=== PATIENT | female | born 1935 | race Caucasian/White ===

== ENCOUNTER 2018-05-10 09:46 | Outpatient (RCR) | payer MEDICARE | END 2018-05-13 | disposition home or self-care (01) | LOC: ONC 09:46 | PROVIDERS: ATTEND Radiology Radiation Oncology | DX: Z51.0 Encounter for antineoplastic radiation therapy (principal); C79.2 Secondary malignant neoplasm of skin; Z85.3 Personal history of malignant neoplasm of breast | CPT/HCPCS: 77290; 77334; 77470; 99204 ==

== ENCOUNTER → 2018-12-25 | Outpatient (CLI) | payer MEDICARE ==
[~2018-12-25] MED LIST: GADOBUTROL 7.5 MMOL/7.5 ML (GADAVIST) VIAL IV ONE; HOLD METFORMIN - RECEIVED CONTRAST 20 ML VIAL IV SCH; IOHEXOL 350 MG/ML 100 ML (OMNIPAQUE 350) VIAL IV ONE
--- NOTE | 2018-12-25 13:37 | Diagnostic Imaging Report ---
PROCEDURE: CT chest and abdomen with contrast. TECHNIQUE: Multiple contiguous axial images were obtained through the chest and abdomen after the administration of intravenous contrast. Auto Exposure Controls were utilized during the CT exam to meet ALARA standards for radiation dose reduction. INDICATION: Breast cancer with left mastectomy. COMPARISON: No prior studies are available for comparison. FINDINGS: CT chest: A right chest wall port is noted. No axillary lymphadenopathy is seen. There appear to be surgical clips in the left axilla. No definite hilar or mediastinal lymphadenopathy is identified. No pericardial or pleural fluid is identified. There appear be some fibrotic changes in the left upper lobe. No parenchymal mass or nodule is seen. No definite osteolytic or osteoblastic lesions are detected. IMPRESSION: Fibrotic changes in the left upper lobe. No thoracic lymphadenopathy or evidence of pulmonary metastatic disease is identified. CT abdomen: No discrete liver mass is identified. There appears to be a small stone in the gallbladder. No biliary ductal dilatation is seen. Pancreas and spleen are unremarkable. No adrenal mass is detected. Kidneys are unremarkable. Aorta is calcified but nonaneurysmal. No central retroperitoneal or mesenteric lymphadenopathy is seen. Bowel loops are nondilated. There is no ascites. No acute bony abnormality is seen. No osteolytic or blastic lesion is seen. IMPRESSION: 1. Unremarkable CT of the abdomen. There are no findings to suggest adenopathy or metastatic disease. 2. Cholelithiasis. Dictated by: Dictated on workstation # [id number]
--- NOTE | 2018-12-25 13:45 | Diagnostic Imaging Report ---
CLINICAL INDICATION: Patient with breast cancer with back and right leg pain. EXAM: MRI of the brain performed without and with 6 cc of Gadavist IV contrast. Sequences include axial DWI, ADC map, coronal gradient echo, axial T2, axial FLAIR, axial T1, axial T1 post IV contrast, coronal T1 fat-sat post IV contrast, and sagittal T1 post IV contrast. COMPARISON: None. FINDINGS: There is no evidence of acute cerebral infarct, intracranial hemorrhage, or gross mass effect. There is no abnormal IV contrast enhancement. There is diffuse brain parenchymal volume loss. There are multiple focal, patchy and confluent areas of high T2 signal white matter changes seen throughout both cerebral hemispheres, periventricular regions, and rashaun, likely related to chronic small vessel ischemic disease and leukoaraiosis. There is normal gomez-white matter distinction. There is no significant midline shift or herniation. The [place] vascular structures show no gross abnormality as visualized. The pituitary gland, sella, and suprasellar regions are unremarkable as visualized. There is no evidence of hydrocephalus. The basal cisterns are unremarkable. The skull, extracranial soft tissue, and orbits are unremarkable. There is mild mucosal thickening involving the ethmoid sinus. There is small amount of fluid in the left mastoid air cells and minimal amount on the right side. IMPRESSION: 1: There is no evidence of acute intracranial process. There is no evidence of metastatic disease or abnormal IV contrast enhancement. 2: Chronic small vessel ischemic disease and leukoaraiosis. 3: There is mild ethmoid sinus mucosal thickening. There is a small amount of fluid in both mastoid air cells. Dictated by: Dictated on workstation # [id number]
== END ==
LOC: RAD 11:35
PROVIDERS: ATTEND Internal Medicine Hematology & Oncology
DX: C50.312 Malignant neoplasm of lower-inner quadrant of left female breast (principal); I67.82 Cerebral ischemia; I67.81 Acute cerebrovascular insufficiency; J34.89 Other specified disorders of nose and nasal sinuses; J84.10 Pulmonary fibrosis, unspecified; K80.20 Calculus of gallbladder without cholecystitis without obstruction; Z90.12 Acquired absence of left breast and nipple; Z95.828 Presence of other vascular implants and grafts
CPT/HCPCS: 70553; 71260; 74160

== ENCOUNTER → 2019-01-04 | Outpatient (CLI) | payer MEDICARE ==
[~2019-01-04] MED LIST changes: -HOLD METFORMIN - RECEIVED CONTRAST 20 ML VIAL IV SCH; -IOHEXOL 350 MG/ML 100 ML (OMNIPAQUE 350) VIAL IV ONE
--- NOTE | 2019-01-04 13:38 | Diagnostic Imaging Report ---
PROCEDURE: MRI lumbar spine with and without contrast. TECHNIQUE: Multiplanar, multisequence MRI of the lumbar spine was performed with and without contrast. INDICATION: Back pain. Patient has history of breast cancer. COMPARISON: No prior studies are available for comparison. FINDINGS: There is right convexity lumbar scoliotic curvature. There is normal lordotic curvature. Minimal retrolisthesis of L1 on L2 and L2 on L3 is noted. The vertebral body heights are maintained. No acute compression fracture or geographic marrow lesion is seen. There is significant multilevel degenerative disc disease with variable disc space narrowing and desiccation as well as marginal osteophyte formation. This is most marked at T12-L1, L1-2 and L2-3 levels. Conus is unremarkable at the L2-3 level. T12-L1: Central canal is patent. There appears to be some mild left neural foraminal narrowing. Right neural foramen is patent. L1-2: Central canal is patent. There is moderate left neural foraminal narrowing. Right neural foramen is patent. L2-3: There is some ligamentous thickening and broad-based disc/osteophyte complex. Central canal remains patent. There is mild to moderate neural foraminal narrowing bilaterally. L3-4: There is ligamentous thickening and broad-based disc/osteophyte complex. This does result in mild to moderate central canal narrowing. There is also bilateral lateral recess narrowing. Moderate bilateral neural foraminal stenosis is seen, greater on the right. L4-5: Broad-based disc/osteophyte complex and ligamentous thickening results in severe trefoil stenosis to the central canal. There is also significant bilateral lateral recess stenosis. Significant bilateral neural foraminal stenosis is noted. L5-S1: Bulky hypertrophic facet changes with ligamentous thickening and broad-based disc/osteophyte complex resulting in severe trefoil central canal stenosis. There is also severe bilateral lateral recess stenosis and moderate bilateral neural foraminal stenosis. Postcontrast imaging is without abnormal enhancement. IMPRESSION: Severe multilevel lumbar spondylosis with multilevel central canal, lateral recess and neural foraminal stenosis described level by level above. No acute compression fracture or evidence of metastatic disease is detected. Dictated by: Dictated on workstation # [id number]
== END ==
LOC: RAD 11:50
PROVIDERS: ATTEND Internal Medicine Hematology & Oncology
DX: M47.817 Spondylosis without myelopathy or radiculopathy, lumbosacral region (principal); M48.07 Spinal stenosis, lumbosacral region; M41.86 Other forms of scoliosis, lumbar region; M51.36 Other intervertebral disc degeneration, lumbar region; M25.78 Osteophyte, vertebrae; C50.312 Malignant neoplasm of lower-inner quadrant of left female breast
CPT/HCPCS: 72158

== ENCOUNTER 2019-01-10 13:56 | Outpatient (RCR) | payer MEDICARE ==
[2018-12-04 15:24] LABS: BASOPHILS % (AUTO) 1 % (0-10); EOSINOPHILS # (AUTO) 0.3 10^3/uL (0.0-0.3); EOSINOPHILS % (AUTO) 6 % (0-10); HEMATOCRIT 38 % (35-52); HEMOGLOBIN 12.7 G/DL (11.5-16.0); LYMPHOCYTES # (AUTO) 0.9 X 10^3 (1.0-4.0); LYMPHOCYTES % (AUTO) 20 % (12-44); MEAN CORPUSCULAR HEMOGLOBIN 32 PG (25-34); MEAN CORPUSCULAR HGB CONC 33 G/DL (32-36); MEAN CORPUSCULAR VOLUME 97 FL (80-99); MEAN PLATELET VOLUME 9.9 FL (7.4-10.4); MONOCYTES # (AUTO) 0.5 X 10^3 (0.0-1.0); MONOCYTES % (AUTO) 11 % (0-12); NEUTROPHILS # (AUTO) 2.9 X 10^3 (1.8-7.8); NEUTROPHILS % (AUTO) 62 % (42-75); PLATELET COUNT 178 10^3/uL (130-400); RED CELL DISTRIBUTION WIDTH 12.3 % (10.0-14.5); WHITE BLOOD COUNT 4.7 10^3/uL (4.3-11.0)
[2018-12-04 15:44] LABS: BILIRUBIN,TOTAL 0.3 MG/DL (0.1-1.0); CALCIUM 10.1 MG/DL (8.5-10.1); CREATININE SERUM 0.89 MG/DL (0.60-1.30); POTASSIUM 4.4 MMOL/L (3.6-5.0)
== END 2019-03-04 | disposition home or self-care (01) ==
LOC: ONC 13:56
PROVIDERS: ATTEND Internal Medicine Hematology & Oncology
DX: C50.312 Malignant neoplasm of lower-inner quadrant of left female breast (principal); C77.3 Secondary and unspecified malignant neoplasm of axilla and upper limb lymph nodes; C79.89 Secondary malignant neoplasm of other specified sites; Z17.1 Estrogen receptor negative status [ER-]; I25.10 Atherosclerotic heart disease of native coronary artery without angina pectoris; I10 Essential (primary) hypertension; E03.9 Hypothyroidism, unspecified; K21.9 Gastro-esophageal reflux disease without esophagitis; F32.9 Major depressive disorder, single episode, unspecified; M54.31 Sciatica, right side; Z90.11 Acquired absence of right breast and nipple; Z92.21 Personal history of antineoplastic chemotherapy; Z92.3 Personal history of irradiation
CPT/HCPCS: 36591; 80053; 84443; 85025; 86300; 99213

== ENCOUNTER → 2019-02-12 | Outpatient (CLI) | payer MEDICARE ==
[~2019-02-12] VITALS: Ht 162.6 cm; Wt 63.0 kg
[~2019-02-12] MED LIST changes: -GADOBUTROL 7.5 MMOL/7.5 ML (GADAVIST) VIAL IV ONE; +REGADENOSON 0.4 MG/5 ML SYR (LEXISCAN) IV ONE
[2019-02-12] MEDS: CATHETER FLUSH 10 ML SYR IV PRN ×2 (11:58→12:48)
[2019-02-12 12:46] VITALS: BP 134/91
--- NOTE | 2019-02-12 23:50 | STRESS TEST ---
DATE OF SERVICE: 02/12/2019 RESTING AND POST REGADENOSON TECHNETIUM-99M TETROFOSMIN SPECT CT IMAGING ORDERING PHYSICIAN: Dr. Polo. CLINICAL DIAGNOSES: Coronary artery disease, abnormal electrocardiogram, hypertension. Baseline images were carried out after injection of 10.13 mCi of technetium-99m Tetrofosmin. This was followed by 0.4 mg regadenoson and 30.2 mCi of technetium-99m Tetrofosmin. The electrocardiogram showed sinus rhythm at baseline. There is evidence of left ventricular hypertrophy with repolarization abnormality. Isolated premature ventricular contractions seen. The electrocardiogram did not change significantly with the regadenoson infusion. Review of images at rest and following stress does not indicate evidence of significant myocardial ischemia or infarction. Gated images show mild global hypokinesis. The left ventricular ejection fraction is 43%. Left ventricular end diastolic volume 119 mL. TID is absent (1.04). CONCLUSIONS: 1. Mild cardiomegaly with mild global hypokinesis and left ventricular ejection fraction of 43%. 2. No evidence of significant myocardial ischemia or infarction on this study. Job ID: [id number] DocumentID: [id number] Dictated Date: 02/12/2019 19:49:59 Heel Sander Date: 02/12/2019 23:49:59 Dictated By: KELLY POLO MD, MA, FACP, FACC, MTDD
== END ==
LOC: CARD 11:43
PROVIDERS: ATTEND Internal Medicine Cardiovascular Disease
DX: I25.10 Atherosclerotic heart disease of native coronary artery without angina pectoris (principal); I10 Essential (primary) hypertension; R94.31 Abnormal electrocardiogram [ECG] [EKG]
CPT/HCPCS: 78452; 93017

== ENCOUNTER 2019-03-27 16:16 | Emergency (ER) | payer MEDICARE ==
[~2019-03-27] VITALS: Ht 162.6 cm; Wt 64.4 kg
--- NOTE | 2019-03-27 16:21 | ED General ---
General Stated Complaint: LIGHT-HEADED History of Present Illness Date Seen by Provider: Mar 27, 2019 Time Seen by Provider: 16:20 Initial Comments Patient presenting to the emergency department for evaluation of a room spinning sensation that has been affecting her for the past 4 days. She says that she likes to be very active going out and doing yard work and doing work around the house and whenever she bends over to do something she feels an intense spinning sensation and has fallen once but she denies any injuries. She says that she does not have a lightheaded sensation chest pain shortness of breath diaphoresis vomiting diarrhea. She says that spinning sensation can make her nauseated and she may not be taking in enough fluids. She says for an extended period of time she has felt a pressure sensation in her bilateral ears and feels as if she is under water whenever she talks. She is unsure how long this is exactly been going on but she says for at least several weeks. She denies vision changes difficulty speaking unilateral weakness numbness or tingling. She is in no obvious distress with normal vital signs Allergies and Home Medications Allergies Coded Allergies: No Known Drug Allergies (Unverified , 03/27/19) Home Medications Alprazolam 0.5 Mg Tablet, 0.5 MG PO QID PRN for ANXIETY, (Reported) Aspirin 81 Mg Tablet.dr, 81 MG PO DAILY, (Reported) Cholecalciferol (Vitamin D3) 1,000 Unit Tablet, 1,000 UNIT PO DAILY, (Reported) Gabapentin 400 Mg Capsule, 400 MG PO TID, (Reported) Hydrocodone/Acetaminophen 1 Each Tablet, 1 TAB PO TID PRN for PAIN-MILD TO MODERATE, (Reported) Levothyroxine Sodium 150 Mcg Tablet, 150 MCG PO DAILY, (Reported) Lisinopril 2.5 Mg Tablet, 2.5 MG PO DAILY, (Reported) Metoprolol Succinate 25 Mg Tab.er.24h, 25 MG PO DAILY, (Reported) Montelukast Sodium 10 Mg Tablet, 10 MG PO DAILY, (Reported) Omeprazole 20 Mg Capsule.dr, 20 MG PO BID, (Reported) Paroxetine HCl 20 Mg Tablet, 20 MG PO DAILY, (Reported) Ropinirole HCl 2 Mg Tablet, 2 MG PO BID, (Reported) Sucralfate 1 Gm Tablet, 1 GM PO QIDACHS, (Reported) Patient Home Medication List Home Medication List Reviewed: Yes Review of Systems Review of Systems Constitutional: no symptoms reported EENTM: hearing loss Respiratory: no symptoms reported Cardiovascular: no symptoms reported Gastrointestinal: nausea Genitourinary: no symptoms reported Musculoskeletal: no symptoms reported Skin: no symptoms reported Psychiatric/Neurological: Other (vertigo) All Other Systems Reviewed Negative Unless Noted: Yes Physical Exam Vital Signs Vital Signs - First Documented 03/27/19 16:30 Temp 97.5 Pulse 60 Resp 20 B/P (MAP) 139/90 (106) Pulse Ox 97 O2 Delivery Room Air Capillary Refill : Height, Weight, BMI Height: 5'4.00" Weight: 139lbs. 0.0oz. 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 Norm as Tested, Other (normal finger to nose and heel to martinez) Skin: Normal Color, Warm/Dry Progress/Results/Core Measures Suspected Sepsis SIRS Temperature: Pulse: Respiratory Rate: Laboratory Tests 03/27/19 16:45: White Blood Count 6.5 Blood Pressure / Mean: Laboratory Tests 03/27/19 16:45: Creatinine 1.00, Platelet Count 201, Total Bilirubin 0.3 Results/Orders Lab Results Laboratory Tests Test 03/27/19 16:45 03/27/19 16:55 Range/Units White Blood Count 6.5 4.3-11.0 10^3/uL Red Blood Count 4.13 L 4.35-5.85 10^6/uL Hemoglobin 13.6 11.5-16.0 G/DL Hematocrit 41 35-52 % Mean Corpuscular Volume 99 80-99 FL Mean Corpuscular Hemoglobin 33 25-34 PG Mean Corpuscular Hemoglobin Concent 33 32-36 G/DL Red Cell Distribution Width 13.6 10.0-14.5 % Platelet Count 201 130-400 10^3/uL Mean Platelet Volume 9.8 7.4-10.4 FL Neutrophils (%) (Auto) 64 42-75 % Lymphocytes (%) (Auto) 15 12-44 % Monocytes (%) (Auto) 9 0-12 % Eosinophils (%) (Auto) 12 H 0-10 % Basophils (%) (Auto) 1 0-10 % Neutrophils # (Auto) 4.1 1.8-7.8 X 10^3 Lymphocytes # (Auto) 1.0 1.0-4.0 X 10^3 Monocytes # (Auto) 0.6 0.0-1.0 X 10^3 Eosinophils # (Auto) 0.8 H 0.0-0.3 10^3/uL Basophils # (Auto) 0.1 0.0-0.1 10^3/uL Neutrophils % (Manual) 64 % Lymphocytes % (Manual) 21 % Monocytes % (Manual) 4 % Eosinophils % (Manual) 9 % Basophils % (Manual) 2 % Band Neutrophils 0 % Sodium Level 136 135-145 MMOL/L Potassium Level 4.5 3.6-5.0 MMOL/L Chloride Level 100 98-107 MMOL/L Carbon Dioxide Level 21 21-32 MMOL/L Anion Gap 15 H 5-14 MMOL/L Blood Urea Nitrogen 30 H 7-18 MG/DL Creatinine 1.00 0.60-1.30 MG/DL Estimat Glomerular Filtration Rate 53 BUN/Creatinine Ratio 30 Glucose Level 104 70-105 MG/DL Calcium Level 9.7 8.5-10.1 MG/DL Corrected Calcium 9.6 8.5-10.1 MG/DL Magnesium Level 1.9 1.6-2.4 MG/DL Total Bilirubin 0.3 0.1-1.0 MG/DL Aspartate Amino Transf (AST/SGOT) 20 5-34 U/L Alanine Aminotransferase (ALT/SGPT) 17 0-55 U/L Alkaline Phosphatase 129 40-136 U/L Troponin I < 0.30 <0.30 NG/ML Pro-B-Type Natriuretic Peptide 751.1 H <75.0 PG/ML Total Protein 7.0 6.4-8.2 GM/DL Albumin 4.1 3.2-4.5 GM/DL Urine Color YELLOW Urine Clarity CLEAR Urine pH 5.5 5-9 Urine Specific Reese <=1.005 1.016-1.022 Urine Protein NEGATIVE NEGATIVE Urine Glucose (UA) NEGATIVE NEGATIVE Urine Ketones NEGATIVE NEGATIVE Urine Nitrite NEGATIVE NEGATIVE Urine Bilirubin NEGATIVE NEGATIVE Urine Urobilinogen 0.2 NORMAL MG/DL Urine Leukocyte Esterase NEGATIVE NEGATIVE Urine RBC (Auto) NEGATIVE NEGATIVE Urine RBC NONE /HPF Urine WBC NONE /HPF Urine Squamous Epithelial Cells 0-2 /HPF Urine Crystals NONE /LPF Urine Bacteria NEGATIVE /HPF Urine Casts NONE /LPF Urine Mucus NONE /LPF Urine Culture Indicated NO My Orders Orders - LAWRENCE ISAACS DO Meclizine Tablet (Antivert Tablet) (03/27/19 16:45) Diazepam Tablet (Valium Tablet) (03/27/19 16:45) Ct Head Wo (03/27/19 16:42) Cbc With Automated Diff (03/27/19 16:42) Comprehensive Metabolic Panel (03/27/19 16:42) Magnesium (03/27/19 16:42) Probnp Fs (03/27/19 16:42) Ua Culture If Indicated (03/27/19 16:42) Troponin I (03/27/19 16:42) Ekg Tracing (03/27/19 16:42) Manual Differential (03/27/19 16:45) Ns Iv 1000 Ml (Sodium Chloride 0.9%) (03/27/19 17:00) Dexamethasone Injection (Decadron Inject (03/27/19 17:45) Medications Given in ED Current Medications Medications Dose Ordered Sig/Umm Route Start Time Stop Time Status Last Admin Dose Admin Diazepam 2.5 mg ONCE ONCE PO 03/27/19 16:45 03/27/19 16:46 DC 03/27/19 16:57 2.5 MG Meclizine HCl 25 mg ONCE ONCE PO 03/27/19 16:45 03/27/19 16:46 DC 03/27/19 16:57 25 MG Vital Signs/I&O 03/27/19 16:30 Temp 97.5 Pulse 60 Resp 20 B/P (MAP) 139/90 (106) Pulse Ox 97 O2 Delivery Room Air Capillary Refill : Progress Note : Progress Note Symptoms are most consistent with peripheral vertigo in my opinion. Will check basic labs and head CT and treat symptoms and reassess. Patient given low-dose Valium and meclizine as well as IV fluids and she says she feels much better with no room spinning sensation. Her labs show that she is mildly dehydrated but no other acute pathology. She does have a normal head CT with no obvious signs of stroke or mass. Patient was given a small dose of D ecadron to treat possible vestibular neuronitis given she has a pressure sensation although her ear exam is rather unremarkable. Patient was told to follow-up in ENT and she reports never seen one before in the past. I will discharge her in stable condition told her to follow with PCP and ENT and come back to the ED with any worsening pain neurologic changes other general concern s. Patient aware and agreeable with plan for discharge and verbalized understanding of the above instructions. She was able to ambulate with a steady gait. Departure Impression Primary Impression: Vertigo Additional Impression: Dehydration Disposition: 01 HOME, SELF-CARE Condition: Stable Departure-Patient Inst. Referrals: SELF,FELICITAS RAIN (PCP/Family) Primary Care Physician Patient Instructions: Vertigo (a Type of Dizziness) (DC) Add. Discharge Instructions: Use otc nasonex to help with the ear pressure. Drink plenty of fluids. Follow with ENT. Come back with any concerns. Thank you! LAWRENCE ISAACS DO Mar 27, 2019 16:21
[2019-03-27] MEDS ORDERED: MECLIZINE 25 MG (ANTIVERT) TAB PO ONE (16:45)
[2019-03-27] MEDS ORDERED: DIAZEPAM 5 MG (VALIUM) TABLET PO ONE (16:45)
[2019-03-27 16:56] LABS: BASOPHILS % (AUTO) 1 % (0-10); EOSINOPHILS % (AUTO) 12 % (0-10); HEMATOCRIT 41 % (35-52); HEMOGLOBIN 13.6 G/DL (11.5-16.0); LYMPHOCYTES % (AUTO) 15 % (12-44); MEAN CORPUSCULAR HEMOGLOBIN 33 PG (25-34); MEAN CORPUSCULAR HGB CONC 33 G/DL (32-36); MEAN CORPUSCULAR VOLUME 99 FL (80-99); MEAN PLATELET VOLUME 9.8 FL (7.4-10.4); MONOCYTES % (AUTO) 9 % (0-12); NEUTROPHILS % (AUTO) 64 % (42-75); PLATELET COUNT 201 10^3/uL (130-400); RED CELL DISTRIBUTION WIDTH 13.6 % (10.0-14.5); WHITE BLOOD COUNT 6.5 10^3/uL (4.3-11.0)
[2019-03-27 16:57] LABS: BASOPHILS # (AUTO) 0.1 10^3/uL (0.0-0.1); EOSINOPHILS # (AUTO) 0.8 10^3/uL (0.0-0.3); MONOCYTES # (AUTO) 0.6 X 10^3 (0.0-1.0); NEUTROPHILS # (AUTO) 4.1 X 10^3 (1.8-7.8)
[2019-03-27] MEDS ORDERED: NS IV 1000 ML 1,000 ML IV SCH (17:00)
[2019-03-27] MEDS ORDERED: PARO20TA5 PO (17:10)
[2019-03-27] MEDS ORDERED: LISI2.5T PO (17:10)
[2019-03-27] MEDS ORDERED: LEVO150T6 PO (17:10)
[2019-03-27] MEDS ORDERED: SUCR1TAB PO (17:10)
[2019-03-27] MEDS ORDERED: ROPI2TAB4 PO (17:10)
[2019-03-27] MEDS ORDERED: MONT10TA24 PO (17:10)
[2019-03-27] MEDS ORDERED: CHOL10003 PO (17:10)
[2019-03-27] MEDS ORDERED: ASPI-983 PO (17:10)
[2019-03-27] MEDS ORDERED: METO-387 PO (17:10)
[2019-03-27] MEDS ORDERED: GABA-490 PO (17:10)
[2019-03-27] MEDS ORDERED: HYDR-3812 PO (17:10)
[2019-03-27] MEDS ORDERED: ALPR0.5T7 PO (17:10)
[2019-03-27] MEDS ORDERED: OMEP20CA13 PO (17:10)
[2019-03-27 17:11] LABS: CLARITY,URINE CLEAR; COLOR,URINE YELLOW; PH,URINE 5.5 (5-9)
[2019-03-27 17:12] LABS: BACTERIA,URINE NEGATIVE /HPF; BILIRUBIN,URINE NEGATIVE (NEGATIVE); GLUCOSE, URINE (UA) NEGATIVE (NEGATIVE); KETONES,URINE NEGATIVE (NEGATIVE); LEUKOCYTE ESTERASE ,URINE NEGATIVE (NEGATIVE); NITRITE,URINE NEGATIVE (NEGATIVE); PROTEIN,URINE NEGATIVE (NEGATIVE); SQUAMOUS EPITHELIAL CELL,UR 0-2 /HPF; UROBILINOGEN,URINE 0.2 MG/DL (NORMAL)
[2019-03-27 17:19] LABS: BAND NEUTROPHILS 0 %; BASOPHILS % (MANUAL) 2 %; EOSINOPHILS % (MANUAL) 9 %; LYMPHOCYTES % (MANUAL) 21 %; MONOCYTES % (MANUAL) 4 %; NEUTROPHILS % (MANUAL) 64 %
--- NOTE | 2019-03-27 17:21 | Diagnostic Imaging Report ---
INDICATION: Dizziness. TECHNIQUE: Routine non contrast-enhanced axial images were obtained from the skull base to the vertex. Auto Exposure Controls were utilized during the CT exam to meet ALARA standards for radiation dose reduction COMPARISON: MR brain dated 12/25/2018. FINDINGS: The ventricles and cortical sulci are diffusely prominent, compatible with age-related volume loss. There are confluent areas of abnormal, low attenuation in the periventricular white matter. This is consistent with chronic small vessel ischemic changes. There is no midline shift or mass-effect. No acute intra-axial hemorrhage is seen. There are no abnormal areas of increased or decreased density to suggest acute hemorrhage or edema. No extra-axial masses or collections are present. The bony calvarium is intact. The visualized paranasal sinuses are unremarkable. The mastoid air cells are clear. IMPRESSION: 1. No acute intracranial abnormality. No CT evidence of mass, acute infarct or intracranial hemorrhage. 2. Chronic small vessel ischemic changes within the deep white matter. Dictated by: Dictated on workstation # [id number]
[2019-03-27 17:27] LABS: BUN/CREATININE RATIO 30; CARBON DIOXIDE 21 MMOL/L (21-32); CHLORIDE 100 MMOL/L (98-107); GFR ESTIMATED 53; POTASSIUM 4.5 MMOL/L (3.6-5.0); SODIUM 136 MMOL/L (135-145)
[2019-03-27 17:28] LABS: ALBUMIN 4.1 GM/DL (3.2-4.5); BILIRUBIN,TOTAL 0.3 MG/DL (0.1-1.0); CALCIUM 9.7 MG/DL (8.5-10.1); GLUCOSE 104 MG/DL (70-105); MAGNESIUM 1.9 MG/DL (1.6-2.4)
[2019-03-27 17:29] LABS: ALANINE AMINOTRANSFERASE 17 U/L (0-55); ALKALINE PHOSPHATASE 129 U/L (40-136)
[2019-03-27] MEDS ORDERED: DEXAMETHASONE 4 MG/ML SDV (DECADRON) PO ONE (17:45)
[2019-03-27] MEDS ORDERED: MECL-106 PO (17:52)
[2019-03-27 18:20] VITALS: BP 124/53
== END 2019-03-27 18:20 | disposition home or self-care (01) ==
LOC: EDUNIT# 16:16 → ER FS 16:17
DX: R42 Dizziness and giddiness (principal); E86.0 Dehydration; Z79.82 Long term (current) use of aspirin
CPT/HCPCS: 36415; 70450; 80053; 81000; 83735; 83880; 84484; 85007; 85027; 93005

== ENCOUNTER → 2019-04-04 | Outpatient (CLI) | payer MEDICARE ==
[~2019-04-04] MED LIST changes: +ALPR0.5T7 PO; +ASPI-983 PO; +CHOL10003 PO; +GABA-490 PO; +HYDR-3812 PO; +LEVO150T6 PO; +LISI2.5T PO; +MECL-106 PO; +METO-387 PO; +MONT10TA24 PO; +OMEP20CA13 PO; +PARO20TA5 PO; -REGADENOSON 0.4 MG/5 ML SYR (LEXISCAN) IV ONE; +ROPI2TAB4 PO; +SUCR1TAB PO
[2019-04-04 13:31] LABS: BASOPHILS % (AUTO) 1 % (0-10); EOSINOPHILS % (AUTO) 16 % (0-10); HEMATOCRIT 41 % (35-52); HEMOGLOBIN 13.6 G/DL (11.5-16.0); LYMPHOCYTES # (AUTO) 1.1 X 10^3 (1.0-4.0); LYMPHOCYTES % (AUTO) 17 % (12-44); MEAN CORPUSCULAR HEMOGLOBIN 33 PG (25-34); MEAN CORPUSCULAR HGB CONC 33 G/DL (32-36); MEAN CORPUSCULAR VOLUME 100 FL (80-99); MONOCYTES # (AUTO) 0.6 X 10^3 (0.0-1.0); MONOCYTES % (AUTO) 10 % (0-12); NEUTROPHILS # (AUTO) 3.6 X 10^3 (1.8-7.8); NEUTROPHILS % (AUTO) 57 % (42-75); PLATELET COUNT 165 10^3/uL (130-400); RED CELL DISTRIBUTION WIDTH 13.5 % (10.0-14.5); WHITE BLOOD COUNT 6.3 10^3/uL (4.3-11.0)
[2019-04-04 13:49] LABS: ALBUMIN 4.1 GM/DL (3.2-4.5); BILIRUBIN,TOTAL 0.5 MG/DL (0.1-1.0); CALCIUM 9.8 MG/DL (8.5-10.1); CREATININE SERUM 1.14 MG/DL (0.60-1.30); POTASSIUM 4.6 MMOL/L (3.6-5.0); TOTAL PROTEIN 7.1 GM/DL (6.4-8.2)
== END ==
LOC: EDSTATUS 03-05 15:09 → ONC 13:21
PROVIDERS: ATTEND Internal Medicine Hematology & Oncology
DX: C79.2 Secondary malignant neoplasm of skin (principal); Z85.3 Personal history of malignant neoplasm of breast
CPT/HCPCS: 36415; 80053; 85025; 99213

== ENCOUNTER → 2019-09-12 | Outpatient (CLI) | payer MEDICARE ==
[~2019-09-12] MED LIST changes: -METO-387 PO; +MTP25TSR PO; +OMEP-280 PO; -OMEP20CA13 PO
[2019-09-12 10:51] LABS: BASOPHILS % (AUTO) 0 % (0-10); EOSINOPHILS # (AUTO) 0.7 10^3/uL (0.0-0.3); EOSINOPHILS % (AUTO) 13 % (0-10); HEMATOCRIT 41 % (35-52); HEMOGLOBIN 13.4 G/DL (11.5-16.0); LYMPHOCYTES # (AUTO) 1.2 X 10^3 (1.0-4.0); LYMPHOCYTES % (AUTO) 21 % (12-44); MEAN CORPUSCULAR HEMOGLOBIN 32 PG (25-34); MEAN CORPUSCULAR HGB CONC 33 G/DL (32-36); MEAN CORPUSCULAR VOLUME 98 FL (80-99); MEAN PLATELET VOLUME 9.9 FL (7.4-10.4); MONOCYTES # (AUTO) 0.7 X 10^3 (0.0-1.0); MONOCYTES % (AUTO) 12 % (0-12); NEUTROPHILS # (AUTO) 2.9 X 10^3 (1.8-7.8); NEUTROPHILS % (AUTO) 53 % (42-75); PLATELET COUNT 182 10^3/uL (130-400); RED CELL DISTRIBUTION WIDTH 12.8 % (10.0-14.5); WHITE BLOOD COUNT 5.5 10^3/uL (4.3-11.0)
[2019-09-12 11:06] LABS: ALBUMIN 3.9 GM/DL (3.2-4.5); BILIRUBIN,TOTAL 0.2 MG/DL (0.1-1.0); CALCIUM 9.8 MG/DL (8.5-10.1); CREATININE SERUM 1.04 MG/DL (0.60-1.30); POTASSIUM 4.8 MMOL/L (3.6-5.0)
== END ==
LOC: ONC 10:36
PROVIDERS: ATTEND Internal Medicine Hematology & Oncology
DX: C79.2 Secondary malignant neoplasm of skin (principal); Z85.3 Personal history of malignant neoplasm of breast
CPT/HCPCS: 80053; 85025; 86300

== ENCOUNTER 2020-07-11 19:37 | Emergency (ER) | payer MEDICARE ==
[~2020-07-11] VITALS: Ht 167.7 cm; Wt 86.0 kg
[~2020-07-11 19:37] MED LIST changes: +ACHD5005 PO; +ASPI-1238 PO; -ASPI-983 PO; -HYDR-3812 PO; -MECL-106 PO; +MECL-149 PO; -MONT10TA24 PO; +MONT10TA26 PO; -OMEP-280 PO; +OMEP20CA18 PO; -ROPI2TAB4 PO; +ROPI2TAB6 PO
--- NOTE | 2020-07-11 19:56 | ED Cough/URI ---
General Chief Complaint: Head/Cervical Problems Stated Complaint: FLU SYMPTOMS Source: patient History of Present Illness Date Seen by Provider: Jul 11, 2020 Time Seen by Provider: 19:45 Initial Comments 84-year-old female presents via EMS with complaint of feeling poorly and having a right frontal headache with sinus drainage and a cough. Complains of sh ortness of air only when she wears a mask. Otherwise denies fever or chills, chest pain or wheezing. Think she has a sinus infection because of sinus pressure and drainage that she's had for a few days. History of similar symptoms in the past Allergies and Home Medications Allergies Coded Allergies: Sulfa (Sulfonamide Antibiotics) (Unverified Adverse Reaction, Mild, hives, 03/27/19) adhesive tape (Unverified Adverse Reaction, Mild, skin reaction, 03/27/19) latex (Unverified Adverse Reaction, Mild, rash, 03/27/19) sulfamethoxazole (Unverified Adverse Reaction, Mild, rash, 03/27/19) Septra IV allergy from [employer] tramadol (Unverified Adverse Reaction, Mild, Nausea/vomiting, 03/27/19) trimethoprim (Unverified Adverse Reaction, Mild, rash, 03/27/19) Septra IV allergy from [employer] Home Medications Alprazolam 0.5 Mg Tablet, 0.5 MG PO QID PRN for ANXIETY, (Reported) Aspirin 81 Mg Tablet.dr, 81 MG PO DAILY, (Reported) Azithromycin 250 Mg Tablet, 250 MG PO DAILY Prescribed by: LUCY OSBORN on 07/11/202029 Cholecalciferol (Vitamin D3) 1,000 Unit Tablet, 1,000 UNIT PO DAILY, (Reported) Dexamethasone 4 Mg Tablet, 4 MG PO DAILY Prescribed by: LUCY OSBORN on 07/11/202029 Gabapentin 400 Mg Capsule, 400 MG PO TID, (Reported) Hydrocodone Bit/Acetaminophen 1 Each Tablet, 1 TAB PO TID PRN for PAIN-MILD TO MODERATE, (Reported) Levothyroxine Sodium 150 Mcg Tablet, 150 MCG PO DAILY, (Reported) Lisinopril 2.5 Mg Tablet, 2.5 MG PO DAILY, (Reported) Meclizine HCl 25 Mg Tablet, 25 MG PO TID PRN for vertigo Prescribed by: LAWRENCE ISAACS on 8/14/19 1752 Metoprolol Succinate 25 Mg Tab.er.24h, 25 MG PO DAILY, (Reported) Montelukast Sodium 10 Mg Tablet, 10 MG PO DAILY, (Reported) Omeprazole 20 Mg Capsule.dr, 20 MG PO BID, (Reported) Paroxetine HCl 20 Mg Tablet, 20 MG PO DAILY, (Reported) Ropinirole HCl 2 Mg Tablet, 2 MG PO BID, (Reported) Sucralfate 1 Gm Tablet, 1 GM PO QIDACHS, (Reported) Patient Home Medication List Home Medication List Reviewed: Yes Review of Systems Review of Systems Constitutional: No dizziness, No fever; malaise; No weakness EENTM: see HPI, nose congestion, other (post nasal drainage and sinus pressure ); No ear discharge, No hearing loss, No ear pain, No blurred vision, No eye pain, No dental problems, No hoarseness, No mouth swelling, No throat pain Respiratory: cough; No short of breath, No stridor, No wheezing Cardiovascular: No chest pain, No edema, No syncope Gastrointestinal: No abdominal pain, No loss of appetite, No nausea, No vomiting Musculoskeletal: No back pain, No joint pain Skin: No change in color, No rash Past Xzbswkr-Dcesoo-Emqyhv Hx Past Med/Social Hx: Reviewed Nursing Past Med/Soc Hx Patient Social History 2nd Hand Smoke Exposure: No Recent Foreign Travel: No Contact w/Someone Who Travel: No Recent Hopitalizations: No Immunizations Up To Date Tetanus Booster (TDap): Less than 5yrs Date of Pneumonia Vaccine: Apr 18, 2018 Seasonal Allergies Seasonal Allergies: Yes Past Medical History Surgeries: Yes (L Mastectomy w/nodes; double bypass, tunneled groshong port) Breast, CABG Respiratory: No Cardiac: Yes (Heart failure; left systolic, 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 dz) Neuropathy, Vertigo Genitourinary: No Gastrointestinal: Yes (Gastritis, Duodenitis,) Gastroesophageal Reflux, Esophagitis, Gall Bladder Disease Musculoskeletal: Yes (Frequent sciatica issues, has RLS, complete rupture rotator cuff, ) Arthritis Endocrine: Yes Hypothyroidsim HEENT: No Cancer: Yes (Myelodysplastic Syndrome, Inflammatory CA L breast) Breast Did You Recieve Any Treatments: Yes What Type of Treatment Did You: Surgical Intervention Psychosocial: Yes Anxiety Integumentary: No Blood Disorders: No Physical Exam Vital Signs - First Documented 07/11/20 19:40 Temp 35.8 Pulse 52 Resp 18 B/P (MAP) 120/90 (100) Pulse Ox 96 O2 Delivery Room Air Capillary Refill : Height: 5'4.00" Weight: 142lbs. 0.0oz. 64.619798hc; 23.9 BMI Method:Stated General Appearance: WD/WN, no apparent distress HEENT: PERRL/EOMI, normal ENT inspection, other (tenderness R frontal sinus) Neck: non-tender, supple Respiratory: chest non-tender, no respiratory distress, no accessory muscle use, rhonchi; No wheezing Cardiovascular: regular rate, rhythm, no edema, no gallop, no JVD Gastrointestinal: non tender, soft; No distended, No guarding, No rebound, No tenderness Neurologic/Psychiatric: no motor/sensory deficits, alert, normal mood/affect Skin: normal color, warm/dry Progress/Results/Core Measures Suspected Sepsis SIRS Temperature: Pulse: Respiratory Rate: Laboratory Tests 07/11/20 19:50: White Blood Count 5.3 Blood Pressure / Mean: Laboratory Tests 07/11/20 19:50: Creatinine 1.03, Platelet Count 163 Results/Orders Lab Results Laboratory Tests Test 07/11/20 19:50 07/11/20 20:35 Range/Units White Blood Count 5.3 4.3-11.0 10^3/uL Red Blood Count 4.09 L 4.35-5.85 10^6/uL Hemoglobin 13.6 11.5-16.0 G/DL Hematocrit 41 35-52 % Mean Corpuscular Volume 101 H 80-99 FL Mean Corpuscular Hemoglobin 33 25-34 PG Mean Corpuscular Hemoglobin Concent 33 32-36 G/DL Red Cell Distribution Width 12.3 10.0-14.5 % Platelet Count 163 130-400 10^3/uL Mean Platelet Volume 9.9 7.4-10.4 FL Immature Granulocyte % (Auto) 0 % Neutrophils (%) (Auto) 74 42-75 % Lymphocytes (%) (Auto) 14 12-44 % Monocytes (%) (Auto) 7 0-12 % Eosinophils (%) (Auto) 4 0-10 % Basophils (%) (Auto) 0 0-10 % Neutrophils # (Auto) 3.9 1.8-7.8 X 10^3 Lymphocytes # (Auto) 0.8 L 1.0-4.0 X 10^3 Monocytes # (Auto) 0.4 0.0-1.0 X 10^3 Eosinophils # (Auto) 0.2 0.0-0.3 10^3/uL Basophils # (Auto) 0.0 0.0-0.1 10^3/uL Immature Granulocyte # (Auto) 0.0 0.0-0.1 10^3/uL Sodium Level 138 135-145 MMOL/L Potassium Level 4.4 3.6-5.0 MMOL/L Chloride Level 105 98-107 MMOL/L Carbon Dioxide Level 22 21-32 MMOL/L Anion Gap 11 5-14 MMOL/L Blood Urea Nitrogen 20 H 7-18 MG/DL Creatinine 1.03 0.60-1.30 MG/DL Estimat Glomerular Filtration Rate 51 BUN/Creatinine Ratio 19 Glucose Level 121 H 70-105 MG/DL Calcium Level 9.6 8.5-10.1 MG/DL My Orders Orders - LUCY OSBORN DO Cbc With Automated Diff (07/11/20 19:50) Basic Metabolic Panel (07/11/20 19:50) Chest 1 View Ap/Pa Only (07/11/20 19:50) Coronavirus Sars-Cov-2 So 2018 (07/11/20 20:24) Dexamethasone Injection (Decadron Injec (07/11/20 20:30) Azithromycin Injection (Zithromax Inject (07/11/20 20:30) Medications Given in ED Current Medications Medications Dose Ordered Sig/Umm Route Start Time Stop Time Status Last Admin Dose Admin Azithromycin 500 mg/Sodium Chloride 250 ml @ 250 mls/hr ONCE ONCE IV 07/11/20 20:30 07/11/20 21:29 DC 07/11/20 20:57 250 MLS/HR Dexamethasone Sodium Phosphate 4 mg ONCE ONCE IV 07/11/20 20:30 07/11/20 20:31 DC 07/11/20 20:57 4 MG Vital Signs/I&O 07/11/20 19:40 Temp 35.8 Pulse 52 Resp 18 B/P (MAP) 120/90 (100) Pulse Ox 96 O2 Delivery Room Air Capillary Refill : Diagnostic Imaging Diagonstic Imaging: Xray Comments EXAMINATION: Chest, 1 view. HISTORY: Cough, SOA. COMPARISON: CT chest 12/25/2018. FINDINGS: Heart size is mildly enlarged with surgical changes from CABG. Pulmonary vasculature is normal. Mild interstitial opacities throughout both lungs. No pleural effusion or pneumothorax. There is a linear opacity overlying the right chest which may represent an underlying catheter from the previously seen port on prior CT. The osseous structures are intact. IMPRESSION: Cardiomegaly with mild bilateral interstitial opacities which could be secondary to pulmonary edema or atypical infection. Dictated by: Dictated on workstation # [id number] Dict: 07/11/202001 Trans: 07/11/202008 [facility] [id number] Interpreted by: ROB BENNETT DO Electronically signed by: ROB BENNETT DO 07/11/202008 Departure Impression Primary Impression: Atypical pneumonia Disposition: 01 HOME, SELF-CARE Condition: Stable Departure-Patient Inst. Decision time for Depature: 20:27 Referrals: SELFFELICITAS MD (PCP/Family) Primary Care Physician Patient Instructions: Atypical Pneumonia (Mycoplasma and Viral) (DC) Add. Discharge Instructions: Follow up to the nearest ER if you are having progressive difficulty breathing you have been tested for Covid-19. You should self quarantine until you hear from the [facility] regarding your test results. All discharge instructions reviewed with patient and/or family. Voiced understanding. Scripts Azithromycin (Azithromycin) 250 Mg Tablet 250 MG PO DAILY, #5 TAB Prov: LUCY OSBORN DO 07/11/20 Dexamethasone (Dexamethasone) 4 Mg Tablet 4 MG PO DAILY, #5 TAB Prov: LUCY OSBORN DO 07/11/20 LUCY OSBORN DO Jul 11, 2020 19:56
[2020-07-11 19:58] LABS: HEMOGLOBIN 13.6 G/DL (11.5-16.0); MEAN CORPUSCULAR HEMOGLOBIN 33 PG (25-34); WHITE BLOOD COUNT 5.3 10^3/uL (4.3-11.0)
[2020-07-11 19:59] LABS: BASOPHILS % (AUTO) 0 % (0-10); EOSINOPHILS # (AUTO) 0.2 10^3/uL (0.0-0.3); EOSINOPHILS % (AUTO) 4 % (0-10); HEMATOCRIT 41 % (35-52); LYMPHOCYTES # (AUTO) 0.8 X 10^3 (1.0-4.0); LYMPHOCYTES % (AUTO) 14 % (12-44); MEAN CORPUSCULAR HGB CONC 33 G/DL (32-36); MEAN CORPUSCULAR VOLUME 101 FL (80-99); MEAN PLATELET VOLUME 9.9 FL (7.4-10.4); MONOCYTES # (AUTO) 0.4 X 10^3 (0.0-1.0); MONOCYTES % (AUTO) 7 % (0-12); NEUTROPHILS # (AUTO) 3.9 X 10^3 (1.8-7.8); NEUTROPHILS % (AUTO) 74 % (42-75); PLATELET COUNT 163 10^3/uL (130-400)
--- NOTE | 2020-07-11 20:06 | Diagnostic Imaging Report ---
EXAMINATION: Chest, 1 view. HISTORY: Cough, SOA. COMPARISON: CT chest 12/25/2018. FINDINGS: Heart size is mildly enlarged with surgical changes from CABG. Pulmonary vasculature is normal. Mild interstitial opacities throughout both lungs. No pleural effusion or pneumothorax. There is a linear opacity overlying the right chest which may represent an underlying catheter from the previously seen port on prior CT. The osseous structures are intact. IMPRESSION: Cardiomegaly with mild bilateral interstitial opacities which could be secondary to pulmonary edema or atypical infection. Dictated by: Dictated on workstation # [id number]
[2020-07-11 20:18] LABS: CALCIUM 9.6 MG/DL (8.5-10.1); CREATININE SERUM 1.03 MG/DL (0.60-1.30); POTASSIUM 4.4 MMOL/L (3.6-5.0)
[2020-07-11] MEDS ORDERED: AZITHROMYCIN INJECTION 500 MG in NS (IVPB) 250 ML IV ONE (20:30)
[2020-07-11] MEDS ORDERED: AZIT250T12 PO (20:30)
[2020-07-11] MEDS ORDERED: DEXA4TAB PO (20:30)
--- NOTE | 2020-07-11 22:16 | NUR ---
Called and spoke with Jamar the patients neighbor to come get her in the ER. [phone].
[2020-07-11 22:55] VITALS: BP 130/68
== END 2020-07-11 22:59 | disposition home or self-care (01) ==
LOC: EDUNIT# 19:37 → ER FS 19:39
DX: J18.8 Other pneumonia, unspecified organism (principal); I10 Essential (primary) hypertension; K21.9 Gastro-esophageal reflux disease without esophagitis; I25.2 Old myocardial infarction; F41.9 Anxiety disorder, unspecified; E03.9 Hypothyroidism, unspecified; Z20.828 Contact with and (suspected) exposure to other viral communicable diseases; Z85.3 Personal history of malignant neoplasm of breast; Z95.1 Presence of aortocoronary bypass graft; Z91.040 Latex allergy status; Z88.2 Allergy status to sulfonamides; Z88.1 Allergy status to other antibiotic agents; Z88.5 Allergy status to narcotic agent; Z79.890 Hormone replacement therapy; Z79.82 Long term (current) use of aspirin
CPT/HCPCS: 36415; 71045; 80048; 85025; 99284; U0002; 87635

== ENCOUNTER → 2020-09-10 | Outpatient (CLI) | payer MEDICARE ==
[~2020-09-10] MED LIST changes: +AZIT250T12 PO; +DEXA4TAB PO; +LEVO500T80 PO; -MONT10TA26 PO; +MONT10TA32 PO
[2020-09-10 11:08] LABS: BASOPHILS % (AUTO) 1 % (0-10); EOSINOPHILS # (AUTO) 0.6 10^3/uL (0.0-0.3); EOSINOPHILS % (AUTO) 11 % (0-10); HEMATOCRIT 41 % (35-52); HEMOGLOBIN 13.4 g/dL (11.5-16.0); LYMPHOCYTES # (AUTO) 1.4 10^3/uL (1.0-4.0); LYMPHOCYTES % (AUTO) 25 % (12-44); MEAN CORPUSCULAR HEMOGLOBIN 34 pg (25-34); MEAN CORPUSCULAR HGB CONC 33 g/dL (32-36); MEAN CORPUSCULAR VOLUME 104 fL (80-99); MEAN PLATELET VOLUME 9.7 fL (9.0-12.2); MONOCYTES # (AUTO) 0.7 10^3/uL (0.0-1.0); MONOCYTES % (AUTO) 13 % (0-12); NEUTROPHILS # (AUTO) 2.8 10^3/uL (1.8-7.8); NEUTROPHILS % (AUTO) 51 % (42-75); PLATELET COUNT 175 10^3/uL (130-400); WHITE BLOOD COUNT 5.4 10^3/uL (4.3-11.0)
[2020-09-10 11:29] LABS: ALBUMIN 3.8 GM/DL (3.2-4.5); BILIRUBIN,TOTAL 0.3 MG/DL (0.1-1.0); CALCIUM 9.3 MG/DL (8.5-10.1); CREATININE SERUM 1.22 MG/DL (0.60-1.30); POTASSIUM 4.2 MMOL/L (3.6-5.0); TOTAL PROTEIN 6.8 GM/DL (6.4-8.2)
== END ==
LOC: ONC 11:01
PROVIDERS: ATTEND Internal Medicine Hematology & Oncology
DX: C50.912 Malignant neoplasm of unspecified site of left female breast (principal); K21.9 Gastro-esophageal reflux disease without esophagitis; I10 Essential (primary) hypertension; I25.10 Atherosclerotic heart disease of native coronary artery without angina pectoris; F32.9 Major depressive disorder, single episode, unspecified; E03.9 Hypothyroidism, unspecified; M47.816 Spondylosis without myelopathy or radiculopathy, lumbar region; Z92.3 Personal history of irradiation; Z90.12 Acquired absence of left breast and nipple; Z98.890 Other specified postprocedural states
CPT/HCPCS: 80053; 85025; G0463; 99213

== ENCOUNTER 2020-09-13 11:25 | Emergency (ER) | payer MEDICARE ==
[~2020-09-13] VITALS: Ht 170.1 cm; Wt 72.7 kg
[~2020-09-13 11:25] MED LIST changes: -LEVO500T80 PO; -MONT10TA32 PO; +MONT10TA97 PO
[2020-09-13] MEDS ORDERED: diphenhydrAMINE 50 MG/ML INJ (BENADRYL) IVP ONE (11:45)
[2020-09-13] MEDS ORDERED: KETOROLAC 30 MG/ML VIAL IVP ONE (11:45)
[2020-09-13] MEDS ORDERED: NS IV 1000 ML 1,000 ML IV SCH (11:45)
--- NOTE | 2020-09-13 11:47 | ED General ---
General Stated Complaint: GENERAL MALAISE Source of Information: Patient, EMS History of Present Illness Date Seen by Provider: Sep 13, 2020 Time Seen by Provider: 11:25 Initial Comments 85-year-old female presenting with complaints of right-sided headache for the last 2 to 3 days. She also has just in general not felt well for the last few days. She was concerned that she might be dehydrated. She denies any nausea, vomiting, diarrhea. She has no burning with urination. She does have frequency of urination. She denies any chest pain or shortness of breath. She also denies any fever or chills. She states that she just feels weak and puny. Allergies and Home Medications Allergies Coded Allergies: Sulfa (Sulfonamide Antibiotics) (Unverified Adverse Reaction, Mild, hives, 03/27/19) adhesive tape (Unverified Adverse Reaction, Mild, skin reaction, 03/27/19) latex (Unverified Adverse Reaction, Mild, rash, 03/27/19) sulfamethoxazole (Unverified Adverse Reaction, Mild, rash, 03/27/19) Septra IV allergy from [facility] tramadol (Unverified Adverse Reaction, Mild, Nausea/vomiting, 03/27/19) trimethoprim (Unverified Adverse Reaction, Mild, rash, 03/27/19) Septra IV allergy from [facility] Home Medications Alprazolam 0.5 Mg Tablet, 0.5 MG PO QID PRN for ANXIETY, (Reported) Aspirin 81 Mg Tablet.dr, 81 MG PO DAILY, (Reported) Azithromycin 250 Mg Tablet, 250 MG PO DAILY Prescribed by: LUCY OSBORN on 07/11/202029 Cholecalciferol (Vitamin D3) 1,000 Unit Tablet, 1,000 UNIT PO DAILY, (Reported) Dexamethasone 4 Mg Tablet, 4 MG PO DAILY Prescribed by: LUCY OSBORN on 07/11/202029 Gabapentin 400 Mg Capsule, 400 MG PO TID, (Reported) Hydrocodone Bit/Acetaminophen 1 Each Tablet, 1 TAB PO TID PRN for PAIN-MILD TO MODERATE, (Reported) Levofloxacin 500 Mg Tablet, 500 MG PO DAILY Prescribed by: АННА ZAVALA on 09/13/20 1350 Levothyroxine Sodium 150 Mcg Tablet, 150 MCG PO DAILY, (Reported) Lisinopril 2.5 Mg Tablet, 2.5 MG PO DAILY, (Reported) Meclizine HCl 25 Mg Tablet, 25 MG PO TID PRN for vertigo Prescribed by: LAWRENCE ISAACS on 03/27/191751 Metoprolol Succinate 25 Mg Tab.er.24h, 25 MG PO DAILY, (Reported) Montelukast Sodium 10 Mg Tablet, 10 MG PO DAILY, (Reported) Omeprazole 20 Mg Capsule.dr, 20 MG PO BID, (Reported) Paroxetine HCl 20 Mg Tablet, 20 MG PO DAILY, (Reported) Ropinirole HCl 2 Mg Tablet, 2 MG PO BID, (Reported) Sucralfate 1 Gm Tablet, 1 GM PO QIDACHS, (Reported) Patient Home Medication List Home Medication List Reviewed: Yes Review of Systems Review of Systems Constitutional: No chills, No diaphoresis, No fever; malaise, weakness (general) EENTM: nose congestion (sinus pressure and constant drainage as a chronic issue); No ear pain, No blurred vision Respiratory: No cough Cardiovascular: No chest pain Gastrointestinal: No abdominal pain, No diarrhea, No nausea, No vomiting Genitourinary: No dysuria; frequency; No pain Musculoskeletal: no symptoms reported Skin: No rash Psychiatric/Neurological: Headache (right frontal headache); Denies Numbness, Denies Paresthesia Past Drxvzni-Vxqgac-Vkditt Hx Past Med/Social Hx: Reviewed Nursing Past Med/Soc Hx Patient Social History 2nd Hand Smoke Exposure: No Recent Hopitalizations: No Immunizations Up To Date Tetanus Booster (TDap): Less than 5yrs Date of Pneumonia Vaccine: Apr 18, 2018 Seasonal Allergies Seasonal Allergies: Yes Past Medical History Surgeries: Yes (L Mastectomy w/nodes; double bypass, tunneled groshong port) Breast, CABG Respiratory: No Cardiac: Yes (Heart failure; left systolic, 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 dz) Neuropathy, Vertigo Genitourinary: No Gastrointestinal: Yes (Gastritis, Duodenitis,) Gastroesophageal Reflux, Esophagitis, Gall Bladder Disease Musculoskeletal: Yes (Frequent sciatica issues, has RLS, complete rupture rotator cuff, ) Arthritis Endocrine: Yes Hypothyroidsim HEENT: No Cancer: Yes (Myelodysplastic Syndrome, Inflammatory CA L breast) Breast Did You Recieve Any Treatments: Yes What Type of Treatment Did You: Surgical Intervention Psychosocial: Yes Anxiety Integumentary: No Blood Disorders: No Physical Exam Vital Signs Vital Signs - First Documented 09/13/20 11:26 Temp 36.3 Pulse 60 Resp 19 B/P (MAP) 163/77 (105) Pulse Ox 96 O2 Delivery Room Air Capillary Refill : Height, Weight, BMI Height: 5'4.00" Weight: 142lbs. 0.0oz. [id number]; 30.00 BMI Method:Stated General Appearance: No Apparent Distress, WD/WN HEENT: PERRL/EOMI, TMs Normal (mild clear effusion bilateral. No erythema to TMs) Neck: Full Range of Motion, Normal Inspection, Non Tender, Supple Respiratory: Chest Non Tender, Lungs Clear, Normal Breath Sounds, No Accessory Muscle Use, No Respiratory Distress Cardiovascular: Regular Rate, Rhythm, Normal Peripheral Pulses Gastrointestinal: Normal Bowel Sounds, No Pulsatile Mass, Non Tender, Soft Extremity: Normal Capillary Refill, No Pedal Edema Neurologic/Psychiatric: Alert, Oriented x3, No Motor/Sensory Deficits, Normal Mood/Affect, content specialist II-XII Norm as Tested Skin: Normal Color, Warm/Dry Progress/Results/Core Measures Suspected Sepsis SIRS Temperature: Pulse: Respiratory Rate: Laboratory Tests 09/13/20 11:37: White Blood Count 4.8 Blood Pressure / Mean: Laboratory Tests 09/13/20 11:37: Creatinine 0.98, Platelet Count 187, Total Bilirubin 0.4 Results/Orders Lab Results Laboratory Tests Test 09/13/20 11:37 Range/Units White Blood Count 4.8 4.3-11.0 10^3/uL Red Blood Count 4.13 L 4.35-5.85 10^6/uL Hemoglobin 13.5 11.5-16.0 G/DL Hematocrit 41 35-52 % Mean Corpuscular Volume 99 80-99 FL Mean Corpuscular Hemoglobin 33 25-34 PG Mean Corpuscular Hemoglobin Concent 33 32-36 G/DL Red Cell Distribution Width 12.0 10.0-14.5 % Platelet Count 187 130-400 10^3/uL Mean Platelet Volume 9.8 7.4-10.4 FL Immature Granulocyte % (Auto) 1 % Neutrophils (%) (Auto) 68 42-75 % Lymphocytes (%) (Auto) 19 12-44 % Monocytes (%) (Auto) 7 0-12 % Eosinophils (%) (Auto) 4 0-10 % Basophils (%) (Auto) 1 0-10 % Neutrophils # (Auto) 3.3 1.8-7.8 X 10^3 Lymphocytes # (Auto) 0.9 L 1.0-4.0 X 10^3 Monocytes # (Auto) 0.3 0.0-1.0 X 10^3 Eosinophils # (Auto) 0.2 0.0-0.3 10^3/uL Basophils # (Auto) 0.0 0.0-0.1 10^3/uL Immature Granulocyte # (Auto) 0.0 0.0-0.1 10^3/uL Urine Color YELLOW Urine Clarity CLEAR Urine pH 7.0 5-9 Urine Specific [place] 1.015 L 1.016-1.022 Urine Protein NEGATIVE NEGATIVE Urine Glucose (UA) NEGATIVE NEGATIVE Urine Ketones NEGATIVE NEGATIVE Urine Nitrite NEGATIVE NEGATIVE Urine Bilirubin NEGATIVE NEGATIVE Urine Urobilinogen 0.2 < = 1.0 MG/DL Urine Leukocyte Esterase TRACE H NEGATIVE Urine RBC (Auto) NEGATIVE NEGATIVE Urine RBC RARE /HPF Urine WBC 5-10 H /HPF Urine Squamous Epithelial Cells 2-5 /HPF Urine Crystals NONE /LPF Urine Bacteria TRACE /HPF Urine Casts NONE /LPF Urine Mucus NEGATIVE /LPF Urine Culture Indicated YES Sodium Level 141 135-145 MMOL/L Potassium Level 4.5 3.6-5.0 MMOL/L Chloride Level 105 98-107 MMOL/L Carbon Dioxide Level 24 21-32 MMOL/L Anion Gap 12 5-14 MMOL/L Blood Urea Nitrogen 24 H 7-18 MG/DL Creatinine 0.98 0.60-1.30 MG/DL Estimat Glomerular Filtration Rate 54 BUN/Creatinine Ratio 24 Glucose Level 127 H 70-105 MG/DL Calcium Level 9.9 8.5-10.1 MG/DL Corrected Calcium 10.0 8.5-10.1 MG/DL Magnesium Level 1.8 1.6-2.4 MG/DL Total Bilirubin 0.4 0.1-1.0 MG/DL Aspartate Amino Transf (AST/SGOT) 18 5-34 U/L Alanine Aminotransferase (ALT/SGPT) 9 0-55 U/L Alkaline Phosphatase 100 40-136 U/L Troponin I < 0.30 <0.30 NG/ML Total Protein 6.8 6.4-8.2 GM/DL Albumin 3.9 3.2-4.5 GM/DL Lipase 29 8-78 U/L My Orders Orders - АННА ZAVALA MD Comprehensive Metabolic Panel (09/13/20 11:38) Lipase (09/13/20 11:38) Ua Culture If Indicated (09/13/20 11:38) Ed Iv/Invasive Line Start (09/13/20 11:38) Cbc With Automated Diff (09/13/20 11:38) Ns Iv 1000 Ml (Sodium Chloride 0.9%) (09/13/20 11:45) Ketorolac Injection (Toradol Injection) (09/13/20 11:45) Diphenhydramine Injection (Benadryl Inje (09/13/20 11:45) Magnesium (09/13/20 11:38) Troponin I Fs (09/13/20 11:38) Ekg Tracing (09/13/20 11:38) Monitor-Rhythm Ecg Trace Only (09/13/20 11:38) Ct Head/Sinuses Wo (09/13/20 11:38) Urine Culture (09/13/20 11:37) Levofloxacin Tablet (Levaquin Tablet) (09/13/20 13:45) Fentanyl Injection (Sublimaze Injection (09/13/20 13:45) Ondansetron Injection (Zofran Injectio (09/13/20 13:45) Methylprednisolone Acetate Inj (Depo-Med (09/13/20 13:45) Dexamethasone Injection (Decadron Inje (09/13/20 13:45) Hydrocodone/Apap 5/325 Tablet (Lortab 5 (09/13/20 13:45) Medications Given in ED Current Medications Medications Dose Ordered Sig/Umm Route Start Time Stop Time Status Last Admin Dose Admin Acetaminophen/ Hydrocodone Bitart 1 tab ONCE ONCE PO 09/13/20 13:45 09/13/20 13:46 DC 09/13/20 13:59 1 TAB Dexamethasone Sodium Phosphate 10 mg ONCE ONCE IV 09/13/20 13:45 09/13/20 13:46 DC 09/13/20 13:58 10 MG Diphenhydramine HCl 25 mg ONCE ONCE IVP 09/13/20 11:45 09/13/20 11:46 DC 09/13/20 11:46 25 MG Fentanyl Citrate 50 mcg ONCE ONCE IVP 09/13/20 13:45 09/13/20 13:46 DC 09/13/20 13:58 50 MCG Ketorolac Tromethamine 30 mg ONCE ONCE IVP 09/13/20 11:45 09/13/20 11:46 DC 09/13/20 11:46 30 MG Levofloxacin 500 mg ONCE ONCE PO 09/13/20 13:45 09/13/20 13:46 DC 09/13/20 13:58 500 MG Methylprednisolone Acetate 80 mg ONCE ONCE IM 09/13/20 13:45 09/13/20 13:46 DC 09/13/20 13:58 80 MG Ondansetron HCl 4 mg ONCE ONCE IVP 09/13/20 13:45 09/13/20 13:46 DC 09/13/20 13:58 4 MG Vital Signs/I&O 09/13/20 09/13/20 09/13/20 11:26 13:58 13:59 Temp 36.3 36.3 36.3 Pulse 60 Resp 19 B/P (MAP) 163/77 (105) Pulse Ox 96 O2 Delivery Room Air Capillary Refill : Progress Note #1: Progress Note Check basic labs to evaluate for electrolyte imbalance, UTI, Anemia, Signs of infection, renal failure, dehydration. CT head and sinuses to evaluate for mass, bleeding, stroke, sinusitis. Try IVF with Toradol and Benadryl for Migraine cocktail approach to trying to treat headache. Progress Note #2: Time: 12:19 Progress Note CBC stable without acute significant abnormality. No acute changes on ECG compared to 2019. Awaiting urine specimen for UA, Chemistry results and radiology reading on CT head and sinuses. Progress Note #3: Time: 13:12 Progress Note Chemistry appears stable from 10 September when she last had labs done. Troponin is also negative. She has mild BUN elevation to 24 but it is improved from the level of 28 when she had labs done September 10. Her urinalysis does show trace leukocyte esterase with white blood cells and bacteria for UTI. A culture will be performed. The CT scan of the head and sinuses does not show any acute sinusitis or signs of stroke, mass, bleeding, or tumor. Will check with the patient about her symptoms after treatment here in the ED. Certainly treating the urine infection may help with her symptoms. Encouraging fluids and hydration. Progress Note #4: Time: 13:46 Progress Note Pt reports headache slightly improved with treatment. She was still concerned about sinus pressure and hydration. Will treat urine with levaquin so it also covers lung and upper respiratory infection, but reassured pt her CBC was not showing elevated WBC count for infection and CT scan negative for sinusitis. Try steroid to help with headache and congestion as well as a dose of fentanyl with zofran. She is due for hydrocodone so will order a dose of that as well. Depo- medrol for long acting steroid effect. ECG Initial ECG Impression Date: Sep 13, 2020 Initial ECG Impression Time: 11:50 Initial ECG Rate: 56 Initial ECG Rhythm: Normal Sinus Initial ECG Comparisson: Unchanged Comment Normal sinus rhythm with a heart rate of 56 bpm. OK interval 201 ms. There is an LVH with intraventricular conduction delay and secondary repolarization changes. QT interval 414 ms QTc interval [address] elevation. This appears similar to prior tracings in the system from 2019. Diagnostic Imaging Diagonstic Imaging: CT Plain Films/CT/US/NM/MRI: head (and sinuses) Comments [facility] [place] [place] NAME: [facility] REC#: [id number] PT STATUS: REG ER : 1935 PHYSICIAN: АННА ZAVALA MD ADMIT DATE: 09/13/20/ER FS Draft Date of Exam:09/13/20 CT HEAD/SINUSES WO PROCEDURE: CT head without contrast and CT sinuses with contrast. TECHNIQUE: Routine noncontrast CT images were obtained through the head and sinuses. Coronal reformats of the sinuses were also performed and reviewed. Auto Exposure Controls were utilized during the CT exam to meet ALARA standards for radiation dose reduction. INDICATION: Headache and sinus pressure. There is generalized cerebral atrophy. Ex vacuo dilation of the ventricles. No mass effect or midline shift. The orbits are normal. No intracranial hemorrhage is seen. Posterior fossa is normal. No suspicious osseus lesions or fractures are seen. Mastoid air cells are normal. Frontal sinus is normal. Ethmoid air cells are normal. Maxillary sinuses are normal. Sphenoid sinus is normal. No fracture is seen. No soft tissue abnormality is seen. IMPRESSION: 1. No acute intracranial abnormality. 2. Normal sinuses. Dictated on workstation # [id number] Dict: 09/13/20 1220 Trans: 09/13/20 1238 [facility] [id number] Interpreted by: KRISTEN CALVO MD Electronically signed by: Departure Impression Primary Impression: Frontal headache Additional Impression: Cystitis without hematuria Disposition: HOME, SELF-CARE Condition: Improved Departure-Patient Inst. Decision time for Depature: 13:50 Referrals: SELFFELICITAS MD (PCP/Family) Primary Care Physician Patient Instructions: Urinary Tract Infection, Adult ED, Home Headache Remedies, Headache, Adult (DC) Add. Discharge Instructions: Stay well-hydrated and get plenty of rest. Take the full course of antibiotics for the urine infection. Check back with primary care for continued concerns. Scripts Levofloxacin (Levofloxacin) 500 Mg Tablet 500 MG PO DAILY for UTI for 7 Days, #7 TAB 0 Refills Prov: АННА ZAVALA MD 09/13/20 Images Head/Face 1 - Moderate (complains of moderate pain to right frontal head but not tender to palpation) АННА ZAVALA MD Sep 13, 2020 11:47
[2020-09-13 12:03] LABS: EOSINOPHILS % (AUTO) 4 % (0-10); HEMATOCRIT 41 % (35-52); HEMOGLOBIN 13.5 G/DL (11.5-16.0); LYMPHOCYTES % (AUTO) 19 % (12-44); MEAN CORPUSCULAR HEMOGLOBIN 33 PG (25-34); MEAN CORPUSCULAR HGB CONC 33 G/DL (32-36); MEAN CORPUSCULAR VOLUME 99 FL (80-99); MEAN PLATELET VOLUME 9.8 FL (7.4-10.4); MONOCYTES % (AUTO) 7 % (0-12); NEUTROPHILS % (AUTO) 68 % (42-75); PLATELET COUNT 187 10^3/uL (130-400); WHITE BLOOD COUNT 4.8 10^3/uL (4.3-11.0)
[2020-09-13 12:04] LABS: BASOPHILS % (AUTO) 1 % (0-10); EOSINOPHILS # (AUTO) 0.2 10^3/uL (0.0-0.3); LYMPHOCYTES # (AUTO) 0.9 X 10^3 (1.0-4.0); MONOCYTES # (AUTO) 0.3 X 10^3 (0.0-1.0); NEUTROPHILS # (AUTO) 3.3 X 10^3 (1.8-7.8)
--- NOTE | 2020-09-13 12:12 | NUR ---
Spoke with Tg niño in [place]. She has spoke with mother every day since and states mother has been cognitive appropriate and maintaining her usual activities until yesterday she mentioned going to lay down r/t slight headache. 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 She reports a neighbor "Jamar Rod" would be a next choice for transportation. Will update sal[place] after all results back, currently pending that she is not attmepting to urinate but placed on acommode with sound of running water to facilitate.
[2020-09-13 12:20] LABS: ALBUMIN 3.9 GM/DL (3.2-4.5); BILIRUBIN,TOTAL 0.4 MG/DL (0.1-1.0); CALCIUM 9.9 MG/DL (8.5-10.1); CREATININE SERUM 0.98 MG/DL (0.60-1.30); MAGNESIUM 1.8 MG/DL (1.6-2.4); POTASSIUM 4.5 MMOL/L (3.6-5.0); TOTAL PROTEIN 6.8 GM/DL (6.4-8.2)
--- NOTE | 2020-09-13 12:39 | Diagnostic Imaging Report ---
PROCEDURE: CT head without contrast and CT sinuses with contrast. TECHNIQUE: Routine noncontrast CT images were obtained through the head and sinuses. Coronal reformats of the sinuses were also performed and reviewed. Auto Exposure Controls were utilized during the CT exam to meet ALARA standards for radiation dose reduction. INDICATION: Headache and sinus pressure. There is generalized cerebral atrophy. Ex vacuo dilation of the ventricles. No mass effect or midline shift. The orbits are normal. No intracranial hemorrhage is seen. Posterior fossa is normal. No suspicious osseus lesions or fractures are seen. Mastoid air cells are normal. Frontal sinus is normal. Ethmoid air cells are normal. Maxillary sinuses are normal. Sphenoid sinus is normal. No fracture is seen. No soft tissue abnormality is seen. IMPRESSION: 1. No acute intracranial abnormality. 2. Normal sinuses. Dictated by: Dictated on workstation # [id number]
[2020-09-13 13:01] LABS: BACTERIA,URINE TRACE /HPF; BILIRUBIN,URINE NEGATIVE (NEGATIVE); CLARITY,URINE CLEAR; COLOR,URINE YELLOW; GLUCOSE, URINE (UA) NEGATIVE (NEGATIVE); KETONES,URINE NEGATIVE (NEGATIVE); LEUKOCYTE ESTERASE ,URINE TRACE (NEGATIVE); NITRITE,URINE NEGATIVE (NEGATIVE); PROTEIN,URINE NEGATIVE (NEGATIVE); RBC,URINE RARE /HPF
[2020-09-13] MEDS ORDERED: fentaNYL INJECTION 100 MCG/2 ML AMP IVP ONE (13:45)
[2020-09-13] MEDS ORDERED: HYDROcodone/APAP 5 MG/325 MG (LORTAB) TAB PO ONE (13:45)
[2020-09-13] MEDS ORDERED: LEVOFLOXACIN 500 MG TAB (LEVAQUIN) PO ONE (13:45)
[2020-09-13] MEDS ORDERED: ONDANSETRON 4 MG/2 ML (SDV) Z0FRAN IVP ONE (13:45)
[2020-09-13] MEDS ORDERED: methylPREDNISolone 80 MG/ML (DEPO MEDROL) VIAL IM ONE (13:45)
[2020-09-13] MEDS ORDERED: LEVO500T80 PO (13:50)
[2020-09-13 14:14] VITALS: BP 105/84
--- NOTE | 2020-09-13 14:15 | NUR ---
Call to Jamar Rod, patient's neighbor, to request transportation for pt and she graciously accepted and will be here shortly.
--- NOTE | 2020-09-13 14:20 | NUR ---
Call to patient's dgt, Tg, and given full update. Dgt is appreciate. The neighbor will soon be here for picking pt up.
== END 2020-09-13 14:14 | disposition home or self-care (01) ==
LOC: EDUNIT# 11:25 → ER FS 11:26
DX: R51.9 Headache, unspecified (principal); N30.90 Cystitis, unspecified without hematuria; I10 Essential (primary) hypertension; I25.2 Old myocardial infarction; F41.9 Anxiety disorder, unspecified; K21.9 Gastro-esophageal reflux disease without esophagitis; E03.9 Hypothyroidism, unspecified; Z85.3 Personal history of malignant neoplasm of breast; Z95.1 Presence of aortocoronary bypass graft; Z88.2 Allergy status to sulfonamides; Z91.040 Latex allergy status; Z88.5 Allergy status to narcotic agent; Z88.1 Allergy status to other antibiotic agents; Z79.890 Hormone replacement therapy; Z79.82 Long term (current) use of aspirin
CPT/HCPCS: 36415; 70450; 70486; 80053; 81000; 83690; 83735; 84484; 85025; 87088; 93041

== ENCOUNTER → 2021-02-19 | Outpatient (CLI) | payer MEDICARE ==
[~2021-02-19] MED LIST changes: +LEVO500T80 PO; +MONT10TA32 PO; -MONT10TA97 PO
--- NOTE | 2021-02-22 12:35 | Diagnostic Imaging Report ---
PROCEDURE: CT orbit without contrast. TECHNIQUE: Multiple contiguous axial images were obtained through the facial bones without the use of intravenous contrast. Auto Exposure Controls were utilized during the CT exam to meet ALARA standards for radiation dose reduction. INDICATION: Right eye swelling. COMPARISON: CT head of 09/13/2020 and MRI brain of 12/25/2018 FINDINGS: The right superior orbital vein is dilated and tortuous compared to the contralateral left superior orbital vein. The extraocular muscles are symmetric on both sides. The optic nerve sheath complexes are symmetric as well. No inflammatory changes within the intraconal or extraconal orbital fat. Lobes are symmetric. Bilateral lens surgery has been performed. There appears to be some slight exophthalmos on the right. No destructive lesion at the cavernous sinus on either side. A carotid-cavernous fistula cannot be assessed for without contrast. Global atrophy is noted within the visualized aspects of the brain. No hydrocephalus or space-occupying mass. IMPRESSION: 1. 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 Possible etiologies would include carotid-cavernous fistula, ophthalmic vein varix or superior ophthalmic vein thrombosis. Recommend MRI brain and MRI orbits with and without contrast for further assessment. Dictated by: Dictated on workstation # [id number]
== END ==
LOC: RAD FS 10:18
PROVIDERS: ATTEND Family Medicine
DX: H57.89 Other specified disorders of eye and adnexa (principal); I12.9 Hypertensive chronic kidney disease with stage 1 through stage 4 chronic kidney disease, or unspecified chronic kidney disease; N18.32 Chronic kidney disease, stage 3b; E03.9 Hypothyroidism, unspecified
CPT/HCPCS: 70480

== ENCOUNTER → 2021-03-22 | Outpatient (CLI) | payer MEDICARE ==
[2021-03-22 13:41] LABS: BASOPHILS % (AUTO) 1 % (0-10); EOSINOPHILS # (AUTO) 0.5 10^3/uL (0.0-0.3); EOSINOPHILS % (AUTO) 8 % (0-10); HEMATOCRIT 42 % (35-52); HEMOGLOBIN 13.4 g/dL (11.5-16.0); LYMPHOCYTES # (AUTO) 1.6 10^3/uL (1.0-4.0); LYMPHOCYTES % (AUTO) 29 % (12-44); MEAN CORPUSCULAR HEMOGLOBIN 32 pg (25-34); MEAN CORPUSCULAR HGB CONC 32 g/dL (32-36); MEAN CORPUSCULAR VOLUME 100 fL (80-99); MEAN PLATELET VOLUME 10.1 fL (9.0-12.2); MONOCYTES # (AUTO) 0.5 10^3/uL (0.0-1.0); MONOCYTES % (AUTO) 9 % (0-12); NEUTROPHILS % (AUTO) 53 % (42-75); PLATELET COUNT 182 10^3/uL (130-400); WHITE BLOOD COUNT 5.6 10^3/uL (4.3-11.0)
[2021-03-22 13:58] LABS: ALBUMIN 3.8 GM/DL (3.2-4.5); BILIRUBIN,TOTAL 0.4 MG/DL (0.1-1.0); CALCIUM 9.9 MG/DL (8.5-10.1); CREATININE SERUM 1.11 MG/DL (0.60-1.30); POTASSIUM 3.9 MMOL/L (3.6-5.0)
== END ==
LOC: ONC 13:25
PROVIDERS: ATTEND Internal Medicine Hematology & Oncology
DX: C50.919 Malignant neoplasm of unspecified site of unspecified female breast (principal); I67.82 Cerebral ischemia; K80.20 Calculus of gallbladder without cholecystitis without obstruction; I10 Essential (primary) hypertension
CPT/HCPCS: 80053; 85025; G0463; 99213

== ENCOUNTER → 2021-03-29 | Outpatient (CLI) | payer MEDICARE ==
--- NOTE | 2021-03-30 13:18 | Diagnostic Imaging Report ---
INDICATION: Routine screening. Correlation is made with prior mammogram 12/28/2016. 2-D and 3-D unilateral right screening mammography was performed with CAD. Scattered fibroglandular densities in the right breast are noted. The parenchymal pattern is stable. No dominant mass or malignant-appearing microcalcifications are seen. There are benign parenchymal and vascular calcifications noted. [id number] hub is located in the right axilla. IMPRESSION: BI-RADS Category 2 No mammographic features suspicious for malignancy are identified. ACR BI-RADS Category 2: Benign findings. Result letter will be mailed to the patient. Note: At least 10% of breast cancer is not imaged by mammography. Dictated by: Dictated on workstation # [id number]
== END ==
LOC: RAD 14:45
PROVIDERS: ATTEND Internal Medicine Hematology & Oncology
DX: Z12.31 Encounter for screening mammogram for malignant neoplasm of breast (principal); Z85.3 Personal history of malignant neoplasm of breast
CPT/HCPCS: 77063

== ENCOUNTER 2021-07-10 13:51 | Emergency (ER) | payer MEDICARE ==
[~2021-07-10] VITALS: Ht 170.1 cm; Wt 70.5 kg
[~2021-07-10 13:51] MED LIST changes: -LEVO500T80 PO; +LEVO500T81 PO; -LISI2.5T PO; +LISI2.5T13 PO; +MONT-40 PO; -MONT10TA32 PO
[2021-07-10 13:59] VITALS: BP 152/66
--- NOTE | 2021-07-10 14:01 | ED Fall/Injury ---
General Chief Complaint: Laceration Stated Complaint: FALL; FACIAL LAC/EYE INJ History of Present Illness Date Seen by Provider: Jul 10, 2021 Time Seen by Provider: 14:01 Initial Comments 85-year-old female presents following a fall. Patient reports that she fell out of bed. She has a laceration to the right side of her cheek with some tenderness to her cheek, neck. She also has what appears to be a corneal laceration. Patient reports that she has a known mass behind her right eye. Her neighbor brought her in as stated there was quite a bit of blood from the right eye. Patient laceration on her right cheek is approximately 3 cm. She did not lose consciousness. Allergies and Home Medications Allergies Coded Allergies: Sulfa (Sulfonamide Antibiotics) (Unverified Adverse Reaction, Mild, hives, 03/27/19) adhesive tape (Unverified Adverse Reaction, Mild, skin reaction, 03/27/19) latex (Unverified Adverse Reaction, Mild, rash, 03/27/19) sulfamethoxazole (Unverified Adverse Reaction, Mild, rash, 03/27/19) Septra IV allergy from [facility] tramadol (Unverified Adverse Reaction, Mild, Nausea/vomiting, 03/27/19) trimethoprim (Unverified Adverse Reaction, Mild, rash, 03/27/19) Septra IV allergy from [facility] Patient Home Medication List Home Medication List Reviewed: Yes Alprazolam (Alprazolam) 0.5 Mg Tablet, 0.5 MG PO QID PRN for ANXIETY, (Reported) Entered as Reported by: MALIA DUBON on 03/27/191709 Aspirin (Aspirin EC) 81 Mg Tablet.dr, 81 MG PO DAILY, (Reported) Entered as Reported by: MALIA DUBON on 03/27/191709 Azithromycin (Azithromycin) 250 Mg Tablet, 250 MG PO DAILY Prescribed by: LUCY OSBORN on 07/11/202029 Cholecalciferol (Vitamin D3) (Vitamin D3) 1,000 Unit Tablet, 1,000 UNIT PO DAILY, (Reported) Entered as Reported by: MALIA DUBON on 03/27/191709 Dexamethasone (Dexamethasone) 4 Mg Tablet, 4 MG PO DAILY Prescribed by: LUCY OSBORN on 07/11/202029 Gabapentin (Gabapentin) 400 Mg Capsule, 400 MG PO TID, (Reported) Entered as Reported by: MALIA DUBON on 03/27/191709 Hydrocodone Bit/Acetaminophen (Lortab 5 Mg Tablet) 1 Each Tablet, 1 TAB PO TID PRN for PAIN-MILD TO MODERATE, (Reported) Entered as Reported by: MALIA DUBON on 03/27/191709 Levofloxacin (Levofloxacin) 500 Mg Tablet, 500 MG PO DAILY Prescribed by: АННА ZAVALA on 09/13/20 1350 Levothyroxine Sodium (Levothyroxine Sodium) 150 Mcg Tablet, 150 MCG PO DAILY, (Reported) Entered as Reported by: MALIA DUBON on 03/27/191709 Lisinopril (Lisinopril) 2.5 Mg Tablet, 2.5 MG PO DAILY, (Reported) Entered as Reported by: MALIA DUBON on 03/27/191709 Meclizine HCl (Meclizine HCl) 25 Mg Tablet, 25 MG PO TID PRN for vertigo Prescribed by: LAWRENCE ISAACS on 03/27/191751 Metoprolol Succinate (Metoprolol Succinate) 25 Mg Tab.er.24h, 25 MG PO DAILY, (Reported) Entered as Reported by: MALIA DUBON on 03/27/191709 Montelukast Sodium (Montelukast Sodium) 10 Mg Tablet, 10 MG PO DAILY, (Reported) Entered as Reported by: MALIA DUBON on 03/27/191709 Omeprazole (Omeprazole) 20 Mg Capsule.dr, 20 MG PO BID, (Reported) Entered as Reported by: MALIA DUBON on 03/27/191709 Paroxetine HCl (Paroxetine HCl) 20 Mg Tablet, 20 MG PO DAILY, (Reported) Entered as Reported by: MALIA DUBON on 03/27/191709 Ropinirole HCl (Ropinirole HCl) 2 Mg Tablet, 2 MG PO BID, (Reported) Entered as Reported by: MALIA DUBON on 03/27/191709 Sucralfate (Sucralfate) 1 Gm Tablet, 1 GM PO QIDACHS, (Reported) Entered as Reported by: MALIA DUBON on 03/27/191709 Review of Systems Review of Systems Constitutional: No chills, No fever Eyes: See HPI Ears, Nose, Mouth, Throat: no symptoms reported Respiratory: no symptoms reported Cardiovascular: no symptoms reported Gastrointestinal: no symptoms reported Genitourinary: no symptoms reported Musculoskeletal: no symptoms reported Skin: see HPI Psychiatric/Neurological: No Symptoms Reported Past Gzsnvac-Wdhqox-Rodbpx Hx Immunizations Up To Date Tetanus Booster (TDap): Less than 5yrs Seasonal Allergies Seasonal Allergies: Yes Past Medical History Surgeries: Yes (L Mastectomy w/nodes; double bypass, tunneled groshong port) Breast, CABG Respiratory: No Cardiac: Yes (Heart failure; left systolic, 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 dz) Neuropathy, Vertigo Genitourinary: No Gastrointestinal: Yes (Gastritis, Duodenitis,) Gastroesophageal Reflux, Esophagitis, Gall Bladder Disease Musculoskeletal: Yes (Frequent sciatica issues, has RLS, complete rupture rotator cuff, ) Arthritis Endocrine: Yes Hypothyroidsim HEENT: No Cancer: Yes (Myelodysplastic Syndrome, Inflammatory CA L breast) Breast Did You Recieve Any Treatments: Yes What Type of Treatment Did You: Surgical Intervention Psychosocial: Yes Anxiety Integumentary: No Blood Disorders: No Physical Exam Vital Signs Vital Signs - First Documented 07/10/21 13:59 Temp 36.6 Pulse 67 Resp 16 B/P (MAP) 152/66 (94) Pulse Ox 94 O2 Delivery Room Air Capillary Refill : Height, Weight, BMI Height: 5'4.00" Weight: 142lbs. 0.0oz. 64.753854my; 25.00 BMI Method:Stated General Appearance: no apparent distress HEENT: other (What appears to be a corneal abrasion/laceration on the lower right lateral aspect of the right eye) Neck: full range of motion, tender lateral, tender midline Cardiovascular: regular rate, rhythm, no edema Respiratory: lungs clear, normal breath sounds Gastrointestinal: non tender, soft Extremities: normal range of motion, non-tender Neurologic/Psychiatric: alert, normal mood/affect, oriented x 3 Skin: other (3 cm irregular laceration on the right cheek) Natoma Coma Score Best Eye Response: (4) Open Spontaneously Best Verbal Response: (5) Oriented Best Motor Response: (6) Obeys Commands Procedures/Interventions Wound Location: Face Wound Length (cm): 3 Wound's Depth, Shape: superficial Wound Explored: clean Betadine Prep?: Yes Anesthesia: 1% Lidocaine Volume Anesthetic (ccs): 3 Suture: Prolene Suture Size: 5-0 Number of Sutures: 4 Progress Patient tolerated well with good approximation and no immediate complications Progress/Results/Core Measures Results/Orders My Orders Orders - MADONNA GOODSON DO Ct Head/Face/Cervical Wo (07/10/21 14:01) Lidocaine 1% Inj 20 Ml (Xylocaine 1% Inj (07/10/21 14:30) Lidocaine 1% Inj 20 Ml (Xylocaine 1% Inj (07/10/21 14:28) Medications Given in ED Current Medications Medications Dose Ordered Sig/Umm Route Start Time Stop Time Status Last Admin Dose Admin Lidocaine HCl 20 ml ONCE ONCE INJ 07/10/21 14:30 07/10/21 14:31 DC 07/10/21 14:32 20 ML Vital Signs/I&O 07/10/21 13:59 Temp 36.6 Pulse 67 Resp 16 B/P (MAP) 152/66 (94) Pulse Ox 94 O2 Delivery Room Air Progress Progress Note : Progress Note Patient with maxillary/orbital fractures on CT. Discussed findings with roman tomlin. At this time based on her age she would prefer just to follow-up with her primary care provider to see if she wants to arrange any further treatment or evaluation. I did call and discuss with on-call ophthalmology at the eye center regarding a corneal abrasion versus full-thickness laceration.. The will have me start her on Maxitrol for an abrasion versus corneal laceration and will see her on Monday morning. We will provide her the phone number for the on-call learning support services director that she should call if the pain worsens and she needs be seen sooner. Patient is otherwise stable and would like to be discharged home Diagnostic Imaging Diagonstic Imaging: CT Comments CT HEAD/FACE/CERVICAL WO PROCEDURE: CT head, face, and cervical spine without contrast. TECHNIQUE: Multiple contiguous axial images were obtained through the head, neck, and facial bones without the use of intravenous contrast. Sagittal and coronal reformations through the cervical spine and facial bones were also performed. Auto Exposure Controls were utilized during the CT exam to meet ALARA standards for radiation dose reduction. INDICATION: Trauma with bruising throughout the right facial region cheekbone. EXAMINATION: CT brain, CT maxillofacial and CT cervical spine 07/10/2021 Comparison made to prior CT brain from 09/13/2020 FINDINGS: Brain: There is no acute hemorrhage or infarct. There is no mass, mass effect or midline shift. There is no hydrocephalus. The calvarium appears intact. Sinuses will be described in the CT maxillofacial portion of the examination. There is partial opacification of the left mastoid air cells age indeterminate. Remaining mastoid air cells clear. IMPRESSION: 1. No acute intracranial process 2. Incomplete opacification of the left mastoid air cells age indeterminate. CT cervical spine: There is normal height and alignment of the vertebral bodies with no fractures identified. Multilevel diffuse bilateral facet hypertrophy is noted. The prevertebral soft tissues appear unremarkable. There is nonspecific airspace opacity in the anterior border of the visualized left upper lung. This could represent a focal infiltrate or atelectasis with lung contusion not excluded. If there is chest pain dedicated imaging of the chest recommended. Remaining visualized lung apices unremarkable. IMPRESSION: 1. No acute process in the cervical spine with multilevel degenerative disease as noted. 2. Nonspecific airspace opacity in the visualized left anterior upper lung. See above discussion and recommendations. CT maxillofacial: There is a comminuted fracture of the anterior wall of the right maxillary sinus with depression noted. A slightly depressed fracture along the inferior wall of the right orbit is present. No definite CT evidence for entrapment however clinical correlation with symptoms recommended. There is a fracture involving the medial wall of the right maxillary sinus and the lateral wall of the maxillary sinus. There is a vague vertical lucency extending into the anterior right paracentral aspect of the maxilla which could represent a prominent nutrient foramen with a non-displaced fracture not excluded. There is a nondisplaced fracture of the right lateral wall of the lateral wall of the right orbit. There is an air-fluid level within the right maxillary sinus which contains hyperdensity consistent with hemorrhage. There is partial opacification of the nasal passages right greater than left. Remaining sinuses clear. Both globes intact. Post septal spaces unremarkable. There is soft tissue swelling surrounding the anterior aspect of the right globe. Rounded density surrounding the right globe anteriorly likely hematomas. Soft tissue prominence and fat stranding extends along the anterior aspect of the right facial region and overlies the right zygomatic arch. Punctate foci of air perhaps due to air emanating from the adjacent sinus. An open wound not excluded. IMPRESSION: 1. Fractures involving the lateral medial and anterior sesay of the right maxillary sinus with secondary hemorrhage into the maxillary sinus as above. 2. Slightly displaced fracture involving the inferior wall of the right orbit with a fracture of the right lateral orbital wall also noted. 3. Diffuse soft tissue swelling about the right facial region and right orbit. 4. Other findings as above. Reviewed: Reviewed/Discussed Departure Impression Primary Impression: Orbital fracture Qualified Codes: S02.85XA - Fracture of orbit, unspecified, initial encounter for closed fracture Additional Impressions: Corneal abrasion, right Qualified Codes: S05.01XA - Injury of conjunctiva and corneal abrasion without foreign body, right eye, initial encounter Laceration of skin of face Qualified Codes: S01.81XA - Laceration without foreign body of other part of head, initial encounter Fall from bed, initial encounter Maxillary sinus fracture Qualified Codes: S02.401A - Maxillary fracture, unspecified side, initial encounter for closed fracture Disposition: HOME, SELF-CARE Condition: Stable Departure-Patient Inst. Referrals: FELICITAS VICTORIA MD (PCP/Family) Primary Care Physician Patient Instructions: Corneal Abrasion, Facial Fracture (DC), Laceration Repair With Stitches ED Add. Discharge Instructions: Please call the eye doctor on Monday morning at 7:30 AM to arrange an appointment time on Monday if your pain in your right eye worsens please call [phone] for the on-call eye doctor to arrange an appointment to be seen sooner Ice to the right side of her face as needed for pain Return in 7 to 10 days for suture removal or follow-up with your primary care provider for suture removal Please follow-up with Dr. Victoria in 2 to 3 days for recheck of your symptoms and further management as needed All discharge instructions reviewed with patient and/or family. Voiced understanding. Scripts Paolo/Polymyx B Sulf/Dexameth (Maxitrol Eye Drops) 5 Ml Drops.susp 5 ML OP Q6H, #1 EA 2 drops every 6 hours in right eye Prov: MADONNA GOODSON DO 07/10/21 MADONNA GOODSON DO Jul 10, 2021 14:01
[2021-07-10] MEDS ORDERED: LIDOCAINE 1% INJ 20 ML 20 ML VIAL ONE (14:28)
[2021-07-10] MEDS ORDERED: LIDOCAINE 1% INJ 20 ML 20 ML VIAL INJ ONE (14:30)
--- NOTE | 2021-07-10 14:46 | Diagnostic Imaging Report ---
PROCEDURE: CT head, face, and cervical spine without contrast. TECHNIQUE: Multiple contiguous axial images were obtained through the head, neck, and facial bones without the use of intravenous contrast. Sagittal and coronal reformations through the cervical spine and facial bones were also performed. Auto Exposure Controls were utilized during the CT exam to meet ALARA standards for radiation dose reduction. INDICATION: Trauma with bruising throughout the right facial region cheekbone. EXAMINATION: CT brain, CT maxillofacial and CT cervical spine 07/10/2021 Comparison made to prior CT brain from 09/13/2020 FINDINGS: Brain: There is no acute hemorrhage or infarct. There is no mass, mass effect or midline shift. There is no hydrocephalus. The calvarium appears intact. Sinuses will be described in the CT maxillofacial portion of the examination. There is partial opacification of the left mastoid air cells age indeterminate. Remaining mastoid air cells clear. IMPRESSION: 1. No acute intracranial process 2. Incomplete opacification of the left mastoid air cells age indeterminate. CT cervical spine: There is normal height and alignment of the vertebral bodies with no fractures identified. Multilevel diffuse bilateral facet hypertrophy is noted. The prevertebral soft tissues appear unremarkable. There is nonspecific airspace opacity in the anterior border of the visualized left upper lung. This could represent a focal infiltrate or atelectasis with lung contusion not excluded. If there is chest pain dedicated imaging of the chest recommended. Remaining visualized lung apices unremarkable. IMPRESSION: 1. No acute process in the cervical spine with multilevel degenerative disease as noted. 2. Nonspecific airspace opacity in the visualized left anterior upper lung. See above discussion and recommendations. CT maxillofacial: There is a comminuted fracture of the anterior wall of the right maxillary sinus with depression noted. A slightly depressed fracture along the inferior wall of the right orbit is present. No definite CT evidence for entrapment however clinical correlation with symptoms recommended. There is a fracture involving the medial wall of the right maxillary sinus and the lateral wall of the maxillary sinus. There is a vague vertical lucency extending into the anterior right paracentral aspect of the maxilla which could represent a prominent nutrient foramen with a non-displaced fracture not excluded. There is a nondisplaced fracture of the right lateral wall of the lateral wall of the right orbit. There is an air-fluid level within the right maxillary sinus which contains hyperdensity consistent with hemorrhage. There is partial opacification of the nasal passages right greater than left. Remaining sinuses clear. Both globes intact. Post septal spaces unremarkable. There is soft tissue swelling surrounding the anterior aspect of the right globe. Rounded density surrounding the right globe anteriorly likely hematomas. Soft tissue prominence and fat stranding extends along the anterior aspect of the right facial region and overlies the right zygomatic arch. Punctate foci of air perhaps due to air emanating from the adjacent sinus. An open wound not excluded. IMPRESSION: 1. Fractures involving the lateral medial and anterior sesay of the right maxillary sinus with secondary hemorrhage into the maxillary sinus as above. 2. Slightly displaced fracture involving the inferior wall of the right orbit with a fracture of the right lateral orbital wall also noted. 3. Diffuse soft tissue swelling about the right facial region and right orbit. 4. Other findings as above. Dictated by: Dictated on workstation # [id number]
[2021-07-10] MEDS ORDERED: NEO/5DRO3 OP (15:09)
== END 2021-07-10 15:42 | disposition home or self-care (01) ==
LOC: EDUNIT# 13:51 → ER FS 13:53
DX: S02.31XA Fracture of orbital floor, right side, initial encounter for closed fracture (principal); S02.40CA Maxillary fracture, right side, initial encounter for closed fracture; S01.81XA Laceration without foreign body of other part of head, initial encounter; S05.01XA Injury of conjunctiva and corneal abrasion without foreign body, right eye, initial encounter; I25.2 Old myocardial infarction; I10 Essential (primary) hypertension; E03.9 Hypothyroidism, unspecified; K21.9 Gastro-esophageal reflux disease without esophagitis; F41.9 Anxiety disorder, unspecified; Z79.890 Hormone replacement therapy; Z79.82 Long term (current) use of aspirin; Z79.899 Other long term (current) drug therapy; W06.XXXA Fall from bed, initial encounter
CPT/HCPCS: 70450; 70486; 72125

== ENCOUNTER → 2021-07-20 | Outpatient (CLI) | payer MEDICARE ==
[~2021-07-20] MED LIST changes: +NEO/5DRO3 OP
--- NOTE | 2021-07-20 13:11 | Diagnostic Imaging Report ---
Indication: Left breast carcinoma, restaging. Patient also has a known brain mass. Serum blood glucose level at the time of injection is 108 mg/dL. Patient was administered 11.5 mCi F-18 FDG intravenously in right antecubital location and pet imaging was performed from the top of skull to mid thighs. Noncontrast CT was also performed for attenuation correction and anatomic correlation. No prior PET/CT studies available for comparison. There appears to be fairly symmetric activity throughout the brain. No suspicious hypermetabolism in the soft tissues of the neck are identified. There is abnormal hyper metabolism in the region of the right hilum and adjacent to the right hilum in the right upper lobe. The right upper lobe focus just lateral to the right hilum demonstrates an SUV max of 10.6. Right hilum demonstrates an SUV max of 8.0. Left hilum is unremarkable. No mediastinal hypermetabolism is seen. No other pulmonary parenchymal areas of hypermetabolism are identified. Abdomen and pelvis demonstrate physiologic activity. No suspicious regions of hypermetabolism are seen. IMPRESSION: There are hypermetabolic foci in the right hilum and adjacent to the right hilum and right upper lobe suspicious for neoplasm. Conventional CT images demonstrate some infiltrate or scarring in the left upper lobe. No other significant abnormalities seen. Dictated by: Dictated on workstation # [id number]
== END ==
LOC: RAD 10:30
PROVIDERS: ATTEND Internal Medicine Hematology & Oncology
DX: C50.912 Malignant neoplasm of unspecified site of left female breast (principal); C90.00 Multiple myeloma not having achieved remission
CPT/HCPCS: 78815; A9552

== ENCOUNTER 2021-07-26 11:06 | Outpatient (RCR) | payer MEDICARE ==
[2021-07-26] MEDS ORDERED: ALTEPLASE 2 MG (CATHFLO) CANCER CENTER IV ONE (13:00)
== END 2021-08-13 | disposition home or self-care (01) ==
LOC: ONC 11:06
PROVIDERS: ATTEND Internal Medicine Hematology & Oncology
DX: C50.912 Malignant neoplasm of unspecified site of left female breast (principal); C34.11 Malignant neoplasm of upper lobe, right bronchus or lung; I25.10 Atherosclerotic heart disease of native coronary artery without angina pectoris; Z92.21 Personal history of antineoplastic chemotherapy; Z90.12 Acquired absence of left breast and nipple; Z98.890 Other specified postprocedural states; Z92.3 Personal history of irradiation; Z72.0 Tobacco use
CPT/HCPCS: 36593; 99213

== ENCOUNTER 2021-09-12 18:49 | Emergency (ER) | payer MEDICARE ==
[~2021-09-12] VITALS: Ht 170.1 cm; Wt 71.0 kg
[2021-09-12] MEDS ORDERED: diphenhydrAMINE 50 MG/ML INJ (BENADRYL) IV STA (19:00)
[2021-09-12] MEDS ORDERED: LACTATED RINGERS 1,000 ML IV STA (19:00)
[2021-09-12] MEDS ORDERED: ONDANSETRON 4 MG/2 ML (SDV) Z0FRAN IVP ONE (19:00)
--- NOTE | 2021-09-12 19:00 | ED General ---
General Chief Complaint: General Problems/Pain Stated Complaint: DEHYDRATION History of Present Illness Date Seen by Provider: Sep 12, 2021 Time Seen by Provider: 19:00 Initial Comments 86-year-old female presents with just some generalized malaise and not feeling well. Patient thinks that she is probably dehydrated because she hasn't been eating real well. Patient has a history of cancer that was found 5 years ago and reports that every since then being treated she just felt crappy. Patient reports that she has had some difficulty sleeping over the last couple days and is had some nausea/upset stomach but no real abdominal pain, vomiting, diarrhea. Allergies and Home Medications Allergies Coded Allergies: Sulfa (Sulfonamide Antibiotics) (Unverified Adverse Reaction, Mild, hives, 03/27/19) adhesive tape (Unverified Adverse Reaction, Mild, skin reaction, 03/27/19) latex (Unverified Adverse Reaction, Mild, rash, 03/27/19) sulfamethoxazole (Unverified Adverse Reaction, Mild, rash, 03/27/19) Septra IV allergy from [facility] tramadol (Unverified Adverse Reaction, Mild, Nausea/vomiting, 03/27/19) trimethoprim (Unverified Adverse Reaction, Mild, rash, 03/27/19) Septra IV allergy from [facility] Patient Home Medication List Home Medication List Reviewed: Yes Alprazolam (Alprazolam) 0.5 Mg Tablet, 0.5 MG PO QID PRN for ANXIETY, (Reported) Entered as Reported by: MALIA DUBON on 03/27/191709 Aspirin (Aspirin EC) 81 Mg Tablet.dr, 81 MG PO DAILY, (Reported) Entered as Reported by: MALIA DUBON on 03/27/191709 Azithromycin (Azithromycin) 250 Mg Tablet, 250 MG PO DAILY Prescribed by: LUCY OSBORN on 07/11/202029 Cholecalciferol (Vitamin D3) (Vitamin D3) 1,000 Unit Tablet, 1,000 UNIT PO DAILY, (Reported) Entered as Reported by: MALIA DUBON on 03/27/191709 Dexamethasone (Dexamethasone) 4 Mg Tablet, 4 MG PO DAILY Prescribed by: LUCY OSBORN on 07/11/202029 Gabapentin (Gabapentin) 400 Mg Capsule, 400 MG PO TID, (Reported) Entered as Reported by: MALIA DUBON on 03/27/191709 Hydrocodone Bit/Acetaminophen (Lortab 5 Mg Tablet) 1 Each Tablet, 1 TAB PO TID PRN for PAIN-MILD TO MODERATE, (Reported) Entered as Reported by: MALIA DUBON on 03/27/191709 Levofloxacin (Levofloxacin) 500 Mg Tablet, 500 MG PO DAILY Prescribed by: АННА ZAVALA on 09/13/20 1350 Levothyroxine Sodium (Levothyroxine Sodium) 150 Mcg Tablet, 150 MCG PO DAILY, (Reported) Entered as Reported by: MALIA DUBON on 03/27/191709 Lisinopril (Lisinopril) 2.5 Mg Tablet, 2.5 MG PO DAILY, (Reported) Entered as Reported by: MALIA DUBON on 03/27/191709 Meclizine HCl (Meclizine HCl) 25 Mg Tablet, 25 MG PO TID PRN for vertigo Prescribed by: LAWRENCE ISAACS on 03/27/191751 Metoprolol Succinate (Metoprolol Succinate) 25 Mg Tab.er.24h, 25 MG PO DAILY, (Reported) Entered as Reported by: MALIA DUBON on 03/27/191709 Montelukast Sodium (Montelukast Sodium) 10 Mg Tablet, 10 MG PO DAILY, (Reported) Entered as Reported by: MALIA DUBON on 03/27/191709 Paolo/Polymyx B Sulf/Dexameth (Maxitrol Eye Drops) 5 Ml Drops.susp, 5 ML OP Q6H Prescribed by: MADONNA GOODSON on 07/10/21 1509 Omeprazole (Omeprazole) 20 Mg Capsule.dr, 20 MG PO BID, (Reported) Entered as Reported by: MALIA DUBON on 03/27/191709 Paroxetine HCl (Paroxetine HCl) 20 Mg Tablet, 20 MG PO DAILY, (Reported) Entered as Reported by: MALIA DUBON on 03/27/191709 Ropinirole HCl (Ropinirole HCl) 2 Mg Tablet, 2 MG PO BID, (Reported) Entered as Reported by: MALIA DUBON on 03/27/191709 Sucralfate (Sucralfate) 1 Gm Tablet, 1 GM PO QIDACHS, (Reported) Entered as Reported by: MALIA DUBON on 03/27/19 1710 Review of Systems Review of Systems Constitutional: No chills, No fever; malaise EENTM: see HPI Respiratory: no symptoms reported Cardiovascular: no symptoms reported Gastrointestinal: No abdominal pain, No constipation, No diarrhea; nausea; No vomiting Genitourinary: no symptoms reported Musculoskeletal: no symptoms reported Skin: no symptoms reported Psychiatric/Neurological: No Symptoms Reported Hematologic/Lymphatic: No Symptoms Reported Past Jyiosid-Spiidi-[place] Hx Patient Social History Tobacco Use?: No Substance use?: No Alcohol Use?: No Pt feels they are or have been: No Immunizations Up To Date Tetanus Booster (TDap): Less than 5yrs First/Initial COVID19 Vaccinat: November 2020 COVID19 Vaccine [employer] Guide: [facility] Seasonal Allergies Seasonal Allergies: Yes Past Medical History Surgery/Hospitalization HX: Mass behind eye; hypothyroidism; HTN; GERD; Restless leg syndrome Surgeries: Yes (L Mastectomy w/nodes; double bypass, tunneled [place] port) Breast, CABG Respiratory: No Cardiac: Yes (Heart failure; left systolic, 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 dz) Neuropathy, Vertigo Genitourinary: No Gastrointestinal: Yes (Gastritis, Duodenitis,) Gastroesophageal Reflux, Esophagitis, Gall Bladder Disease Musculoskeletal: Yes (Frequent sciatica issues, has RLS, complete rupture rotator cuff, ) Arthritis Endocrine: Yes Hypothyroidsim HEENT: No Cancer: Yes (Myelodysplastic Syndrome, Inflammatory CA L breast) Breast Did You Recieve Any Treatments: Yes What Type of Treatment Did You: Surgical Intervention Psychosocial: Yes Anxiety Integumentary: No Blood Disorders: No Physical Exam Vital Signs Vital Signs - First Documented 09/12/21 18:49 Temp 36.1 Pulse 64 Resp 18 B/P (MAP) 145/91 (109) Pulse Ox 95 O2 Delivery Room Air Capillary Refill : Height, Weight, BMI Height: 5'4.00" Weight: 142lbs. 0.0oz. 64.300857tk; 24.00 BMI Method:Stated General Appearance: No Apparent Distress, Chronically ill HEENT: Other (Lips, mucous membranes are little bit dry) Respiratory: Lungs Clear, Normal Breath Sounds Cardiovascular: Regular Rate, Rhythm, No Edema Gastrointestinal: Non Tender, Soft Extremity: Normal Capillary Refill, Normal Inspection Neurologic/Psychiatric: Alert, Oriented x3, No Motor/Sensory Deficits, Normal Mood/Affect Skin: Normal Color, Warm/Dry, Other (Okay skin turgor) Procedures/Interventions Suture Size: 5-0 Progress/Results/Core Measures Suspected Sepsis SIRS Temperature: Pulse: Respiratory Rate: Laboratory Tests 09/12/21 18:55: White Blood Count 4.4 Blood Pressure / Mean: Laboratory Tests 09/12/21 18:55: Creatinine 1.04, Platelet Count 205, Total Bilirubin 0.4 Results/Orders Lab Results Laboratory Tests Test 09/12/21 18:55 09/12/21 19:59 Range/Units White Blood Count 4.4 4.3-11.0 10^3/uL Red Blood Count 4.06 3.80-5.11 10^6/uL Hemoglobin 12.7 11.5-16.0 g/dL Hematocrit 39 35-52 % Mean Corpuscular Volume 96 80-99 fL Mean Corpuscular Hemoglobin 31 25-34 pg Mean Corpuscular Hemoglobin Concent 33 32-36 g/dL Red Cell Distribution Width 12.9 10.0-14.5 % Platelet Count 205 130-400 10^3/uL Mean Platelet Volume 9.6 9.0-12.2 fL Immature Granulocyte % (Auto) 0 % Neutrophils (%) (Auto) 60 42-75 % Lymphocytes (%) (Auto) 23 12-44 % Monocytes (%) (Auto) 10 0-12 % Eosinophils (%) (Auto) 7 0-10 % Basophils (%) (Auto) 0 0-10 % Neutrophils # (Auto) 2.7 1.8-7.8 X 10^3 Lymphocytes # (Auto) 1.0 1.0-4.0 X 10^3 Monocytes # (Auto) 0.5 0.0-1.0 X 10^3 Eosinophils # (Auto) 0.3 0.0-0.3 10^3/uL Basophils # (Auto) 0.0 0.0-0.1 10^3/uL Immature Granulocyte # (Auto) 0.0 0.0-0.1 10^3/uL Sodium Level 139 135-145 MMOL/L Potassium Level 4.0 3.6-5.0 MMOL/L Chloride Level 105 98-107 MMOL/L Carbon Dioxide Level 22 21-32 MMOL/L Anion Gap 12 5-14 MMOL/L Blood Urea Nitrogen 23 H 7-18 MG/DL Creatinine 1.04 0.60-1.30 MG/DL Estimat Glomerular Filtration Rate 52 BUN/Creatinine Ratio 22 Glucose Level 113 H 70-105 MG/DL Calcium Level 9.9 8.5-10.1 MG/DL Corrected Calcium 10.0 8.5-10.1 MG/DL Total Bilirubin 0.4 0.1-1.0 MG/DL Aspartate Amino Transf (AST/SGOT) 20 5-34 U/L Alanine Aminotransferase (ALT/SGPT) 8 0-55 U/L Alkaline Phosphatase 130 40-136 U/L Total Protein 6.9 6.4-8.2 GM/DL Albumin 3.9 3.2-4.5 GM/DL Lipase 28 8-78 U/L Urine Color YELLOW Urine Clarity SLIGHTLY CLOUDY Urine pH 6.0 5-9 Urine Specific [place] 1.015 L 1.016-1.022 Urine Protein NEGATIVE NEGATIVE Urine Glucose (UA) NEGATIVE NEGATIVE Urine Ketones NEGATIVE NEGATIVE Urine Nitrite NEGATIVE NEGATIVE Urine Bilirubin NEGATIVE NEGATIVE Urine Urobilinogen 0.2 < = 1.0 MG/DL Urine Leukocyte Esterase NEGATIVE NEGATIVE Urine RBC (Auto) NEGATIVE NEGATIVE Urine RBC RARE /HPF Urine WBC 0-2 /HPF Urine Squamous Epithelial Cells NONE /HPF Urine Crystals NONE /LPF Urine Bacteria TRACE /HPF Urine Casts PRESENT /LPF Urine Hyaline Casts 0-2 H /LPF Urine Mucus MODERATE H /LPF Urine Culture Indicated NO My Orders Orders - GOODSON,MADONNA L DO Cbc With Automated Diff (09/12/21 19:00) Comprehensive Metabolic Panel (09/12/21 19:00) Lipase (09/12/21 19:00) Ua Culture If Indicated (09/12/21 19:00) Ondansetron Injection (Zofran Injectio (09/12/21 19:00) Lactated Ringers (Lr 1000 Ml Iv Solution (09/12/21 19:00) Diphenhydramine Injection (Benadryl Inje (09/12/21 19:00) Ed Iv/Invasive Line Start (09/12/21 19:03) Ed Iv/Invasive Line Start (09/12/21 19:03) Medications Given in ED Current Medications Medications Dose Ordered Sig/Umm Route Start Time Stop Time Status Last Admin Dose Admin Ondansetron HCl 4 mg ONCE ONCE IVP 09/12/21 19:00 09/12/21 19:02 DC 09/12/21 19:08 4 MG Vital Signs/I&O 09/12/21 18:49 Temp 36.1 Pulse 64 Resp 18 B/P (MAP) 145/91 (109) Pulse Ox 95 O2 Delivery Room Air Capillary Refill : Progress Note : Progress Note Patient with no acute findings on her labs. She does report she is feeling a little bit better following some IV fluids. I would encourage her to consider being tested for Covid. Patient stable and discharged Departure Impression Primary Impression: Malaise and fatigue Additional Impression: Mild dehydration Disposition: HOME, SELF-CARE Condition: Stable Departure-Patient Inst. Referrals: SELF,FELICITAS RAIN (PCP/Family) Primary Care Physician Patient Instructions: Fatigue (DC), Dehydration, Adult ED Add. Discharge Instructions: Follow-up with your primary care provider if your symptoms or not improving in the next couple days I would encourage you to consider getting a Covid test to the prevalence in the community and symptoms began generalized malaise and mild nausea in many individuals All discharge instructions reviewed with patient and/or family. Voiced under standing. MADONNA GOODSON DO Sep 12, 2021 19:00
[2021-09-12 19:04] LABS: BASOPHILS % (AUTO) 0 % (0-10); EOSINOPHILS # (AUTO) 0.3 10^3/uL (0.0-0.3); EOSINOPHILS % (AUTO) 7 % (0-10); HEMATOCRIT 39 % (35-52); HEMOGLOBIN 12.7 g/dL (11.5-16.0); LYMPHOCYTES % (AUTO) 23 % (12-44); MEAN CORPUSCULAR HEMOGLOBIN 31 pg (25-34); MEAN CORPUSCULAR HGB CONC 33 g/dL (32-36); MEAN CORPUSCULAR VOLUME 96 fL (80-99); MEAN PLATELET VOLUME 9.6 fL (9.0-12.2); MONOCYTES # (AUTO) 0.5 X 10^3 (0.0-1.0); MONOCYTES % (AUTO) 10 % (0-12); NEUTROPHILS # (AUTO) 2.7 X 10^3 (1.8-7.8); NEUTROPHILS % (AUTO) 60 % (42-75); PLATELET COUNT 205 10^3/uL (130-400); WHITE BLOOD COUNT 4.4 10^3/uL (4.3-11.0)
[2021-09-12 19:19] LABS: BILIRUBIN,TOTAL 0.4 MG/DL (0.1-1.0); CALCIUM 9.9 MG/DL (8.5-10.1); CREATININE SERUM 1.04 MG/DL (0.60-1.30); TOTAL PROTEIN 6.9 GM/DL (6.4-8.2)
[2021-09-12 19:20] LABS: ALBUMIN 3.9 GM/DL (3.2-4.5)
[2021-09-12 20:05] LABS: CLARITY,URINE SLIGHTLY CLOUDY; COLOR,URINE YELLOW; GLUCOSE, URINE (UA) NEGATIVE (NEGATIVE); KETONES,URINE NEGATIVE (NEGATIVE); PROTEIN,URINE NEGATIVE (NEGATIVE)
[2021-09-12 20:06] LABS: BACTERIA,URINE TRACE /HPF; BILIRUBIN,URINE NEGATIVE (NEGATIVE); HYALINE CASTS, URINE 0-2 /LPF; LEUKOCYTE ESTERASE ,URINE NEGATIVE (NEGATIVE); NITRITE,URINE NEGATIVE (NEGATIVE); RBC,URINE RARE /HPF; WBC,URINE 0-2 /HPF
[2021-09-12 20:36] VITALS: BP 132/86
== END 2021-09-12 20:36 | disposition home or self-care (01) ==
LOC: EDUNIT# 18:49 → ER FS 18:50
DX: E86.0 Dehydration (principal); R53.81 Other malaise; R53.83 Other fatigue; I11.0 Hypertensive heart disease with heart failure; I50.22 Chronic systolic (congestive) heart failure; Z95.1 Presence of aortocoronary bypass graft; I25.10 Atherosclerotic heart disease of native coronary artery without angina pectoris; I25.2 Old myocardial infarction; E78.00 Pure hypercholesterolemia, unspecified; F41.9 Anxiety disorder, unspecified; K21.00 Gastro-esophageal reflux disease with esophagitis, without bleeding; Z85.3 Personal history of malignant neoplasm of breast; Z91.048 Other nonmedicinal substance allergy status; Z91.040 Latex allergy status; Z79.899 Other long term (current) drug therapy
CPT/HCPCS: 36415; 80053; 81000; 83690; 85025

== ENCOUNTER 2021-09-22 12:07 | Emergency (ER) | payer MEDICARE ==
[~2021-09-22] VITALS: Ht 167 cm; Wt 77.0 kg
[2021-09-22] MEDS ORDERED: NS IV 1000 ML 1,000 ML IV STA (13:14)
--- NOTE | 2021-09-22 13:35 | ED General ---
General Chief Complaint: Eye Problems Stated Complaint: RT EYE RED/SWOLLEN Nursing Triage Note: PT REPORTS SHE HAS HAD EYE SWELLING FOR 6 MONTHS BUT IT IS WORSENING AND UNCOMFORTABLE. PT RIGHT EYE HAS PERIORBITAL SWELLING WITH THE EYE BULGING. Source of Information: Patient, EMS, Old Records History of Present Illness Date Seen by Provider: Sep 22, 2021 Time Seen by Provider: 12:12 Initial Comments 86 yo female presenting by EMS with complaints of worsening right eye pain and swelling since last week when she was seen. She also has been having muscle cramps and epigastric pain with nausea at times. She thinks she has gallbladder issues and reflux. She has seen multiple providers from various areas in the clinic and seeing eye doctors. She is unsure of who she has seen and when and feels like she has been having issues with the right eye for over 6 months. She states the doctors were looking at the eye and checking things because of a mass causing her eye to be pushed out. However, when they were checking about the swelling for her ongoing they did a PET scan and found a spot in her chest. They started working out the area in her chest and she states that the completely ignored her eye at that point. She reports that Dr. Victoria told her her eye was not closing completely and that was causing her to dry out and give her pain. She has not seen an eye doctor in the last few weeks about her symptoms. She denies any fever, chills, headache, cough, chest pain. She st ates that she has had some nausea and epigastric pain at times but has never actually vomited. She takes hydrocodone on a chronic basis and that tends to help her eye as well. Timing/Duration: Other (3-6 months) Severity: Severe Associated Systoms: No Chest Pain, No Cough, No Diaphoresis, No Fever/Chills, No Headaches, No Loss of Appetite, No Malaise; Nausea/Vomiting (intermittent nausea but no vomiting); No Seizure, No Shortness of Air, No Syncope, No Weakness Allergies and Home Medications Allergies Coded Allergies: Sulfa (Sulfonamide Antibiotics) (Unverified Adverse Reaction, Mild, hives, 03/27/19) adhesive tape (Unverified Adverse Reaction, Mild, skin reaction, 03/27/19) latex (Unverified Adverse Reaction, Mild, rash, 03/27/19) sulfamethoxazole (Unverified Adverse Reaction, Mild, rash, 03/27/19) Septra IV allergy from [facility] tramadol (Unverified Adverse Reaction, Mild, Nausea/vomiting, 03/27/19) trimethoprim (Unverified Adverse Reaction, Mild, rash, 03/27/19) Septra IV allergy from [facility] Patient Home Medication List Home Medication List Reviewed: Yes Alprazolam (Alprazolam) 0.5 Mg Tablet, 0.5 MG PO QID PRN for ANXIETY, (Reported) Entered as Reported by: MALIA DUBON on 03/27/191709 Aspirin (Aspirin EC) 81 Mg Tablet.dr, 81 MG PO DAILY, (Reported) Entered as Reported by: MALIA DUBON on 03/27/191709 Azithromycin (Azithromycin) 250 Mg Tablet, 250 MG PO DAILY Prescribed by: LUCY OSBORN on 07/11/202029 Cholecalciferol (Vitamin D3) (Vitamin D3) 1,000 Unit Tablet, 1,000 UNIT PO DAILY, (Reported) Entered as Reported by: MALIA DUBON on 03/27/191709 Dexamethasone (Dexamethasone) 4 Mg Tablet, 4 MG PO DAILY Prescribed by: LUCY OSBORN on 07/11/202029 Gabapentin (Gabapentin) 400 Mg Capsule, 400 MG PO TID, (Reported) Entered as Reported by: MALIA DUBON on 03/27/191709 Hydrocodone Bit/Acetaminophen (Lortab 5 Mg Tablet) 1 Each Tablet, 1 TAB PO TID PRN for PAIN-MILD TO MODERATE, (Reported) Entered as Reported by: MALIA DUBON on 03/27/191709 Levofloxacin (Levofloxacin) 500 Mg Tablet, 500 MG PO DAILY Prescribed by: АННА ZAVALA on 09/13/20 1350 Levothyroxine Sodium (Levothyroxine Sodium) 150 Mcg Tablet, 150 MCG PO DAILY, (Reported) Entered as Reported by: MALIA DUBON on 03/27/191709 Lisinopril (Lisinopril) 2.5 Mg Tablet, 2.5 MG PO DAILY, (Reported) Entered as Reported by: MALIA DUBON on 03/27/191709 Meclizine HCl (Meclizine HCl) 25 Mg Tablet, 25 MG PO TID PRN for vertigo Prescribed by: LAWRENCE ISAACS on 03/27/19 175 Metoprolol Succinate (Metoprolol Succinate) 25 Mg Tab.er.24h, 25 MG PO DAILY, (Reported) Entered as Reported by: MALIA DUBON on 03/27/191709 Montelukast Sodium (Montelukast Sodium) 10 Mg Tablet, 10 MG PO DAILY, (Reported) Entered as Reported by: MALIA DUBON on 03/27/191709 Paolo/Polymyx B Sulf/Dexameth (Maxitrol Eye Drops) 5 Ml Drops.susp, 5 ML OP Q6H Prescribed by: MADONNA GOODSON on 07/10/21 1509 Omeprazole (Omeprazole) 20 Mg Capsule.dr, 20 MG PO BID, (Reported) Entered as Reported by: MALIA DUBON on 03/27/191709 Paroxetine HCl (Paroxetine HCl) 20 Mg Tablet, 20 MG PO DAILY, (Reported) Entered as Reported by: MALIA DUBON on 03/27/191709 Ropinirole HCl (Ropinirole HCl) 2 Mg Tablet, 2 MG PO BID, (Reported) Entered as Reported by: MALIA DUBON on 03/27/191709 Sucralfate (Sucralfate) 1 Gm Tablet, 1 GM PO QIDACHS, (Reported) Entered as Reported by: AMLIA DUBON on 03/27/191709 Review of Systems Review of Systems Constitutional: No chills, No dizziness, No fever EENTM: eye pain (right eye irritated, red and painful that she reports has been going on chronically for 6 months); No ear discharge, No hearing loss, No ear pain, No epistaxis, No nose congestion Respiratory: No cough Cardiovascular: No chest pain Gastrointestinal: nausea; No vomiting Genitourinary: No dysuria Musculoskeletal: muscle cramps (intermittent) Skin: No rash Psychiatric/Neurological: Denies Headache Past Zdavtid-Bczzox-Ruhivt Hx Patient Social History Tobacco Use?: Yes Tobacco type used: Cigarettes Smoking Status: Former Smoker Use of E-Cig and/or Vaping dev: No Substance use?: No Alcohol Use?: No Pt feels they are or have been: No Immunizations Up To Date Tetanus Booster (TDap): Less than 5yrs First/Initial COVID19 Vaccinat: 2020 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 dz) Neuropathy, Vertigo Genitourinary: No Gastrointestinal: Yes (Gastritis, Duodenitis,) Gastroesophageal Reflux, Esophagitis, Gall Bladder Disease Musculoskeletal: Yes (Frequent sciatica issues, has RLS, complete rupture rotator cuff, ) Arthritis Endocrine: Yes Hypothyroidsim HEENT: No Cancer: Yes (Myelodysplastic Syndrome, Inflammatory CA L breast) Breast Did You Recieve Any Treatments: Yes What Type of Treatment Did You: Surgical Intervention Psychosocial: Yes Anxiety Integumentary: No Blood Disorders: No Physical Exam Vital Signs Vital Signs - First Documented 09/22/21 12:07 Temp 36.2 Pulse 68 Resp 18 B/P (MAP) 137/73 (94) Pulse Ox 94 O2 Delivery Room Air Capillary Refill : Less Than 3 Seconds Height, Weight, BMI Height: 5'4.00" Weight: 142lbs. 0.0oz. 64.294286rn; 27.00 BMI Method:Stated General Appearance: Anxious, Mild Distress HEENT: PERRL/EOMI; No Photophobia; Other (right eye red conjunctiva and irritation) Neck: Full Range of Motion, Normal Inspection, Non Tender, Supple Respiratory: Chest Non Tender, Lungs Clear, Normal Breath Sounds, No Accessory Muscle Use, No Respiratory Distress Cardiovascular: Regular Rate, Rhythm, Normal Peripheral Pulses Gastrointestinal: Normal Bowel Sounds, No Pulsatile Mass, Non Tender, Soft Rectal: Deferred Extremity: Normal Capillary Refill, Normal Inspection, No Pedal Edema Neurologic/Psychiatric: Alert, Oriented x3, aesthetician II-XII Norm as Tested Skin: Warm/Dry, Erythema (mild to right eyelids) Procedures/Interventions Suture Size: 5-0 Progress/Results/Core Measures Suspected Sepsis SIRS Temperature: Pulse: 68 Respiratory Rate: 18 Laboratory Tests 09/22/21 14:00: White Blood Count 6.3 Blood Pressure 137 /73 Mean: 94 Laboratory Tests 09/22/21 14:00: Creatinine 1.12, Platelet Count 207, Total Bilirubin 0.3 Results/Orders Lab Results Laboratory Tests Test 09/22/21 14:00 Range/Units White Blood Count 6.3 4.3-11.0 10^3/uL Red Blood Count 4.21 3.80-5.11 10^6/uL Hemoglobin 13.1 11.5-16.0 g/dL Hematocrit 41 35-52 % Mean Corpuscular Volume 97 80-99 fL Mean Corpuscular Hemoglobin 31 25-34 pg Mean Corpuscular Hemoglobin Concent 32 32-36 g/dL Red Cell Distribution Width 13.2 10.0-14.5 % Platelet Count 207 130-400 10^3/uL Mean Platelet Volume 10.0 9.0-12.2 fL Immature Granulocyte % (Auto) 0 % Neutrophils (%) (Auto) 67 42-75 % Lymphocytes (%) (Auto) 18 12-44 % Monocytes (%) (Auto) 9 0-12 % Eosinophils (%) (Auto) 4 0-10 % Basophils (%) (Auto) 1 0-10 % Neutrophils # (Auto) 4.2 1.8-7.8 10^3/uL Lymphocytes # (Auto) 1.1 1.0-4.0 10^3/uL Monocytes # (Auto) 0.6 0.0-1.0 10^3/uL Eosinophils # (Auto) 0.3 0.0-0.3 10^3/uL Basophils # (Auto) 0.0 0.0-0.1 10^3/uL Immature Granulocyte # (Auto) 0.0 0.0-0.1 10^3/uL Sodium Level 140 135-145 MMOL/L Potassium Level 4.7 3.6-5.0 MMOL/L Chloride Level 103 98-107 MMOL/L Carbon Dioxide Level 26 21-32 MMOL/L Anion Gap 11 5-14 MMOL/L Blood Urea Nitrogen 21 H 7-18 MG/DL Creatinine 1.12 0.60-1.30 MG/DL Estimat Glomerular Filtration Rate 48 BUN/Creatinine Ratio 19 Glucose Level 91 70-105 MG/DL Calcium Level 10.4 H 8.5-10.1 MG/DL Corrected Calcium 10.2 H 8.5-10.1 MG/DL Total Bilirubin 0.3 0.1-1.0 MG/DL Aspartate Amino Transf (AST/SGOT) 22 5-34 U/L Alanine Aminotransferase (ALT/SGPT) 12 0-55 U/L Alkaline Phosphatase 127 40-136 U/L Total Protein 7.8 6.4-8.2 GM/DL Albumin 4.3 3.2-4.5 GM/DL Lipase 184 H 8-78 U/L My Orders Orders - АННА ZAVALA MD Comprehensive Metabolic Panel (09/22/21 13:14) Lipase (09/22/21 13:14) Ed Iv/Invasive Line Start (09/22/21 13:14) Cbc With Automated Diff (09/22/21 13:14) Ct Head/Maxillofacial Wo (09/22/21 13:14) Ns Iv 1000 Ml (Sodium Chloride 0.9%) (09/22/21 13:14) Vital Signs/I&O 09/22/21 09/22/21 12:07 15:53 Temp 36.2 36.2 Pulse 68 68 Resp 18 18 B/P (MAP) 137/73 (94) 124/68 Pulse Ox 94 86 O2 Delivery Room Air Room Air Capillary Refill : Less Than 3 Seconds Blood Pressure Mean: 94 Progress Note #1: Progress Note Advised patient that I did not have a way to check her pressure in her anxiety or do more formal eye exam here in the department and she would need to see an eye doctor. I could repeat the CT scan to see if there have been any change in terms of what her eye looks like and around the orbit. Also could check basic labs since she reported having some nausea and muscle cramps at times. Progress Note #2: Progress Note Labs all appear stable without acute significant normality. Her CT scan shows healed orbital fractures on the right compared to prior CT. Otherwise she has continued findings of proptosis and possible clot or problem with blood flow with right eye, but appears similar to previous scan from 2020. The nurse was able to reach staff at Dr. Long's office and she had not been seen by him since Jun 2021 when she had fall with orbital fractures. Will see pt at 945 am tomorrow for exam to see what might be going on and could be done to try and help her for continued eye irritation. Diagnostic Imaging Diagonstic Imaging: CT Plain Films/CT/US/NM/MRI: facial bones, head Comments NAME: TIMI BRE[facility]ER [facility] REC#: [id number] PT STATUS: REG ER : 1935 PHYSICIAN: АННА ZAVALA MD ADMIT DATE: 09/22/21/ER FS Draft Date of Exam:09/22/21 CT HEAD/MAXILLOFACIAL WO PROCEDURE: CT head and maxillofacial without contrast. TECHNIQUE: Multiple contiguous axial images were obtained through the head and facial bones without the use of intravenous contrast. Auto Exposure Controls were utilized during the CT exam to meet ALARA standards for radiation dose reduction. INDICATION: Periorbital swelling, right eye. COMPARISON: Correlation is made with prior CT from 07/10/2021. CT HEAD: The ventricles and sulci are consistent with the patient's age. There is periventricular hypodensity noted consistent with senescent change. No sulcal effacement or midline shift is identified. No acute intra-axial or extra-axial hemorrhage is detected. Cisterns are patent. Visualized paranasal sinuses are clear. IMPRESSION: Senescent changes. No acute intracranial process is detected. CT FACE: The mandible is intact. Zygomatic arches are intact. Chronic depression deformity of the anterior wall of the right maxillary sinus is noted from a prior fracture. No acute fracture lines are identified on today's study within the right maxillary sinus. Nasal bones appear to be intact. The orbital sesay are intact. There is proptosis on the right side, but no retro-orbital mass or fluid collection is seen. The superior ophthalmic vein on the right does appear to be enlarged. Superior ophthalmic vein on the left appears to be small and normal sized. IMPRESSION: 1. Healed right-sided facial fractures when compared with prior study from 07/10/2021. 2. Right-sided proptosis, similar to prior study. 3. Enlargement to the right superior ophthalmic vein which also shows some hyperdensity. This was present on prior exam. Possibility of superior ophthalmic vein thrombosis cannot be entirely excluded. Other etiologies such as cavernous carotid fistula or dural cavernous fistula cannot be entirely excluded. Dictated on workstation # [id number] Dict: 09/22/21 1347 Trans: 09/22/21 1410 [id number] Interpreted by: RAMILA ELLIS MD Electronically signed by: Departure Impression Primary Impression: Chronic dryness of right eye Additional Impressions: Pain of right eye Proptosis Disposition: HOME, SELF-CARE Condition: Stable Departure-Patient Inst. Decision time for Depature: 15:20 Referrals: SELF,FELICITAS RAIN (PCP/Family) Primary Care Physician Ophthalmmologist Patient Instructions: Dry Eye Add. Discharge Instructions: Follow up with eye doctor for definitive care and treatment of your eye. The CT scan today does not show any new changes from June 2021 when you had a scan of the head and orbits. You could check back with Dr. Long again at 945 am tomorrow morning Try using artificial tears to see if that helps with the redness and irritation to the eye. There could be some concern with the blood flow to the eye and the eye doctor may want some more specialized testing to look at that. It has been the same since June 2021. All discharge instructions reviewed with patient and/or family. Voiced understanding. АННА ZAVALA MD Sep 22, 2021 13:35
--- NOTE | 2021-09-22 14:10 | Diagnostic Imaging Report ---
PROCEDURE: CT head and maxillofacial without contrast. TECHNIQUE: Multiple contiguous axial images were obtained through the head and facial bones without the use of intravenous contrast. Auto Exposure Controls were utilized during the CT exam to meet ALARA standards for radiation dose reduction. INDICATION: Periorbital swelling, right eye. COMPARISON: Correlation is made with prior CT from 07/10/2021. CT HEAD: The ventricles and sulci are consistent with the patient's age. There is periventricular hypodensity noted consistent with senescent change. No sulcal effacement or midline shift is identified. No acute intra-axial or extra-axial hemorrhage is detected. Cisterns are patent. Visualized paranasal sinuses are clear. IMPRESSION: Senescent changes. No acute intracranial process is detected. CT FACE: The mandible is intact. Zygomatic arches are intact. Chronic depression deformity of the anterior wall of the right maxillary sinus is noted from a prior fracture. No acute fracture lines are identified on today's study within the right maxillary sinus. Nasal bones appear to be intact. The orbital sesay are intact. There is proptosis on the right side, but no retro-orbital mass or fluid collection is seen. The superior ophthalmic vein on the right does appear to be enlarged. Superior ophthalmic vein on the left appears to be small and normal sized. IMPRESSION: 1. Healed right-sided facial fractures when compared with prior study from 07/10/2021. 2. Right-sided proptosis, similar to prior study. 3. Enlargement to the right superior ophthalmic vein which also shows some hyperdensity. This was present on prior exam. Possibility of superior ophthalmic vein thrombosis cannot be entirely excluded. Other etiologies such as cavernous carotid fistula or dural cavernous fistula cannot be entirely excluded. Dictated by: Dictated on workstation # [id number]
[2021-09-22 14:12] LABS: BASOPHILS % (AUTO) 1 % (0-10); EOSINOPHILS # (AUTO) 0.3 10^3/uL (0.0-0.3); EOSINOPHILS % (AUTO) 4 % (0-10); HEMATOCRIT 41 % (35-52); HEMOGLOBIN 13.1 g/dL (11.5-16.0); LYMPHOCYTES # (AUTO) 1.1 10^3/uL (1.0-4.0); LYMPHOCYTES % (AUTO) 18 % (12-44); MEAN CORPUSCULAR HEMOGLOBIN 31 pg (25-34); MEAN CORPUSCULAR HGB CONC 32 g/dL (32-36); MEAN CORPUSCULAR VOLUME 97 fL (80-99); MONOCYTES # (AUTO) 0.6 10^3/uL (0.0-1.0); MONOCYTES % (AUTO) 9 % (0-12); NEUTROPHILS # (AUTO) 4.2 10^3/uL (1.8-7.8); NEUTROPHILS % (AUTO) 67 % (42-75); PLATELET COUNT 207 10^3/uL (130-400); WHITE BLOOD COUNT 6.3 10^3/uL (4.3-11.0)
[2021-09-22 14:39] LABS: BILIRUBIN,TOTAL 0.3 MG/DL (0.1-1.0); CALCIUM 10.4 MG/DL (8.5-10.1); CREATININE SERUM 1.12 MG/DL (0.60-1.30); POTASSIUM 4.7 MMOL/L (3.6-5.0)
[2021-09-22 14:40] LABS: ALBUMIN 4.3 GM/DL (3.2-4.5); TOTAL PROTEIN 7.8 GM/DL (6.4-8.2)
[2021-09-22 15:53] VITALS: BP 124/68
== END 2021-09-22 15:53 | disposition home or self-care (01) ==
LOC: EDUNIT# 12:07 → ER FS 12:08
DX: H04.121 Dry eye syndrome of right lacrimal gland (principal); H57.11 Ocular pain, right eye; H05.20 Unspecified exophthalmos; I25.2 Old myocardial infarction; I10 Essential (primary) hypertension; K21.9 Gastro-esophageal reflux disease without esophagitis; E03.9 Hypothyroidism, unspecified; F41.9 Anxiety disorder, unspecified; Z91.040 Latex allergy status; Z87.891 Personal history of nicotine dependence; Z79.890 Hormone replacement therapy; Z79.82 Long term (current) use of aspirin; Z79.899 Other long term (current) drug therapy
CPT/HCPCS: 36415; 70450; 70486; 80053; 83690; 85025

== ENCOUNTER 2021-12-03 20:11 | Emergency (ER) | payer MEDICARE ==
--- NOTE | 2021-12-03 20:17 | ED GI ---
General Stated Complaint: N/D,ABD PAIN History of Present Illness Date Seen by Provider: Dec 03, 2021 Time Seen by Provider: 20:16 Initial Comments 86-year-old female presents with generalized malaise and not feeling well. Patient reports that she not been feeling well for about 4 days. She is got diarrhea. She is got lack of appetite, nausea. No abdominal pain. No reports of fever or chills. Patient has chronic cough is not worse. No urinary symptoms. Patient reports she tried some Pepto-Bismol with no relief. Allergies and Home Medications Allergies Coded Allergies: Sulfa (Sulfonamide Antibiotics) (Unverified Adverse Reaction, Mild, hives, 03/27/19) adhesive tape (Unverified Adverse Reaction, Mild, skin reaction, 03/27/19) latex (Unverified Adverse Reaction, Mild, rash, 03/27/19) sulfamethoxazole (Unverified Adverse Reaction, Mild, rash, 03/27/19) Septra IV allergy from [employer] tramadol (Unverified Adverse Reaction, Mild, Nausea/vomiting, 03/27/19) trimethoprim (Unverified Adverse Reaction, Mild, rash, 03/27/19) Septra IV allergy from [employer] Patient Home Medication List Home Medication List Reviewed: Yes Alprazolam (Alprazolam) 0.5 Mg Tablet, 0.5 MG PO QID PRN for ANXIETY, (Reported) Entered as Reported by: MALIA DUBON on 03/27/191709 Aspirin (Aspirin EC) 81 Mg Tablet.dr, 81 MG PO DAILY, (Reported) Entered as Reported by: MALIA DUBON on 03/27/191709 Azithromycin (Azithromycin) 250 Mg Tablet, 250 MG PO DAILY Prescribed by: LUCY OSBORN on 07/11/202029 Cholecalciferol (Vitamin D3) (Vitamin D3) 1,000 Unit Tablet, 1,000 UNIT PO DAILY, (Reported) Entered as Reported by: MALIA DUBON on 03/27/191709 Dexamethasone (Dexamethasone) 4 Mg Tablet, 4 MG PO DAILY Prescribed by: LUCY OSBORN on 07/11/202029 Gabapentin (Gabapentin) 400 Mg Capsule, 400 MG PO TID, (Reported) Entered as Reported by: MALIA DUBON on 03/27/191709 Hydrocodone Bit/Acetaminophen (Lortab 5 Mg Tablet) 1 Each Tablet, 1 TAB PO TID PRN for PAIN-MILD TO MODERATE, (Reported) Entered as Reported by: MALIA DUBON on 03/27/191709 Levofloxacin (Levofloxacin) 500 Mg Tablet, 500 MG PO DAILY Prescribed by: АННА ZAVALA on 09/13/20 1350 Levothyroxine Sodium (Levothyroxine Sodium) 150 Mcg Tablet, 150 MCG PO DAILY, (Reported) Entered as Reported by: MALIA DUBON on 03/27/191709 Lisinopril (Lisinopril) 2.5 Mg Tablet, 2.5 MG PO DAILY, (Reported) Entered as Reported by: MALIA DUBON on 03/27/191709 Meclizine HCl (Meclizine HCl) 25 Mg Tablet, 25 MG PO TID PRN for vertigo Prescribed by: LAWRENCE ISAACS on 03/27/19 175 Metoprolol Succinate (Metoprolol Succinate) 25 Mg Tab.er.24h, 25 MG PO DAILY, (Reported) Entered as Reported by: MALIA DUBON on 03/27/191709 Montelukast Sodium (Montelukast Sodium) 10 Mg Tablet, 10 MG PO DAILY, (Reported) Entered as Reported by: MALIA DUBON on 03/27/191709 Paolo/Polymyx B Sulf/Dexameth (Maxitrol Eye Drops) 5 Ml Drops.susp, 5 ML OP Q6H Prescribed by: MADONNA GOODSON on 07/10/21 1509 Omeprazole (Omeprazole) 20 Mg Capsule.dr, 20 MG PO BID, (Reported) Entered as Reported by: MALIA DUBON on 03/27/191709 Ondansetron (Ondansetron Odt) 4 Mg Tab.rapdis, 4 MG PO Q6H PRN for NAUSEA/VOMITING Prescribed by: MADONNA GOODSON on 12/03/212105 Oseltamivir Phosphate (Tamiflu) 75 Mg Cap, 75 MG PO BID Prescribed by: MADONNA GOODSON on 12/03/212105 Paroxetine HCl (Paroxetine HCl) 20 Mg Tablet, 20 MG PO DAILY, (Reported) Entered as Reported by: MALIA DUBON on 03/27/191709 Ropinirole HCl (Ropinirole HCl) 2 Mg Tablet, 2 MG PO BID, (Reported) Entered as Reported by: MALIA DUBON on 03/27/191709 Sucralfate (Sucralfate) 1 Gm Tablet, 1 GM PO QIDACHS, (Reported) Entered as Reported by: MALIA DUBON on 03/27/191709 Review of Systems Review of Systems Constitutional: No chills, No dizziness; malaise Cardiovascular: Denies Chest Pain, Denies Lightheadedness, Denies Palpitations Gastrointestinal: See HPI; Denies Abdominal Pain; Diarrhea, Nausea; Denies Vomiting Genitourinary: No Symptoms Reported Musculoskeletal: no symptoms reported Skin: no symptoms reported Psychiatric/Neurological: No Symptoms Reported Endocrine: No Symptoms Reported Past Ginyoiy-Yxnjrx-Bvahkz Hx Immunizations Up To Date Tetanus Booster (TDap): Less than 5yrs First/Initial COVID19 Vaccinat: 2020 Seasonal Allergies Seasonal Allergies: Yes Past Medical History Surgery/Hospitalization HX: Mass behind eye; hypothyroidism; HTN; GERD; Restless leg syndrome Surgeries: Yes (L Mastectomy w/nodes; double bypass, tunneled groshong port) Breast, CABG Respiratory: No Cardiac: Yes (Heart failure; left systolic, 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 dz) Neuropathy, Vertigo Genitourinary: No Gastrointestinal: Yes (Gastritis, Duodenitis,) Gastroesophageal Reflux, Esophagitis, Gall Bladder Disease Musculoskeletal: Yes (Frequent sciatica issues, has RLS, complete rupture rotator cuff, ) Arthritis Endocrine: Yes Hypothyroidsim HEENT: No Cancer: Yes (Myelodysplastic Syndrome, Inflammatory CA L breast) Breast Did You Recieve Any Treatments: Yes What Type of Treatment Did You: Surgical Intervention Psychosocial: Yes Anxiety Integumentary: No Blood Disorders: No Physical Exam Vital Signs Vital Signs - First Documented 12/03/21 20:15 Temp 36.5 Pulse 78 Resp 18 B/P (MAP) 141/69 (93) Pulse Ox 93 O2 Delivery Room Air Capillary Refill : Height/Weight/BMI Height: 5'4.00" Weight: 142lbs. 0.0oz. 64.092748hi; 27.00 BMI Method:Stated General Appearance: WD/WN, no apparent distress Neck: non-tender, full range of motion Respiratory: chest non-tender, lungs clear Cardiovascular: normal peripheral pulses, regular rate, rhythm Gastrointestinal: non tender, soft Neurologic/Psychiatric: alert, normal mood/affect, oriented x 3 Skin: normal color, warm/dry Procedures/Interventions Suture Size: 5-0 Progress/Results/Core Measures Results/Orders Lab Results Laboratory Tests Test 12/03/21 20:17 12/03/21 20:21 12/03/21 20:34 Range/Units Urine Color YELLOW Urine Clarity CLEAR Urine pH 6.0 5-9 Urine Specific [place] 1.015 L 1.016-1.022 Urine Protein NEGATIVE NEGATIVE Urine Glucose (UA) NEGATIVE NEGATIVE Urine Ketones NEGATIVE NEGATIVE Urine Nitrite NEGATIVE NEGATIVE Urine Bilirubin NEGATIVE NEGATIVE Urine Urobilinogen 0.2 < = 1.0 MG/DL Urine Leukocyte Esterase 2+ H NEGATIVE Urine RBC (Auto) NEGATIVE NEGATIVE Urine RBC NONE /HPF Urine WBC 10-25 H /HPF Urine Squamous Epithelial Cells 5-10 /HPF Urine Crystals NONE /LPF Urine Bacteria MODERATE H /HPF Urine Casts PRESENT /LPF Urine Hyaline Casts 10-25 H /LPF Urine Mucus NEGATIVE /LPF Urine Culture Indicated YES White Blood Count 7.3 4.3-11.0 10^3/uL Red Blood Count 4.27 3.80-5.11 10^6/uL Hemoglobin 13.0 11.5-16.0 g/dL Hematocrit 40 35-52 % Mean Corpuscular Volume 94 80-99 fL Mean Corpuscular Hemoglobin 30 25-34 pg Mean Corpuscular Hemoglobin Concent 32 32-36 g/dL Red Cell Distribution Width 12.9 10.0-14.5 % Platelet Count 227 130-400 10^3/uL Mean Platelet Volume 9.5 9.0-12.2 fL Immature Granulocyte % (Auto) 0 % Neutrophils (%) (Auto) 69 42-75 % Lymphocytes (%) (Auto) 15 12-44 % Monocytes (%) (Auto) 11 0-12 % Eosinophils (%) (Auto) 5 0-10 % Basophils (%) (Auto) 0 0-10 % Neutrophils # (Auto) 5.0 1.8-7.8 10^3/uL Lymphocytes # (Auto) 1.1 1.0-4.0 10^3/uL Monocytes # (Auto) 0.8 0.0-1.0 10^3/uL Eosinophils # (Auto) 0.3 0.0-0.3 10^3/uL Basophils # (Auto) 0.0 0.0-0.1 10^3/uL Immature Granulocyte # (Auto) 0.0 0.0-0.1 10^3/uL Sodium Level 140 135-145 MMOL/L Potassium Level 4.4 3.6-5.0 MMOL/L Chloride Level 110 H 98-107 MMOL/L Carbon Dioxide Level 20 L 21-32 MMOL/L Anion Gap 10 5-14 MMOL/L Blood Urea Nitrogen 24 H 7-18 MG/DL Creatinine 1.16 0.60-1.30 MG/DL Estimat Glomerular Filtration Rate 46 BUN/Creatinine Ratio 21 Glucose Level 154 H 70-105 MG/DL Calcium Level 9.7 8.5-10.1 MG/DL Corrected Calcium 9.7 8.5-10.1 MG/DL Total Bilirubin 0.2 0.1-1.0 MG/DL Aspartate Amino Transf (AST/SGOT) 29 5-34 U/L Alanine Aminotransferase (ALT/SGPT) 15 0-55 U/L Alkaline Phosphatase 149 H 40-136 U/L Total Protein 7.1 6.4-8.2 GM/DL Albumin 4.0 3.2-4.5 GM/DL Lipase 41 8-78 U/L Influenza Type A Antigen NEGATIVE NEGATIVE Influenza Type B Antigen POSITIVE H NEGATIVE My Orders Orders - GOODSON,MADONNA L DO Ondansetron Injection (Zofran Injectio (12/03/21 20:30) Lactated Ringers (Lr 1000 Ml Iv Solution (12/03/21 20:23) Famotidine Injection (Pepcid Injection) (12/03/21 20:23) Cbc With Automated Diff (12/03/21 20:23) Comprehensive Metabolic Panel (12/03/21 20:23) Lipase (12/03/21 20:23) Ua Culture If Indicated (12/03/21 20:23) Ct Abdomen/Pelvis Wo (12/03/21 20:23) Influenza A & B Antigens (12/03/21 20:23) Urine Culture (12/03/21 20:17) Ed Iv/Invasive Line Start (12/03/21 20:41) Oseltamivir 75 Mg Capsule (Tamiflu 75 (12/03/21 21:15) Medications Given in ED Current Medications Medications Dose Ordered Sig/Umm Route Start Time Stop Time Status Last Admin Dose Admin Ondansetron HCl 4 mg ONCE ONCE IVP 12/03/21 20:30 12/03/21 20:31 DC 12/03/21 20:29 4 MG Oseltamivir Phosphate 75 mg ONCE ONCE PO 12/03/21 21:15 12/03/21 21:16 12/03/21 21:13 75 MG Vital Signs/I&O 12/03/21 20:15 Temp 36.5 Pulse 78 Resp 18 B/P (MAP) 141/69 (93) Pulse Ox 93 O2 Delivery Room Air Progress Progress Note : Progress Note Patient with no acute intra-abdominal pathology on CT. Patient is positive for influenza B which is likely reason for her symptoms. Due to her age I will go ahead and treat her with Tamiflu and prescribe her Zofran. Patient is asymptomatic for any urinary tract symptoms, will await cultures prior to treating potential urinary tract infection. patient stable and discharged Diagnostic Imaging Diagonstic Imaging: CT Plain Films/CT/US/NM/MRI: abdomen, pelvis Comments DATE: December 03, 2021. COMPARISON: CT chest and abdomen December 25, 2018. INDICATION: 86-year-old female, nausea and diarrhea. Symptoms for 3 days. FINDINGS: There are limitations for evaluation of the abdominal organs, neoplastic processes, abscess, and limited evaluation of the vasculature relating to the lack of intravenous contrast. There is respiratory motion artifact. There are areas of linear opacification in the imaged lung bases most likely reflecting mild atelectasis or scarring. The heart is not enlarged. There is no pericardial effusion. The liver is unremarkable in size and contour. The gallbladder is unremarkable. There is no identified biliary ductal dilation. The main pancreatic duct is not grossly dilated. Limited noncontrast assessment of the pancreatic parenchyma is unremarkable. The spleen is not enlarged. The adrenal glands are unremarkable. There is a calcification adjacent to the right kidney which is likely vascularly related. Limited noncontrast evaluation of the renal parenchyma is unremarkable. The urinary collecting systems are not distended. There is no identified renal or ureteral stone. There is diffuse urinary bladder wall thickening which may reflect underdistention, cystitis, and/or chronic outlet obstruction. The intestinal tract is not distended. There is no evidence to suggest acute appendicitis. There is no free intraperitoneal air. There is no drainable fluid collection. There is no free fluid in the abdomen or pelvis. There are atherosclerotic calcifications. There is mild ectasia of the infrarenal abdominal aorta. There is no identified abnormally enlarged lymph node in the abdomen or pelvis which meets CT size criteria for adenopathy. There are multilevel degenerative changes of the spine. There are median sternotomy wires. There is sclerosis in the inferior aspect of the right scapula which is incompletely imaged on axial image 1. This is new since December 25, 2018. This is also new since PET/CT on July 20, 2021. There is a small sclerotic lesion in the L2 vertebral body which is also new. This is also concerning for bone metastasis. IMPRESSION: CT abdomen and pelvis: 1. Significant motion limitations of the exam. 2. New incompletely imaged sclerotic lesion in the inferior aspect of the right scapula concerning for a bone metastasis. There is also a small sclerotic lesion in the L2 vertebral body also concerning for bone metastasis. 3. No identified acute abnormality in the abdomen or pelvis. Reviewed: Reviewed/Discussed Departure Impression Primary Impression: Influenza B Disposition: 01 HOME, SELF-CARE Condition: Stable Departure-Patient Inst. Referrals: SELF,FELICITAS RAIN (PCP/Family) Primary Care Physician Patient Instructions: Flu, Adult ED Add. Discharge Instructions: Drink plenty of fluids Tylenol ibuprofen as needed for generalized malaise fever and body ache Scripts Ondansetron (Ondansetron Odt) 4 Mg Tab.rapdis 4 MG PO Q6H PRN for NAUSEA/VOMITING, #20 TAB 0 Refills Prov: MADONNA GOODSON DO 12/03/21 Oseltamivir Phosphate (Tamiflu) 75 Mg Cap 75 MG PO BID, #10 CAP Prov: MADONNA GOODSON DO 12/03/21 MADONNA GOODSON DO Dec 03, 2021 20:17
[2021-12-03] MEDS ORDERED: LACTATED RINGERS 1,000 ML IV STA (20:23)
[2021-12-03] MEDS ORDERED: FAMOTIDINE 20MG/2ML IV (PEPCID) IV STA (20:23)
[2021-12-03 20:27] LABS: BASOPHILS % (AUTO) 0 % (0-10); EOSINOPHILS # (AUTO) 0.3 10^3/uL (0.0-0.3); EOSINOPHILS % (AUTO) 5 % (0-10); HEMATOCRIT 40 % (35-52); LYMPHOCYTES # (AUTO) 1.1 10^3/uL (1.0-4.0); LYMPHOCYTES % (AUTO) 15 % (12-44); MEAN CORPUSCULAR HEMOGLOBIN 30 pg (25-34); MEAN CORPUSCULAR HGB CONC 32 g/dL (32-36); MEAN CORPUSCULAR VOLUME 94 fL (80-99); MEAN PLATELET VOLUME 9.5 fL (9.0-12.2); MONOCYTES # (AUTO) 0.8 10^3/uL (0.0-1.0); MONOCYTES % (AUTO) 11 % (0-12); NEUTROPHILS % (AUTO) 69 % (42-75); PLATELET COUNT 227 10^3/uL (130-400); WHITE BLOOD COUNT 7.3 10^3/uL (4.3-11.0)
[2021-12-03 20:28] LABS: BILIRUBIN,URINE NEGATIVE (NEGATIVE); CLARITY,URINE CLEAR; COLOR,URINE YELLOW; GLUCOSE, URINE (UA) NEGATIVE (NEGATIVE); KETONES,URINE NEGATIVE (NEGATIVE); LEUKOCYTE ESTERASE ,URINE 2+ (NEGATIVE); NITRITE,URINE NEGATIVE (NEGATIVE); PROTEIN,URINE NEGATIVE (NEGATIVE)
[2021-12-03] MEDS ORDERED: ONDANSETRON 4 MG/2 ML (SDV) Z0FRAN IVP ONE (20:30)
[2021-12-03 20:33] LABS: BACTERIA,URINE MODERATE /HPF
[2021-12-03 20:48] LABS: POTASSIUM 4.4 MMOL/L (3.6-5.0)
[2021-12-03 20:49] LABS: BILIRUBIN,TOTAL 0.2 MG/DL (0.1-1.0); CALCIUM 9.7 MG/DL (8.5-10.1); CREATININE SERUM 1.16 MG/DL (0.60-1.30); TOTAL PROTEIN 7.1 GM/DL (6.4-8.2)
--- NOTE | 2021-12-03 20:58 | Diagnostic Imaging Report ---
PROCEDURE: CT abdomen and pelvis without contrast. TECHNIQUE: Multiple contiguous axial images were obtained through the abdomen and pelvis without the use of intravenous contrast. Auto Exposure Controls were utilized during the CT exam to meet ALARA standards for radiation dose reduction. DATE: December 03, 2021. COMPARISON: CT chest and abdomen December 25, 2018. INDICATION: 86-year-old female, nausea and diarrhea. Symptoms for 3 days. FINDINGS: There are limitations for evaluation of the abdominal organs, neoplastic processes, abscess, and limited evaluation of the vasculature relating to the lack of intravenous contrast. There is respiratory motion artifact. There are areas of linear opacification in the imaged lung bases most likely reflecting mild atelectasis or scarring. The heart is not enlarged. There is no pericardial effusion. The liver is unremarkable in size and contour. The gallbladder is unremarkable. There is no identified biliary ductal dilation. The main pancreatic duct is not grossly dilated. Limited noncontrast assessment of the pancreatic parenchyma is unremarkable. The spleen is not enlarged. The adrenal glands are unremarkable. There is a calcification adjacent to the right kidney which is likely vascularly related. Limited noncontrast evaluation of the renal parenchyma is unremarkable. The urinary collecting systems are not distended. There is no identified renal or ureteral stone. There is diffuse urinary bladder wall thickening which may reflect underdistention, cystitis, and/or chronic outlet obstruction. The intestinal tract is not distended. There is no evidence to suggest acute appendicitis. There is no free intraperitoneal air. There is no drainable fluid collection. There is no free fluid in the abdomen or pelvis. There are atherosclerotic calcifications. There is mild ectasia of the infrarenal abdominal aorta. There is no identified abnormally enlarged lymph node in the abdomen or pelvis which meets CT size criteria for adenopathy. There are multilevel degenerative changes of the spine. There are median sternotomy wires. There is sclerosis in the inferior aspect of the right scapula which is incompletely imaged on axial image 1. This is new since December 25, 2018. This is also new since PET/CT on July 20, 2021. There is a small sclerotic lesion in the L2 vertebral body which is also new. This is also concerning for bone metastasis. IMPRESSION: CT abdomen and pelvis: 1. Significant motion limitations of the exam. 2. New incompletely imaged sclerotic lesion in the inferior aspect of the right scapula concerning for a bone metastasis. There is also a small sclerotic lesion in the L2 vertebral body also concerning for bone metastasis. 3. No identified acute abnormality in the abdomen or pelvis. Dictated by: Dictated on workstation # [id number]
[2021-12-03] MEDS ORDERED: ONDA4TAB11 PO (21:06)
[2021-12-03] MEDS ORDERED: OSLT75C PO (21:06)
[2021-12-03] MEDS ORDERED: OSELTAMIVIR 75 MG (TAMIFLU) CAPSULE PO ONE (21:15)
[2021-12-03 21:45] VITALS: BP 135/60
== END 2021-12-03 21:48 | disposition home or self-care (01) ==
LOC: EDUNIT# 20:11 → ER FS 20:12
DX: J10.1 Influenza due to other identified influenza virus with other respiratory manifestations (principal); Z91.040 Latex allergy status; Z28.311 Partially vaccinated for COVID-19
CPT/HCPCS: 36415; 74176; 80053; 81000; 83690; 85025; 87088; 87804

== ENCOUNTER 2022-01-21 16:37 | Emergency (ER) | payer MEDICARE ==
[~2022-01-21] VITALS: Ht 165.1 cm; Wt 65.0 kg
[~2022-01-21 16:37] MED LIST changes: +ONDA4TAB11 PO; +OSLT75C PO
--- NOTE | 2022-01-21 16:43 | ED GI ---
General Chief Complaint: Abdominal/GI Problems Stated Complaint: EPIGASTRIC PAIN History of Present Illness Date Seen by Provider: Jan 21, 2022 Time Seen by Provider: 16:42 Initial Comments 86-year-old female presents with some discomfort in her epigastric region. She reports is not really pain but cannot really describe it. She reports some associated decreased appetite has been going on for couple weeks with 15 pound weight loss. She states that she just does not feel like eating. She does have a history of reflux and was 5 years ago was on medication for post radiation. She reports her symptoms started around 530 this morning. Patient denies any vomiting, diarrhea, fever, chills or any other systemic complaints.. Allergies and Home Medications Allergies Coded Allergies: Sulfa (Sulfonamide Antibiotics) (Unverified Adverse Reaction, Mild, hives, 03/27/19) adhesive tape (Unverified Adverse Reaction, Mild, skin reaction, 03/27/19) latex (Unverified Adverse Reaction, Mild, rash, 03/27/19) sulfamethoxazole (Unverified Adverse Reaction, Mild, rash, 03/27/19) Septra IV allergy from [facility] tramadol (Unverified Adverse Reaction, Mild, Nausea/vomiting, 03/27/19) trimethoprim (Unverified Adverse Reaction, Mild, rash, 03/27/19) Septra IV allergy from [facility] Patient Home Medication List Home Medication List Reviewed: Yes Alprazolam (Alprazolam) 0.5 Mg Tablet, 0.5 MG PO QID PRN for ANXIETY, (Reported) Entered as Reported by: MALIA DUBON on 03/27/191709 Aspirin (Aspirin EC) 81 Mg Tablet.dr, 81 MG PO DAILY, (Reported) Entered as Reported by: MALIA DUBON on 03/27/191709 Azithromycin (Azithromycin) 250 Mg Tablet, 250 MG PO DAILY Prescribed by: LUCY OSBORN on 07/11/202029 Cholecalciferol (Vitamin D3) (Vitamin D3) 1,000 Unit Tablet, 1,000 UNIT PO DAILY, (Reported) Entered as Reported by: MALIA DUBON on 03/27/191709 Dexamethasone (Dexamethasone) 4 Mg Tablet, 4 MG PO DAILY Prescribed by: LUCY OSBORN on 07/11/202029 Gabapentin (Gabapentin) 400 Mg Capsule, 400 MG PO TID, (Reported) Entered as Reported by: MALIA DUBON on 03/27/19 171 Hydrocodone Bit/Acetaminophen (Lortab 5 Mg Tablet) 1 Each Tablet, 1 TAB PO TID PRN for PAIN-MILD TO MODERATE, (Reported) Entered as Reported by: MALIA DUBON on 03/27/19 171 Levofloxacin (Levofloxacin) 500 Mg Tablet, 500 MG PO DAILY Prescribed by: АННА ZAVALA on 09/13/20 1350 Levothyroxine Sodium (Levothyroxine Sodium) 150 Mcg Tablet, 150 MCG PO DAILY, (Reported) Entered as Reported by: MALIA DUBON on 03/27/191709 Lisinopril (Lisinopril) 2.5 Mg Tablet, 2.5 MG PO DAILY, (Reported) Entered as Reported by: MALIA DUBON on 03/27/191709 Meclizine HCl (Meclizine HCl) 25 Mg Tablet, 25 MG PO TID PRN for vertigo Prescribed by: LAWRENCE ISAACS on 03/27/19 175 Metoprolol Succinate (Metoprolol Succinate) 25 Mg Tab.er.24h, 25 MG PO DAILY, (Reported) Entered as Reported by: MALIA DUBON on 03/27/191709 Montelukast Sodium (Montelukast Sodium) 10 Mg Tablet, 10 MG PO DAILY, (Reported) Entered as Reported by: MALIA DUBON on 03/27/191709 Paolo/Polymyx B Sulf/Dexameth (Maxitrol Eye Drops) 5 Ml Drops.susp, 5 ML OP Q6H Prescribed by: MADONNA GOODSON on 07/10/21 1509 Omeprazole (Omeprazole) 20 Mg Capsule.dr, 20 MG PO BID, (Reported) Entered as Reported by: MALIA DUBON on 03/27/19 171 Ondansetron (Ondansetron Odt) 4 Mg Tab.rapdis, 4 MG PO Q6H PRN for NAUSEA/VOMITING Prescribed by: MADONNA GOODSON on 12/03/21 2106 Ondansetron (Ondansetron Odt) 4 Mg Tab.rapdis, 4 MG PO Q8H PRN for NAUSEA/VOMITING Prescribed by: MADONNA GOODSON on 01/21/22 1742 Oseltamivir Phosphate (Tamiflu) 75 Mg Cap, 75 MG PO BID Prescribed by: MADONNA GOODSON on 12/03/212105 Paroxetine HCl (Paroxetine HCl) 20 Mg Tablet, 20 MG PO DAILY, (Reported) Entered as Reported by: MALIA DUBON on 03/27/191709 Ropinirole HCl (Ropinirole HCl) 2 Mg Tablet, 2 MG PO BID, (Reported) Entered as Reported by: MALIA DUBON on 03/27/191709 Sucralfate (Sucralfate) 1 Gm Tablet, 1 GM PO QIDACHS, (Reported) Entered as Reported by: MALIA DUBON on 03/27/191709 Review of Systems Review of Systems Constitutional: No chills, No fever EENTM: No Symptoms Reported Respiratory: No Symptoms Reported Cardiovascular: No Symptoms Reported Gastrointestinal: See HPI Genitourinary: No Symptoms Reported Musculoskeletal: no symptoms reported Skin: no symptoms reported Psychiatric/Neurological: No Symptoms Reported Endocrine: Unexplaned Weight Loss Past [id number] Hx Immunizations Up To Date Tetanus Booster (TDap): Less than 5yrs First/Initial COVID19 Vaccinat: 2020 Seasonal Allergies Seasonal Allergies: Yes Past Medical History Surgery/Hospitalization HX: Mass behind eye; hypothyroidism; HTN; GERD; Restless leg syndrome Surgeries: Yes (L Mastectomy w/nodes; double bypass, tunneled [place]shong port) Breast, CABG Respiratory: No Cardiac: Yes (Heart failure; left systolic, 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 dz) Neuropathy, Vertigo Genitourinary: No Gastrointestinal: Yes (Gastritis, Duodenitis,) Gastroesophageal Reflux, Esophagitis, Gall Bladder Disease Musculoskeletal: Yes (Frequent sciatica issues, has RLS, complete rupture rotator cuff, ) Arthritis Endocrine: Yes Hypothyroidsim HEENT: No Cancer: Yes (Myelodysplastic Syndrome, Inflammatory CA L breast) Breast Did You Recieve Any Treatments: Yes What Type of Treatment Did You: Surgical Intervention Psychosocial: Yes Anxiety Integumentary: No Blood Disorders: No Physical Exam Vital Signs Vital Signs - First Documented 01/21/22 16:41 Temp 36.2 Pulse 64 Resp 16 B/P (MAP) 127/87 (100) Pulse Ox 96 O2 Delivery Room Air Capillary Refill : Height/Weight/BMI Height: 5'4.00" Weight: 142lbs. 0.0oz. 64.020455is; 27.00 BMI Method:Stated General Appearance: WD/WN, no apparent distress Neck: non-tender, full range of motion Respiratory: lungs clear, normal breath sounds, no respiratory distress Cardiovascular: normal peripheral pulses, regular rate, rhythm, no edema Gastrointestinal: non tender, soft Extremities: normal range of motion, non-tender Neurologic/Psychiatric: alert, normal mood/affect, oriented x 3 Skin: normal color, warm/dry Procedures/Interventions Suture Size: 5-0 Progress/Results/Core Measures Results/Orders Lab Results Laboratory Tests Test 01/21/22 16:58 Range/Units White Blood Count 7.0 4.3-11.0 10^3/uL Red Blood Count 3.99 3.80-5.11 10^6/uL Hemoglobin 12.2 11.5-16.0 g/dL Hematocrit 37 35-52 % Mean Corpuscular Volume 93 80-99 fL Mean Corpuscular Hemoglobin 31 25-34 pg Mean Corpuscular Hemoglobin Concent 33 32-36 g/dL Red Cell Distribution Width 13.2 10.0-14.5 % Platelet Count 247 130-400 10^3/uL Mean Platelet Volume 9.4 9.0-12.2 fL Immature Granulocyte % (Auto) 0 % Neutrophils (%) (Auto) 70 42-75 % Lymphocytes (%) (Auto) 16 12-44 % Monocytes (%) (Auto) 10 0-12 % Eosinophils (%) (Auto) 4 0-10 % Basophils (%) (Auto) 0 0-10 % Neutrophils # (Auto) 4.8 1.8-7.8 10^3/uL Lymphocytes # (Auto) 1.1 1.0-4.0 10^3/uL Monocytes # (Auto) 0.7 0.0-1.0 10^3/uL Eosinophils # (Auto) 0.3 0.0-0.3 10^3/uL Basophils # (Auto) 0.0 0.0-0.1 10^3/uL Immature Granulocyte # (Auto) 0.0 0.0-0.1 10^3/uL Sodium Level 138 135-145 MMOL/L Potassium Level 4.4 3.6-5.0 MMOL/L Chloride Level 104 98-107 MMOL/L Carbon Dioxide Level 22 21-32 MMOL/L Anion Gap 12 5-14 MMOL/L Blood Urea Nitrogen 33 H 7-18 MG/DL Creatinine 1.15 0.60-1.30 MG/DL Estimat Glomerular Filtration Rate 46 BUN/Creatinine Ratio 29 Glucose Level 106 H 70-105 MG/DL Calcium Level 10.0 8.5-10.1 MG/DL Corrected Calcium 10.0 8.5-10.1 MG/DL Total Bilirubin 0.2 0.1-1.0 MG/DL Aspartate Amino Transf (AST/SGOT) 26 5-34 U/L Alanine Aminotransferase (ALT/SGPT) 9 0-55 U/L Alkaline Phosphatase 151 H 40-136 U/L Troponin I < 0.30 <0.30 NG/ML Total Protein 7.6 6.4-8.2 GM/DL Albumin 4.0 3.2-4.5 GM/DL Lipase 38 8-78 U/L My Orders Orders - GOODSON,MADONNA L DO Cbc With Automated Diff (01/21/22 16:54) Comprehensive Metabolic Panel (01/21/22 16:54) Lipase (01/21/22 16:54) Ondansetron Injection (Zofran Injectio (01/21/22 17:00) Famotidine Tablet (Pepcid Tablet) (01/21/22 16:54) Ed Iv/Invasive Line Start (01/21/22 16:54) Troponin I Fs (01/21/22 16:54) Ekg Tracing (01/21/22 16:54) Monitor-Rhythm Ecg Trace Only (01/21/22 16:54) Medications Given in ED Current Medications Medications Dose Ordered Sig/Umm Route Start Time Stop Time Status Last Admin Dose Admin Ondansetron HCl 4 mg ONCE ONCE IVP 01/21/22 17:00 01/21/22 17:01 DC 01/21/22 17:13 4 MG Vital Signs/I&O 01/21/22 01/21/22 16:41 17:43 Temp 36.2 36.2 Pulse 64 65 Resp 16 16 B/P (MAP) 127/87 (100) 115/82 Pulse Ox 96 98 O2 Delivery Room Air Room Air Progress Progress Note : Progress Note Patient reports her symptoms are completely resolved following treatment with Pepcid and Zofran. Recommended she uses Pepcid twice daily and I will give her a prescription for Zofran. She should follow-up with her primary care provider if her appetite does not return. She is stable and discharged home Initial ECG Impression Date: Jan 21, 2022 Initial ECG Impression Time: 17:06 Initial ECG Rate: 60 Initial ECG Rhythm: Normal Sinus Initial ECG Impression: Nonspecific Changes Comment no acute changes, Departure Impression Primary Impression: Acid reflux Qualified Codes: K21.9 - Gastro-esophageal reflux disease without esophagitis Disposition: HOME, SELF-CARE Condition: Stable Departure-Patient Inst. Referrals: SELFFELICITAS MD (PCP) Primary Care Physician Patient Instructions: Acid Reflux, Adult and Adolescent ED, Acid Reflux and GERD in Adults (DC) Add. Discharge Instructions: Pepcid 20 mg twice daily. This is available [id number] Follow-up with your primary care provider if your appetite does not return after treatment for approximately 1 week All discharge instructions reviewed with patient and/or family. Voiced understanding. Scripts Ondansetron (Ondansetron Odt) 4 Mg Tab.rapdis 4 MG PO Q8H PRN for NAUSEA/VOMITING, #20 TAB 0 Refills Prov: MADONNA GOODSON DO 01/21/22 MADONNA GOODSON DO Jan 21, 2022 16:43
[2022-01-21] MEDS ORDERED: FAMOTIDINE 20 MG (PEPCID) TABLET PO STA (16:54)
[2022-01-21 17:00] LABS: BASOPHILS % (AUTO) 0 % (0-10); EOSINOPHILS # (AUTO) 0.3 10^3/uL (0.0-0.3); EOSINOPHILS % (AUTO) 4 % (0-10); HEMATOCRIT 37 % (35-52); HEMOGLOBIN 12.2 g/dL (11.5-16.0); LYMPHOCYTES # (AUTO) 1.1 10^3/uL (1.0-4.0); LYMPHOCYTES % (AUTO) 16 % (12-44); MEAN CORPUSCULAR HEMOGLOBIN 31 pg (25-34); MEAN CORPUSCULAR HGB CONC 33 g/dL (32-36); MEAN CORPUSCULAR VOLUME 93 fL (80-99); MEAN PLATELET VOLUME 9.4 fL (9.0-12.2); MONOCYTES # (AUTO) 0.7 10^3/uL (0.0-1.0); MONOCYTES % (AUTO) 10 % (0-12); NEUTROPHILS # (AUTO) 4.8 10^3/uL (1.8-7.8); NEUTROPHILS % (AUTO) 70 % (42-75); PLATELET COUNT 247 10^3/uL (130-400)
[2022-01-21] MEDS ORDERED: ONDANSETRON 4 MG/2 ML (SDV) Z0FRAN IVP ONE (17:00)
[2022-01-21 17:21] LABS: ALANINE AMINOTRANSFERASE 9 U/L (0-55); ALKALINE PHOSPHATASE 151 U/L (40-136); BILIRUBIN,TOTAL 0.2 MG/DL (0.1-1.0); BUN/CREATININE RATIO 29; CARBON DIOXIDE 22 MMOL/L (21-32); CHLORIDE 104 MMOL/L (98-107); CREATININE SERUM 1.15 MG/DL (0.60-1.30); GFR ESTIMATED 46; GLUCOSE 106 MG/DL (70-105); LIPASE 38 U/L (8-78); POTASSIUM 4.4 MMOL/L (3.6-5.0); SODIUM 138 MMOL/L (135-145); TOTAL PROTEIN 7.6 GM/DL (6.4-8.2)
[2022-01-21] MEDS ORDERED: ONDA4TAB11 PO (17:42)
[2022-01-21 17:43] VITALS: BP 115/82
== END 2022-01-21 17:43 | disposition home or self-care (01) ==
LOC: EDUNIT# 16:37 → ER FS 16:39
DX: K21.9 Gastro-esophageal reflux disease without esophagitis (principal); Z28.311 Partially vaccinated for COVID-19
CPT/HCPCS: 36415; 80053; 83690; 84484; 85025; 93005; 93041; 96374

== ENCOUNTER 2022-02-04 19:45 | Emergency (ER) | payer MEDICARE ==
[~2022-02-04] VITALS: Ht 172 cm; Wt 63.0 kg
[2022-02-04 19:50] VITALS: BP 121/88
[2022-02-04] MEDS ORDERED: DOXYCYCLINE 100 MG (VIBRAMYCIN) TABLET PO STA (19:58)
[2022-02-04] MEDS ORDERED: HYDROcodone/APAP 5 MG/325 MG (LORTAB) TAB PO ONE (20:00)
[2022-02-04] MEDS ORDERED: RT-ALBUTEROL/IPRATROPIUM 3 ML (DUONEB) VIAL INH ONE (20:00)
--- NOTE | 2022-02-04 20:06 | ED Fall/Injury ---
General Stated Complaint: FALL, R ARM,BACK,TAILBONE PAIN Source: patient Exam Limitations: no limitations History of Present Illness Date Seen by Provider: Feb 04, 2022 Time Seen by Provider: 19:47 Initial Comments 86-year-old female with past medical history of probable COPD, hypothyroidism, hypertension, hyperlipidemia coming in after she was standing, knees give out, fell to her right side. Unsure if she hit her head. She says she might of passed out for a second. She was able to get up and has been able to walk. Having severe pain in her right shoulder that is sharp, worse with movement, better with rest. Also having pain in her mid back, lower tailbone, and right elbow. She says she has an abrasion to her right elbow. Last tetanus shot she believes was more than 10 years ago. She is otherwise denying any chest pain, shortness of breath that is new, abdominal pain, nausea, vomiting, diarrhea, fever, chills, weakness, numbness, vision changes, headache, or any other concer ns. She does not take any blood thinners Allergies and Home Medications Allergies Coded Allergies: Sulfa (Sulfonamide Antibiotics) (Unverified Adverse Reaction, Mild, hives, 03/27/19) adhesive tape (Unverified Adverse Reaction, Mild, skin reaction, 03/27/19) latex (Unverified Adverse Reaction, Mild, rash, 03/27/19) sulfamethoxazole (Unverified Adverse Reaction, Mild, rash, 03/27/19) Septra IV allergy from [employer] [facility] tramadol (Unverified Adverse Reaction, Mild, Nausea/vomiting, 03/27/19) trimethoprim (Unverified Adverse Reaction, Mild, rash, 03/27/19) Septra IV allergy from [employer] Patient Home Medication List Home Medication List Reviewed: Yes Albuterol Sulfate (Proair Hfa) 1 Puff Puff, 2 PUFF IH Q4H PRN for WHEEZING Prescribed by: NILDA KING on 02/04/22 2218 Alprazolam (Alprazolam) 0.5 Mg Tablet, 0.5 MG PO QID PRN for ANXIETY, (Reported) Entered as Reported by: MALIA DUBON on 03/27/19 1710 Aspirin (Aspirin EC) 81 Mg Tablet.dr, 81 MG PO DAILY, (Reported) Entered as Reported by: MALIA DUBON on 03/27/191709 Azithromycin (Azithromycin) 250 Mg Tablet, 250 MG PO DAILY Prescribed by: LUCY OSBORN on 07/11/202029 Cholecalciferol (Vitamin D3) (Vitamin D3) 1,000 Unit Tablet, 1,000 UNIT PO DAILY, (Reported) Entered as Reported by: MALIA DUBON on 03/27/191709 Dexamethasone (Dexamethasone) 4 Mg Tablet, 4 MG PO DAILY Prescribed by: LUCY OSBORN on 07/11/202029 Doxycycline Hyclate (Doxycycline Hyclate) 100 Mg Tablet, 100 MG PO BID Prescribed by: NILDA KING on 02/04/222217 Gabapentin (Gabapentin) 400 Mg Capsule, 400 MG PO TID, (Reported) Entered as Reported by: MALIA DUBON on 03/27/191709 Hydrocodone Bit/Acetaminophen (Lortab 5 Mg Tablet) 1 Each Tablet, 1 TAB PO TID PRN for PAIN-MILD TO MODERATE, (Reported) Entered as Reported by: MALIA DUBON on 03/27/191709 Levofloxacin (Levofloxacin) 500 Mg Tablet, 500 MG PO DAILY Prescribed by: АННА ZAVALA on 09/13/20 1350 Levothyroxine Sodium (Levothyroxine Sodium) 150 Mcg Tablet, 150 MCG PO DAILY, (Reported) Entered as Reported by: MALIA DUBON on 03/27/191709 Lisinopril (Lisinopril) 2.5 Mg Tablet, 2.5 MG PO DAILY, (Reported) Entered as Reported by: MALIA DUBON on 03/27/191709 Meclizine HCl (Meclizine HCl) 25 Mg Tablet, 25 MG PO TID PRN for vertigo Prescribed by: LAWRENCE ISAACS on 03/27/191751 Methylprednisolone (Methylprednisolone Dose Pack) 4 Mg Tab.ds.pk, 4 MG PO UD Prescribed by: NILDA KING on 02/04/222217 Metoprolol Succinate (Metoprolol Succinate) 25 Mg Tab.er.24h, 25 MG PO DAILY, (Reported) Entered as Reported by: MALIA DUBON on 03/27/191709 Montelukast Sodium (Montelukast Sodium) 10 Mg Tablet, 10 MG PO DAILY, (Reported) Entered as Reported by: MALIA DUBON on 03/27/191709 Paolo/Polymyx B Sulf/Dexameth (Maxitrol Eye Drops) 5 Ml Drops.susp, 5 ML OP Q6H Prescribed by: MADONNA GOODSON on 07/10/21 1509 Omeprazole (Omeprazole) 20 Mg Capsule.dr, 20 MG PO BID, (Reported) Entered as Reported by: MAILA DUBON on 03/27/191709 Ondansetron (Ondansetron Odt) 4 Mg Tab.rapdis, 4 MG PO Q6H PRN for NAUSEA/VOMITING Prescribed by: MADONNA GOODSON on 12/03/212105 Ondansetron (Ondansetron Odt) 4 Mg Tab.rapdis, 4 MG PO Q8H PRN for NAUSEA/VO MITING Prescribed by: MADONNA GOODSON on 01/21/22 174 Oseltamivir Phosphate (Tamiflu) 75 Mg Cap, 75 MG PO BID Prescribed by: MADONNA GOODSON on 12/03/212105 Paroxetine HCl (Paroxetine HCl) 20 Mg Tablet, 20 MG PO DAILY, (Reported) Entered as Reported by: MALIA DUBON on 03/27/191709 Ropinirole HCl (Ropinirole HCl) 2 Mg Tablet, 2 MG PO BID, (Reported) Entered as Reported by: MALIA DUBON on 03/27/191709 Sucralfate (Sucralfate) 1 Gm Tablet, 1 GM PO QIDACHS, (Reported) Entered as Reported by: MALIA DUBON on 03/27/191709 Review of Systems Review of Systems Constitutional: No fever Eyes: Denies Blurred Vision Ears, Nose, Mouth, Throat: no symptoms reported Respiratory: cough (chronic for years) Cardiovascular: No chest pain Gastrointestinal: No abdominal pain Genitourinary: no symptoms reported Musculoskeletal: back pain, joint pain Skin: no symptoms reported Psychiatric/Neurological: No Symptoms Reported All Other Systems Reviewed Negative Unless Noted: Yes Past Cnvllrf-Unmche-Gmhjnl Hx Patient Social History Tobacco Use?: No Smoking Status: Former Smoker Substance use?: No Immunizations Up To Date Tetanus Booster (TDap): Less than 5yrs First/Initial COVID19 Vaccinat: 2020 Seasonal Allergies Seasonal Allergies: Yes Past Medical History Surgery/Hospitalization HX: Mass behind eye; hypothyroidism; HTN; GERD; Restless leg syndrome; left mastectomy; breast cancer; Surgeries: Yes (L Mastectomy w/nodes; double bypass, tunneled [place] port) Breast, CABG Respiratory: No Cardiac: Yes (Heart failure; left systolic, 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 dz) Neuropathy, Vertigo Genitourinary: No Gastrointestinal: Yes (Gastritis, Duodenitis,) Gastroesophageal Reflux, Esophagitis, Gall Bladder Disease Musculoskeletal: Yes (Frequent sciatica issues, has RLS, complete rupture rotator cuff, ) Arthritis Endocrine: Yes Hypothyroidsim HEENT: No Cancer: Yes (Myelodysplastic Syndrome, Inflammatory CA L breast) Breast Did You Recieve Any Treatments: Yes What Type of Treatment Did You: Surgical Intervention Psychosocial: Yes Anxiety Integumentary: No Blood Disorders: No Physical Exam Vital Signs Vital Signs - First Documented 02/04/22 19:50 Temp 36.8 Pulse 78 Resp 24 B/P (MAP) 121/88 (99) Capillary Refill : Height, Weight, BMI Height: 5'4.00" Weight: 142lbs. 0.0oz. 64.655100zw; 23.00 BMI Method:Stated General Appearance: WD/WN, no apparent distress HEENT: PERRL/EOMI, normal ENT inspection, pharynx normal Neck: non-tender, full range of motion, supple, normal inspection Cardiovascular: regular rate, rhythm, no edema, no murmur Respiratory: chest non-tender, no respiratory distress, no accessory muscle use, wheezing Gastrointestinal: normal bowel sounds, non tender, soft; No distended, No guard ing, No rebound Back: normal inspection, no CVA tenderness, no vertebral tenderness (mid thoracic and sacral) Extremities: no pedal edema, no calf tenderness, normal capillary refill, other (pain along right shoulder and right elbow, does have full passive range of motion with pain of shoulder, full AROM of elbows, no hip pain or lower ex tremity pain, abrasion to left elbow) Neurologic/Psychiatric: no motor/sensory deficits, alert, normal mood/affect, other (normal gait) Skin: normal color, warm/dry Lymphatic: no adenopathy Marycarmen Coma Score Best Eye Response: (4) Open Spontaneously Best Verbal Response: (5) Oriented Best Motor Response: (6) Obeys Commands Procedures/Interventions Suture Size: 5-0 Progress/Results/Core Measures Results/Orders Lab Results Laboratory Tests Test 02/04/22 20:05 Range/Units White Blood Count 5.7 4.3-11.0 10^3/uL Red Blood Count 3.97 3.80-5.11 10^6/uL Hemoglobin 12.0 11.5-16.0 g/dL Hematocrit 37 35-52 % Mean Corpuscular Volume 93 80-99 fL Mean Corpuscular Hemoglobin 30 25-34 pg Mean Corpuscular Hemoglobin Concent 32 32-36 g/dL Red Cell Distribution Width 13.1 10.0-14.5 % Platelet Count 202 130-400 10^3/uL Mean Platelet Volume 9.8 9.0-12.2 fL Immature Granulocyte % (Auto) 0 % Neutrophils (%) (Auto) 62 42-75 % Lymphocytes (%) (Auto) 22 12-44 % Monocytes (%) (Auto) 11 0-12 % Eosinophils (%) (Auto) 4 0-10 % Basophils (%) (Auto) 1 0-10 % Neutrophils # (Auto) 3.5 1.8-7.8 10^3/uL Lymphocytes # (Auto) 1.3 1.0-4.0 10^3/uL Monocytes # (Auto) 0.6 0.0-1.0 10^3/uL Eosinophils # (Auto) 0.3 0.0-0.3 10^3/uL Basophils # (Auto) 0.0 0.0-0.1 10^3/uL Immature Granulocyte # (Auto) 0.0 0.0-0.1 10^3/uL Prothrombin Time 14.1 12.2-14.7 SEC INR Comment 1.1 0.8-1.4 Activated Partial Thromboplast Time 28 24-35 SEC Sodium Level 141 135-145 MMOL/L Potassium Level 4.4 3.6-5.0 MMOL/L Chloride Level 106 98-107 MMOL/L Carbon Dioxide Level 24 21-32 MMOL/L Anion Gap 11 5-14 MMOL/L Blood Urea Nitrogen 16 7-18 MG/DL Creatinine 1.07 0.60-1.30 MG/DL Estimat Glomerular Filtration Rate 50 BUN/Creatinine Ratio 15 Glucose Level 108 H 70-105 MG/DL Calcium Level 10.1 8.5-10.1 MG/DL Corrected Calcium 10.4 H 8.5-10.1 MG/DL Total Bilirubin 0.4 0.1-1.0 MG/DL Aspartate Amino Transf (AST/SGOT) 25 5-34 U/L Alanine Aminotransferase (ALT/SGPT) 11 0-55 U/L Alkaline Phosphatase 158 H 40-136 U/L Troponin I < 0.30 <0.30 NG/ML Pro-B-Type Natriuretic Peptide 1901.0 H <75.0 PG/ML Total Protein 7.3 6.4-8.2 GM/DL Albumin 3.6 3.2-4.5 GM/DL My Orders Orders - NILDA KING MD Ct Head/Cerv/Chst/Abd/Pelv Wo (02/04/22 19:58) Cbc With Automated Diff (02/04/22 19:58) Comprehensive Metabolic Panel (02/04/22 19:58) Protime With Inr (02/04/22 19:58) Partial Thromboplastin Time (02/04/22 19:58) Probnp Fs (02/04/22 19:58) Troponin I Fs (02/04/22 19:58) Ekg Tracing (02/04/22 19:58) Elbow 2 View Right (02/04/22 19:58) Shoulder 3 View Right (02/04/22 19:58) Hydrocodone/Apap 5/325 Tablet (Lortab 5 (02/04/22 20:00) Albuterol/Ipra Inhalation Soln (Duoneb I (02/04/22 20:00) Dexamethasone Injection (Decadron Injec (02/04/22 20:00) Doxycycline Hyclate Tablet (Vibramycin T (02/04/22 19:58) Dipht,Pertuss(Acell),Tet Adult (Boostrix (02/04/22 20:15) Medications Given in ED Current Medications Medications Dose Ordered Sig/Umm Route Start Time Stop Time Status Last Admin Dose Admin Acetaminophen/ Hydrocodone Bitart 1 ea ONCE ONCE PO 02/04/22 20:00 02/04/22 20:02 DC 02/04/22 20:11 1 EA Albuterol/ Ipratropium 3 ml ONCE ONCE INH 02/04/22 20:00 02/04/22 20:03 DC 02/04/22 20:11 3 ML Dexamethasone Sodium Phosphate 8 mg ONCE ONCE IV 02/04/22 20:00 02/04/22 20:03 DC 02/04/22 20:10 8 MG Diphtheria/ Tetanus/Acell Pertussis 0.5 ml ONCE ONCE IM 02/04/22 20:15 02/04/22 20:16 DC 02/04/22 20:10 0.5 ML Vital Signs/I&O 02/04/22 19:50 Temp 36.8 Pulse 78 Resp 24 B/P (MAP) 121/88 (99) Progress Progress Note : Progress Note 86-year-old female coming in after her knees buckling and landing on her right side with significant pain. ABCs were intact and vitals were stable on presentation with a GCS of 15. Physical exam with right shoulder tenderness mostly with movement and spinal tenderness in various areas. CT imaging ordered to assess for mostly fracture. The patient did have a productive cough, wheezing, significant smoking history. Likely has undiagnosed COPD. Was also given a DuoNeb, steroids, doxycycline for presumed COPD exacerbation. X-ray of the right shoulder and right elbow ordered and interpreted by me. She does not have any acute fracture or dislocation. She does appear to have an old injury of a previously shoulder on the right. She is not tender over this area so I believe this is chronic. CT imaging with some sclerotic lesions in her spine which could be metastatic, but no other acute abnormalities. I let the patient know this and to have her follow-up with her primary doctor regarding this. She also does have some findings that would be concerning for mild pneumonia. The doxycycline she received earlier should cover for this. Believe she is stable for discharge with outpatient follow-up. She was sent home with strict return precautions. Diagnostic Imaging Diagonstic Imaging: CT (head/ c spine/ chest/ abd/pelv) Comments [facility]. [place], [place] NAME: TIMI BREWER [facility] REC#: [id number] PT STATUS: REG ER : 1935 PHYSICIAN: NILDA KING MD ADMIT DATE: 02/04/22/ER FS Draft Date of Exam:02/04/22 CT HEAD/CERV/CHST/ABD/PELV WO INDICATION: Fall with head, neck, chest and abdominal pain. TECHNIQUE: CT of the head, cervical spine, chest, abdomen and pelvis was obtained without contrast with axial slices and multiplanar reconstructions. Dose reduction protocol was used CTA HEAD FINDINGS: There are diffuse atrophic changes. There is no extra-axial fluid collection. No intracranial hemorrhage. No intracranial mass or mass effect. No midline shift. The ventricles are normal in size and position. There are chronic ischemic changes in the deep white matter. Calvarial windows are normal. CT CERVICAL SPINE FINDINGS: There is no evidence of cervical spine fracture. There is fairly extensive degenerative change throughout the cervical spine with disc space narrowing at multiple levels. There is sclerotic change at C4, metastatic lesion not excluded. Consider MR follow-up as clinically warranted. This finding is new compared with 07/10/2021. CT CHEST FINDINGS: There is cardiomegaly. There are no enlarged mediastinal or hilar nodes. There is no acute traumatic abnormality. There is a trace of left pleural fluid. Lung parenchymal windows are limited by motion artifact but demonstrate patchy areas of airspace disease in both lungs which may represent pneumonia, as well as diffuse peribronchial thickening. There are diffuse degenerative changes in the thoracic spine. CT ABDOMEN/PELVIS FINDINGS: The liver and gallbladder appear unremarkable. The spleen, adrenals and pancreas appear normal. The kidneys, bilaterally, are unremarkable. There is no retroperitoneal mass or adenopathy. There is no ascites or abnormal fluid collection. Visualized bowel loops are unremarkable. There is no pelvic fracture. There are sclerotic bony changes at L2. There are diffuse degenerative changes in the lumbar spine. IMPRESSION: 1. CT head was noted for chronic changes but no acute abnormality. 2. CT cervical spine shows degenerative changes throughout the cervical spine with no acute fracture or subluxation. There is a new sclerotic lesion at C4, which may represent a metastatic lesion. Consider MRI for follow-up, as clinically warranted. This finding was not present on the prior study. 3. CT chest shows cardiomegaly. There is no acute traumatic abnormality in the chest. There are patchy infiltrates scattered throughout both lungs as well as perihilar bronchial thickening. These findings may represent pneumonia. There is a trace of left pleural fluid. 4. CT abdomen and pelvis demonstrate no evidence of solid organ injury or free fluid or acute abnormality. There is a sclerotic bony lesion at L2 which may be metastatic. Dictated on workstation # [id number] Dict: 02/04/222156 Trans: 02/04/222214 [facility] [id number] Interpreted by: SAGAR GELLER MD Electronically signed by: Departure Impression Primary Impression: COPD exacerbation Additional Impressions: Pneumonia Qualified Codes: J18.9 - Pneumonia, unspecified organism Lesion of bone of cervical spine Disposition: HOME, SELF-CARE Condition: Stable Departure-Patient Inst. Decision time for Depature: 22:26 Referrals: FELICITAS SCHAEFER MD (PCP/Family) Primary Care Physician Patient Instructions: COPD Exacerbation, Adult ED Add. Discharge Instructions: I do believe you have an undiagnosed lung disease known as COPD. I sent an antibiotic, steroid, and an inhaler to her pharmacy to see if we can help with your cough. You do have a mild pneumonia on your imaging which the antibiotic will also help with that. You also have what is known as the sclerotic lesions in your spine in 2 different spots. It is possible this could be cancerous so you need to follow-up with your regular doctor regarding this. Scripts Doxycycline Hyclate (Doxycycline Hyclate) 100 Mg Tablet 100 MG PO BID for 7 Days, #14 TAB 0 Refills Prov: NILDA KING MD 02/04/22 Methylprednisolone (Methylprednisolone Dose Pack) 4 Mg Tab.ds.pk 4 MG PO UD for 6 Days, #21 PKG PER DOSE PACK INSTRUCTIONS Prov: NILDA KING MD 02/04/22 Albuterol Sulfate (PROAIR HFA) 1 Puff Puff 2 PUFF IH Q4H PRN for WHEEZING for 30 Days, #1 EA 1 PUFF = 90 MCG Prov: NILDA KING MD 02/04/22 NILDA KING MD Feb 04, 2022 20:06
[2022-02-04 20:11] LABS: BASOPHILS % (AUTO) 1 % (0-10); EOSINOPHILS # (AUTO) 0.3 10^3/uL (0.0-0.3); EOSINOPHILS % (AUTO) 4 % (0-10); HEMATOCRIT 37 % (35-52); LYMPHOCYTES # (AUTO) 1.3 10^3/uL (1.0-4.0); LYMPHOCYTES % (AUTO) 22 % (12-44); MEAN CORPUSCULAR HEMOGLOBIN 30 pg (25-34); MEAN CORPUSCULAR HGB CONC 32 g/dL (32-36); MEAN CORPUSCULAR VOLUME 93 fL (80-99); MEAN PLATELET VOLUME 9.8 fL (9.0-12.2); MONOCYTES # (AUTO) 0.6 10^3/uL (0.0-1.0); MONOCYTES % (AUTO) 11 % (0-12); NEUTROPHILS # (AUTO) 3.5 10^3/uL (1.8-7.8); NEUTROPHILS % (AUTO) 62 % (42-75); PLATELET COUNT 202 10^3/uL (130-400); WHITE BLOOD COUNT 5.7 10^3/uL (4.3-11.0)
[2022-02-04] MEDS ORDERED: TETANUS,DIPTH,PERTUSS P/F (BOOSTRIX) 0.5 ML VIAL IM ONE (20:15)
[2022-02-04 20:23] LABS: INR 1.1 (0.8-1.4); PROTHROMBIN TIME PATIENT 14.1 SEC (12.2-14.7)
[2022-02-04 20:37] LABS: ALANINE AMINOTRANSFERASE 11 U/L (0-55); ALKALINE PHOSPHATASE 158 U/L (40-136); BILIRUBIN,TOTAL 0.4 MG/DL (0.1-1.0); BUN/CREATININE RATIO 15; CALCIUM 10.1 MG/DL (8.5-10.1); CARBON DIOXIDE 24 MMOL/L (21-32); CHLORIDE 106 MMOL/L (98-107); CREATININE SERUM 1.07 MG/DL (0.60-1.30); GFR ESTIMATED 50; GLUCOSE 108 MG/DL (70-105); POTASSIUM 4.4 MMOL/L (3.6-5.0); SODIUM 141 MMOL/L (135-145)
[2022-02-04 20:38] LABS: ALBUMIN 3.6 GM/DL (3.2-4.5); TOTAL PROTEIN 7.3 GM/DL (6.4-8.2)
--- NOTE | 2022-02-04 22:15 | Diagnostic Imaging Report ---
INDICATION: Fall with head, neck, chest and abdominal pain. TECHNIQUE: CT of the head, cervical spine, chest, abdomen and pelvis was obtained without contrast with axial slices and multiplanar reconstructions. Dose reduction protocol was used CTA HEAD FINDINGS: There are diffuse atrophic changes. There is no extra-axial fluid collection. No intracranial hemorrhage. No intracranial mass or mass effect. No midline shift. The ventricles are normal in size and position. There are chronic ischemic changes in the deep white matter. Calvarial windows are normal. CT CERVICAL SPINE FINDINGS: There is no evidence of cervical spine fracture. There is fairly extensive degenerative change throughout the cervical spine with disc space narrowing at multiple levels. There is sclerotic change at C4, metastatic lesion not excluded. Consider MR follow-up as clinically warranted. This finding is new compared with 07/10/2021. CT CHEST FINDINGS: There is cardiomegaly. There are no enlarged mediastinal or hilar nodes. There is no acute traumatic abnormality. There is a trace of left pleural fluid. Lung parenchymal windows are limited by motion artifact but demonstrate patchy areas of airspace disease in both lungs which may represent pneumonia, as well as diffuse peribronchial thickening. There are diffuse degenerative changes in the thoracic spine. CT ABDOMEN/PELVIS FINDINGS: The liver and gallbladder appear unremarkable. The spleen, adrenals and pancreas appear normal. The kidneys, bilaterally, are unremarkable. There is no retroperitoneal mass or adenopathy. There is no ascites or abnormal fluid collection. Visualized bowel loops are unremarkable. There is no pelvic fracture. There are sclerotic bony changes at L2. There are diffuse degenerative changes in the lumbar spine. IMPRESSION: 1. CT head was noted for chronic changes but no acute abnormality. 2. CT cervical spine shows degenerative changes throughout the cervical spine with no acute fracture or subluxation. There is a new sclerotic lesion at C4, which may represent a metastatic lesion. Consider MRI for follow-up, as clinically warranted. This finding was not present on the prior study. 3. CT chest shows cardiomegaly. There is no acute traumatic abnormality in the chest. There are patchy infiltrates scattered throughout both lungs as well as perihilar bronchial thickening. These findings may represent pneumonia. There is a trace of left pleural fluid. 4. CT abdomen and pelvis demonstrate no evidence of solid organ injury or free fluid or acute abnormality. There is a sclerotic bony lesion at L2 which may be metastatic. Dictated by: Dictated on workstation # [id number]
--- NOTE | 2022-02-04 22:16 | Diagnostic Imaging Report ---
INDICATION: Right elbow pain. EXAMINATION: AP and lateral views of the right elbow were obtained. FINDINGS: No fracture or acute bony abnormality is seen. Joint spaces are unremarkable. IMPRESSION: Negative right elbow. Dictated by: Dictated on workstation # [id number]
[2022-02-04] MEDS ORDERED: DOXY100T2 PO (22:18)
[2022-02-04] MEDS ORDERED: METH4TAB10 PO (22:18)
[2022-02-04] MEDS ORDERED: RT-ALBUINH IH (22:18)
--- NOTE | 2022-02-04 22:21 | Diagnostic Imaging Report ---
INDICATION: Right shoulder pain post fall. EXAMINATION: AP and oblique and lateral views of the right shoulder were obtained. FINDINGS: No acute fracture is visualized. There is evidence of grade 3 AC separation which appears chronic with associated calcifications. The glenohumeral joint shows no dislocation. IMPRESSION: Findings compatible with chronic AC separation. No acute abnormality of the right shoulder. Dictated by: Dictated on workstation # [id number]
== END 2022-02-04 22:39 | disposition home or self-care (01) ==
LOC: EDUNIT# 19:45 → ER FS 19:46
DX: S50.312A Abrasion of left elbow, initial encounter; J18.9 Pneumonia, unspecified organism; J44.9 Chronic obstructive pulmonary disease, unspecified; M25.511 Pain in right shoulder; M25.521 Pain in right elbow; Z87.891 Personal history of nicotine dependence; Z23 Encounter for immunization; W19.XXXA Unspecified fall, initial encounter
CPT/HCPCS: 36415; 70450; 71250; 72125; 72192; 73030; 73070; 74150; 80053; 83880; 84484; 85025; 85610; 85730; 90471; 90715; 93005; 96374

== ENCOUNTER 2022-02-26 18:05 | Emergency (ER) | payer MEDICARE ==
[~2022-02-26] VITALS: Ht 167.7 cm; Wt 62.1 kg
[~2022-02-26 18:05] MED LIST changes: +DOXY100T2 PO; +METH4TAB10 PO; +RT-ALBUINH IH
[2022-02-26 18:22] LABS: BASOPHILS % (AUTO) 0 % (0-10); EOSINOPHILS # (AUTO) 0.2 10^3/uL (0.0-0.3); EOSINOPHILS % (AUTO) 4 % (0-10); HEMATOCRIT 39 % (35-52); HEMOGLOBIN 12.4 g/dL (11.5-16.0); LYMPHOCYTES % (AUTO) 17 % (12-44); MEAN CORPUSCULAR HEMOGLOBIN 30 pg (25-34); MEAN CORPUSCULAR HGB CONC 32 g/dL (32-36); MEAN CORPUSCULAR VOLUME 95 fL (80-99); MEAN PLATELET VOLUME 10.9 fL (9.0-12.2); MONOCYTES # (AUTO) 0.6 10^3/uL (0.0-1.0); MONOCYTES % (AUTO) 11 % (0-12); NEUTROPHILS # (AUTO) 3.9 10^3/uL (1.8-7.8); NEUTROPHILS % (AUTO) 68 % (42-75); PLATELET COUNT 228 10^3/uL (130-400); WHITE BLOOD COUNT 5.8 10^3/uL (4.3-11.0)
--- NOTE | 2022-02-26 18:22 | ED Respiratory ---
General Chief Complaint: Respiratory Problems Stated Complaint: SOB Source: patient, EMS Exam Limitations: no limitations History of Present Illness Date Seen by Provider: Feb 26, 2022 Time Seen by Provider: 18:06 Initial Comments 86yoF with PMH of probable COPD, hypothyroidism, hypertension, hyperlipidemia, prior breast cancer coming in via EMS from home due to increasing dyspnea. The patient says she is felt short of breath for the past week, they are worsening, and was worse today. Worse with any type of movement, better with rest. Tried using an inhaler prescribed by her PCP which helped somewhat. EMS reports her oxygen was 94% on room air with some scattered wheezing. They gave a DuoNeb with some improvement to 98%. Patient also states she is lost roughly 14 pounds in the past 2 to 3 months due to lack of appetite. Denies any chest pain, fever, abdominal pain, nausea, vomiting, diarrhea, rash, focal weakness or numbness, headache, vision changes, or any other concerns Allergies and Home Medications Allergies Coded Allergies: Sulfa (Sulfonamide Antibiotics) (Unverified Adverse Reaction, Mild, hives, 03/27/19) adhesive tape (Unverified Adverse Reaction, Mild, skin reaction, 03/27/19) latex (Unverified Adverse Reaction, Mild, rash, 03/27/19) sulfamethoxazole (Unverified Adverse Reaction, Mild, rash, 03/27/19) Septra IV allergy from [facility] tramadol (Unverified Adverse Reaction, Mild, Nausea/vomiting, 03/27/19) trimethoprim (Unverified Adverse Reaction, Mild, rash, 03/27/19) Septra IV allergy from [facility] Patient Home Medication List Home Medication List Reviewed: Yes Albuterol Sulfate (Proair Hfa) 1 Puff Puff, 2 PUFF IH Q4H PRN for WHEEZING Prescribed by: NILDA KING on 02/04/222217 Alprazolam (Alprazolam) 0.5 Mg Tablet, 0.5 MG PO QID PRN for ANXIETY, (Reported) Entered as Reported by: MALIA DUBON on 03/27/191709 Aspirin (Aspirin EC) 81 Mg Tablet.dr, 81 MG PO DAILY, (Reported) Entered as Reported by: MALIA DUBON on 03/27/191709 Azithromycin (Azithromycin) 250 Mg Tablet, 250 MG PO DAILY Prescribed by: LUCY OSBORN on 07/11/202029 Cholecalciferol (Vitamin D3) (Vitamin D3) 1,000 Unit Tablet, 1,000 UNIT PO DAILY, (Reported) Entered as Reported by: MALIA DUBON on 03/27/191709 Dexamethasone (Dexamethasone) 4 Mg Tablet, 4 MG PO DAILY Prescribed by: LUCY OSBORN on 07/11/202029 Doxycycline Hyclate (Doxycycline Hyclate) 100 Mg Tablet, 100 MG PO BID Prescribed by: NILDA KING on 02/04/222217 Doxycycline Hyclate (Doxycycline Hyclate) 100 Mg Tablet, 100 MG PO BID Prescribed by: NILDA KING on 02/26/221917 Furosemide (Lasix) 20 Mg Tablet, 20 MG PO DAILY Prescribed by: NILDA KING on 02/26/221917 Gabapentin (Gabapentin) 400 Mg Capsule, 400 MG PO TID, (Reported) Entered as Reported by: MALIA DUBON on 03/27/191709 Hydrocodone Bit/Acetaminophen (Lortab 5 Mg Tablet) 1 Each Tablet, 1 TAB PO TID PRN for PAIN-MILD TO MODERATE, (Reported) Entered as Reported by: MALIA DUBON on 03/27/191709 Levofloxacin (Levofloxacin) 500 Mg Tablet, 500 MG PO DAILY Prescribed by: АННА ZAVALA on 09/13/20 1350 Levothyroxine Sodium (Levothyroxine Sodium) 150 Mcg Tablet, 150 MCG PO DAILY, (Reported) Entered as Reported by: MALIA DUBON on 03/27/191709 Lisinopril (Lisinopril) 2.5 Mg Tablet, 2.5 MG PO DAILY, (Reported) Entered as Reported by: MALIA DUBON on 03/27/191709 Meclizine HCl (Meclizine HCl) 25 Mg Tablet, 25 MG PO TID PRN for vertigo Prescribed by: LAWRENCE ISAACS on 03/27/191751 Methylprednisolone (Methylprednisolone Dose Pack) 4 Mg Tab.ds.pk, 4 MG PO UD Prescribed by: NILDA KING on 02/04/222217 Metoprolol Succinate (Metoprolol Succinate) 25 Mg Tab.er.24h, 25 MG PO DAILY, (Reported) Entered as Reported by: MALIA DUBON on 03/27/191709 Montelukast Sodium (Montelukast Sodium) 10 Mg Tablet, 10 MG PO DAILY, (Reported) Entered as Reported by: MALIA DUBON on 03/27/191709 Paolo/Polymyx B Sulf/Dexameth (Maxitrol Eye Drops) 5 Ml Drops.susp, 5 ML OP Q6H Prescribed by: MADONNA GOODSON on 07/10/21 1509 Omeprazole (Omeprazole) 20 Mg Capsule.dr, 20 MG PO BID, (Reported) Entered as Reported by: MALIA DUBON on 03/27/191709 Ondansetron (Ondansetron Odt) 4 Mg Tab.rapdis, 4 MG PO Q6H PRN for NAUSEA/VOMITING Prescribed by: MADONNA GOODSON on 12/03/212105 Ondansetron (Ondansetron Odt) 4 Mg Tab.rapdis, 4 MG PO Q8H PRN for NAUSEA/VOMITING Prescribed by: MADONNA GOODSON on 01/21/22 174 Oseltamivir Phosphate (Tamiflu) 75 Mg Cap, 75 MG PO BID Prescribed by: MADONNA GOODSON on 12/03/212105 Paroxetine HCl (Paroxetine HCl) 20 Mg Tablet, 20 MG PO DAILY, (Reported) Entered as Reported by: MALIA DUBON on 03/27/191709 Potassium Chloride (Potassium Chloride) 20 Meq Tablet.er, 20 MEQ PO DAILY Prescribed by: NILDA KING on 02/26/221917 Ropinirole HCl (Ropinirole HCl) 2 Mg Tablet, 2 MG PO BID, (Reported) Entered as Reported by: MALIA DUBON on 03/27/191709 Sucralfate (Sucralfate) 1 Gm Tablet, 1 GM PO QIDACHS, (Reported) Entered as Reported by: MALIA DUBON on 03/27/191709 Review of Systems Review of Systems Constitutional: No fever EENTM: No blurred vision Respiratory: cough, short of breath Cardiovascular: No chest pain Gastrointestinal: No abdominal pain Genitourinary: no symptoms reported Musculoskeletal: no symptoms reported Skin: no symptoms reported Psychiatric/Neurological: No Symptoms Reported Hematologic/Lymphatic: No Symptoms Reported Immunological/Allergic: no symptoms reported All Other Systems Reviewed Negative Unless Noted: Yes Past Mytazxj-Sfblrn-Lpvroo Hx Patient Social History Tobacco Use?: No Smoking Status: Former Smoker Immunizations Up To Date Tetanus Booster (TDap): Less than 5yrs First/Initial COVID19 Vaccinat: 2020 Seasonal Allergies Seasonal Allergies: Yes Past Medical History Surgery/Hospitalization HX: Mass behind eye; hypothyroidism; HTN; GERD; Restless leg syndrome; left mastectomy; breast cancer; Surgeries: Yes (L Mastectomy w/nodes; double bypass, tunneled [place]sh[place] port) Breast, CABG Respiratory: No Cardiac: Yes (Heart failure; left systolic, 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 dz) Neuropathy, Vertigo Genitourinary: No Gastrointestinal: Yes (Gastritis, Duodenitis,) Gastroesophageal Reflux, Esophagitis, Gall Bladder Disease Musculoskeletal: Yes (Frequent sciatica issues, has RLS, complete rupture rotator cuff, ) Arthritis Endocrine: Yes Hypothyroidsim HEENT: No Cancer: Yes (Myelodysplastic Syndrome, Inflammatory CA L breast) Breast Did You Recieve Any Treatments: Yes What Type of Treatment Did You: Surgical Intervention Psychosocial: Yes Anxiety Integumentary: No Blood Disorders: No Physical Exam Vital Signs - First Documented 02/26/22 18:06 Pulse Ox 98 O2 Flow Rate 4.00 Capillary Refill : Height: 5'4.00" Weight: 142lbs. 0.0oz. 64.455833re; 21.00 BMI Method:Stated General Appearance: WD/WN, mild distress Eyes: Bilateral Eye Normal Inspection HEENT: PERRL/EOMI, normal ENT inspection, pharynx normal Neck: non-tender, full range of motion, supple, normal inspection Respiratory: chest non-tender, accessory muscle use, wheezing Cardiovascular: regular rate, rhythm, no edema, no murmur Gastrointestinal: normal bowel sounds, non tender, soft; No distended, No gua rding, No rebound Extremities: normal range of motion, non-tender, normal inspection, no pedal edema, no calf tenderness, normal capillary refill Neurologic/Psychiatric: no motor/sensory deficits, alert, normal mood/affect Skin: normal color, warm/dry Lymphatic: no adenopathy Procedures/Interventions Suture Size: 5-0 Progress/Results/Core Measures Suspected Sepsis SIRS Temperature: Pulse: Respiratory Rate: Laboratory Tests 02/26/22 18:13: White Blood Count 5.8 Blood Pressure / Mean: Laboratory Tests 02/26/22 18:13: Creatinine 1.02, INR Comment 1.1, Platelet Count 228, Total Bilirubin 0.3 Results/Orders Lab Results Laboratory Tests Test 02/26/22 18:13 02/26/22 18:33 Range/Units White Blood Count 5.8 4.3-11.0 10^3/uL Red Blood Count 4.09 3.80-5.11 10^6/uL Hemoglobin 12.4 11.5-16.0 g/dL Hematocrit 39 35-52 % Mean Corpuscular Volume 95 80-99 fL Mean Corpuscular Hemoglobin 30 25-34 pg Mean Corpuscular Hemoglobin Concent 32 32-36 g/dL Red Cell Distribution Width 14.2 10.0-14.5 % Platelet Count 228 130-400 10^3/uL Mean Platelet Volume 10.9 9.0-12.2 fL Immature Granulocyte % (Auto) 0 % Neutrophils (%) (Auto) 68 42-75 % Lymphocytes (%) (Auto) 17 12-44 % Monocytes (%) (Auto) 11 0-12 % Eosinophils (%) (Auto) 4 0-10 % Basophils (%) (Auto) 0 0-10 % Neutrophils # (Auto) 3.9 1.8-7.8 10^3/uL Lymphocytes # (Auto) 1.0 1.0-4.0 10^3/uL Monocytes # (Auto) 0.6 0.0-1.0 10^3/uL Eosinophils # (Auto) 0.2 0.0-0.3 10^3/uL Basophils # (Auto) 0.0 0.0-0.1 10^3/uL Immature Granulocyte # (Auto) 0.0 0.0-0.1 10^3/uL Prothrombin Time 14.1 12.2-14.7 SEC INR Comment 1.1 0.8-1.4 Activated Partial Thromboplast Time 26 24-35 SEC Sodium Level 139 135-145 MMOL/L Potassium Level 4.5 3.6-5.0 MMOL/L Chloride Level 107 98-107 MMOL/L Carbon Dioxide Level 21 21-32 MMOL/L Anion Gap 11 5-14 MMOL/L Blood Urea Nitrogen 18 7-18 MG/DL Creatinine 1.02 0.60-1.30 MG/DL Estimat Glomerular Filtration Rate 53 BUN/Creatinine Ratio 18 Glucose Level 114 H 70-105 MG/DL Calcium Level 9.8 8.5-10.1 MG/DL Corrected Calcium 10.2 H 8.5-10.1 MG/DL Magnesium Level 1.6 1.6-2.4 MG/DL Total Bilirubin 0.3 0.1-1.0 MG/DL Aspartate Amino Transf (AST/SGOT) 29 5-34 U/L Alanine Aminotransferase (ALT/SGPT) 9 0-55 U/L Alkaline Phosphatase 164 H 40-136 U/L Troponin I < 0.30 <0.30 NG/ML Pro-B-Type Natriuretic Peptide 7300.0 H <450.0 PG/ML Total Protein 6.9 6.4-8.2 GM/DL Albumin 3.5 3.2-4.5 GM/DL Influenza Type A (RT-PCR) Not Detected Not Detecte Influenza Type B (RT-PCR) Not Detected Not Detecte SARS-CoV-2 RNA (RT-PCR) Not Detected Not Detecte My Orders Orders - NILDA KING MD Cbc With Automated Diff (02/26/22 18:17) Magnesium (02/26/22 18:17) Chest 1 View Ap/Pa Only (02/26/22 18:17) Ekg Tracing (02/26/22 18:17) Comprehensive Metabolic Panel (02/26/22 18:17) Protime With Inr (02/26/22 18:17) Partial Thromboplastin Time (02/26/22 18:17) O2 (02/26/22 18:17) Monitor-Rhythm Ecg Trace Only (02/26/22 18:17) Ed Iv/Invasive Line Start (02/26/22 18:17) Troponin I Fs (02/26/22 18:17) Probnp Fs (02/26/22 18:17) Pulse Oximetry Order (02/26/22 18:17) Prednisone Tablet (Deltasone Tablet) (02/26/22 18:30) Influenza A And B By Pcr (02/26/22 18:17) Covid 19 Inhouse Test (02/26/22 18:17) Furosemide Injection (Lasix Injection) (02/26/22 19:00) Magnesium 1 Gm/100 Ml Ivpb (Magnesium Martinez (02/26/22 18:57) Doxycycline Hyclate Tablet (Vibramycin T (02/26/22 19:09) Potassium Chloride (Tablet) (K Dur Table (02/26/22 19:15) Medications Given in ED Current Medications Medications Dose Ordered Sig/Umm Route Start Time Stop Time Status Last Admin Dose Admin Furosemide 40 mg ONCE ONCE IVP 02/26/22 19:00 02/26/22 19:01 DC 02/26/22 19:08 40 MG Potassium Chloride 20 meq ONCE ONCE PO 02/26/22 19:15 02/26/22 19:16 DC 02/26/22 19:28 20 MEQ Prednisone 40 mg ONCE ONCE PO 02/26/22 18:30 02/26/22 18:31 DC 02/26/22 18:41 40 MG Vital Signs/I&O 02/26/22 02/26/22 02/26/22 18:06 18:06 18:06 Temp 37.0 Pulse 39 Resp 17 B/P (MAP) 131/52 (78) Pulse Ox 98 O2 Delivery Room Air Room Air Nasal Cannula O2 Flow Rate 4.00 Capillary Refill : Progress Note : Progress Note 86-year-old female coming in feeling short of breath. ABCs were intact and vitals were stable on presentation. Physical exam with clear lung sounds with no lower extremity edema. An IV was placed and basic labs were obtained including cardiac biomarkers. Her BNP was around 7000 with no prior baseline. Cardiomegaly and pulmonary edema on chest x-ray. Given a dose of IV Lasix 40 mg which she is dinesh to. Also given IV magnesium and p.o. potassium to hopefully help with her PVCs. Patient is breathing comfortably, oxygen saturation is 95% on room air, and overall I believe she is stable for discharge with outpatient cardiology follow-up. I will start her on Lasix as an outpatient. She is discussing that she has a productive cough of sputum that is yellow color. Given there could be superimposed pneumonia over the pulmonary edema that is dif ficult to see, we will start her on doxycycline ECG Initial ECG Impression Date: Feb 26, 2022 Initial ECG Impression Time: 18:38 Initial ECG Rate: 69 Initial ECG Rhythm: Normal Sinus Comment Narrow QRS, normal axis, LVH by aVL criteria, no significant ST changes, frequent PVCs Departure Impression Primary Impression: Pulmonary edema Qualified Codes: J81.0 - Acute pulmonary edema Disposition: HOME, SELF-CARE Condition: Stable Departure-Patient Inst. Decision time for Depature: 20:15 Referrals: LAWRENCE ZARAGOZA JR, SELF,FELICITAS RAIN (PCP/Family) Primary Care Physician Patient Instructions: Heart Failure ED Add. Discharge Instructions: I am concerned your heart is not squeezing as well as it should be, and fluid is backing up into your lungs which we see on chest x-ray today. We did not see this on your imaging last month so this is new. This is a reason for shortness of breath and productive cough and most people. We will start you on a medicine called Lasix which she will take with a potassium supplement. I will start you on an antibiotic in case there is pneumonia which sometimes can be hidden on x- ray when there is fluid on the lungs. I want you to follow-up with a filter washer, Dr. Zaragoza. Sometimes he travels through [place]. His number is in this paperwork. Of note, the prescriptions were sent to [facility] in [place] since they are the only pharmacy open tomorrow Scripts Doxycycline Hyclate (Doxycycline Hyclate) 100 Mg Tablet 100 MG PO BID for 7 Days, #14 TAB 0 Refills Prov: NILDA KING MD 02/26/22 Potassium Chloride (Potassium Chloride) 20 Meq Tablet.er 20 MEQ PO DAILY for 30 Days, #30 TAB Prov: NILDA KING MD 02/26/22 Furosemide (Lasix) 20 Mg Tablet 20 MG PO DAILY for 30 Days, #30 TAB Prov: NILDA KING MD 02/26/22 NILDA KING MD Feb 26, 2022 18:22
[2022-02-26] MEDS ORDERED: predniSONE 20 MG TAB PO ONE (18:30)
[2022-02-26 18:31] LABS: INR 1.1 (0.8-1.4); PROTHROMBIN TIME PATIENT 14.1 SEC (12.2-14.7)
[2022-02-26 18:39] LABS: ALBUMIN 3.5 GM/DL (3.2-4.5); BILIRUBIN,TOTAL 0.3 MG/DL (0.1-1.0); CALCIUM 9.8 MG/DL (8.5-10.1); CREATININE SERUM 1.02 MG/DL (0.60-1.30); MAGNESIUM 1.6 MG/DL (1.6-2.4); POTASSIUM 4.5 MMOL/L (3.6-5.0); TOTAL PROTEIN 6.9 GM/DL (6.4-8.2)
--- NOTE | 2022-02-26 18:48 | Diagnostic Imaging Report ---
EXAMINATION: Chest 1 view. HISTORY: Shortness of breath. COMPARISON: 07/11/2020. FINDINGS: There is stable cardiomegaly with post-CABG changes noted. There is central pulmonary vascular congestion with scattered patchy alveolar and interstitial opacities. No large pleural effusion or pneumothorax. IMPRESSION: Cardiomegaly with central pulmonary vascular congestion and pulmonary edema. Dictated by: Dictated on workstation # [id number]
[2022-02-26] MEDS ORDERED: MAGNESIUM 1 GM/100 ML IVPB 100 ML IV STA (18:57)
[2022-02-26] MEDS ORDERED: FUROSEMIDE 40 MG/4 ML INJ (LASIX) IVP ONE (19:00)
[2022-02-26] MEDS ORDERED: DOXYCYCLINE 100 MG (VIBRAMYCIN) TABLET PO STA (19:09)
[2022-02-26] MEDS ORDERED: KCL 20 MEQ TAB (K-DUR) PO ONE (19:15)
[2022-02-26] MEDS ORDERED: FURO-125 PO (19:18)
[2022-02-26] MEDS ORDERED: POTA-51 PO (19:18)
[2022-02-26] MEDS ORDERED: DOXY100T2 PO (19:18)
[2022-02-26 19:58] VITALS: BP 118/63
== END 2022-02-26 20:10 | disposition home or self-care (01) ==
LOC: EDUNIT# 18:05 → ER FS 18:06
DX: J81.1 Chronic pulmonary edema (principal); I51.7 Cardiomegaly; Z91.040 Latex allergy status; Z87.891 Personal history of nicotine dependence; Z20.822 Contact with and (suspected) exposure to COVID-19; Z28.311 Partially vaccinated for COVID-19
CPT/HCPCS: 36415; 71045; 80053; 83735; 83880; 84484; 85025; 85610; 85730; 87636; 93005; 93041

== ENCOUNTER → 2022-03-10 | Outpatient (CLI) | payer MEDICARE ==
[~2022-03-10] MED LIST changes: +ALBU18HF2 INH; +ERGO400C PO; +FURO-125 PO; +FURO20TA4 PO; +GBPN600T PO; +LEVO137T2 PO; +OMEP40CA6 PO; +POTA-179 PO; +POTA-51 PO
== END ==
LOC: EDBD → CARDFS 14:40
PROVIDERS: ATTEND Internal Medicine Cardiovascular Disease
DX: I08.2 Rheumatic disorders of both aortic and tricuspid valves (principal); I42.9 Cardiomyopathy, unspecified
CPT/HCPCS: 93306

== ENCOUNTER 2022-03-13 17:58 | Inpatient (IN) | payer MEDICARE ==
[~2022-03-13] VITALS: Ht 162.6 cm; Wt 64.4 kg
[~2022-03-13 17:58] MED LIST changes: -ALBU18HF2 INH; -ERGO400C PO; -FURO20TA4 PO; -GBPN600T PO; -LEVO137T2 PO; -OMEP40CA6 PO; -POTA-179 PO
[2022-03-13] MEDS ORDERED: DOXYCYCLINE 100 MG (VIBRAMYCIN) TABLET PO STA (18:04)
[2022-03-13 18:11] LABS: BASOPHILS % (AUTO) 0 % (0-10); EOSINOPHILS # (AUTO) 0.2 10^3/uL (0.0-0.3); EOSINOPHILS % (AUTO) 3 % (0-10); HEMATOCRIT 37 % (35-52); HEMOGLOBIN 11.8 g/dL (11.5-16.0); LYMPHOCYTES % (AUTO) 13 % (12-44); MEAN CORPUSCULAR HEMOGLOBIN 30 pg (25-34); MEAN CORPUSCULAR HGB CONC 32 g/dL (32-36); MEAN CORPUSCULAR VOLUME 93 fL (80-99); MEAN PLATELET VOLUME 10.2 fL (9.0-12.2); MONOCYTES # (AUTO) 0.9 10^3/uL (0.0-1.0); MONOCYTES % (AUTO) 12 % (0-12); NEUTROPHILS # (AUTO) 5.4 10^3/uL (1.8-7.8); NEUTROPHILS % (AUTO) 71 % (42-75); PLATELET COUNT 268 10^3/uL (130-400); WHITE BLOOD COUNT 7.6 10^3/uL (4.3-11.0)
[2022-03-13] MEDS ORDERED: ASPIRIN 81 MG CHEW (CHILDREN'S ASA) PO ONE (18:15)
[2022-03-13] MEDS ORDERED: cefTRIAXone 1 GM PRE-MIX 50 ML IV ONE (18:15)
--- NOTE | 2022-03-13 18:15 | ED Respiratory ---
General Chief Complaint: Respiratory Problems Stated Complaint: CHEST DISCOMFORT Source: patient, EMS Exam Limitations: no limitations History of Present Illness Date Seen by Provider: Mar 13, 2022 Time Seen by Provider: 17:55 Initial Comments 86-year-old female with PMH of CHF (recently diagnosed, not on Lasix), HTN, signficant smoking history coming in via EMS from home due to being short of breath. The patient has been in this ER multiple times over the past couple months for similar complaints. She had pulmonary edema possible pneumonia couple weeks ago. She finished her antibiotics and did go on a short course of Lasix pending cardiology follow-up. She had the echo done a couple days ago with reduced ejection fraction mildly around 40% and diastolic dysfunction as well. She has not had cardiology follow-up since then. Started feeling more short of breath over the past couple days, worse with ambulation. Continues to have more of a dry cough. Denies any fever, chest pain, abdominal pain, nausea, vomiting, diarrhea, focal weakness or numbness, headache, or any other concerns. Of note, the patient said she felt better after the antibiotics and short course of Lasix, but she is felt like it was not long enough. Allergies and Home Medications Allergies Coded Allergies: Sulfa (Sulfonamide Antibiotics) (Unverified Adverse Reaction, Mild, hives, 03/27/19) adhesive tape (Unverified Adverse Reaction, Mild, skin reaction, 03/27/19) latex (Unverified Adverse Reaction, Mild, rash, 03/27/19) sulfamethoxazole (Unverified Adverse Reaction, Mild, rash, 03/27/19) Septra IV allergy from [facility] tramadol (Unverified Adverse Reaction, Mild, Nausea/vomiting, 03/27/19) trimethoprim (Unverified Adverse Reaction, Mild, rash, 03/27/19) Septra IV allergy from [facility] Patient Home Medication List Home Medication List Reviewed: Yes Albuterol Sulfate (Proair Hfa) 1 Puff Puff, 2 PUFF IH Q4H PRN for WHEEZING Prescribed by: NILDA KING on 02/04/22 2218 Alprazolam (Alprazolam) 0.5 Mg Tablet, 0.5 MG PO QID PRN for ANXIETY, (Reported) Entered as Reported by: MALIA DUBON on 8/14/19 1710 Aspirin (Aspirin EC) 81 Mg Tablet.dr, 81 MG PO DAILY, (Reported) Entered as Reported by: MALIA DUBON on 03/27/191709 Azithromycin (Azithromycin) 250 Mg Tablet, 250 MG PO DAILY Prescribed by: LUCY OSBORN on 07/11/202029 Cholecalciferol (Vitamin D3) (Vitamin D3) 1,000 Unit Tablet, 1,000 UNIT PO DAILY, (Reported) Entered as Reported by: MALIA DUBON on 03/27/191709 Dexamethasone (Dexamethasone) 4 Mg Tablet, 4 MG PO DAILY Prescribed by: LUCY OSBORN on 07/11/202029 Doxycycline Hyclate (Doxycycline Hyclate) 100 Mg Tablet, 100 MG PO BID Prescribed by: NILDA KING on 02/04/222217 Doxycycline Hyclate (Doxycycline Hyclate) 100 Mg Tablet, 100 MG PO BID Prescribed by: NILDA KING on 02/26/221917 Furosemide (Lasix) 20 Mg Tablet, 20 MG PO DAILY Prescribed by: NILDA KING on 02/26/221917 Gabapentin (Gabapentin) 400 Mg Capsule, 400 MG PO TID, (Reported) Entered as Reported by: MALIA DUBON on 03/27/191709 Hydrocodone Bit/Acetaminophen (Lortab 5 Mg Tablet) 1 Each Tablet, 1 TAB PO TID PRN for PAIN-MILD TO MODERATE, (Reported) Entered as Reported by: MALIA DUBON on 03/27/191709 Levofloxacin (Levofloxacin) 500 Mg Tablet, 500 MG PO DAILY Prescribed by: АННА ZAVALA on 09/13/20 1350 Levothyroxine Sodium (Levothyroxine Sodium) 150 Mcg Tablet, 150 MCG PO DAILY, (Reported) Entered as Reported by: MALIA DUBON on 03/27/191709 Lisinopril (Lisinopril) 2.5 Mg Tablet, 2.5 MG PO DAILY, (Reported) Entered as Reported by: MALIA DUBON on 03/27/191709 Meclizine HCl (Meclizine HCl) 25 Mg Tablet, 25 MG PO TID PRN for vertigo Prescribed by: LAWRENCE ISAACS on 8/14/19 1752 Methylprednisolone (Methylprednisolone Dose Pack) 4 Mg Tab.ds.pk, 4 MG PO UD Prescribed by: NILDA KING on 02/04/222217 Metoprolol Succinate (Metoprolol Succinate) 25 Mg Tab.er.24h, 25 MG PO DAILY, (Reported) Entered as Reported by: MALIA DUBON on 03/27/191709 Montelukast Sodium (Montelukast Sodium) 10 Mg Tablet, 10 MG PO DAILY, (Reported) Entered as Reported by: MALIA DUBON on 03/27/191709 Paolo/Polymyx B Sulf/Dexameth (Maxitrol Eye Drops) 5 Ml Drops.susp, 5 ML OP Q6H Prescribed by: MADONNA GOODSON on 07/10/21 1509 Omeprazole (Omeprazole) 20 Mg Capsule.dr, 20 MG PO BID, (Reported) Entered as Reported by: MALIA DUBON on 03/27/191709 Ondansetron (Ondansetron Odt) 4 Mg Tab.rapdis, 4 MG PO Q6H PRN for NAUSEA/VOMITING Prescribed by: MADONNA GOODSON on 12/03/212105 Ondansetron (Ondansetron Odt) 4 Mg Tab.rapdis, 4 MG PO Q8H PRN for NAUSEA/VO MITING Prescribed by: MADONNA GOODSON on 01/21/22 174 Oseltamivir Phosphate (Tamiflu) 75 Mg Cap, 75 MG PO BID Prescribed by: MADONNA GOODSON on 12/03/212105 Paroxetine HCl (Paroxetine HCl) 20 Mg Tablet, 20 MG PO DAILY, (Reported) Entered as Reported by: MALIA DUBON on 03/27/191709 Potassium Chloride (Potassium Chloride) 20 Meq Tablet.er, 20 MEQ PO DAILY Prescribed by: NILDA KING on 02/26/221917 Ropinirole HCl (Ropinirole HCl) 2 Mg Tablet, 2 MG PO BID, (Reported) Entered as Reported by: MALIA DUBON on 03/27/191709 Sucralfate (Sucralfate) 1 Gm Tablet, 1 GM PO QIDACHS, (Reported) Entered as Reported by: MALIA DUBON on 03/27/191709 Review of Systems Review of Systems Constitutional: No fever EENTM: No blurred vision Respiratory: cough, short of breath Cardiovascular: No chest pain Gastrointestinal: No abdominal pain Genitourinary: no symptoms reported Musculoskeletal: no symptoms reported Skin: no symptoms reported Psychiatric/Neurological: No Symptoms Reported Hematologic/Lymphatic: No Symptoms Reported Immunological/Allergic: no symptoms reported All Other Systems Reviewed Negative Unless Noted: Yes Past Kphblnr-Wtpubb-Yehtsc Hx Patient Social History Tobacco Use?: No Smoking Status: Former Smoker Use of E-Cig and/or Vaping dev: No Substance use?: No Alcohol Use?: No Pt feels they are or have been: No Immunizations Up To Date Tetanus Booster (TDap): Less than 5yrs First/Initial COVID19 Vaccinat: 2020 Second COVID19 Vaccination Meir: 2020 Third COVID19 Vaccination Date: 2020 Seasonal Allergies Seasonal Allergies: Yes Past Medical History Surgery/Hospitalization HX: Mass behind eye; hypothyroidism; HTN; GERD; Restless leg syndrome; left mastectomy; breast cancer; Surgeries: Yes (L Mastectomy w/nodes; double bypass, tunneled groshong port) Breast, CABG Respiratory: No Cardiac: Yes (Heart failure; left systolic, 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 dz) Neuropathy, Vertigo Genitourinary: No Gastrointestinal: Yes (Gastritis, Duodenitis,) Gastroesophageal Reflux, Esophagitis, Gall Bladder Disease Musculoskeletal: Yes (Frequent sciatica issues, has RLS, complete rupture rotator cuff, ) Arthritis Endocrine: Yes Hypothyroidsim HEENT: No Cancer: Yes (Myelodysplastic Syndrome, Inflammatory CA L breast) Breast Did You Recieve Any Treatments: Yes What Type of Treatment Did You: Surgical Intervention Psychosocial: Yes Anxiety Integumentary: No Blood Disorders: No Physical Exam Vital Signs - First Documented 03/13/22 03/13/22 03/13/22 18:00 18:11 18:13 Temp 37.5 Pulse 88 Resp 18 B/P (MAP) 97/57 (70) Pulse Ox 92 O2 Delivery Room Air O2 Flow Rate 1.00 Capillary Refill : Height: 5'4.00" Weight: 142lbs. 0.0oz. [id number]; 22.00 BMI Method:Stated General Appearance: WD/WN, no apparent distress Eyes: Bilateral Eye Normal Inspection HEENT: PERRL/EOMI, normal ENT inspection, pharynx normal Neck: non-tender, full range of motion, supple, normal inspection Respiratory: chest non-tender, no respiratory distress, accessory muscle use (minimal), crackles Cardiovascular: regular rate, rhythm, no edema, no murmur Gastrointestinal: normal bowel sounds, non tender, soft; No distended, No guarding, No rebound Extremities: normal range of motion, non-tender, normal inspection, no pedal edema, no calf tenderness, normal capillary refill Neurologic/Psychiatric: no motor/sensory deficits, alert, normal mood/affect Skin: normal color, warm/dry Lymphatic: no adenopathy Focused Exam Lactate Level 03/13/22 18:05: Lactic Acid Level 2.03*H Lactic Acid Level Laboratory Tests Test 03/13/22 18:05 Lactic Acid Level 2.03 MMOL/L (0.50-2.00) *H Procedures/Interventions Suture Size: 5-0 Progress/Results/Core Measures Suspected Sepsis SIRS Temperature: Pulse: Respiratory Rate: Laboratory Tests 03/13/22 18:05: White Blood Count 7.6 Blood Pressure / Mean: 03/13/22 18:05: Lactic Acid Level 2.03*H Laboratory Tests 03/13/22 18:05: Creatinine 1.76H, INR Comment 1.0, Platelet Count 268, Total Bilirubin 0.3 Results/Orders Lab Results Laboratory Tests Test 03/13/22 18:05 Range/Units White Blood Count 7.6 4.3-11.0 10^3/uL Red Blood Count 3.91 3.80-5.11 10^6/uL Hemoglobin 11.8 11.5-16.0 g/dL Hematocrit 37 35-52 % Mean Corpuscular Volume 93 80-99 fL Mean Corpuscular Hemoglobin 30 25-34 pg Mean Corpuscular Hemoglobin Concent 32 32-36 g/dL Red Cell Distribution Width 14.4 10.0-14.5 % Platelet Count 268 130-400 10^3/uL Mean Platelet Volume 10.2 9.0-12.2 fL Immature Granulocyte % (Auto) 0 % Neutrophils (%) (Auto) 71 42-75 % Lymphocytes (%) (Auto) 13 12-44 % Monocytes (%) (Auto) 12 0-12 % Eosinophils (%) (Auto) 3 0-10 % Basophils (%) (Auto) 0 0-10 % Neutrophils # (Auto) 5.4 1.8-7.8 10^3/uL Lymphocytes # (Auto) 1.0 1.0-4.0 10^3/uL Monocytes # (Auto) 0.9 0.0-1.0 10^3/uL Eosinophils # (Auto) 0.2 0.0-0.3 10^3/uL Basophils # (Auto) 0.0 0.0-0.1 10^3/uL Immature Granulocyte # (Auto) 0.0 0.0-0.1 10^3/uL Prothrombin Time 13.9 12.2-14.7 SEC INR Comment 1.0 0.8-1.4 Activated Partial Thromboplast Time 31 24-35 SEC D-Dimer 2.24 H 0.00-0.49 UG/ML Sodium Level 139 135-145 MMOL/L Potassium Level 4.6 3.6-5.0 MMOL/L Chloride Level 105 98-107 MMOL/L Carbon Dioxide Level 25 21-32 MMOL/L Anion Gap 9 5-14 MMOL/L Blood Urea Nitrogen 41 H 7-18 MG/DL Creatinine 1.76 H 0.60-1.30 MG/DL Estimat Glomerular Filtration Rate 28 BUN/Creatinine Ratio 23 Glucose Level 114 H 70-105 MG/DL Lactic Acid Level 2.03 *H 0.50-2.00 MMOL/L Calcium Level 9.6 8.5-10.1 MG/DL Corrected Calcium 10.2 H 8.5-10.1 MG/DL Magnesium Level 1.4 L 1.6-2.4 MG/DL Total Bilirubin 0.3 0.1-1.0 MG/DL Aspartate Amino Transf (AST/SGOT) 32 5-34 U/L Alanine Aminotransferase (ALT/SGPT) 9 0-55 U/L Alkaline Phosphatase 162 H 40-136 U/L Troponin I < 0.30 <0.30 NG/ML Pro-B-Type Natriuretic Peptide 2243.0 H <450.0 PG/ML Total Protein 6.9 6.4-8.2 GM/DL Albumin 3.3 3.2-4.5 GM/DL Lipase 47 8-78 U/L Influenza Type A (RT-PCR) Not Detected Not Detecte Influenza Type B (RT-PCR) Not Detected Not Detecte SARS-CoV-2 RNA (RT-PCR) Not Detected Not Detecte My Orders Orders - NILDA KING MD Ekg Tracing (03/13/22 18:04) Influenza A And B By Pcr (03/13/22 18:04) Covid 19 Inhouse Test (03/13/22 18:04) Cbc With Automated Diff (03/13/22 18:04) Magnesium (03/13/22 18:04) Chest 1 View Ap/Pa Only (03/13/22 18:04) Ekg Tracing (03/13/22 18:04) Comprehensive Metabolic Panel (03/13/22 18:04) Protime With Inr (03/13/22 18:04) Partial Thromboplastin Time (03/13/22 18:04) O2 (03/13/22 18:04) Monitor-Rhythm Ecg Trace Only (03/13/22 18:04) Aspirin Chewable Tablet (Baby Aspirin Ch (03/13/22 18:15) Ed Iv/Invasive Line Start (03/13/22 18:04) Lipase (03/13/22 18:04) Troponin I Fs (03/13/22 18:04) Probnp Fs (03/13/22 18:04) Lactic Acid Analyzer (03/13/22 18:04) Blood Culture (03/13/22 18:04) Ceftriaxone 1 Gm Pre-Mix (Rocephin 1 Gm (03/13/22 18:15) Doxycycline Hyclate Tablet (Vibramycin T (03/13/22 18:04) Fibrin Degradation Products (03/13/22 18:17) Ns Iv 500 Ml (Sodium Chloride 0.9%) (03/13/22 18:35) Apixaban Tablet (Eliquis Tablet) (03/13/22 18:45) Ed Admission (Communication) (03/13/22 18:54) Medications Given in ED Current Medications Medications Dose Ordered Sig/Umm Route Start Time Stop Time Status Last Admin Dose Admin Aspirin 324 mg ONCE ONCE PO 03/13/22 18:15 03/13/22 18:16 DC 03/13/22 18:19 324 MG Ceftriaxone Sodium/Dextrose 50 ml @ 100 mls/hr ONCE ONCE IV 03/13/22 18:15 03/13/22 18:44 DC 03/13/22 18:18 100 MLS/HR Vital Signs/I&O 03/13/22 03/13/22 03/13/22 18:00 18:11 18:13 Temp 37.5 Pulse 88 Resp 18 B/P (MAP) 97/57 (70) Pulse Ox 92 93 O2 Delivery Room Air Room Air Nasal Cannula O2 Flow Rate 1.00 Capillary Refill : Progress Note : Progress Note 86-year-old female with above history coming in due to to being short of breath. The patient was satting in the 80s on room air and was placed on 4 L with oxygen going up to 94%. EKG with no acute ischemic changes. Chest x-ray with concerns for right lower lobe pneumonia. BNP is down from prior, and she was diuresed recently, but not currently on Lasix. Creatinine is elevated which could be due to the diuresis. We will gently try to hydrate her with 500 cc of IV fluids to see if that helps. She was also given IV ceftriaxone and oral doxycycline. D-dimer is elevated, but kidney function not good enough to get a CTA. We will empirically treat her with Eliquis. I discussed the case with Dr. Sarmiento who admit the patient to the intensive care unit as an inpatient for further evaluation and management ECG Initial ECG Impression Date: Mar 13, 2022 Initial ECG Impression Time: 18:11 Initial ECG Rate: 73 Initial ECG Rhythm: Normal Sinus Comment Narrow QRS, normal axis, LVH by aVL criteria, no significant ST changes or T wave abnormalities Diagnostic Imaging Diagonstic Imaging: Xray Plain Films/CT/US/NM/MRI: chest Comments [facility]. [place], [place] NAME: TIMI BREWER [facility] REC#: [id number] PT STATUS: REG ER : 1935 PHYSICIAN: NILDA KING MD ADMIT DATE: 03/13/22/ER FS Draft Date of Exam:03/13/22 CHEST 1 VIEW AP/PA ONLY INDICATION: Shortness of breath. Chest discomfort. COMPARISON: Prior study from 02/26/2022. FINDINGS: There appears to be a right-sided port. There has been prior sternotomy and bypass grafting. There is enlargement of the cardiac silhouette. There are advanced interstitial changes within the lungs with scattered regions of airspace and interstitial opacity which may reflect pneumonia. This appears progressed at the right base compared to the prior exam. Findings are otherwise not significantly changed. There appears to be increased blunting of the right costophrenic angle suggesting an effusion. There is no pneumothorax. Heart size is stable. IMPRESSION: Cardiomegaly with bypass grafting. Chronic pulmonary interstitial changes are present. Scattered airspace and interstitial opacities are again noted appearing more advanced at the right base compared to the prior examination with increased blunting of the right costophrenic angle. Right base pneumonia and effusion cannot be excluded. Dictated on workstation # [id number] Dict: 03/13/22 1833 Trans: 03/13/22 183 [facility] [id number] Interpreted by: CULLEN MARTINEZ MD Electronically signed by: Departure Impression Primary Impression: Respiratory failure Qualified Codes: J96.01 - Acute respiratory failure with hypoxia Additional Impressions: NENA (acute kidney injury) Pneumonia Qualified Codes: J18.9 - Pneumonia, unspecified organism Disposition: 30 STILL A PATIENT Condition: Stable Admissions Decision to Admit Reason: Admit from ER (General) Decision to Admit/Date: Mar 13, 2022 Time/Decision to Admit Time: 18:40 Transfer Method of Transfer: EMS Departure-Patient Inst. Referrals: FELICITAS SCHAEFER MD (PCP/Family) Primary Care Physician NILDA KING MD Mar 13, 2022 18:15
[2022-03-13 18:19] LABS: PROTHROMBIN TIME PATIENT 13.9 SEC (12.2-14.7)
[2022-03-13 18:26] LABS: ALBUMIN 3.3 GM/DL (3.2-4.5); BILIRUBIN,TOTAL 0.3 MG/DL (0.1-1.0); CALCIUM 9.6 MG/DL (8.5-10.1); CREATININE SERUM 1.76 MG/DL (0.60-1.30); MAGNESIUM 1.4 MG/DL (1.6-2.4); POTASSIUM 4.6 MMOL/L (3.6-5.0); TOTAL PROTEIN 6.9 GM/DL (6.4-8.2)
[2022-03-13] MEDS ORDERED: NS IV 500 ML 500 ML IV STA (18:35)
--- NOTE | 2022-03-13 18:37 | Diagnostic Imaging Report ---
INDICATION: Shortness of breath. Chest discomfort. COMPARISON: Prior study from 02/26/2022. FINDINGS: There appears to be a right-sided port. There has been prior sternotomy and bypass grafting. There is enlargement of the cardiac silhouette. There are advanced interstitial changes within the lungs with scattered regions of airspace and interstitial opacity which may reflect pneumonia. This appears progressed at the right base compared to the prior exam. Findings are otherwise not significantly changed. There appears to be increased blunting of the right costophrenic angle suggesting an effusion. There is no pneumothorax. Heart size is stable. IMPRESSION: Cardiomegaly with bypass grafting. Chronic pulmonary interstitial changes are present. Scattered airspace and interstitial opacities are again noted appearing more advanced at the right base compared to the prior examination with increased blunting of the right costophrenic angle. Right base pneumonia and effusion cannot be excluded. Dictated by: Dictated on workstation # [id number]
[2022-03-13] MEDS ORDERED: APIXABAN 5 MG (ELIQUIS) TABLET PO ONE (18:45)
[2022-03-13] MEDS ORDERED: PRAMIPEXOLE 0.125 MG (MIRAPEX) TABLET PO ONE (20:30)
[2022-03-13] MEDS ORDERED: HYDROcodone/APAP 5 MG/325 MG (LORTAB) TAB PO ONE (20:30)
[2022-03-13] MEDS ORDERED: NS IV 1000 ML 1,000 ML IV SCH (22:15)
[2022-03-13] MEDS ORDERED: ONDANSETRON 4 MG/2 ML (SDV) Z0FRAN IV PRN (22:15)
[2022-03-13] MEDS ORDERED: ANTACID SUSP 30 ML UDC (MYLANTA) PO PRN (22:15)
[2022-03-13] MEDS ORDERED: MELATONIN 3 MG TABLET PO PRN (22:15)
[2022-03-13] MEDS ORDERED: diphenhydrAMINE 25 MG TAB (BENADRYL) PO PRN (22:15)
[2022-03-13] MEDS ORDERED: BISACODYL 10 MG SUPP (DULCOLAX) PR PRN (22:15)
[2022-03-13] MEDS ORDERED: ACETAMINOPHEN 325 MG TABLET PO PRN (22:15)
[2022-03-13] MEDS ORDERED: polyethylene glycoL POWDER 17 GM (MIRALAX) PACK PO PRN (22:15)
[2022-03-13] MEDS ORDERED: diphenhydrAMINE 50 MG/ML INJ (BENADRYL) IVP PRN (22:15)
[2022-03-13] MEDS ORDERED: ONDANSETRON 4 MG (ZOFRAN) ORAL DISSOLVE TAB PO PRN (22:15)
[2022-03-13] MEDS ORDERED: NS IV 500 ML 500 ML IV PRN (22:15)
[2022-03-13] MEDS ORDERED: morphine INJ 4 MG/ML 1 ML (VIAL/SYRINGE) IV PRN (22:15)
--- NOTE | 2022-03-13 22:31 | Tele-ICU Consult ---
Progress Note 86 y/o with newly diagnosed CHF , not on lasix, smoker , c/o SOB gettinf worse. CXR with CHF and Possible RLL PNA . Hx of Breast CA 1. HFrEF 40% and Diaasstolic dysfunction, CHF ac on chronic exacerbation Lasix given in ED 2. Ac hypoxic resp failure 2/2 PNA and CHF on N/C O2 4 L RLL PNA , started on Abx Blood and sputum c/s ordered. 3. Elevated D-dimer elecated Cr, no CTA ordered. started on Eliquis US dopplers LE ORDERED. Pr viewed on camera and appears comfortable w/o resp distress. Interventions Minor-Other: CHF and PNA , elevated D-dimer Electronically Focused Exam Lactate Level 03/13/22 18:05: Lactic Acid Level 2.03*H 03/13/22 22:02: Height, Weight, BMI Height: 5'4.00" Weight: 142lbs. 0.0oz. 64.772482bk; 22.00 BMI Method:Stated Lactic Acid Level Laboratory Tests Test 03/13/22 22:02 JULIOCESAR MATIAS MD Mar 13, 2022 22:31
[2022-03-13 22:57] VITALS: BP 97/57
[2022-03-13] MEDS ORDERED: RT-ALBUTEROL SULF 2.5 MG/3 ML PRE-MIX VIAL INH PRN (23:15)
[2022-03-13] MEDS: AZITHROMYCIN INJECTION 250 MG in NS (IVPB) 250 ML IV SCH (23:26)
[2022-03-14] MEDS: CEFEPIME INJECTION 1,000 MG in NS (IVPB) 50 ML IV SCH ×3 (00:31→23:22)
[2022-03-14 05:17] LABS: BASOPHILS % (AUTO) 0 % (0-10); EOSINOPHILS # (AUTO) 0.3 10^3/uL (0.0-0.3); EOSINOPHILS % (AUTO) 4 % (0-10); HEMATOCRIT 35 % (35-52); LYMPHOCYTES # (AUTO) 0.9 10^3/uL (1.0-4.0); LYMPHOCYTES % (AUTO) 12 % (12-44); MEAN CORPUSCULAR HEMOGLOBIN 30 pg (25-34); MEAN CORPUSCULAR HGB CONC 32 g/dL (32-36); MEAN CORPUSCULAR VOLUME 95 fL (80-99); MEAN PLATELET VOLUME 10.9 fL (9.0-12.2); MONOCYTES # (AUTO) 0.8 10^3/uL (0.0-1.0); MONOCYTES % (AUTO) 10 % (0-12); NEUTROPHILS # (AUTO) 5.7 10^3/uL (1.8-7.8); NEUTROPHILS % (AUTO) 74 % (42-75); PLATELET COUNT 221 10^3/uL (130-400); WHITE BLOOD COUNT 7.7 10^3/uL (4.3-11.0)
[2022-03-14 05:30] LABS: POTASSIUM 4.3 MMOL/L (3.6-5.0)
[2022-03-14 05:32] LABS: CALCIUM 8.9 MG/DL (8.5-10.1)
[2022-03-14 05:33] LABS: TOTAL PROTEIN 5.9 GM/DL (6.4-8.2)
[2022-03-14 05:35] LABS: BILIRUBIN,TOTAL 0.3 MG/DL (0.1-1.0)
[2022-03-14 05:36] LABS: CREATININE SERUM 1.47 MG/DL (0.60-1.30); PHOSPHORUS 2.7 MG/DL (2.3-4.7)
[2022-03-14 05:39] LABS: MAGNESIUM 1.3 MG/DL (1.6-2.4)
[2022-03-14] MEDS: inSUlin ASPART (NovoLOG) 1 UNIT/0.01 ML (CHARGE PER UNIT) SC SCH ×4 (06:00→20:08)
[2022-03-14] MEDS: KCL 20 MEQ TAB (K-DUR) PO SCH (06:00)
[2022-03-14] MEDS: POTASSIUM CL 10MEQ/50ML IVPB 50 ML IV SCH (06:00)
[2022-03-14] MEDS: MAGNESIUM 1 GM/100 ML IVPB 100 ML IV SCH ×3 (06:01→09:02)
--- NOTE | 2022-03-14 08:17 | Consultation-Cardiology ---
HPI-Cardiology Cardiology Consultation: Date of Consultation 03/14/22 Date of Admission 03/13/22 Attending Physician Iron Victoria MD Admitting Physician Admitting Physician: Guera Sarmiento DO Attending Physician: Mariposa Casanova MD Consulting Physician LAWRENCE HU JR, MD HPI: Time Seen by a Provider: 08:15 Chief Complaint: REASON FOR CONSULTATION: Heart failure. I had the pleasure of seeing Krissy in the intensive care unit at [facility] in [place], [place] today. She is known to me from the office. 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 She has been having intermittent shortness of breath for at least the past month. Approximately 2 weeks ago she went to [place] emergency room and was diagnosed with pneumonia and started on antibiotics. She does not think this helped with her breathing. She has also had sinus congestion and a cough productive of yellowish sputum. Yesterday, her shortness of breath got worse and she went to the emergency room for further evaluation. She was felt to be in heart failure and admitted for further treatment. She has been on diuretics at home for at least the past few weeks and she does think this helps somewhat with her breathing but her breathing was not back to her baseline. When she is short of breath her chest will feel tight. She denies any chest pain. She denies paroxysmal nocturnal dyspnea, orthopnea, palpitations, lightheadedness, syncope, or lower extremity edema. She denies any fever or chills. Certain portions of this document may have been dictated utilizing voice recognition technology. Inherent to this technology, typographical and grammatical errors may exist. As much as I am diligent to identify and correct these mistakes, some errors may remain in the document. Review of Systems-Cardiology Review of Systems Other comments Review of 10 organ systems is as per the history of present illness, otherwise negative. All Other Systems Reviewed Negative Unless Noted: Yes VDW-Hokduf-Jfcbdv Hx Patient Social History Smoking Status: Former Smoker 2nd Hand Smoke Exposure: No Have you traveled recently?: No Alcohol Use?: No Pt feels they are or have been: No Immunizations Up To Date Tetanus Booster (TDap): Less than 5yrs Date of Pneumonia Vaccine: Apr 18, 2018 Past Medical History PMH As described under Assessment. Family Medical History Family Medical History: Both of her parents had heart disease. Allergies and Home Medications Allergies Coded Allergies: Sulfa (Sulfonamide Antibiotics) (Unverified Adverse Reaction, Mild, hives, 03/27/19) adhesive tape (Unverified Adverse Reaction, Mild, skin reaction, 03/27/19) latex (Unverified Adverse Reaction, Mild, rash, 03/27/19) sulfamethoxazole (Unverified Adverse Reaction, Mild, rash, 03/27/19) Septra IV allergy from [facility] tramadol (Unverified Adverse Reaction, Mild, Nausea/vomiting, 03/27/19) trimethoprim (Unverified Adverse Reaction, Mild, rash, 03/27/19) Septra IV allergy from [facility] Patient Home Medication List Home Medication List Reviewed: Yes Albuterol Sulfate (Proair Hfa) 1 Puff Puff, 2 PUFF IH Q4H PRN for WHEEZING Prescribed by: NILDA KING on 02/04/222217 Alprazolam (Alprazolam) 0.5 Mg Tablet, 0.5 MG PO QID PRN for ANXIETY, (Reported) Entered as Reported by: MALIA DUBON on 03/27/191709 Aspirin (Aspirin EC) 81 Mg Tablet.dr, 81 MG PO DAILY, (Reported) Entered as Reported by: MALIA DUBON on 03/27/191709 Azithromycin (Azithromycin) 250 Mg Tablet, 250 MG PO DAILY Prescribed by: LUCY OSBORN on 07/11/202029 Cholecalciferol (Vitamin D3) (Vitamin D3) 1,000 Unit Tablet, 1,000 UNIT PO DAILY, (Reported) Entered as Reported by: MALIA DUBON on 03/27/191709 Dexamethasone (Dexamethasone) 4 Mg Tablet, 4 MG PO DAILY Prescribed by: LUCY OSBORN on 07/11/202029 Doxycycline Hyclate (Doxycycline Hyclate) 100 Mg Tablet, 100 MG PO BID Prescribed by: NILDA KING on 02/04/222217 Doxycycline Hyclate (Doxycycline Hyclate) 100 Mg Tablet, 100 MG PO BID Prescribed by: NILDA KING on 02/26/221917 Furosemide (Lasix) 20 Mg Tablet, 20 MG PO DAILY Prescribed by: NILDA KING on 02/26/221917 Gabapentin (Gabapentin) 400 Mg Capsule, 400 MG PO TID, (Reported) Entered as Reported by: MALIA DUBON on 03/27/191709 Hydrocodone Bit/Acetaminophen (Lortab 5 Mg Tablet) 1 Each Tablet, 1 TAB PO TID PRN for PAIN-MILD TO MODERATE, (Reported) Entered as Reported by: MALIA DUBON on 03/27/191709 Levofloxacin (Levofloxacin) 500 Mg Tablet, 500 MG PO DAILY Prescribed by: АННА ZAVALA on 09/13/20 1350 Levothyroxine Sodium (Levothyroxine Sodium) 150 Mcg Tablet, 150 MCG PO DAILY, (Reported) Entered as Reported by: MALIA DUBON on 03/27/191709 Lisinopril (Lisinopril) 2.5 Mg Tablet, 2.5 MG PO DAILY, (Reported) Entered as Reported by: MALIA DUBON on 03/27/191709 Meclizine HCl (Meclizine HCl) 25 Mg Tablet, 25 MG PO TID PRN for vertigo Prescribed by: LAWRENCE ISAACS on 03/27/191751 Methylprednisolone (Methylprednisolone Dose Pack) 4 Mg Tab.ds.pk, 4 MG PO UD Prescribed by: NILDA KING on 02/04/222217 Metoprolol Succinate (Metoprolol Succinate) 25 Mg Tab.er.24h, 25 MG PO DAILY, (Reported) Entered as Reported by: MALIA DUBON on 03/27/191709 Montelukast Sodium (Montelukast Sodium) 10 Mg Tablet, 10 MG PO DAILY, (Reported) Entered as Reported by: MALIA DUBON on 03/27/191709 Paolo/Polymyx B Sulf/Dexameth (Maxitrol Eye Drops) 5 Ml Drops.susp, 5 ML OP Q6H Prescribed by: MADONNA GOODSON on 07/10/21 1509 Omeprazole (Omeprazole) 20 Mg Capsule.dr, 20 MG PO BID, (Reported) Entered as Reported by: MALIA DUBON on 03/27/191709 Ondansetron (Ondansetron Odt) 4 Mg Tab.rapdis, 4 MG PO Q6H PRN for NAUSEA/VOMITING Prescribed by: MADONNA GOODSON on 12/03/212105 Ondansetron (Ondansetron Odt) 4 Mg Tab.rapdis, 4 MG PO Q8H PRN for NAUSEA/VOMITING Prescribed by: MADONNA GOODSON on 01/21/22 174 Oseltamivir Phosphate (Tamiflu) 75 Mg Cap, 75 MG PO BID Prescribed by: MADONNA GOODSON on 12/03/212105 Paroxetine HCl (Paroxetine HCl) 20 Mg Tablet, 20 MG PO DAILY, (Reported) Entered as Reported by: MALIA DUBON on 03/27/191709 Potassium Chloride (Potassium Chloride) 20 Meq Tablet.er, 20 MEQ PO DAILY Prescribed by: NILDA KING on 02/26/221917 Ropinirole HCl (Ropinirole HCl) 2 Mg Tablet, 2 MG PO BID, (Reported) Entered as Reported by: MALIA DUBON on 03/27/191709 Sucralfate (Sucralfate) 1 Gm Tablet, 1 GM PO QIDACHS, (Reported) Entered as Reported by: MALIA DUBON on 03/27/191709 Exam Vital Signs Vital Signs Date Time Temp Pulse Resp B/P (MAP) Pulse Ox O2 Delivery O2 Flow Rate FiO2 03/14/22 11:00 91 10 141/101 98 Nasal Cannula 3.00 03/14/22 07:00 35.9 03/13/22 22:57 21 Physical Exam General: Alert. No acute distress. Well nourished and appears stated age. Eye: Extraocular movements are intact. Conjunctivae are clear. There are no xanthelasma. HENT: Normocephalic. Atraumatic. Carotid pulsations 2/2 without bruits. Neck: Jugular venous pressure does not appear elevated. No thyromegaly appreciated. Respiratory: Lungs have coarse upper airway sounds. Respirations are non- labored. Breath sounds are equal. Symmetrical chest wall expansion. Cardiovascular: Normal rate. Regular rhythm. No murmur. No gallop. Point of maximal impulse is not appear displaced. Good pulses equal in all extremities. No edema. Gastrointestinal: Soft. Normal bowel sounds. Skin: Skin turgor is normal. There is no pallor. Musculoskeletal: No kyphosis or scoliosis appreciated. Neurologic: Alert and oriented to person, place, time. Cranial nerves 3-12 appear grossly intact. The patient has good motor tone strength in the upper and lower extremities bilaterally. Psychiatric: Cooperative. Appropriate mood & affect. Labs Laboratory Tests Test 03/13/22 18:05 03/13/22 22:02 03/14/22 00:01 03/14/22 04:28 Range/Units White Blood Count 7.6 7.7 4.3-11.0 10^3/uL Red Blood Count 3.91 3.67 L 3.80-5.11 10^6/uL Hemoglobin 11.8 11.0 L 11.5-16.0 g/dL Hematocrit 37 35 35-52 % Mean Corpuscular Volume 93 95 80-99 fL Mean Corpuscular Hemoglobin 30 30 25-34 pg Mean Corpuscular Hemoglobin Concent 32 32 32-36 g/dL Red Cell Distribution Width 14.4 14.3 10.0-14.5 % Platelet Count 268 221 130-400 10^3/uL Mean Platelet Volume 10.2 10.9 9.0-12.2 fL Immature Granulocyte % (Auto) 0 0 % Neutrophils (%) (Auto) 71 74 42-75 % Lymphocytes (%) (Auto) 13 12 12-44 % Monocytes (%) (Auto) 12 10 0-12 % Eosinophils (%) (Auto) 3 4 0-10 % Basophils (%) (Auto) 0 0 0-10 % Neutrophils # (Auto) 5.4 5.7 1.8-7.8 10^3/uL Lymphocytes # (Auto) 1.0 0.9 L 1.0-4.0 10^3/uL Monocytes # (Auto) 0.9 0.8 0.0-1.0 10^3/uL Eosinophils # (Auto) 0.2 0.3 0.0-0.3 10^3/uL Basophils # (Auto) 0.0 0.0 0.0-0.1 10^3/uL Immature Granulocyte # (Auto) 0.0 0.0 0.0-0.1 10^3/uL Prothrombin Time 13.9 12.2-14.7 SEC INR Comment 1.0 0.8-1.4 Activated Partial Thromboplast Time 31 24-35 SEC D-Dimer 2.24 H 0.00-0.49 UG/ML Sodium Level 139 142 135-145 MMOL/L Potassium Level 4.6 4.3 3.6-5.0 MMOL/L Chloride Level 105 109 H 98-107 MMOL/L Carbon Dioxide Level 25 22 21-32 MMOL/L Anion Gap 9 11 5-14 MMOL/L Blood Urea Nitrogen 41 H 34 H 7-18 MG/DL Creatinine 1.76 H 1.47 H 0.60-1.30 MG/DL Estimat Glomerular Filtration Rate 28 34 BUN/Creatinine Ratio 23 23 Glucose Level 114 H 88 70-105 MG/DL Lactic Acid Level 2.03 *H 0.69 0.50-2.00 MMOL/L Calcium Level 9.6 8.9 8.5-10.1 MG/DL Corrected Calcium 10.2 H 9.7 8.5-10.1 MG/DL Magnesium Level 1.4 L 1.3 L 1.6-2.4 MG/DL Total Bilirubin 0.3 0.3 0.1-1.0 MG/DL Aspartate Amino Transf (AST/SGOT) 32 27 5-34 U/L Alanine Aminotransferase (ALT/SGPT) 9 9 0-55 U/L Alkaline Phosphatase 162 H 117 40-136 U/L Troponin I < 0.30 <0.30 NG/ML Pro-B-Type Natriuretic Peptide 2243.0 H <450.0 PG/ML Total Protein 6.9 5.9 L 6.4-8.2 GM/DL Albumin 3.3 3.0 L 3.2-4.5 GM/DL Lipase 47 8-78 U/L Influenza Type A (RT-PCR) Not Detected Not Detecte Influenza Type B (RT-PCR) Not Detected Not Detecte SARS-CoV-2 RNA (RT-PCR) Not Detected Not Detecte Bedside Blood Gas pH (LAB) 7.458 H 7.310-7.410 Bedside Blood Gas pCO2 (LAB) 32.3 L 41.0-51.0 mmHg Bedside Blood Gas pO2 (LAB) 130 H 80-105 mmHg Bedside Blood Gas HCO3 (LAB) 22.8 L 23.0-28.0 mmol/L POC Blood Gas Total CO2 Calc 24 24-29 mmol/L Bedside Bl Gas O2 Saturation (Calc) 99 H 95-98 % Bedside Arterial Blood Base Excess -1 -2-3 mmol/L Phosphorus Level 2.7 2.3-4.7 MG/DL Test 03/14/22 10:59 Range/Units Glucometer 126 H 70-110 MG/DL ECG Impression ECG Comment Electrocardiogram from 03/13 shows sinus rhythm with left atrial abnormality and nonspecific anterior T wave changes. Diagnosis/Problems Diagnosis/Problems (1) Acute on chronic combined systolic and diastolic congestive heart failure Assessment & Plan: Her BNP was elevated although this was in the setting of acute kidney injury on chronic kidney disease. Her most recent echocardiogram showed mild left ventricular systolic dysfunction. I will resume her metoprolol succinate. I suggest we hold her lisinopril and furosemide until her renal function stabilizes. (2) Coronary artery disease without angina pectoris Assessment & Plan: She does not seem to be having any overt angina and her troponin level was negative. I recommend she continue aspirin and beta-elzbieta. I will add a lipid panel to her previous blood work. (3) Ischemic cardiomyopathy Assessment & Plan: Her ejection fraction was 40-45% on her most recent echocardiogram. I will resume metoprolol succinate. As above, I will wait for her renal function to stabilize before restarting lisinopril. (4) Acute on chronic respiratory failure with hypoxemia Assessment & Plan: Most likely due to chronic obstructive pulmonary disease with superimposed pneumonia. (5) Mass of right lung Assessment & Plan: She had spoken to someone from by telephone and was told that she might need general anesthesia to undergo a lung biopsy. She never actually did see this physician. I had ordered an outpatient consult with our general surgeons. Since she is here in the hospital, I will see if our general surgeons can comment on whether or not she could undergo a lung biopsy without general anesthesia. (6) Acute kidney injury superimposed on chronic kidney disease Assessment & Plan: As above, I will hold diuretic and MAR inhibitor until renal function improves. LAWRENCE HU JR, MD Mar 14, 2022 08:17
[2022-03-14] MEDS: DOCUSATE SODIUM 100 MG (COLACE) CAP PO SCH ×2 (09:00→20:03)
[2022-03-14] MEDS: APIXABAN 5 MG (ELIQUIS) TABLET PO SCH ×2 (09:08→20:03)
--- NOTE | 2022-03-14 09:36 | Diagnostic Imaging Report ---
PROCEDURE: US Venous Lower Ext Kareem. TECHNIQUE: Multiple real-time grayscale images were obtained over the lower extremities in various projections, bilaterally. Additional duplex Doppler and color Doppler images were also obtained. INDICATION: Elevated D-dimer. Respiratory failure. FINDINGS: Color Doppler imaging shows a normal venous flow in the lower extremities. There is normal compressibility and augmentation of flow. IMPRESSION: No evidence of venous thrombosis within the lower extremities. Dictated by: Dictated on workstation # [id number]
--- NOTE | 2022-03-14 09:38 | Tele-ICU Progress Note ---
Subjective Date Seen by a Provider: Mar 14, 2022 Time Seen by a Provider: 07:25 Subjective/Events-last exam This virtual visit was conducted using real time audio/video. Thank you for asking us to see this patient for respiratory insufficiency due to CHF, RLL pna. Probable undiagnosed COPD. Recent events: PMH: Syst and Diast. dysfunction, htn. SH: smoking history: former FH: Non-contributory ROS:as in HPI. PE: Cachectic, comfortable. VSS. O2 sat 94% on 4 LPM. HEENT: No obvious masses, adenopathy or JVD. Chest: clear to auscultation. CV: RRR S1 S2 No murmur or added sounds. Abd: Non-tender. Bowel sounds Y. : Unremarkable. Rouse N. MEDICAL SERVICES MANAGER/psychiatric: Grossly intact. No obvious focal findings. Extremities: No edema. Capillary refill < 3 seconds. Skin: unremarkable. Results: Elevated BUN 34, Creat 1.47. Decreased Hb 11. B.458/32/130 on 4 LPM . CXR: Hyperinflated, RLL infilt. Available chart/ vitals / labs / images reviewed. Video assessment done using teleICU camera, rest of exam as per RN. A/P: Respiratory insufficiency: Continue present management with O2, albut. Monitor for increasing oxygenation needs and/or need for intubation. Critical Care: critically ill patient. Cont. asbx, eliquis, SSI. Duplex US B LE pending. Discussed with JUAN Spencer. Asked RN to reach out to eICU if any questions or concerns later. Time spent with patient/coordination of care with other health professionals (mins): Sepsis Event Evaluation Height, Weight, BMI Height: 5'4.00" Weight: 142lbs. 0.0oz. [id number]; 21.37 BMI Method:Stated Focused Exam Lactate Level 03/13/22 18:05: Lactic Acid Level 2.03*H 03/13/22 22:02: Lactic Acid Level 0.69 Exam Exam Patient acknowledged, consented, and participated in this virtual visit which was conducted using real time audio/video Vital Signs Date Time Temp Pulse Resp B/P (MAP) Pulse Ox O2 Delivery O2 Flow Rate FiO2 03/14/22 07:35 86 03/14/22 07:00 78 10 139/73 93 Nasal Cannula 4.00 03/14/22 07:00 35.9 03/14/22 06:42 93 Nasal Cannula 4.00 03/14/22 06:00 78 21 113/64 94 Nasal Cannula 3.00 03/14/22 05:00 79 20 115/70 93 Nasal Cannula 3.00 03/14/22 04:00 74 20 99/51 94 Nasal Cannula 3.00 03/14/22 04:00 95 Nasal Cannula 3.00 03/14/22 04:00 36.4 03/14/22 03:00 76 18 99/59 94 Nasal Cannula 3.00 03/14/22 02:00 68 23 125/67 91 Nasal Cannula 3.00 03/14/22 01:00 75 22 102/59 93 Nasal Cannula 3.00 03/14/22 01:00 75 03/14/22 00:33 75 19 91 Nasal Cannula 3.00 03/14/22 00:00 78 22 114/65 91 Nasal Cannula 2.00 03/14/22 00:00 36.6 03/13/22 23:59 94 Nasal Cannula 5.00 03/13/22 23:00 85 24 117/64 Nasal Cannula 2.00 03/13/22 22:57 37.5 88 92 21 03/13/22 22:45 75 18 111/91 Nasal Cannula 2.00 03/13/22 22:30 71 19 106/69 91 Nasal Cannula 2.00 03/13/22 22:15 66 21 110/77 94 Nasal Cannula 2.00 03/13/22 22:00 65 10 94 Nasal Cannula 2.00 03/13/22 21:45 36.6 03/13/22 21:45 67 14 102/63 Nasal Cannula 2.00 03/13/22 21:40 66 03/13/22 21:38 66 105/62 Nasal Cannula 2.00 03/13/22 21:30 93 Nasal Cannula 2.00 03/13/22 20:42 67 15 103/54 98 Nasal Cannula 2.00 03/13/22 18:13 93 Nasal Cannula 1.00 03/13/22 18:11 37.5 88 18 97/57 (70) 92 Room Air 03/13/22 18:00 Room Air I & O 03/14/22 07:00 Intake Total 1052.5 ml Output Total 350 ml Balance 702.5 ml Height & Weight Height: 5'4.00" Weight: 142lbs. 0.0oz. 64.749924eu; 21.37 BMI Method:Stated General Appearance: No Apparent Distress Capillary Refill: Less Than 3 Seconds Peripheral Pulses: 1+ Dorsalis Pedis (R), 1+ Left Dors-Pedis (L) (See free text) Gastrointestinal: normal bowel sounds, non tender, soft; No distended, No guarding, No rebound Results Lab Laboratory Tests 03/13/22 18:05 03/14/22 04:28 Assessment/Plan Assessment/Plan See free text Critical Care: Critically Ill Patient BALTA ORTEZ MD Mar 14, 2022 09:38
[2022-03-14 11:53] LABS: CHOLESTEROL 154 MG/DL (< 200); HDL CHOLESTEROL 47 MG/DL (40-60); TRIGLYCERIDES 73 MG/DL (<150); VLDL CHOLESTEROL 15 MG/DL (5-40)
[2022-03-14] MEDS ORDERED: GBPN600T PO (12:13)
[2022-03-14] MEDS ORDERED: ROPI2TAB6 PO (12:13)
[2022-03-14] MEDS ORDERED: OMEP40CA6 PO (12:13)
[2022-03-14] MEDS ORDERED: POTA-179 PO (12:13)
[2022-03-14] MEDS ORDERED: ACHD5005 PO (12:13)
[2022-03-14] MEDS ORDERED: FURO20TA4 PO (12:13)
[2022-03-14] MEDS ORDERED: ERGO400C PO (12:13)
[2022-03-14] MEDS ORDERED: ALBU18HF2 INH (12:13)
[2022-03-14] MEDS ORDERED: LEVO137T2 PO (12:20)
--- NOTE | 2022-03-14 12:54 | Physical Therapy Evaluation ---
PT Evaluation-General Medical Diagnosis Admission Date Mar 13, 2022 at 21:32 Medical Diagnosis: pneumonia, CHF Onset Date: Mar 13, 2022 Therapy Diagnosis Therapy Diagnosis: impaired mobility Height/Weight Height (Feet): 5 Height (Inches): 4.00 Weight (Pounds): 142 Weight (Ounces): 0.0 Precautions Precautions/Isolations: Fall Prevention, Standard Precautions Referral Physician: Edilberto Reason for Referral: Evaluation/Treatment Medical History Additional Medical History Past Medical History Surgery/Hospitalization HX: Mass behind eye; hypothyroidism; HTN; GERD; Restless leg syndrome; left mastectomy; breast cancer; Surgeries: Yes (L Mastectomy w/nodes; double bypass, tunneled groshong port) Breast, CABG Respiratory: No Cardiac: Yes (Heart failure; left systolic, 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 dz) Neuropathy, Vertigo Genitourinary: No Gastrointestinal: Yes (Gastritis, Duodenitis,) Gastroesophageal Reflux, Esophagitis, Gall Bladder Disease Musculoskeletal: Yes (Frequent sciatica issues, has RLS, complete rupture rotator cuff, ) Arthritis Endocrine: Yes Hypothyroidsim HEENT: No Cancer: Yes (Myelodysplastic Syndrome, Inflammatory CA L breast) Breast Did You Recieve Any Treatments: Yes What Type of Treatment Did You: Surgical Intervention Psychosocial: Yes Anxiety Integumentary: No Blood Disorders: No Reviewed History: Yes Social History Current Living Status: Alone Entry Into Home: Stairs Without Railing PT Steps Into Home: 2 Prior Prior Level of Function SCALE: Activities may be completed with or without assistive devices. 6-Rbncegbwxa-dewrtvq completes the activity by him/herself with no assistance from a helper. 5-Set-up or Clean-up Assistance-helper sets up or cleans up; patient completes activity. L[place]o assists only prior to or following the activity. 4-Supervision or Touching Assistance-helper provides verbal cues and/or touching/steadying and/or contact guard assistance as patient completes activity. Assistance may be provided throughout the activity or intermittently. 3-Partial/Moderate Assistance-helper does LESS THAN HALF the effort. L[place]o lifts, holds or supports trunk or limbs, but provides less than half the effort. 2-Substantial/Maximal Assistance-helper does MORE THAN HALF the effort. L[place]o lifts or holds trunk or limbs and provides more than half the effort. 3-Zcghhhrhx-dqugwj does ALL the effort. Patient does none of the effort to complete the activity. Or, the assistance of 2 or more helpers is required for the patient to complete the activity. If activity was not attempted, code reason: 7-Patient Refused. 9-Not Applicable-not attempted and the patient did not perform the activity before the current illness, exacerbation or injury. 10-Not Attempted due to Environmental Limitations-(lack of equipment, weather restraints, etc.). 88-Not Attempted due to Medical Conditions or Safety Concerns. Bed Mobility: 6 Transfers (B,C,W/C): 6 Gait: 6 Stairs: 6 Indoor Mobility (Ambulation): Independent Stairs: Independent PT Evaluation-Current Subjective Patient in bed pre tx, agrees to PT, has minor pain in chest. Pt/Family Goals to be independent at home Objective Patient Orientation: Person, Place, Situation Attachments: Oxygen ROM/Strength ROM Lower Extremities WNL Strength Lower Extremities grossly 4/5 BLE Sensory Hearing: Impaired Sensation Right Lower Extremit: Intact Sensation Left Lower Extremity: Intact Transfers Roll Left to Right (QC): 6 Lying to Sitting/Side of Bed(Q: 6 Sit to Stand (QC): 4 Chair/Wlk-um-Secav Xfer(QC): 4 Gait Does the Patient Walk?: Yes Mode of Locomotion: Walk Anticipated Mode of Locomotion: Walk Walk 10 feet (QC): 4 Distance: 40' Gait Assistive Device: FWW Comments/Gait Description slow but steady ambulation Balance Sitting Static: Normal Sitting Dynamic: Normal Standing Static: Good Standing Dynamic: Good Treatment BLE seated exercises x20 (AP, LAQ) Assessment/Needs Patient in recliner post tx with nurse call, phone, tray, all needs met. Patient is just CGA for transfers and ambulation. She can be impulsive and not mindful of lines. Rehab Potential: Fair PT Movers Goals Movers Goals PT Movers Goals Time Frame: Mar 21, 2022 Roll Left & Right (QC): 6 Sit to Lying (QC): 6 Lying-Sitting on Side/Bed(QC): 6 Sit to Stand (QC): 6 Chair/Aua-bt-Dfbeb Xfer(QC): 6 Walk 10 feet (QC): 6 Walk 50ft with 2 Turns (QC): 6 Walk 150 ft (QC): 6 PT Plan Problem List Problem List: Activity Tolerance, Functional Strength, Safety, Balance, Gait, Transfer, ROM Treatment/Plan Treatment Plan: Continue Plan of Care Treatment Plan: Education, Functional Activity Rico, Functional Strength, Gait, Safety, Therapeutic Exercise, Transfers Treatment Duration: Mar 21, 2022 Frequency: 6 times per week Estimated Hrs Per Day: .25 hour per day Patient and/or Family Agrees t: Yes Safety Risks/Education Patient Education: Gait Training, Transfer Techniques, Correct Positioning, Safety Issues Teaching Recipient: Patient Teaching Methods: Demonstration, Discussion Response to Teaching: Reinforcement Needed Discharge Recommendations Plan Patient will perform bed mobility and transfer training, balance and endurance training, functional strengthening, stair training, gait training, and education, to improve functional mobility and independence at home. Therapy Discharge Recommendati: Home & Family, Post Acute PT Time/GCodes Time In: 1131 Time Out: 1143 Total Billed Treatment Time: 12 Total Billed Treatment 1 visit ERIKA BALDERAS PT Mar 14, 2022 12:54
--- NOTE | 2022-03-14 13:09 | History & Physical ---
HPI History of Present Illness: 86 yo F that presented to ER with shortness of breath and tightness in her chest. States that she had not been feeling well but that she started have the shortness of breath early yesterday morning. Denies any sick contacts, no fever or chills. She has a h/o CHF. No home oxygen needs previously. States that she needs lung bx because she might have cancer. She has a h/o left breast cancer that was treated with mastectomy. States that she had a CT at [place] that showed concerns for lung cancer vs metastatic cancer. Source: patient Exam Limitations: no limitations Date seen by provider: Mar 14, 2022 Time Seen by Provider: 09:45 Attending Physician Iron Victoria MD PCP Admitting Physician: Guera Sarmiento DO Attending Physician: Solange Casanova MD Consult Date of Admission Mar 13, 2022 at 21:32 Home Medications Home Medications Reviewed patient Home Medication Reconciliation performed by pharmacy medication reconciliations county program technician and/or nursing. Patients Allergies have been reviewed. Allergies Coded Allergies: Sulfa (Sulfonamide Antibiotics) (Unverified Adverse Reaction, Mild, hives, 03/27/19) adhesive tape (Unverified Adverse Reaction, Mild, skin reaction, 03/27/19) latex (Unverified Adverse Reaction, Mild, rash, 03/27/19) sulfamethoxazole (Unverified Adverse Reaction, Mild, rash, 03/27/19) Septra IV allergy from [id number] tramadol (Unverified Adverse Reaction, Mild, Nausea/vomiting, 03/27/19) trimethoprim (Unverified Adverse Reaction, Mild, rash, 03/27/19) Septra IV allergy from [id number] Hx Patient Social History Living Status: lives alone Smoking Status: Former Smoker 2nd Hand Smoke Exposure: No Recent Hopitalizations: No Alcohol Use?: No Have you traveled recently?: No Immunizations Up To Date Tetanus Booster (TDap): Less than 5yrs First/Initial COVID19 Vaccinat: 2020 Second COVID19 Vaccination Meir: 2020 Third COVID19 Vaccination Date: 2020 Past Medical History CAD h/o Breast Ca treated with left mastectomy Lung mass: No workup so far 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 Family Medical History Significant Family History: No Pertinent Family Hx Review of Systems (CHC) Constitutional: No chills, No fever; malaise EENTM: no symptoms reported; No mouth pain, No nose congestion, No nose pain Respiratory: dyspnea on exertion, short of breath Cardiovascular: no symptoms reported; No chest pain, No edema, No palpitations Gastrointestinal: no symptoms reported; No loss of appetite, No nausea, No vomiting Genitourinary: no symptoms reported Musculoskeletal: no symptoms reported; No back pain, No joint pain, No muscle pain Skin: no symptoms reported Psychiatric/Neurological: No Symptoms Reported Reviewed Test Results Reviewed Test Results Lab Laboratory Tests Test 03/13/22 18:05 03/13/22 22:02 03/14/22 00:01 03/14/22 04:28 Range/Units White Blood Count 7.6 7.7 4.3-11.0 10^3/uL Red Blood Count 3.91 3.67 L 3.80-5.11 10^6/uL Hemoglobin 11.8 11.0 L 11.5-16.0 g/dL Hematocrit 37 35 35-52 % Mean Corpuscular Volume 93 95 80-99 fL Mean Corpuscular Hemoglobin 30 30 25-34 pg Mean Corpuscular Hemoglobin Concent 32 32 32-36 g/dL Red Cell Distribution Width 14.4 14.3 10.0-14.5 % Platelet Count 268 221 130-400 10^3/uL Mean Platelet Volume 10.2 10.9 9.0-12.2 fL Immature Granulocyte % (Auto) 0 0 % Neutrophils (%) (Auto) 71 74 42-75 % Lymphocytes (%) (Auto) 13 12 12-44 % Monocytes (%) (Auto) 12 10 0-12 % Eosinophils (%) (Auto) 3 4 0-10 % Basophils (%) (Auto) 0 0 0-10 % Neutrophils # (Auto) 5.4 5.7 1.8-7.8 10^3/uL Lymphocytes # (Auto) 1.0 0.9 L 1.0-4.0 10^3/uL Monocytes # (Auto) 0.9 0.8 0.0-1.0 10^3/uL Eosinophils # (Auto) 0.2 0.3 0.0-0.3 10^3/uL Basophils # (Auto) 0.0 0.0 0.0-0.1 10^3/uL Immature Granulocyte # (Auto) 0.0 0.0 0.0-0.1 10^3/uL Prothrombin Time 13.9 12.2-14.7 SEC INR Comment 1.0 0.8-1.4 Activated Partial Thromboplast Time 31 24-35 SEC D-Dimer 2.24 H 0.00-0.49 UG/ML Sodium Level 139 142 135-145 MMOL/L Potassium Level 4.6 4.3 3.6-5.0 MMOL/L Chloride Level 105 109 H 98-107 MMOL/L Carbon Dioxide Level 25 22 21-32 MMOL/L Anion Gap 9 11 5-14 MMOL/L Blood Urea Nitrogen 41 H 34 H 7-18 MG/DL Creatinine 1.76 H 1.47 H 0.60-1.30 MG/DL Estimat Glomerular Filtration Rate 28 34 BUN/Creatinine Ratio 23 23 Glucose Level 114 H 88 70-105 MG/DL Lactic Acid Level 2.03 *H 0.69 0.50-2.00 MMOL/L Calcium Level 9.6 8.9 8.5-10.1 MG/DL Corrected Calcium 10.2 H 9.7 8.5-10.1 MG/DL Magnesium Level 1.4 L 1.3 L 1.6-2.4 MG/DL Total Bilirubin 0.3 0.3 0.1-1.0 MG/DL Aspartate Amino Transf (AST/SGOT) 32 27 5-34 U/L Alanine Aminotransferase (ALT/SGPT) 9 9 0-55 U/L Alkaline Phosphatase 162 H 117 40-136 U/L Troponin I < 0.30 <0.30 NG/ML Pro-B-Type Natriuretic Peptide 2243.0 H <450.0 PG/ML Total Protein 6.9 5.9 L 6.4-8.2 GM/DL Albumin 3.3 3.0 L 3.2-4.5 GM/DL Lipase 47 8-78 U/L Influenza Type A (RT-PCR) Not Detected Not Detecte Influenza Type B (RT-PCR) Not Detected Not Detecte SARS-CoV-2 RNA (RT-PCR) Not Detected Not Detecte Bedside Blood Gas pH (LAB) 7.458 H 7.310-7.410 Bedside Blood Gas pCO2 (LAB) 32.3 L 41.0-51.0 mmHg Bedside Blood Gas pO2 (LAB) 130 H 80-105 mmHg Bedside Blood Gas HCO3 (LAB) 22.8 L 23.0-28.0 mmol/L POC Blood Gas Total CO2 Calc 24 24-29 mmol/L Bedside Bl Gas O2 Saturation (Calc) 99 H 95-98 % Bedside Arterial Blood Base Excess -1 -2-3 mmol/L Phosphorus Level 2.7 2.3-4.7 MG/DL Triglycerides Level 73 <150 MG/DL Cholesterol Level 154 < 200 MG/DL LDL Cholesterol Direct 95 1-129 MG/DL VLDL Cholesterol 15 5-40 MG/DL HDL Cholesterol 47 40-60 MG/DL Test 03/14/22 10:59 Range/Units Glucometer 126 H 70-110 MG/DL Physical Exam-(CHC) Physical Exam Vital Signs VS - Last 72 Hours, by Label 03/13/22 03/13/22 03/13/22 03/13/22 18:00 18:11 18:13 20:42 Temp 37.5 Pulse 88 67 Resp 18 15 B/P (MAP) 97/57 (70) 103/54 Pulse Ox 92 93 98 O2 Delivery Room Air Room Air Nasal Cannula Nasal Cannula O2 Flow Rate 1.00 2.00 03/13/22 03/13/22 03/13/22 03/13/22 21:30 21:38 21:40 21:45 Pulse 66 66 67 Resp 14 B/P (MAP) 105/62 102/63 Pulse Ox 93 O2 Delivery Nasal Cannula Nasal Cannula Nasal Cannula O2 Flow Rate 2.00 2.00 2.00 03/13/22 03/13/22 03/13/22 03/13/22 21:45 22:00 22:15 22:30 Temp 36.6 Pulse 65 66 71 Resp 10 21 19 B/P (MAP) 110/77 106/69 Pulse Ox 94 94 91 O2 Delivery Nasal Cannula Nasal Cannula Nasal Cannula O2 Flow Rate 2.00 2.00 2.00 03/13/22 03/13/22 03/13/22 03/13/22 22:45 22:57 23:00 23:59 Temp 37.5 Pulse 75 88 85 Resp 18 24 B/P (MAP) 111/91 117/64 Pulse Ox 92 94 O2 Delivery Nasal Cannula Nasal Cannula Nasal Cannula O2 Flow Rate 2.00 2.00 5.00 FiO2 21 03/14/22 03/14/22 03/14/22 03/14/22 00:00 00:00 00:33 01:00 Temp 36.6 Pulse 78 75 75 Resp 22 19 B/P (MAP) 114/65 Pulse Ox 91 91 O2 Delivery Nasal Cannula Nasal Cannula O2 Flow Rate 2.00 3.00 03/14/22 03/14/22 03/14/22 03/14/22 01:00 02:00 03:00 04:00 Temp 36.4 Pulse 75 68 76 Resp 22 23 18 B/P (MAP) 102/59 125/67 99/59 Pulse Ox 93 91 94 O2 Delivery Nasal Cannula Nasal Cannula Nasal Cannula O2 Flow Rate 3.00 3.00 3.00 03/14/22 03/14/22 03/14/22 03/14/22 04:00 04:00 05:00 06:00 Pulse 74 79 78 Resp 21 B/P (MAP) 99/51 115/70 113/64 Pulse Ox 95 94 93 94 O2 Delivery Nasal Cannula Nasal Cannula Nasal Cannula Nasal Cannula O2 Flow Rate 3.00 3.00 3.00 3.00 03/14/22 03/14/22 03/14/22 03/14/22 06:42 07:00 07:00 07:35 Temp 35.9 Pulse 78 86 Resp 10 B/P (MAP) 139/73 Pulse Ox 93 93 O2 Delivery Nasal Cannula Nasal Cannula O2 Flow Rate 4.00 4.00 03/14/22 03/14/22 03/14/22 03/14/22 08:00 08:00 09:00 10:00 Pulse 91 90 97 Resp 19 B/P (MAP) 142/77 146/98 108/76 Pulse Ox 95 99 99 99 O2 Delivery Nasal Cannula Nasal Cannula Nasal Cannula Nasal Cannula O2 Flow Rate 4.00 4.00 4.00 4.00 03/14/22 03/14/22 03/14/22 03/14/22 10:36 11:00 12:00 12:00 Temp 36.6 Pulse 91 Resp 10 B/P (MAP) 141/101 Pulse Ox 98 98 O2 Delivery Nasal Cannula Nasal Cannula Nasal Cannula O2 Flow Rate 3.00 3.00 3.00 03/14/22 03/14/22 03/14/22 03/14/22 12:00 12:39 13:00 14:00 Pulse 89 81 85 81 Resp 21 B/P (MAP) 94/59 93/63 102/61 Pulse Ox 91 92 92 O2 Delivery Nasal Cannula Nasal Cannula Nasal Cannula O2 Flow Rate 3.00 3.00 3.00 03/14/22 03/14/22 03/14/22 03/14/22 15:00 16:00 16:00 16:00 Temp 36.1 Pulse 80 78 Resp 9 20 B/P (MAP) 110/68 122/72 Pulse Ox 97 92 97 O2 Delivery Nasal Cannula Nasal Cannula Nasal Cannula O2 Flow Rate 3.00 3.00 3.00 03/14/22 03/14/22 03/14/22 03/14/22 17:00 18:00 19:00 19:00 Temp 36.6 Pulse 81 85 74 73 Resp 20 19 16 B/P (MAP) 104/57 131/70 119/76 Pulse Ox 95 99 94 O2 Delivery Nasal Cannula Nasal Cannula Nasal Cannula O2 Flow Rate 3.00 3.00 3.00 03/14/22 03/14/22 03/14/22 03/14/22 19:15 20:00 20:00 21:00 Temp 36.0 Pulse 87 83 Resp 27 18 B/P (MAP) 139/47 116/69 Pulse Ox 94 96 99 O2 Delivery Nasal Cannula Nasal Cannula Nasal Cannula O2 Flow Rate 3.00 3.00 3.00 03/14/22 03/14/22 03/14/22 03/14/22 22:00 23:00 23:20 23:40 Temp 36.9 Pulse 80 75 Resp 12 B/P (MAP) 117/65 116/56 Pulse Ox 99 96 96 O2 Delivery Nasal Cannula Nasal Cannula Nasal Cannula Nasal Cannula O2 Flow Rate 3.00 3.00 3.00 3.00 03/15/22 03/15/22 03/15/22 03/15/22 00:00 01:00 01:12 02:00 Pulse 80 68 68 69 Resp 19 17 B/P (MAP) 100/61 108/54 103/54 Pulse Ox 93 92 94 O2 Delivery Nasal Cannula Nasal Cannula Nasal Cannula O2 Flow Rate 3.00 3.00 3.00 03/15/22 03/15/22 03/15/22 03/15/22 03:00 03:25 03:40 04:00 Temp 36.4 Pulse 71 68 Resp 17 16 B/P (MAP) 128/51 107/44 Pulse Ox 99 95 98 O2 Delivery Nasal Cannula Nasal Cannula Nasal Cannula Nasal Cannula O2 Flow Rate 3.00 3.00 3.00 3.00 03/15/22 03/15/22 03/15/22 03/15/22 05:00 06:00 07:00 07:35 Pulse 73 68 76 72 Resp 18 20 13 B/P (MAP) 119/66 130/74 134/70 Pulse Ox 99 100 97 O2 Delivery Nasal Cannula Nasal Cannula Nasal Cannula O2 Flow Rate 3.00 3.00 3.00 03/15/22 03/15/22 03/15/22 03/15/22 08:00 08:00 08:23 09:00 Temp 36.2 Pulse 76 83 Resp 19 22 B/P (MAP) 129/57 137/88 Pulse Ox 100 96 100 O2 Delivery Nasal Cannula Nasal Cannula Nasal Cannula O2 Flow Rate 3.00 3.00 3.00 03/15/22 03/15/22 03/15/22 03/15/22 10:00 11:00 12:00 12:36 Pulse 81 86 93 78 Resp 13 17 26 B/P (MAP) 116/75 117/55 138/77 Pulse Ox 100 92 97 O2 Delivery Nasal Cannula Nasal Cannula Nasal Cannula O2 Flow Rate 3.00 3.00 3.00 03/15/22 03/15/22 03/15/22 03/15/22 12:54 13:00 14:19 16:29 Temp 37.4 36.5 Pulse 77 80 78 Resp 11 17 20 B/P (MAP) 120/66 138/68 106/66 (79) Pulse Ox 96 100 94 92 O2 Delivery Nasal Cannula Nasal Cannula Nasal Cannula Nasal Cannula O2 Flow Rate 3.00 3.00 3.00 3.00 03/15/22 03/15/22 03/15/22 03/15/22 19:00 19:07 19:20 19:38 Temp 36.4 Pulse 78 75 Resp 20 B/P (MAP) 96/60 (72) Pulse Ox 92 91 O2 Delivery Nasal Cannula Nasal Cannula Nasal Cannula O2 Flow Rate 3.00 2.00 3.00 Capillary Refill : Less Than 3 Seconds General Appearance: mild distress, thin HEENT: PERRL/EOMI Neck: non-tender, full range of motion Respiratory: no accessory muscle use, crackles, wheezing Cardiovascular: normal peripheral pulses, regular rate, rhythm, no edema, no murmur Gastrointestinal: normal bowel sounds, non tender, soft Back: no CVA tenderness, no vertebral tenderness Extremities: normal range of motion, non-tender, normal inspection, no pedal edema, no calf tenderness, normal capillary refill Assessment/Plan Assessment/Plan Admission Status: Inpatient Order (span 2 midnights) Reason for Inpatient Admission: Patient high risk of decompensation (1) Acute on chronic combined systolic and diastolic congestive heart failure Status: Acute Assessment & Plan: - Cardiology consulted, appreciate recommendations, new dx (2) Acute on chronic respiratory failure with hypoxemia Status: Acute Assessment & Plan: - Mat protocol, will titrate as tolerated, continue antibiotics to cover for PNA (3) Acute kidney failure Status: Acute Assessment & Plan: - Likely prerenal, gentle hydration, continue to monitor Qualifiers: Qualified Codes: N17.9 - Acute kidney failure, unspecified (4) Mass of right lung Status: Acute (5) Bony sclerosis (6) Coronary artery disease without angina pectoris Status: Chronic Qualifiers: Qualified Codes: I25.10 - Atherosclerotic heart disease of [place] coronary artery without angina pectoris (7) Ischemic cardiomyopathy Status: Chronic (8) History of breast cancer Status: Chronic SOLANGE CASANOVA MD Mar 14, 2022 13:09
--- NOTE | 2022-03-14 19:25 | Consultation - Surgery ---
PORFIRIOCRISSY 03/14/224: History of Present Illness History of Present Illness Patient Consulted On(des/time) 03/14/22 19:19 Date Seen by Provider: Mar 14, 2022 Time Seen by Provider: 19:20 History of Present Illness Consult from Dr. Zaragoza for possible right lung bx. Pt with hx of CAD and left heart failure presented to ED on 03/13 with c/o SOB and stated she may need a lung bx due to possible cancer. Pt had a PET scan in January 2021, that is suspicious for Right hilar and upper lobe cancer. She was admitted to the ICU last night due to respiratory insufficiency secondary to CHF and RLL PNA. Pt states today her only complaint is losing her voice and mild productive cough. She denies N/V, fever, chills, and sweats. Allergies and Home Medications Allergies Coded Allergies: Sulfa (Sulfonamide Antibiotics) (Unverified Adverse Reaction, Mild, hives, 03/27/19) adhesive tape (Unverified Adverse Reaction, Mild, skin reaction, 03/27/19) latex (Unverified Adverse Reaction, Mild, rash, 03/27/19) sulfamethoxazole (Unverified Adverse Reaction, Mild, rash, 03/27/19) Septra IV allergy from [email or web address] tramadol (Unverified Adverse Reaction, Mild, Nausea/vomiting, 03/27/19) trimethoprim (Unverified Adverse Reaction, Mild, rash, 03/27/19) Septra IV allergy from [email or web address] Patient Home Medication List Home Medication List Reviewed: Yes Albuterol Sulfate (Ventolin Hfa) 90 Mcg Hfa.aer.ad, 2 PUFF INH Q6H PRN for SHORTNESS OF BREATH, (Reported) Entered as Reported by: SAYRA CRUZ on 03/14/22 1213 Last Action: Reviewed Alprazolam (Alprazolam) 0.5 Mg Tablet, 0.5 MG PO QID PRN for ANXIETY, (Reported) Entered as Reported by: MALIA DUBON on 03/27/191709 Last Action: Reviewed Aspirin (Aspirin EC) 81 Mg Tablet.dr, 81 MG PO DAILY, (Reported) Entered as Reported by: MALIA DUBON on 03/27/191709 Last Action: Reviewed Cholecalciferol (Vitamin D3) (Vitamin D3) 10 Mcg (400 Unit) Capsule, 10 MCG PO DAILY, (Reported) Entered as Reported by: SAYRA CRUZ on 03/14/221212 Last Action: Reviewed Furosemide (Furosemide) 20 Mg Tablet, 20 MG PO DAILY, (Reported) Entered as Reported by: SAYRA CRUZ on 03/14/221212 Last Action: Reviewed Gabapentin (Gabapentin) 600 Mg Tablet, 600 MG PO TID, (Reported) Entered as Reported by: SAYRA CRUZ on 03/14/221212 Last Action: Reviewed Hydrocodone/Acetaminophen (Hydrocodone-Acetamin 5-325 mg) 5 Mg-325 Mg Tablet, 0.5-1 EA PO Q8H PRN for PAIN-MODERATE (5-7), (Reported) Entered as Reported by: SAYRA CRUZ on 03/14/221212 Last Action: Reviewed Levothyroxine Sodium (Levothyroxine Sodium) 137 Mcg Tablet, 137 MCG PO DAILY, (Reported) Entered as Reported by: SAYRA CRUZ on 03/14/221219 Last Action: Converted Lisinopril (Lisinopril) 2.5 Mg Tablet, 2.5 MG PO DAILY, (Reported) Entered as Reported by: MALIA DUBON on 03/27/191709 Last Action: Reviewed Metoprolol Succinate (Metoprolol Succinate) 25 Mg Tab.er.24h, 25 MG PO DAILY, (Reported) Entered as Reported by: MALIA DUBON on 03/27/191709 Last Action: Reviewed Omeprazole (Omeprazole) 40 Mg Capsule.dr, 40 MG PO BID, (Reported) Entered as Reported by: SAYRA CRUZ on 03/14/221212 Last Action: Reviewed Paroxetine HCl (Paroxetine HCl) 20 Mg Tablet, 20 MG PO DAILY, (Reported) Entered as Reported by: MALIA DBUON on 03/27/191709 Last Action: Continued Potassium Chloride (Potassium Chloride) 20 Meq Tab.er.prt, 20 MEQ PO DAILY, (Reported) Entered as Reported by: SAYRA CRUZ on 03/14/221212 Last Action: Reviewed Ropinirole HCl (Ropinirole HCl) 2 Mg Tablet, 2 MG PO HS, (Reported) Entered as Reported by: MALIA DUBON on 03/27/191709 Last Action: Reviewed Ropinirole HCl (Ropinirole HCl) 2 Mg Tablet, 2 MG PO DAILY PRN for RESTLESSNESS, (Reported) Entered as Reported by: SAYRA CRUZ on 03/14/22 121 Last Action: Reviewed Discontinued Medications Albuterol Sulfate (Proair Hfa) 1 Puff Puff, 2 PUFF IH Q4H PRN for WHEEZING Discontinued Reason: Duplicate Order Prescribed by: NILDA KING on 02/04/222217 Last Action: Discontinued Azithromycin (Azithromycin) 250 Mg Tablet, 250 MG PO DAILY Discontinued Reason: No Longer Taking Prescribed by: LUCY OSBORN on 07/11/202029 Last Action: Discontinued Cholecalciferol (Vitamin D3) (Vitamin D3) 1,000 Unit Tablet, 1,000 UNIT PO DAILY, (Reported) Discontinued Reason: Prescription changed Entered as Reported by: MALIA DUBON on 03/27/191709 Dexamethasone (Dexamethasone) 4 Mg Tablet, 4 MG PO DAILY Discontinued Reason: No Longer Taking Prescribed by: LUCY OSBORN on 07/11/202029 Last Action: Discontinued Doxycycline Hyclate (Doxycycline Hyclate) 100 Mg Tablet, 100 MG PO BID Discontinued Reason: No Longer Taking Prescribed by: NILDA KING on 02/04/222217 Last Action: Discontinued Doxycycline Hyclate (Doxycycline Hyclate) 100 Mg Tablet, 100 MG PO BID Discontinued Reason: No Longer Taking Prescribed by: NILDA KING on 02/26/221917 Last Action: Discontinued Furosemide (Lasix) 20 Mg Tablet, 20 MG PO DAILY Discontinued Reason: Duplicate Order Prescribed by: NILDA KING on 02/26/221917 Last Action: Discontinued Gabapentin (Gabapentin) 400 Mg Capsule, 400 MG PO TID, (Reported) Discontinued Reason: Duplicate Order Entered as Reported by: MALIA DUBON on 03/27/191709 Last Action: Discontinued Hydrocodone Bit/Acetaminophen (Lortab 5 Mg Tablet) 1 Each Tablet, 1 TAB PO TID PRN for PAIN-MILD TO MODERATE, (Reported) Discontinued Reason: Duplicate Order Entered as Reported by: MALIA DUBON on 03/27/191709 Last Action: Discontinued Levofloxacin (Levofloxacin) 500 Mg Tablet, 500 MG PO DAILY Discontinued Reason: No Longer Taking Prescribed by: АННА ZAVALA on 09/13/20 1350 Last Action: Discontinued Levothyroxine Sodium (Levothyroxine Sodium) 150 Mcg Tablet, 150 MCG PO DAILY, (Reported) Discontinued Reason: Duplicate Order Entered as Reported by: MALIA DUBON on 03/27/191709 Last Action: Discontinued Meclizine HCl (Meclizine HCl) 25 Mg Tablet, 25 MG PO TID PRN for vertigo Discontinued Reason: No Longer Taking Prescribed by: LAWRENCE ISAACS on 03/27/19 175 Last Action: Discontinued Methylprednisolone (Methylprednisolone Dose Pack) 4 Mg Tab.ds.pk, 4 MG PO UD Discontinued Reason: No Longer Taking Prescribed by: NILDA KING on 02/04/22 2218 Last Action: Discontinued Montelukast Sodium (Montelukast Sodium) 10 Mg Tablet, 10 MG PO DAILY, (Reported) Discontinued Reason: No Longer Taking Entered as Reported by: MALIA DUBON on 03/27/191709 Last Action: Discontinued Paolo/Polymyx B Sulf/Dexameth (Maxitrol Eye Drops) 5 Ml Drops.susp, 5 ML OP Q6H Discontinued Reason: No Longer Taking Prescribed by: MADONNA GOODSON on 07/10/21 1509 Last Action: Discontinued Omeprazole (Omeprazole) 20 Mg Capsule.dr, 20 MG PO BID, (Reported) Discontinued Reason: Duplicate Order Entered as Reported by: MALIA DUBON on 03/27/191709 Last Action: Discontinued Ondansetron (Ondansetron Odt) 4 Mg Tab.rapdis, 4 MG PO Q6H PRN for NAUSEA/VOMITING Discontinued Reason: No Longer Taking Prescribed by: MADONNA GOODSON on 12/03/212105 Last Action: Discontinued Ondansetron (Ondansetron Odt) 4 Mg Tab.rapdis, 4 MG PO Q8H PRN for NAUSEA/VOMITING Discontinued Reason: No Longer Taking Prescribed by: MADONNA GOODSON on 01/21/22 1742 Last Action: Discontinued Oseltamivir Phosphate (Tamiflu) 75 Mg Cap, 75 MG PO BID Discontinued Reason: No Longer Taking Prescribed by: MADONNA GOODSON on 12/03/212105 Last Action: Discontinued Potassium Chloride (Potassium Chloride) 20 Meq Tablet.er, 20 MEQ PO DAILY Discontinued Reason: No Longer Taking Prescribed by: NILDA KING on 02/26/221917 Last Action: Discontinued Past Zgnwlxk-Lsrsuf-Amgpnw Hx Patient Social History Smoking Status: Former Smoker (States she quit smoking over 25 years ago. ) 2nd Hand Smoke Exposure: No Recent Hopitalizations: No Alcohol Use?: No Have you traveled recently?: No Immunizations Up To Date Tetanus Booster (TDap): Less than 5yrs Date of Pneumonia Vaccine: Apr 18, 2018 Seasonal Allergies Seasonal Allergies: Yes Surgeries History of Surgeries: Yes (L Mastectomy w/nodes; double bypass, tunneled groshong port) Surgeries: Breast (left mastectomy), CABG Respiratory History of Respiratory Disorde: No Cardiovascular History of Cardiac Disorders: Yes (Heart failure; left systolic, chronic (EF 30%), L ventricular aneurysm) Cardiac Disorders: Coronary Artery Disease, Heart Attack, High Cholesterol, Hypertension Neurological History of Neurological Disord: Yes (Restless Leg Syndrome, Raynauds, Subcortical microvascular ischemic occ. dz) Neurological Disorders: Neuropathy, Vertigo Reproductive System : No Genitourinary History of Genitourinary Disor: No Gastrointestinal History of Gastrointestinal Di: Yes (Gastritis, Duodenitis,) Gastrointestinal Disorders: Gastroesophageal Reflux, Esophagitis, Gall Bladder Disease Musculoskeletal History of Musculoskeletal Dis: Yes (Frequent sciatica issues, has RLS, complete rupture rotator cuff, ) Musculoskeletal Disorders: Arthritis Endocrine History of Endocrine Disorders: Yes Endocrine Disorders: Hypothyroidsim HEENT History of HEENT Disorders: No Cancer History of Cancer: Yes (Myelodysplastic Syndrome, Inflammatory CA L breast) Cancer: Breast (Hx of L mastectomy ) Psychosocial History of Psychiatric Problem: Yes Behavioral Health Disorders: Anxiety Integumentary History of Skin or Integumenta: No Blood Transfusions History of Blood Disorders: No Review of Systems-General Constitutional: No chills, No fever EENTM: hoarseness (mild hoarse voice ) Respiratory: cough (productive ); No hemoptysis; short of breath; No wheezing Cardiovascular: No chest pain, No palpitations Gastrointestinal: No abdominal pain; diarrhea; No nausea, No vomiting Genitourinary: No dysuria, No frequency : No Musculoskeletal: No joint swelling, No muscle pain Skin: No pruritus, No rash Psychiatric/Neurological: Denies Headache, Denies Numbness All Other Systems Reviewed Negative Unless Noted: Yes Physical Exam-General Problems Physical Exam Vital Signs Vital Signs - First Documented 03/13/22 03/13/22 03/13/22 03/13/22 18:00 18:11 18:13 22:57 Temp 37.5 Pulse 88 Resp 18 B/P (MAP) 97/57 (70) Pulse Ox 92 O2 Delivery Room Air O2 Flow Rate 1.00 FiO2 21 Capillary Refill : Less Than 3 Seconds General Appearance: thin Eyes: Bilateral Eye PERRL, Bilateral Eye EOMI Respiratory: No respiratory distress, No wheezing Cardiovascular: normal peripheral pulses Peripheral Pulses: 3+ Radial Pulses (R), 3+ Radial Pulses (L) Gastrointestinal: normal bowel sounds Rectal: deferred Data Review Labs Laboratory Tests 03/13/22 22:02: Lactic Acid Level 0.69 03/14/22 00:01: Bedside Blood Gas pH (LAB) 7.458H, Bedside Blood Gas pCO2 (LAB) 32.3L, Bedside Blood Gas pO2 (LAB) 130H, Bedside Blood Gas HCO3 (LAB) 22.8L, POC Blood Gas Total CO2 Calc 24, Bedside Bl Gas O2 Saturation (Calc) 99H, Bedside Arterial Blood Base Excess -1 03/14/22 04:28: White Blood Count 7.7, Red Blood Count 3.67L, Hemoglobin 11.0L, Hematocrit 35, Mean Corpuscular Volume 95, Mean Corpuscular Hemoglobin 30, Mean Corpuscular Hemoglobin Concent 32, Red Cell Distribution Width 14.3, Platelet Count 221, Mean Platelet Volume 10.9, Immature Granulocyte % (Auto) 0, Neutrophils (%) (Auto) 74, Lymphocytes (%) (Auto) 12, Monocytes (%) (Auto) 10, Eosinophils (%) (Auto) 4, Basophils (%) (Auto) 0, Neutrophils # (Auto) 5.7, Lymphocytes # (Auto) 0.9L, Monocytes # (Auto) 0.8, Eosinophils # (Auto) 0.3, Basophils # (Auto) 0.0, Immature Granulocyte # (Auto) 0.0, Sodium Level 142, Potassium Level 4.3, Chloride Level 109H, Carbon Dioxide Level 22, Anion Gap 11, Blood Urea Nitrogen 34H, Creatinine 1.47H, Estimat Glomerular Filtration Rate 34, BUN/Creatinine Ratio 23, Glucose Level 88, Calcium Level 8.9, Corrected Calcium 9.7, Phosphorus Level 2.7, Magnesium Level 1.3L, Total Bilirubin 0.3, Aspartate Amino Transf (AST/SGOT) 27, Alanine Aminotransferase (ALT/SGPT) 9, Alkaline Phosphatase 117, Total Protein 5.9L, Albumin 3.0L, Triglycerides Level 73, Cholesterol Level 154, LDL Cholesterol Direct 95, VLDL Cholesterol 15, HDL Cholesterol 47 03/14/22 10:59: Glucometer 126H 03/14/22 16:39: Glucometer 91 Microbiology 03/13/22 MRSA Screen - Final, Complete MRSA not isolated 03/13/22 Blood Culture - Preliminary, Resulted No growth Assessment/Plan Assessment/Plan Assessment/Plan Review scans with radiology to see if right lung bx is needed, if not recommend to pulmonology for possible bronchoscopy. Continue monitoring pt overnight. LUCIA FOX DO 03/14/221956: History of Present Illness History of Present Illness History of Present Illness Consult requested by Dr. Zaragoza possible right lung biopsy. Patient presented to ED with shortness of breath. She was admitted to ICU with respiratory insu fficiency. She states she is losing her voice, but able to be heard and give information. Patient breathing slighlty better today. She had pet scan showing possible right upper lobe mass. Ct scan showing some scarring it appears. She has had productive cough. No other complaints at this time. Allergies and Home Medications Allergies Coded Allergies: Sulfa (Sulfonamide Antibiotics) (Unverified Adverse Reaction, Mild, hives, 03/27/19) adhesive tape (Unverified Adverse Reaction, Mild, skin reaction, 03/27/19) latex (Unverified Adverse Reaction, Mild, rash, 03/27/19) sulfamethoxazole (Unverified Adverse Reaction, Mild, rash, 03/27/19) Septra IV allergy from [email or web address] tramadol (Unverified Adverse Reaction, Mild, Nausea/vomiting, 03/27/19) trimethoprim (Unverified Adverse Reaction, Mild, rash, 03/27/19) Septra IV allergy from [email or web address] Patient Home Medication List Home Medication List Reviewed: Yes Albuterol Sulfate (Ventolin Hfa) 90 Mcg Hfa.aer.ad, 2 PUFF INH Q6H PRN for SHORTNESS OF BREATH, (Reported) Entered as Reported by: SAYRA CRUZ on 03/14/22 1213 Last Action: Reviewed Alprazolam (Alprazolam) 0.5 Mg Tablet, 0.5 MG PO QID PRN for ANXIETY, (Reported) Entered as Reported by: MALIA DUBON on 03/27/191709 Last Action: Reviewed Aspirin (Aspirin EC) 81 Mg Tablet.dr, 81 MG PO DAILY, (Reported) Entered as Reported by: MALIA DUBON on 03/27/191709 Last Action: Reviewed Cholecalciferol (Vitamin D3) (Vitamin D3) 10 Mcg (400 Unit) Capsule, 10 MCG PO DAILY, (Reported) Entered as Reported by: SAYRA CRUZ on 03/14/221212 Last Action: Reviewed Furosemide (Furosemide) 20 Mg Tablet, 20 MG PO DAILY, (Reported) Entered as Reported by: SAYRA CRUZ on 03/14/221212 Last Action: Reviewed Gabapentin (Gabapentin) 600 Mg Tablet, 600 MG PO TID, (Reported) Entered as Reported by: SAYRA CRUZ on 03/14/221212 Last Action: Reviewed Hydrocodone/Acetaminophen (Hydrocodone-Acetamin 5-325 mg) 5 Mg-325 Mg Tablet, 0.5-1 EA PO Q8H PRN for PAIN-MODERATE (5-7), (Reported) Entered as Reported by: SAYRA CRUZ on 03/14/221212 Last Action: Reviewed Levothyroxine Sodium (Levothyroxine Sodium) 137 Mcg Tablet, 137 MCG PO DAILY, (Reported) Entered as Reported by: SAYRA CRUZ on 03/14/221219 Last Action: Converted Lisinopril (Lisinopril) 2.5 Mg Tablet, 2.5 MG PO DAILY, (Reported) Entered as Reported by: MALIA DUBON on 03/27/191709 Last Action: Reviewed Metoprolol Succinate (Metoprolol Succinate) 25 Mg Tab.er.24h, 25 MG PO DAILY, (Reported) Entered as Reported by: MALIA DUBON on 03/27/191709 Last Action: Reviewed Omeprazole (Omeprazole) 40 Mg Capsule.dr, 40 MG PO BID, (Reported) Entered as Reported by: SAYRA CRUZ on 03/14/221212 Last Action: Reviewed Paroxetine HCl (Paroxetine HCl) 20 Mg Tablet, 20 MG PO DAILY, (Reported) Entered as Reported by: MALIA DUBON on 03/27/191709 Last Action: Continued Potassium Chloride (Potassium Chloride) 20 Meq Tab.er.prt, 20 MEQ PO DAILY, (Reported) Entered as Reported by: SAYRA CRUZ on 03/14/221212 Last Action: Reviewed Ropinirole HCl (Ropinirole HCl) 2 Mg Tablet, 2 MG PO HS, (Reported) Entered as Reported by: MALIA DUBON on 03/27/191709 Last Action: Reviewed Ropinirole HCl (Ropinirole HCl) 2 Mg Tablet, 2 MG PO DAILY PRN for RESTLESSNESS, (Reported) Entered as Reported by: SAYRA CRUZ on 03/14/221212 Last Action: Reviewed Discontinued Medications Albuterol Sulfate (Proair Hfa) 1 Puff Puff, 2 PUFF IH Q4H PRN for WHEEZING Discontinued Reason: Duplicate Order Prescribed by: NILDA KING on 02/04/222217 Last Action: Discontinued Azithromycin (Azithromycin) 250 Mg Tablet, 250 MG PO DAILY Discontinued Reason: No Longer Taking Prescribed by: LUCY OSBORN on 07/11/202029 Last Action: Discontinued Cholecalciferol (Vitamin D3) (Vitamin D3) 1,000 Unit Tablet, 1,000 UNIT PO DAILY, (Reported) Discontinued Reason: Prescription changed Entered as Reported by: MALIA DUBON on 03/27/191709 Dexamethasone (Dexamethasone) 4 Mg Tablet, 4 MG PO DAILY Discontinued Reason: No Longer Taking Prescribed by: LUCY OSBORN on 07/11/202029 Last Action: Discontinued Doxycycline Hyclate (Doxycycline Hyclate) 100 Mg Tablet, 100 MG PO BID Discontinued Reason: No Longer Taking Prescribed by: NILDA KING on 02/04/222217 Last Action: Discontinued Doxycycline Hyclate (Doxycycline Hyclate) 100 Mg Tablet, 100 MG PO BID Discontinued Reason: No Longer Taking Prescribed by: NILDA KING on 02/26/221917 Last Action: Discontinued Furosemide (Lasix) 20 Mg Tablet, 20 MG PO DAILY Discontinued Reason: Duplicate Order Prescribed by: NILDA KING on 02/26/221917 Last Action: Discontinued Gabapentin (Gabapentin) 400 Mg Capsule, 400 MG PO TID, (Reported) Discontinued Reason: Duplicate Order Entered as Reported by: MALIA DUBON on 03/27/191709 Last Action: Discontinued Hydrocodone Bit/Acetaminophen (Lortab 5 Mg Tablet) 1 Each Tablet, 1 TAB PO TID PRN for PAIN-MILD TO MODERATE, (Reported) Discontinued Reason: Duplicate Order Entered as Reported by: MALIA DUBON on 03/27/191709 Last Action: Discontinued Levofloxacin (Levofloxacin) 500 Mg Tablet, 500 MG PO DAILY Discontinued Reason: No Longer Taking Prescribed by: АННА ZAVALA on 09/13/20 1350 Last Action: Discontinued Levothyroxine Sodium (Levothyroxine Sodium) 150 Mcg Tablet, 150 MCG PO DAILY, (Reported) Discontinued Reason: Duplicate Order Entered as Reported by: MALIA DUBON on 03/27/191709 Last Action: Discontinued Meclizine HCl (Meclizine HCl) 25 Mg Tablet, 25 MG PO TID PRN for vertigo Discontinued Reason: No Longer Taking Prescribed by: LAWRENCE ISAACS on 03/27/19 175 Last Action: Discontinued Methylprednisolone (Methylprednisolone Dose Pack) 4 Mg Tab.ds.pk, 4 MG PO UD Discontinued Reason: No Longer Taking Prescribed by: NILDA KING on 02/04/22 2218 Last Action: Discontinued Montelukast Sodium (Montelukast Sodium) 10 Mg Tablet, 10 MG PO DAILY, (Reported) Discontinued Reason: No Longer Taking Entered as Reported by: MALIA DUBON on 03/27/191709 Last Action: Discontinued Paolo/Polymyx B Sulf/Dexameth (Maxitrol Eye Drops) 5 Ml Drops.susp, 5 ML OP Q6H Discontinued Reason: No Longer Taking Prescribed by: MADONNA GOODSON on 07/10/21 1509 Last Action: Discontinued Omeprazole (Omeprazole) 20 Mg Capsule.dr, 20 MG PO BID, (Reported) Discontinued Reason: Duplicate Order Entered as Reported by: MALIA DUBON on 03/27/191709 Last Action: Discontinued Ondansetron (Ondansetron Odt) 4 Mg Tab.rapdis, 4 MG PO Q6H PRN for NAUSEA/VOMITING Discontinued Reason: No Longer Taking Prescribed by: MADONNA GOODSON on 12/03/21 2106 Last Action: Discontinued Ondansetron (Ondansetron Odt) 4 Mg Tab.rapdis, 4 MG PO Q8H PRN for NAUSEA/VOMITING Discontinued Reason: No Longer Taking Prescribed by: MADONNA GOODSON on 01/21/22 1742 Last Action: Discontinued Oseltamivir Phosphate (Tamiflu) 75 Mg Cap, 75 MG PO BID Discontinued Reason: No Longer Taking Prescribed by: MADONNA GOODSON on 12/03/21 210 Last Action: Discontinued Potassium Chloride (Potassium Chloride) 20 Meq Tablet.er, 20 MEQ PO DAILY Discontinued Reason: No Longer Taking Prescribed by: NILDA KING on 02/26/22 191 Last Action: Discontinued Past Matmtns-Vcgkbk-Zjwtym Hx Reviewed Nursing Assessment Reviewed/Agree w Nursing PMH: Yes Family Medical History Significant Family History: No Pertinent Family Hx Review of Systems-General Constitutional: No chills, No fever EENTM: hoarseness (mild hoarse voice ) Respiratory: cough (productive ); No hemoptysis; short of breath; No wheezing Cardiovascular: No chest pain, No palpitations Gastrointestinal: No abdominal pain; diarrhea; No nausea, No vomiting Genitourinary: No dysuria, No frequency Musculoskeletal: No joint swelling, No muscle pain Skin: No change in color, No change in hair/nails, No pruritus, No rash Psychiatric/Neurological: Denies Headache, Denies Numbness All Other Systems Reviewed Negative Unless Noted: Yes (Negative excepted noted.) Physical Exam-General Problems Physical Exam General Appearance: no apparent distress, thin HEENT: PERRL/EOMI, normal ENT inspection Neck: non-tender, supple Respiratory: chest non-tender, no respiratory distress, no accessory muscle use; No respiratory distress Cardiovascular: regular rate, rhythm, no JVD Gastrointestinal: non tender, soft Rectal: deferred Back: no CVA tenderness, no vertebral tenderness Extremities: non-tender, normal inspection Neurologic/Psychiatric: alert, normal mood/affect, oriented x 3 Skin: normal color, warm/dry Lymphatic: no adenopathy Assessment/Plan Assessment/Plan Assessment/Plan respiratory failure cough right upper lobe lung mass by pet scan will discuss with radiology if able to due ct guided biopsy if not would recommend pulmonary consult for possible EBUS Continue medical management Supervisory-Addendum Brief Verification & Attestation Participated in pt care: history, MDM, physical Personally performed: exam, history, MDM, supervision of care Care discussed with: Medical Student Procedures: n/a Results interpretation: Verified all documentation Verification and Attestation of Medical Student E/M Service A medical student performed and documented this service in my presence. I reviewed and verified all information documented by the medical student and made modifications to such information, when appropriate. I personally performed the physical exam and medical decision making. Lucia Fox, Mar 14, 2022,19:57 CRISSY MONROY Mar 14, 2022 19:24 LUCIA FOX DO Mar 14, 2022 19:57
[2022-03-14] MEDS ORDERED: HYDROcodone/APAP 5 MG/325 MG (LORTAB) TAB PO PRN (20:00)
[2022-03-14] MEDS ORDERED: HYDROcodone/APAP 5 MG/325 MG (LORTAB) TAB ONE (20:01)
--- NOTE | 2022-03-14 22:21 | Progress Note ---
Standard Progress Note Progress Notes/Assess & Plan Date Seen by a Provider: Mar 14, 2022 Time Seen by a Provider: 22:16 Progress/Assessment & Plan Pt has RLS, not responding to [place], Not on usual meds for RLS, will give IVP morphine 2 mg MD WILLIAM Jaffe JOSEPH K MD Mar 14, 2022 22:21
[2022-03-14] MEDS ORDERED: morphine INJ 4 MG/ML 1 ML (VIAL/SYRINGE) IVP PRN ×2 (22:30→23:00)
[2022-03-14] MEDS: AZITHROMYCIN INJECTION 250 MG in NS (IVPB) 250 ML IV SCH (22:48)
[2022-03-14] MEDS ORDERED: rOPINIRole 1 MG (REQUIP) TABLET PO ONE (23:30)
[2022-03-14] MEDS ORDERED: rOPINIRole 1 MG (REQUIP) TABLET ONE (23:33)
[2022-03-14] MEDS ORDERED: GABAPENTIN 600 MG (NEURONTIN) TAB ONE (23:34)
[2022-03-14] MEDS: GABAPENTIN 600 MG (NEURONTIN) TAB PO SCH (23:36)
[2022-03-15 04:49] LABS: BASOPHILS % (AUTO) 0 % (0-10); EOSINOPHILS # (AUTO) 0.4 10^3/uL (0.0-0.3); EOSINOPHILS % (AUTO) 5 % (0-10); HEMATOCRIT 34 % (35-52); HEMOGLOBIN 10.9 g/dL (11.5-16.0); LYMPHOCYTES # (AUTO) 0.9 10^3/uL (1.0-4.0); LYMPHOCYTES % (AUTO) 14 % (12-44); MEAN CORPUSCULAR HEMOGLOBIN 31 pg (25-34); MEAN CORPUSCULAR HGB CONC 32 g/dL (32-36); MEAN CORPUSCULAR VOLUME 96 fL (80-99); MEAN PLATELET VOLUME 10.5 fL (9.0-12.2); MONOCYTES # (AUTO) 0.7 10^3/uL (0.0-1.0); MONOCYTES % (AUTO) 11 % (0-12); NEUTROPHILS # (AUTO) 4.8 10^3/uL (1.8-7.8); NEUTROPHILS % (AUTO) 70 % (42-75); PLATELET COUNT 215 10^3/uL (130-400); WHITE BLOOD COUNT 6.8 10^3/uL (4.3-11.0)
[2022-03-15 04:59] LABS: ALBUMIN 2.9 GM/DL (3.2-4.5); POTASSIUM 4.4 MMOL/L (3.6-5.0)
[2022-03-15 05:01] LABS: CALCIUM 9.2 MG/DL (8.5-10.1)
[2022-03-15 05:02] LABS: TOTAL PROTEIN 5.8 GM/DL (6.4-8.2)
[2022-03-15 05:04] LABS: BILIRUBIN,TOTAL 0.4 MG/DL (0.1-1.0)
[2022-03-15 05:06] LABS: CREATININE SERUM 1.02 MG/DL (0.60-1.30)
[2022-03-15 05:09] LABS: MAGNESIUM 1.9 MG/DL (1.6-2.4)
[2022-03-15] MEDS: MAGNESIUM 1 GM/100 ML IVPB 100 ML IV SCH (05:31)
[2022-03-15] MEDS: POTASSIUM CL 10MEQ/50ML IVPB 50 ML IV SCH (05:31)
[2022-03-15] MEDS: KCL 20 MEQ TAB (K-DUR) PO SCH (05:32)
[2022-03-15] MEDS: inSUlin ASPART (NovoLOG) 1 UNIT/0.01 ML (CHARGE PER UNIT) SC SCH ×4 (05:32→20:28)
[2022-03-15] MEDS ORDERED: LEVOTHYROXINE 25 MCG (LEVOTHROID) TAB ONE (05:52)
[2022-03-15] MEDS: LEVOTHYROXINE 112 MCG (LEVOTHROID) TAB PO SCH (06:05)
--- NOTE | 2022-03-15 08:15 | Progress Note - Surgery ---
CRISSY MONROY 03/15/22 0815: Subjective Date Seen by a Provider: Mar 15, 2022 Time Seen by a Provider: 08:11 Subjective/Events-last exam Pt resting comfortably in bed. States she had some pain last night secondary to RLS, however once pain was controlled with gabapentin she was able to sleep remainder of night. She is currently complaint free. States her hoarseness and cough have improved since yesterday. She denies difficulty breathing, n/v, fever, chills, sweats. Focused Exam Lactate Level 03/13/22 18:05: Lactic Acid Level 2.03*H 03/13/22 22:02: Lactic Acid Level 0.69 Objective Exam Vital Signs Date Time Temp Pulse Resp B/P (MAP) Pulse Ox O2 Delivery O2 Flow Rate FiO2 03/15/22 07:35 72 03/15/22 07:00 76 13 134/70 97 Nasal Cannula 3.00 03/15/22 06:00 68 20 130/74 100 Nasal Cannula 3.00 03/15/22 05:00 73 18 119/66 99 Nasal Cannula 3.00 03/15/22 04:00 68 16 107/44 98 Nasal Cannula 3.00 03/15/22 03:40 36.4 Nasal Cannula 3.00 03/15/22 03:25 95 Nasal Cannula 3.00 03/15/22 03:00 71 17 128/51 99 Nasal Cannula 3.00 03/15/22 02:00 69 17 103/54 94 Nasal Cannula 3.00 03/15/22 01:12 68 19 108/54 92 Nasal Cannula 3.00 03/15/22 01:00 68 03/15/22 00:00 80 100/61 93 Nasal Cannula 3.00 03/14/22 23:40 96 Nasal Cannula 3.00 03/14/22 23:20 36.9 Nasal Cannula 3.00 03/14/22 23:00 75 12 116/56 96 Nasal Cannula 3.00 03/14/22 22:00 80 21 117/65 99 Nasal Cannula 3.00 03/14/22 21:00 83 18 116/69 99 Nasal Cannula 3.00 03/14/22 20:00 36.0 03/14/22 20:00 87 27 139/47 96 Nasal Cannula 3.00 03/14/22 19:15 94 Nasal Cannula 3.00 03/14/22 19:00 73 03/14/22 19:00 36.6 74 16 119/76 94 Nasal Cannula 3.00 03/14/22 18:00 85 19 131/70 99 Nasal Cannula 3.00 03/14/22 17:00 81 20 104/57 95 Nasal Cannula 3.00 03/14/22 16:00 97 Nasal Cannula 3.00 03/14/22 16:00 78 20 122/72 92 Nasal Cannula 3.00 03/14/22 16:00 36.1 03/14/22 15:00 80 9 110/68 97 Nasal Cannula 3.00 03/14/22 14:00 81 21 102/61 92 Nasal Cannula 3.00 03/14/22 13:00 85 26 93/63 92 Nasal Cannula 3.00 03/14/22 12:39 81 03/14/22 12:00 89 17 94/59 91 Nasal Cannula 3.00 03/14/22 12:00 98 Nasal Cannula 3.00 03/14/22 12:00 36.6 03/14/22 11:00 91 10 141/101 98 Nasal Cannula 3.00 03/14/22 10:36 Nasal Cannula 3.00 03/14/22 10:00 97 19 108/76 99 Nasal Cannula 4.00 03/14/22 09:00 90 13 146/98 99 Nasal Cannula 4.00 I & O 03/15/22 07:00 Intake Total 1795 ml Output Total 1225 ml Balance 570 ml Capillary Refill : Less Than 3 Seconds General Appearance: No Apparent Distress, WD/WN, Thin HEENT: PERRL/EOMI, Moist Mucous Membranes Neck: Normal Inspection, Non Tender Respiratory: Chest Non Tender, Lungs Clear, Normal Breath Sounds, No Accessory Muscle Use, No Respiratory Distress Cardiovascular: Regular Rate, Rhythm, No Gallop, No JVD, No Murmur Peripheral Pulses: 1+ Dorsalis Pedis (R), 1+ Left Dors-Pedis (L) (See free text); 3+ Radial Pulses (R), 3+ Radial Pulses (L) Gastrointestinal: normal bowel sounds, non tender, soft Extremity: Normal Capillary Refill, Normal Inspection, Normal Range of Motion, Non Tender, No Pedal Edema Neurologic/Psychiatric: Alert, Oriented x3 Skin: Normal Color, Warm/Dry Results Lab Laboratory Tests 03/14/22 10:59: Glucometer 126H 03/14/22 16:39: Glucometer 91 03/14/22 20:08: Glucometer 63L 03/14/22 20:48: Glucometer 105 03/15/22 04:13: White Blood Count 6.8, Red Blood Count 3.56L, Hemoglobin 10.9L, Hematocrit 34L, Mean Corpuscular Volume 96, Mean Corpuscular Hemoglobin 31, Mean Corpuscular Hemoglobin Concent 32, Red Cell Distribution Width 14.2, Platelet Count 215, Mean Platelet Volume 10.5, Immature Granulocyte % (Auto) 0, Neutrophils (%) (Auto) 70, Lymphocytes (%) (Auto) 14, Monocytes (%) (Auto) 11, Eosinophils (%) (Auto) 5, Basophils (%) (Auto) 0, Neutrophils # (Auto) 4.8, Lymphocytes # (Auto) 0.9L, Monocytes # (Auto) 0.7, Eosinophils # (Auto) 0.4H, Basophils # (Auto) 0.0, Immature Granulocyte # (Auto) 0.0, Sodium Level 137, Potassium Level 4.4, Chloride Level 107, Carbon Dioxide Level 20L, Anion Gap 10, Blood Urea Nitrogen 19H, Creatinine 1.02, Estimat Glomerular Filtration Rate 53, BUN/Creatinine Ratio 19, Glucose Level 96, Calcium Level 9.2, Corrected Calcium 10.1, Phosphorus Level 3.0, Magnesium Level 1.9, Total Bilirubin 0.4, Aspartate Amino Transf (AST/SGOT) 24, Alanine Aminotransferase (ALT/SGPT) 11, Alkaline Phosphatase 107, Total Protein 5.8L, Albumin 2.9L Microbiology 03/13/22 MRSA Screen - Final, Complete MRSA not isolated 03/13/22 Blood Culture - Preliminary, Resulted No growth Assessment/Plan Assessment/Plan Assessment/Plan respiratory failure cough right upper lobe lung mass by pet scan Discussed with radiology who recommended CT chest with contrast. If CT chest shows no indication for bx willl recommend pulmonary consult for possible EBUS or bronchoscopy. Continue medical management LUCIA BLANCHARD DO 03/15/222039: Subjective Subjective/Events-last exam Patient states she is breathing easier today. She got her voice back. Patient feeling better today. She was transferred to the floor. Patient with no other complaints at this time. She denies any nausea vomiting fever sweats chills shortness of breath or chest pain. Objective Exam General Appearance: No Apparent Distress, Chronically ill, Thin HEENT: PERRL/EOMI, Normal ENT Inspection Neck: Normal Inspection, Non Tender Respiratory: Chest Non Tender, No Accessory Muscle Use, No Respiratory Distress Cardiovascular: Regular Rate, Rhythm, No JVD Gastrointestinal: non tender, soft Extremity: Normal Inspection, Non Tender Neurologic/Psychiatric: Alert, Oriented x3 Skin: Normal Color, Warm/Dry Lymphatic: No Adenopathy Assessment/Plan Assessment/Plan Assessment/Plan Respiratory failure Cough Right upper lobe lung mass by PET scan Discussed with Dr. Aj and would like to get repeat CT of the chest at this time to further evaluate. If CT chest is not amenable to CT-guided biopsy would recommend patient have follow-up with pulmonary for possible EBUS/bronchoscopy Await CT scan results. Supervisory-Addendum Brief Verification & Attestation Participated in pt care: history, MDM, physical Personally performed: exam, history, MDM, supervision of care Care discussed with: Medical Student Procedures: n/a Results interpretation: Verified all documentation Verification and Attestation of Medical Student E/M Service A medical student performed and documented this service in my presence. I reviewed and verified all information documented by the medical student and made modifications to such information, when appropriate. I personally performed the physical exam and medical decision making. Lucia Blanchard, Mar 15, 2022,20:39 CRISSY MONROY Mar 15, 2022 08:15 LUCIA BLANCHARD DO Mar 15, 2022 20:40
[2022-03-15] MEDS: APIXABAN 5 MG (ELIQUIS) TABLET PO SCH ×2 (08:27→19:20)
[2022-03-15] MEDS: PARoxetine 20 MG (PAXIL) TAB PO SCH (08:28)
[2022-03-15] MEDS: DOCUSATE SODIUM 100 MG (COLACE) CAP PO SCH ×3 (09:00→19:20)
[2022-03-15] MEDS: GABAPENTIN 600 MG (NEURONTIN) TAB PO SCH ×3 (09:50→19:20)
[2022-03-15] MEDS: CEFEPIME INJECTION 1,000 MG in NS (IVPB) 50 ML IV SCH ×2 (12:09→19:20)
--- NOTE | 2022-03-15 12:11 | Cardiology Progress Note ---
Progress Note-Cardiology Events since last exam Date Seen by Provider: Mar 15, 2022 Time Seen by Provider: 12:10 Events since last exam I am following her due to heart failure in the setting of probable pneumonia. She is still having a difficult time breathing. Her cough is loosening up. She denies chest pain, palpitations, syncope, or ankle edema. She had trouble sleeping last night due to her restless leg syndrome. Certain portions of this document may have been dictated utilizing voice recognition technology. Inherent to this technology, typographical and grammatical errors may exist. As much as I am diligent to identify and correct these mistakes, some errors may remain in the document. Vitals Last set of Vitals Signs Vital Signs 03/13/22 03/15/22 22:57 14:19 Temp 37.4 Pulse 80 Resp 17 B/P (MAP) 138/68 Pulse Ox 94 O2 Delivery Nasal Cannula O2 Flow Rate 3.00 FiO2 21 Labs Labs Laboratory Tests 03/15/22 04:13 Exam Vital Signs Vital Signs Date Time Temp Pulse Resp B/P (MAP) Pulse Ox O2 Delivery O2 Flow Rate FiO2 03/15/22 14:19 37.4 80 17 138/68 94 Nasal Cannula 3.00 03/13/22 22:57 21 Physical Exam General: Alert. No acute distress. Eye: No xanthelasma. HENT: Normocephalic. Neck: Jugular venous pressure does not appear elevated. Respiratory: Lungs have diffusely decreased breath sounds but clear. Respirations are non-labored. Breath sounds are equal. Symmetrical chest wall expansion. Cardiovascular: Normal rate. Regular rhythm. 2/6 systolic ejection murmur. No gallop. No edema. Gastrointestinal: Soft. Normal bowel sounds. Skin: Warm. Dry. Neurologic: Alert and oriented to person, place, time. Cranial nerves 3-11 grossly intact. Psychiatric: Cooperative. Appropriate mood & affect. Labs Laboratory Tests Test 03/14/22 16:39 03/14/22 20:08 03/14/22 20:48 03/15/22 04:13 Range/Units Glucometer 91 63 L 105 70-110 MG/DL White Blood Count 6.8 4.3-11.0 10^3/uL Red Blood Count 3.56 L 3.80-5.11 10^6/uL Hemoglobin 10.9 L 11.5-16.0 g/dL Hematocrit 34 L 35-52 % Mean Corpuscular Volume 96 80-99 fL Mean Corpuscular Hemoglobin 31 25-34 pg Mean Corpuscular Hemoglobin Concent 32 32-36 g/dL Red Cell Distribution Width 14.2 10.0-14.5 % Platelet Count 215 130-400 10^3/uL Mean Platelet Volume 10.5 9.0-12.2 fL Immature Granulocyte % (Auto) 0 % Neutrophils (%) (Auto) 70 42-75 % Lymphocytes (%) (Auto) 14 12-44 % Monocytes (%) (Auto) 11 0-12 % Eosinophils (%) (Auto) 5 0-10 % Basophils (%) (Auto) 0 0-10 % Neutrophils # (Auto) 4.8 1.8-7.8 10^3/uL Lymphocytes # (Auto) 0.9 L 1.0-4.0 10^3/uL Monocytes # (Auto) 0.7 0.0-1.0 10^3/uL Eosinophils # (Auto) 0.4 H 0.0-0.3 10^3/uL Basophils # (Auto) 0.0 0.0-0.1 10^3/uL Immature Granulocyte # (Auto) 0.0 0.0-0.1 10^3/uL Sodium Level 137 135-145 MMOL/L Potassium Level 4.4 3.6-5.0 MMOL/L Chloride Level 107 98-107 MMOL/L Carbon Dioxide Level 20 L 21-32 MMOL/L Anion Gap 10 5-14 MMOL/L Blood Urea Nitrogen 19 H 7-18 MG/DL Creatinine 1.02 0.60-1.30 MG/DL Estimat Glomerular Filtration Rate 53 BUN/Creatinine Ratio 19 Glucose Level 96 70-105 MG/DL Calcium Level 9.2 8.5-10.1 MG/DL Corrected Calcium 10.1 8.5-10.1 MG/DL Phosphorus Level 3.0 2.3-4.7 MG/DL Magnesium Level 1.9 1.6-2.4 MG/DL Total Bilirubin 0.4 0.1-1.0 MG/DL Aspartate Amino Transf (AST/SGOT) 24 5-34 U/L Alanine Aminotransferase (ALT/SGPT) 11 0-55 U/L Alkaline Phosphatase 107 40-136 U/L Total Protein 5.8 L 6.4-8.2 GM/DL Albumin 2.9 L 3.2-4.5 GM/DL Test 03/15/22 12:31 Range/Units Glucometer 90 70-110 MG/DL Diagnosis/Problems Diagnosis/Problems (1) Acute on chronic combined systolic and diastolic congestive heart failure Assessment & Plan: Her BNP was elevated although this was in the setting of acute kidney injury on chronic kidney disease. Her most recent echocardiogram showed mild left ventricular systolic dysfunction. She is on her home dose of metoprolol succinate. Since her renal function has improved, I will restart lisinopril and furosemide. Renal function will need to be watched closely following discharge. (2) Coronary artery disease without angina pectoris Assessment & Plan: She does not seem to be having any overt angina and her troponin level was negative. I recommend she continue aspirin and beta-elzbieta. Her LDL level is less than 100. (3) Ischemic cardiomyopathy Assessment & Plan: Her ejection fraction was 40-45% on her most recent echocardiogram. Continue metoprolol succinate and lisinopril as above. (4) Acute on chronic respiratory failure with hypoxemia Assessment & Plan: Most likely due to chronic obstructive pulmonary disease with superimposed pneumonia. (5) Mass of right lung Assessment & Plan: She has been seen by general surgery who will see about coordinating a CT-guided biopsy. (6) Acute kidney injury superimposed on chronic kidney disease Assessment & Plan: Her renal function has now improved. This will need to be watched closely following discharge when we resume the MAR inhibitor and diuretic. LAWRENCE HU JR, MD Mar 15, 2022 12:11
[2022-03-15] MEDS ORDERED: lisINopril 5 MG (PRINIVIL) TABLET PO ONE (12:15)
[2022-03-15] MEDS ORDERED: FUROSEMIDE 40 MG (LASIX) TAB PO ONE (12:15)
--- NOTE | 2022-03-15 15:08 | Physical Therapy Daily Note ---
PT Daily Note-Current Subjective Patient in bed pre tx, agrees to PT, has no complaints of pain. Appearance Patient in bed post tx with nurse call, phone, tray, all needs met. Mental Status Patient Orientation: Person, Place, Situation Attachments: Oxygen Transfers SCALE: Activities may be completed with or without assistive devices. 0-Ioszbtbbbw-qrxiaph completes the activity by him/herself with no assistance from a helper. 5-Set-up or Clean-up Assistance-helper sets up or cleans up; patient completes activity. [place] assists only prior to or following the activity. 4-Supervision or Touching Assistance-helper provides verbal cues and/or touching/steadying and/or contact guard assistance as patient completes activity. Assistance may be provided throughout the activity or intermittently. 3-Partial/Moderate Assistance-helper does LESS THAN HALF the effort. [place] lifts, holds or supports trunk or limbs, but provides less than half the effort. 2-Substantial/Maximal Assistance-helper does MORE THAN HALF the effort. [place] lifts or holds trunk or limbs and provides more than half the effort. 7-Vnkngdhxk-xnmqol does ALL the effort. Patient does none of the effort to complete the activity. Or, the assistance of 2 or more helpers is required for the patient to complete the activity. If activity was not attempted, code reason: 7-Patient Refused. 9-Not Applicable-not attempted and the patient did not perform the activity before the current illness, exacerbation or injury. 10-Not Attempted due to Environmental Limitations-(lack of equipment, weather restraints, etc.). 88-Not Attempted due to Medical Conditions or Safety Concerns. Roll Left & Right (QC): 6 Sit to Lying (QC): 6 Lying to Sitting/Side of Bed(Q: 6 Sit to Stand (QC): 4 Chair/Oyr-at-Tyjam Xfer(QC): 4 SBA for sit to stand and transfers Gait Training Distance: 400' Walk 10 feet (QC): 4 Walk 50 ft with 2 Turns(QC): 4 Walk 150 ft (QC): 4 Gait Persons Needed: 1 Gait Assistive Device: FWW SBA, slow but steady ambulation, no rest breaks, no SOB during ambulation Treatments bed mobility and transfers, ambulation Assessment Current Status: Fair Progress improving endurance and strength PT Logistics Project Manager Goals Logistics Project Manager Goals PT Senior Care Goals Time Frame: Mar 21, 2022 Roll Left & Right (QC): 6 Sit to Lying (QC): 6 Lying-Sitting on Side/Bed(QC): 6 Sit to Stand (QC): 6 Chair/Pzv-nh-Tsxpr Xfer(QC): 6 Walk 10 feet (QC): 6 Walk 50ft with 2 Turns (QC): 6 Walk 150 ft (QC): 6 PT Plan Problem List Problem List: Activity Tolerance, Functional Strength, Safety, Balance, Gait, Transfer, Bed Mobility, ROM Treatment/Plan Treatment Plan: Continue Plan of Care Treatment Plan: Education, Functional Activity [place], Functional Strength, Gait, Safety, Therapeutic Exercise, Transfers Treatment Duration: Mar 21, 2022 Frequency: 6 times per week Estimated Hrs Per Day: .25 hour per day Patient and/or Family Agrees t: Yes Safety Risks/Education Patient Education: Gait Training, Transfer Techniques, Correct Positioning, Safety Issues Teaching Recipient: Patient Teaching Methods: Demonstration, Discussion Response to Teaching: Reinforcement Needed Time/GCodes Time In: 1445 Time Out: 1458 Total Billed Treatment Time: 13 Total Billed Treatment 1 visit GT 13' ERIKA WOOD PT Mar 15, 2022 15:08
[2022-03-15 16:29] VITALS: BP 106/66
[2022-03-15] MEDS ORDERED: HOLD METFORMIN - RECEIVED CONTRAST 20 ML VIAL IV SCH (17:00)
[2022-03-15] MEDS ORDERED: IOHEXOL 350 MG/ML 100 ML (OMNIPAQUE 350) VIAL IV ONE (17:00)
[2022-03-15] MEDS ORDERED: NS 100 ML (IVPB) BAG IV ONE (17:00)
[2022-03-15] MEDS: HYDROcodone/APAP 5 MG/325 MG (LORTAB) TAB PO PRN (17:21)
--- NOTE | 2022-03-15 18:24 | Diagnostic Imaging Report ---
PROCEDURE: CT chest with contrast only. TECHNIQUE: Multiple contiguous axial images were obtained through the chest after administration of intravenous contrast. Auto Exposure Controls were utilized during the CT exam to meet ALARA standards for radiation dose reduction. INDICATION: Indication chest pain and cough. Evaluate for lung mass. History of breast and heart surgery. History of breast cancer. Comparison is made with radiograph from March 13 a 2021. Findings: There are pulmonary interstitial changes present throughout the lungs. There are multi focal regions of wedge-shaped airspace consolidation as well as some regions of more patchy alveolar airspace opacity. There are air bronchograms demonstrated within this process within the left upper lobe and within the posterior aspect of the right upper lobe. There additionally is some nodular density within the posterior aspect of the right lower lobe on image 69. There is dense right lower lobe consolidation at the lung base with a moderate right-sided effusion. Morphologically, these regions of airspace opacity appear more compatible with pneumonia rather than a definable mass but should be followed to resolution. There is however note made of extensive abnormal right hilar adenopathy as well as a markedly enlarged and abnormal subcarinal lymph node which measures up to 2.3 cm in size. There also are some mildly enlarged paratracheal lymph nodes. There is no left hilar adenopathy. There are previous surgical changes of left axillary node dissection and mastectomy. There is a right internal jugular port. Cardiomegaly is present. Patient is status post bypass grafting. There is moderate plaquing within the aorta including some irregular plaquing along the posterior margins of the descending thoracic thoracic aorta which extends into the lumen of the aorta. This could conceivably reflect a region of mobile thrombus. There is no central pulmonary artery filling defect. There are advanced [place] coronary calcifications. There is no pericardial collection. The upper abdomen demonstrates no evidence of a liver or adrenal mass. There are advanced degenerative features present throughout the spine without findings of a suspicious lytic or blastic lesion. IMPRESSION: 1. Extensive regions of airspace consolidation within the lungs that include involvement of the left upper lobe, the right upper lobe, patchy involvement of the left lower lobe and dense consolidation within the right lower lobe. The morphological appearance of these regions of airspace opacification appears more compatible with pneumonia rather than a definable pulmonary mass. 2. Note is however made of marked abnormal right hilar adenopathy and subcarinal adenopathy as well as some prominent mediastinal lymph nodes. The dense consolidation within the right lower lobe may therefore be a postobstructive process related to a juxta hilar mass or the hilar adenopathy. There is debris within the right lower lobe bronchi. 3. Irregular plaque within the descending thoracic thoracic aorta may reflect a small region of mobile thrombus. There is no dissection. 4. Cardiomegaly with previous coronary artery bypass grafting and advanced [place] coronary artery disease. 5. Prior left mastectomy and axially node dissection. 6. No findings of a liver or adrenal mass. 7. No suspicious bone lesion. Dictated by: Dictated on workstation # [id number]
[2022-03-15 19:38] VITALS: BP 96/60
--- NOTE | 2022-03-15 21:04 | Progress Note ---
Subjective Subjective/Events-last exam Patient is feeling much better this AM. She has been able to titrate oxygen down some. Tolerating PO diet. Up in chair this AM. Review of Systems Pulmonary: Dyspnea, Cough Neurological: Weakness, Incoordination Focused Exam Lactate Level 03/13/22 18:05: Lactic Acid Level 2.03*H 03/13/22 22:02: Lactic Acid Level 0.69 Objective Exam Last Set of Vital Signs Vital Signs Date Time Temp Pulse Resp B/P (MAP) Pulse Ox O2 Delivery O2 Flow Rate FiO2 03/15/22 19:38 36.4 75 20 96/60 (72) 91 Nasal Cannula 3.00 03/13/22 22:57 21 Capillary Refill : Less Than 3 Seconds I&O Intake and Output 03/15/22 00:00 Intake Total 1997.5 ml Output Total 675 ml Balance 1322.5 ml Intake Oral 1320 ml IV Total 677.5 ml Output Urine Total 675 ml # Voids 3 General: Alert, Oriented X3, No Acute Distress Lungs: Other (Diffuse rhonchi and crackles, normal work of breath) Heart: Regular Rate, No Murmurs Abdomen: Normal Bowel Sounds, Soft, No Tenderness, No Masses Extremities: No Edema, No Tenderness/Swelling Skin: No Rashes Neuro: Normal Speech, Cranial Nerves 3-12 NL Results/Procedures Lab Laboratory Tests 03/15/22 04:13: White Blood Count 6.8, Red Blood Count 3.56L, Hemoglobin 10.9L, Hematocrit 34L, Mean Corpuscular Volume 96, Mean Corpuscular Hemoglobin 31, Mean Corpuscular Hemoglobin Concent 32, Red Cell Distribution Width 14.2, Platelet Count 215, Mean Platelet Volume 10.5, Immature Granulocyte % (Auto) 0, Neutrophils (%) (Auto) 70, Lymphocytes (%) (Auto) 14, Monocytes (%) (Auto) 11, Eosinophils (%) (Auto) 5, Basophils (%) (Auto) 0, Neutrophils # (Auto) 4.8, Lymphocytes # (Auto) 0.9L, Monocytes # (Auto) 0.7, Eosinophils # (Auto) 0.4H, Basophils # (Auto) 0.0, Immature Granulocyte # (Auto) 0.0, Sodium Level 137, Potassium Level 4.4, Chloride Level 107, Carbon Dioxide Level 20L, Anion Gap 10, Blood Urea Nitrogen 19H, Creatinine 1.02, Estimat Glomerular Filtration Rate 53, BUN/Creatinine Ratio 19, Glucose Level 96, Calcium Level 9.2, Corrected Calcium 10.1, Phosphorus Level 3.0, Magnesium Level 1.9, Total Bilirubin 0.4, Aspartate Amino Transf (AST/SGOT) 24, Alanine Aminotransferase (ALT/SGPT) 11, Alkaline Phosphatase 107, Total Protein 5.8L, Albumin 2.9L 03/15/22 12:31: Glucometer 90 03/15/22 15:42: Glucometer 100 03/15/22 20:19: Glucometer 182H Microbiology 03/13/22 MRSA Screen - Final, Complete MRSA not isolated 03/13/22 Blood Culture - Preliminary, Resulted No growth Assessment/Plan Assessment/Plan (1) Acute on chronic combined systolic and diastolic congestive heart failure Status: Acute Assessment & Plan: - Cardiology consulted, appreciate recommendations, new dx 03/15: ACEI/BB (2) Acute on chronic respiratory failure with hypoxemia Status: Acute Assessment & Plan: - Mat protocol, will titrate as tolerated, continue antibiotics to cover for PNA 03/15: Continue to titrate as tolerated, will likely need oxygen at discharge (3) Acute kidney failure Status: Resolved Assessment & Plan: - Likely prerenal, gentle hydration, continue to monitor Qualifiers: Qualified Codes: N17.9 - Acute kidney failure, unspecified (4) Mass of right lung Status: Acute Assessment & Plan: 03/15: General surgery consulted, CT chest ordered for possible bx site, extensive medialstinal adenopathy present (5) Bony sclerosis (6) Coronary artery disease without angina pectoris Status: Chronic Qualifiers: Qualified Codes: I25.10 - Atherosclerotic heart disease of [place] coronary artery without angina pectoris (7) Ischemic cardiomyopathy Status: Chronic (8) History of breast cancer Status: Chronic SOLANGE SANCHEZ MD Mar 15, 2022 21:04
[2022-03-15] MEDS: AZITHROMYCIN INJECTION 250 MG in NS (IVPB) 250 ML IV SCH (23:03)
[2022-03-16 00:11] VITALS: BP 99/52
[2022-03-16] MEDS: CEFEPIME INJECTION 1,000 MG in NS (IVPB) 50 ML IV SCH ×3 (04:05→20:20)
[2022-03-16 04:14] VITALS: BP 95/51
[2022-03-16 06:13] LABS: BASOPHILS % (AUTO) 0 % (0-10); EOSINOPHILS # (AUTO) 0.3 10^3/uL (0.0-0.3); EOSINOPHILS % (AUTO) 4 % (0-10); HEMATOCRIT 37 % (35-52); HEMOGLOBIN 11.8 g/dL (11.5-16.0); LYMPHOCYTES # (AUTO) 0.7 10^3/uL (1.0-4.0); LYMPHOCYTES % (AUTO) 9 % (12-44); MEAN CORPUSCULAR HEMOGLOBIN 30 pg (25-34); MEAN CORPUSCULAR HGB CONC 32 g/dL (32-36); MEAN CORPUSCULAR VOLUME 95 fL (80-99); MEAN PLATELET VOLUME 10.2 fL (9.0-12.2); MONOCYTES # (AUTO) 0.7 10^3/uL (0.0-1.0); MONOCYTES % (AUTO) 10 % (0-12); NEUTROPHILS # (AUTO) 5.4 10^3/uL (1.8-7.8); NEUTROPHILS % (AUTO) 75 % (42-75); PLATELET COUNT 244 10^3/uL (130-400); WHITE BLOOD COUNT 7.2 10^3/uL (4.3-11.0)
[2022-03-16] MEDS: LEVOTHYROXINE 112 MCG (LEVOTHROID) TAB PO SCH (06:13)
[2022-03-16] MEDS: inSUlin ASPART (NovoLOG) 1 UNIT/0.01 ML (CHARGE PER UNIT) SC SCH ×4 (06:14→20:24)
[2022-03-16 06:34] LABS: POTASSIUM 4.1 MMOL/L (3.6-5.0)
[2022-03-16 06:35] LABS: CALCIUM 9.8 MG/DL (8.5-10.1)
[2022-03-16 06:36] LABS: TOTAL PROTEIN 6.3 GM/DL (6.4-8.2)
[2022-03-16] MEDS: POTASSIUM CL 10MEQ/50ML IVPB 50 ML IV SCH (06:37)
[2022-03-16 06:38] LABS: BILIRUBIN,TOTAL 0.6 MG/DL (0.1-1.0)
[2022-03-16] MEDS: KCL 20 MEQ TAB (K-DUR) PO SCH (06:38)
[2022-03-16 06:39] LABS: PHOSPHORUS 2.7 MG/DL (2.3-4.7)
[2022-03-16 06:40] LABS: CREATININE SERUM 1.05 MG/DL (0.60-1.30)
[2022-03-16 06:42] LABS: MAGNESIUM 1.7 MG/DL (1.6-2.4)
[2022-03-16] MEDS: MAGNESIUM 1 GM/100 ML IVPB 100 ML IV SCH ×3 (06:49→09:08)
--- NOTE | 2022-03-16 07:11 | Progress Note - Surgery ---
CRISSY MONROY 03/16/22 0711: Subjective Date Seen by a Provider: Mar 16, 2022 Time Seen by a Provider: 07:05 Subjective/Events-last exam Pt resting comfortably in bed. States her breathing is good. She denies fever, chills, sweats, n/v, shortness of breath, chest pain, and any other complaints at this time. Focused Exam Lactate Level 03/13/22 18:05: Lactic Acid Level 2.03*H 03/13/22 22:02: Lactic Acid Level 0.69 Objective Exam Vital Signs Date Time Temp Pulse Resp B/P (MAP) Pulse Ox O2 Delivery O2 Flow Rate FiO2 03/16/22 04:14 37.4 69 18 95/51 (66) 90 Nasal Cannula 3.00 03/16/22 01:00 62 03/16/22 00:11 36.8 73 18 99/52 (68) 93 Nasal Cannula 3.00 03/15/22 19:38 36.4 75 20 96/60 (72) 91 Nasal Cannula 3.00 03/15/22 19:20 Nasal Cannula 2.00 03/15/22 19:07 92 Nasal Cannula 3.00 03/15/22 19:00 78 03/15/22 16:29 36.5 78 20 106/66 (79) 92 Nasal Cannula 3.00 03/15/22 14:19 37.4 80 17 138/68 94 Nasal Cannula 3.00 03/15/22 13:00 77 11 120/66 100 Nasal Cannula 3.00 03/15/22 12:54 96 Nasal Cannula 3.00 03/15/22 12:36 78 03/15/22 12:00 93 26 138/77 97 Nasal Cannula 3.00 03/15/22 11:00 86 17 117/55 92 Nasal Cannula 3.00 03/15/22 10:00 81 13 116/75 100 Nasal Cannula 3.00 03/15/22 09:00 83 22 137/88 100 Nasal Cannula 3.00 03/15/22 08:23 96 Nasal Cannula 3.00 03/15/22 08:00 36.2 03/15/22 08:00 76 19 129/57 100 Nasal Cannula 3.00 03/15/22 07:35 72 I & O 03/16/22 06:59 Intake Total 657 ml Output Total 350 ml Balance 307 ml Capillary Refill : Less Than 3 Seconds General Appearance: No Apparent Distress, Chronically ill, Thin HEENT: PERRL/EOMI, Normal ENT Inspection Neck: Normal Inspection, Non Tender Respiratory: Chest Non Tender, No Accessory Muscle Use, No Respiratory Distress Cardiovascular: Regular Rate, Rhythm, No JVD Peripheral Pulses: 1+ Dorsalis Pedis (R), 1+ Left Dors-Pedis (L) (See free text); 3+ Radial Pulses (R), 3+ Radial Pulses (L) Gastrointestinal: normal bowel sounds, non tender, soft Extremity: Normal Inspection, Non Tender Neurologic/Psychiatric: Alert, Oriented x3 Skin: Normal Color, Warm/Dry Lymphatic: No Adenopathy Results Lab Laboratory Tests 03/15/22 12:31: Glucometer 90 03/15/22 15:42: Glucometer 100 03/15/22 20:19: Glucometer 182H 03/16/22 05:33: Glucometer 66L 03/16/22 06:05: White Blood Count 7.2, Red Blood Count 3.89, Hemoglobin 11.8, Hematocrit 37, Mean Corpuscular Volume 95, Mean Corpuscular Hemoglobin 30, Mean Corpuscular Hemoglobin Concent 32, Red Cell Distribution Width 14.1, Platelet Count 244, Mean Platelet Volume 10.2, Immature Granulocyte % (Auto) 0, Neutrophils (%) (Auto) 75, Lymphocytes (%) (Auto) 9L, Monocytes (%) (Auto) 10, Eosinophils (%) (Auto) 4, Basophils (%) (Auto) 0, Neutrophils # (Auto) 5.4, Lymphocytes # (Auto) 0.7L, Monocytes # (Auto) 0.7, Eosinophils # (Auto) 0.3, Basophils # (Auto) 0.0, Immature Granulocyte # (Auto) 0.0, Sodium Level 137, Potassium Level 4.1, Chloride Level 104, Carbon Dioxide Level 23, Anion Gap 10, Blood Urea Nitrogen 2 0H, Creatinine 1.05, Estimat Glomerular Filtration Rate 51, BUN/Creatinine Ratio 19, Glucose Level 93, Calcium Level 9.8, Corrected Calcium 10.6H, Phosphorus Level 2.7, Magnesium Level 1.7, Total Bilirubin 0.6, Aspartate Amino Transf (AST/SGOT) 23, Alanine Aminotransferase (ALT/SGPT) 12, Alkaline Phosphatase 105, Total Protein 6.3L, Albumin 3.0L Microbiology 03/13/22 MRSA Screen - Final, Complete MRSA not isolated 03/13/22 Blood Culture - Preliminary, Resulted No growth Assessment/Plan Assessment/Plan Assessment/Plan Respiratory failure Cough Right upper lobe lung mass by PET scan Will discuss CT scan with radiology today. Most likely will need outpatient referral to pulmonology for bronchoscopy/EBUS. LUCIA BLANCHARD DO 03/16/22 1122: Subjective Subjective/Events-last exam Continues to feel better. Breathing well. Has her voice which she is happy about. Denies n/v fever sweats chills shortness of breath or chest pain at this time. Objective Exam General Appearance: No Apparent Distress, Chronically ill, Thin HEENT: PERRL/EOMI, Normal ENT Inspection Neck: Normal Inspection, Non Tender Respiratory: Chest Non Tender, No Accessory Muscle Use, No Respiratory Distress Cardiovascular: Regular Rate, Rhythm, No JVD Gastrointestinal: non tender, soft Extremity: Normal Inspection, Non Tender Neurologic/Psychiatric: Alert, Oriented x3, Normal Mood/Affect Skin: Normal Color, Warm/Dry Lymphatic: No Adenopathy Assessment/Plan Assessment/Plan Assessment/Plan Respiratory failure Cough Right upper lobe lung mass by PET scan Will discuss CT scan with radiology today. I do not feel there is anything that would be accessible for biopsy by IR. Will need outpatient referral to pulmonology for bronchoscopy/EBUS if wants further workup. Supervisory-Addendum Brief Verification & Attestation Participated in pt care: history, MDM, physical Personally performed: exam, history, MDM, supervision of care Care discussed with: Medical Student Procedures: n/a Results interpretation: Verified all documentation Verification and Attestation of Medical Student E/M Service A medical student performed and documented this service in my presence. I re viewed and verified all information documented by the medical student and made modifications to such information, when appropriate. I personally performed the physical exam and medical decision making. Lucia Blanchard, Mar 16, 2022,11:22 CRISSY MONROY Mar 16, 2022 07:11 LUCIA BLANCHARD DO Mar 16, 2022 11:22
[2022-03-16 08:11] VITALS: BP 113/60
[2022-03-16] MEDS: GABAPENTIN 600 MG (NEURONTIN) TAB PO SCH ×3 (08:59→20:19)
[2022-03-16] MEDS: DOCUSATE SODIUM 100 MG (COLACE) CAP PO SCH ×2 (08:59→20:19)
[2022-03-16] MEDS: FUROSEMIDE 40 MG (LASIX) TAB PO SCH (09:00)
[2022-03-16] MEDS: APIXABAN 5 MG (ELIQUIS) TABLET PO SCH ×2 (09:00→20:19)
[2022-03-16] MEDS: lisINopril 5 MG (PRINIVIL) TABLET PO SCH (09:06)
[2022-03-16] MEDS: PARoxetine 20 MG (PAXIL) TAB PO SCH (09:06)
--- NOTE | 2022-03-16 09:17 | Physical Therapy Daily Note ---
PT Daily Note-Current Subjective Patient in bed pre tx, agrees to PT, has no complaints of pain. Appearance Patient in recliner post tx with nurse call, phone, tray, all needs met. Mental Status Patient Orientation: Person, Place, Situation Attachments: Oxygen Transfers SCALE: Activities may be completed with or without assistive devices. 5-Jhycyrdmug-pcomxoc completes the activity by him/herself with no assistance from a helper. 5-Set-up or Clean-up Assistance-helper sets up or cleans up; patient completes activity. Kenvil assists only prior to or following the activity. 4-Supervision or Touching Assistance-helper provides verbal cues and/or touching/steadying and/or contact guard assistance as patient completes activity. Assistance may be provided throughout the activity or intermittently. 3-Partial/Moderate Assistance-helper does LESS THAN HALF the effort. Kenvil lifts, holds or supports trunk or limbs, but provides less than half the effort. 2-Substantial/Maximal Assistance-helper does MORE THAN HALF the effort. Kenvil lifts or holds trunk or limbs and provides more than half the effort. 7-Mlnanvdpp-kglvyr does ALL the effort. Patient does none of the effort to complete the activity. Or, the assistance of 2 or more helpers is required for the patient to complete the activity. If activity was not attempted, code reason: 7-Patient Refused. 9-Not Applicable-not attempted and the patient did not perform the activity before the current illness, exacerbation or injury. 10-Not Attempted due to Environmental Limitations-(lack of equipment, weather restraints, etc.). 88-Not Attempted due to Medical Conditions or Safety Concerns. Roll Left & Right (QC): 6 Sit to Lying (QC): 6 Lying to Sitting/Side of Bed(Q: 6 Sit to Stand (QC): 4 Chair/Tra-fp-Mticf Xfer(QC): 4 Patient did have one slight LOB at the bedside while she was trying to find something on her bedside table while standing, she was against her bed though and was able to catch herself. Gait Training Distance: 500' Walk 10 feet (QC): 4 Walk 50 ft with 2 Turns(QC): 4 Walk 150 ft (QC): 4 Gait Assistive Device: FWW SBA, slow but steady ambulation Treatments bed mobility and transfers, ambulation Assessment Current Status: Fair Progress improving endurance PT Onboarding Specialist Goals [facility] Goals PT [facility] Goals Time Frame: Mar 21, 2022 Roll Left & Right (QC): 6 Sit to Lying (QC): 6 Lying-Sitting on Side/Bed(QC): 6 Sit to Stand (QC): 6 Chair/Ziv-yw-Eonit Xfer(QC): 6 Walk 10 feet (QC): 6 Walk 50ft with 2 Turns (QC): 6 Walk 150 ft (QC): 6 PT Plan Problem List Problem List: Activity Tolerance, Functional Strength, Safety, Balance, Gait, Transfer, ROM Treatment/Plan Treatment Plan: Continue Plan of Care Treatment Plan: Education, Functional Activity Rico, Functional Strength, Gait, Safety, Therapeutic Exercise, Transfers Treatment Duration: Mar 21, 2022 Frequency: 6 times per week Estimated Hrs Per Day: .25 hour per day Patient and/or Family Agrees t: Yes Safety Risks/Education Patient Education: Gait Training, Transfer Techniques, Correct Positioning, Safety Issues Teaching Recipient: Patient Teaching Methods: Demonstration, Discussion Response to Teaching: Reinforcement Needed Time/GCodes Time In: 08 Time Out: 08 Total Billed Treatment Time: 16 Total Billed Treatment 1 visit GT 16' ERIKA WOOD PT Mar 16, 2022 09:17
--- NOTE | 2022-03-16 09:53 | Cardiology Progress Note ---
Progress Note-Cardiology Events since last exam Date Seen by Provider: Mar 16, 2022 Time Seen by Provider: 09:20 Events since last exam I am following her due to heart failure. Her breathing is much improved today. She was sitting up in a chair. If her lung mass is amenable to CT-guided biopsy, she would like to proceed with this. She denies chest discomfort, palpitations, syncope, or ankle edema. Certain portions of this document may have been dictated utilizing voice recognition technology. Inherent to this technology, typographical and grammatical errors may exist. As much as I am diligent to identify and correct these mistakes, some errors may remain in the document. Vitals Last set of Vitals Signs Vital Signs 03/13/22 03/16/22 22:57 08:11 Temp 37.6 Pulse 80 Resp 18 B/P (MAP) 113/60 (77) Pulse Ox 91 O2 Delivery Nasal Cannula O2 Flow Rate 3.00 FiO2 21 Labs Labs Laboratory Tests 03/16/22 06:05 Exam Vital Signs Vital Signs Date Time Temp Pulse Resp B/P (MAP) Pulse Ox O2 Delivery O2 Flow Rate FiO2 03/16/22 08:11 37.6 80 18 113/60 (77) 91 Nasal Cannula 3.00 03/13/22 22:57 21 Physical Exam General: Alert. No acute distress. Eye: No xanthelasma. HENT: Normocephalic. Neck: Jugular venous pressure does not appear elevated. Respiratory: Lungs have some scattered minimal rhonchi at both bases. No crack les appreciated.. Respirations are non-labored. Breath sounds are equal. Symmetrical chest wall expansion. Cardiovascular: Normal rate. Regular rhythm. 2/6 systolic ejection murmur. No gallop. No edema. Gastrointestinal: Soft. Normal bowel sounds. Skin: Warm. Dry. Neurologic: Alert and oriented to person, place, time. Cranial nerves 3-11 grossly intact. Psychiatric: Cooperative. Appropriate mood & affect. Labs Laboratory Tests Test 03/15/22 12:31 03/15/22 15:42 03/15/22 20:19 03/16/22 05:33 Range/Units Glucometer 90 100 182 H 66 L 70-110 MG/DL Test 03/16/22 06:05 Range/Units White Blood Count 7.2 4.3-11.0 10^3/uL Red Blood Count 3.89 3.80-5.11 10^6/uL Hemoglobin 11.8 11.5-16.0 g/dL Hematocrit 37 35-52 % Mean Corpuscular Volume 95 80-99 fL Mean Corpuscular Hemoglobin 30 25-34 pg Mean Corpuscular Hemoglobin Concent 32 32-36 g/dL Red Cell Distribution Width 14.1 10.0-14.5 % Platelet Count 244 130-400 10^3/uL Mean Platelet Volume 10.2 9.0-12.2 fL Immature Granulocyte % (Auto) 0 % Neutrophils (%) (Auto) 75 42-75 % Lymphocytes (%) (Auto) 9 L 12-44 % Monocytes (%) (Auto) 10 0-12 % Eosinophils (%) (Auto) 4 0-10 % Basophils (%) (Auto) 0 0-10 % Neutrophils # (Auto) 5.4 1.8-7.8 10^3/uL Lymphocytes # (Auto) 0.7 L 1.0-4.0 10^3/uL Monocytes # (Auto) 0.7 0.0-1.0 10^3/uL Eosinophils # (Auto) 0.3 0.0-0.3 10^3/uL Basophils # (Auto) 0.0 0.0-0.1 10^3/uL Immature Granulocyte # (Auto) 0.0 0.0-0.1 10^3/uL Sodium Level 137 135-145 MMOL/L Potassium Level 4.1 3.6-5.0 MMOL/L Chloride Level 104 98-107 MMOL/L Carbon Dioxide Level 23 21-32 MMOL/L Anion Gap 10 5-14 MMOL/L Blood Urea Nitrogen 20 H 7-18 MG/DL Creatinine 1.05 0.60-1.30 MG/DL Estimat Glomerular Filtration Rate 51 BUN/Creatinine Ratio 19 Glucose Level 93 70-105 MG/DL Calcium Level 9.8 8.5-10.1 MG/DL Corrected Calcium 10.6 H 8.5-10.1 MG/DL Phosphorus Level 2.7 2.3-4.7 MG/DL Magnesium Level 1.7 1.6-2.4 MG/DL Total Bilirubin 0.6 0.1-1.0 MG/DL Aspartate Amino Transf (AST/SGOT) 23 5-34 U/L Alanine Aminotransferase (ALT/SGPT) 12 0-55 U/L Alkaline Phosphatase 105 40-136 U/L Total Protein 6.3 L 6.4-8.2 GM/DL Albumin 3.0 L 3.2-4.5 GM/DL Diagnosis/Problems Diagnosis/Problems (1) Acute on chronic combined systolic and diastolic congestive heart failure Status: Acute Assessment & Plan: Her BNP was elevated although this was in the setting of a cute kidney injury on chronic kidney disease. Her most recent echocardiogram showed mild left ventricular systolic dysfunction. Symptomatically she is improved. Some of her dyspnea is likely related to active pneumonia. We will continue guideline directed medical therapy with metoprolol succinate and lisinopril. I also resumed furosemide but at double the dose of what she was taking at home. Her renal function will need to be watched closely following discharge. Her blood pressures have been intermittently low. If this persists, then I will consider stopping lisinopril. (2) Coronary artery disease without angina pectoris Status: Chronic Assessment & Plan: She does not seem to be having any overt angina and her troponin level was negative. I recommend she continue aspirin and beta-elzbieta. Her LDL level is less than 100. (3) Ischemic cardiomyopathy Status: Chronic Assessment & Plan: Her ejection fraction was 40-45% on her most recent echocardiogram. Continue metoprolol succinate and lisinopril as above. (4) Acute on chronic respiratory failure with hypoxemia Status: Acute Assessment & Plan: Most likely due to chronic obstructive pulmonary disease with superimposed pneumonia and the heart failure. (5) Mass of right lung Status: Acute Assessment & Plan: She has been seen by general surgery who will see about coordinating a CT-guided biopsy if feasible. A follow-up CT scan was done on 03/15. (6) Acute kidney injury superimposed on chronic kidney disease Assessment & Plan: Her renal function has now improved. This will need to be watched closely following discharge with the resumption of MAR inhibitor and diuretic. Problem Qualifiers (1) Coronary artery disease without angina pectoris: Coronary Disease-Associated Artery/Lesion type: [place] artery [place] vs. transplanted heart: [place] heart Qualified Codes: I25.10 - Atherosclerotic heart disease of [place] coronary artery without angina pectoris LAWRENCE HU JR, MD Mar 16, 2022 09:53
[2022-03-16 12:00] VITALS: BP 92/62
--- NOTE | 2022-03-16 13:34 | Physician Query Clarification ---
Physician Query-General Query to Physician: The medical record reflects the following clinical scenario: The patient, in the setting of History/Risk factors, Clinical Findings SOB increasing requiring 02 up to 5L, Productive cough on admission, Admission VS/Labs: HR 88, RR 18, BP 97/57, SpO2 92% sat on room air T 37.5 T-max 37.6 and as low as 35.9, WBC 7.6, proBNP 2243, lactic acid 2.03, Per Xray: " Right base pneumonia and effusion cannot be excluded". Per CT: " Extensive regions of airspace consolidation within the lungs...and dense consolidation within the right lower lobe... appearance of these regions of airspace opacification appears more compatible with pneumonia rather than a definable pulmonary mass. Treatment ER: ceftriaxone IV, Vibramycin IV, normal saline 500 mL, ABX changed to Azithromycin IV and Cefepime IV Question: Do you agree with the impression of Pneumonia per Dr. Marnie Breaux and Dr. Peace Pérez? 1. Yes; will document Pneumonia, present on admission in the Progress Notes 2. No; will continue current documentation in the Progress Notes 3. Other; will document explanation of clinical findings 4. Clinically undetermined; no explanation for clinical findings Please clarify and document your clinical opinion in the Progress Notes and Discharge Summary including the definitive and/or presumptive diagnosis, (suspected or probable), related to the above clinical findings. Please include clinical findings supporting your diagnosis. In responding to this query, please exercise your independent professional judgment. The purpose of this communication is to more accurately reflect the complexity of your patients condition. The fact that a question is asked does not imply that any particular answer is desired or expected. Thank you for timely response to this clarification. Sharon Cavazos RN, MSN Clinical Field Identification Specialist [phone] [email or web address] PHYSICIAN RESPONSE: Based on the clinical findings in the record, please respond to the query above on this document as an addendum. Physician Response: Physician Response Yes post obstructive PNA If you have questions please contact: Sheet Cutting Operator: Ext: Thank you for your time and cooperation. Clinical Field Identification Specialist/Sheet Cutting Operator This is a permanent part of the medical record SHARON CAVAZOS Mar 16, 2022 13:34 SOLANGE SANCHEZ MD Mar 16, 2022 21:27
[2022-03-16 15:54] VITALS: BP 106/63
[2022-03-16 20:00] VITALS: BP 119/61
--- NOTE | 2022-03-16 21:32 | Progress Note ---
Subjective Subjective/Events-last exam Patient feeling better this AM. Tolerating PO diet and has been ambulating around unit Review of Systems General: Fatigue Pulmonary: Cough Neurological: Weakness, Incoordination Focused Exam Lactate Level 03/13/22 22:02: Lactic Acid Level 0.69 Objective Exam Last Set of Vital Signs Vital Signs Date Time Temp Pulse Resp B/P (MAP) Pulse Ox O2 Delivery O2 Flow Rate FiO2 03/16/22 20:00 36.5 68 22 119/61 (80) 96 Room Air 03/16/22 20:00 2.00 03/13/22 22:57 21 Capillary Refill : Less Than 3 Seconds I&O Intake and Output 03/16/22 00:00 Intake Total 907 ml Output Total 1250 ml Balance -343 ml Intake Oral 857 ml IV Total 50 ml Output Urine Total 1250 ml # Voids 2 General: Alert, Oriented X3, No Acute Distress Lungs: Normal Air Movement, Other (Course breath sounds with basilar crackles, normal work of breathing) Heart: Regular Rate, No Murmurs Abdomen: Normal Bowel Sounds, Soft, No Tenderness, No Masses Extremities: No Edema, No Tenderness/Swelling Neuro: Normal Speech Psych/Mental Status: Mental Status NL, Mood NL Results/Procedures Lab Laboratory Tests 03/16/22 05:33: Glucometer 66L 03/16/22 06:05: White Blood Count 7.2, Red Blood Count 3.89, Hemoglobin 11.8, Hematocrit 37, Mean Corpuscular Volume 95, Mean Corpuscular Hemoglobin 30, Mean Corpuscular Hemoglobin Concent 32, Red Cell Distribution Width 14.1, Platelet Count 244, Mean Platelet Volume 10.2, Immature Granulocyte % (Auto) 0, Neutrophils (%) (Auto) 75, Lymphocytes (%) (Auto) 9L, Monocytes (%) (Auto) 10, Eosinophils (%) (Auto) 4, Basophils (%) (Auto) 0, Neutrophils # (Auto) 5.4, Lymphocytes # (Auto) 0.7L, Monocytes # (Auto) 0.7, Eosinophils # (Auto) 0.3, Basophils # (Auto) 0.0, Immature Granulocyte # (Auto) 0.0, Sodium Level 137, Potassium Level 4.1, Chloride Level 104, Carbon Dioxide Level 23, Anion Gap 10, Blood Urea Nitrogen 20H, Creatinine 1.05, Estimat Glomerular Filtration Rate 51, BUN/Creatinine Ratio 19, Glucose Level 93, Calcium Level 9.8, Corrected Calcium 10.6H, Phosphorus Level 2.7, Magnesium Level 1.7, Total Bilirubin 0.6, Aspartate Amino Transf (AST/SGOT) 23, Alanine Aminotransferase (ALT/SGPT) 12, Alkaline Phosphatase 105, Total Protein 6.3L, Albumin 3.0L 03/16/22 11:07: Glucometer 120H 03/16/22 15:57: Glucometer 93 03/16/22 20:24: Glucometer 153H Microbiology 03/13/22 MRSA Screen - Final, Complete MRSA not isolated 03/13/22 Blood Culture - Preliminary, Resulted No growth Assessment/Plan Assessment/Plan (1) Acute on chronic combined systolic and diastolic congestive heart failure Status: Acute Assessment & Plan: - Cardiology consulted, appreciate recommendations, new dx 03/15: ACEI/BB 03/16: patient doing well on new medications (2) Acute on chronic respiratory failure with hypoxemia Status: Acute Assessment & Plan: - Mat protocol, will titrate as tolerated, continue antibiotics to cover for PNA 03/15: Continue to titrate as tolerated, will likely need oxygen at discharge 03/16: Home oxygen study done today, order send to DME (3) Acute kidney failure Status: Resolved Assessment & Plan: - Likely prerenal, gentle hydration, continue to monitor Qualifiers: Qualified Codes: N17.9 - Acute kidney failure, unspecified (4) PNA (pneumonia) Status: Acute Assessment & Plan: 03/16: Likely has aspects of post obstructive PNA due to mass, continue IV antibiotics Qualifiers: Qualified Codes: J18.9 - Pneumonia, unspecified organism (5) Mass of right lung Status: Acute Assessment & Plan: 03/15: General surgery consulted, CT chest ordered for possible bx site, extensive medialstinal adenopathy present 03/16: Will need outpatient EBUS/bronchoscopy, unable to get bx during admission (6) Bony sclerosis (7) Coronary artery disease without angina pectoris Status: Chronic Qualifiers: Qualified Codes: I25.10 - Atherosclerotic heart disease of [place] coronary artery without angina pectoris (8) Ischemic cardiomyopathy Status: Chronic (9) History of breast cancer Status: Chronic SOLANGE SANCHEZ MD Mar 16, 2022 21:32
[2022-03-16] MEDS: HYDROcodone/APAP 5 MG/325 MG (LORTAB) TAB PO PRN (22:20)
[2022-03-16] MEDS: AZITHROMYCIN INJECTION 250 MG in NS (IVPB) 250 ML IV SCH (22:25)
[2022-03-17] VITALS: BP 124/65
[2022-03-17] MEDS: CEFEPIME INJECTION 1,000 MG in NS (IVPB) 50 ML IV SCH ×2 (04:08→12:25)
[2022-03-17 04:11] VITALS: BP 119/57
[2022-03-17] MEDS: HYDROcodone/APAP 5 MG/325 MG (LORTAB) TAB PO PRN (05:44)
[2022-03-17] MEDS: LEVOTHYROXINE 112 MCG (LEVOTHROID) TAB PO SCH (05:44)
[2022-03-17 06:06] LABS: BASOPHILS % (AUTO) 0 % (0-10); EOSINOPHILS # (AUTO) 0.4 10^3/uL (0.0-0.3); EOSINOPHILS % (AUTO) 6 % (0-10); HEMATOCRIT 34 % (35-52); HEMOGLOBIN 11.1 g/dL (11.5-16.0); LYMPHOCYTES # (AUTO) 0.9 10^3/uL (1.0-4.0); LYMPHOCYTES % (AUTO) 15 % (12-44); MEAN CORPUSCULAR HEMOGLOBIN 30 pg (25-34); MEAN CORPUSCULAR HGB CONC 32 g/dL (32-36); MEAN CORPUSCULAR VOLUME 93 fL (80-99); MEAN PLATELET VOLUME 10.1 fL (9.0-12.2); MONOCYTES # (AUTO) 0.7 10^3/uL (0.0-1.0); MONOCYTES % (AUTO) 12 % (0-12); NEUTROPHILS % (AUTO) 67 % (42-75); PLATELET COUNT 262 10^3/uL (130-400)
[2022-03-17 06:24] LABS: ALBUMIN 2.9 GM/DL (3.2-4.5)
[2022-03-17 06:25] LABS: POTASSIUM 3.9 MMOL/L (3.6-5.0)
[2022-03-17 06:26] LABS: CALCIUM 9.7 MG/DL (8.5-10.1)
[2022-03-17] MEDS: POTASSIUM CL 10MEQ/50ML IVPB 50 ML IV SCH (06:26)
[2022-03-17] MEDS: inSUlin ASPART (NovoLOG) 1 UNIT/0.01 ML (CHARGE PER UNIT) SC SCH ×2 (06:26→11:22)
[2022-03-17] MEDS: KCL 20 MEQ TAB (K-DUR) PO SCH (06:26)
[2022-03-17 06:27] LABS: TOTAL PROTEIN 5.8 GM/DL (6.4-8.2)
[2022-03-17 06:29] LABS: BILIRUBIN,TOTAL 0.3 MG/DL (0.1-1.0)
[2022-03-17 06:30] LABS: PHOSPHORUS 2.7 MG/DL (2.3-4.7)
[2022-03-17 06:31] LABS: CREATININE SERUM 1.09 MG/DL (0.60-1.30)
[2022-03-17 06:33] LABS: MAGNESIUM 2.2 MG/DL (1.6-2.4)
[2022-03-17] MEDS: MAGNESIUM 1 GM/100 ML IVPB 100 ML IV SCH (06:37)
--- NOTE | 2022-03-17 07:18 | Progress Note - Surgery ---
Subjective Date Seen by a Provider: Mar 17, 2022 Time Seen by a Provider: 07:16 Subjective/Events-last exam Patient feeling better. Breathing better. Reports using spirometry. Denies N/V, chills or CP. Patient reports some trouble sleeping but that was due to her restless leg syndrome. Objective Exam Vital Signs Date Time Temp Pulse Resp B/P (MAP) Pulse Ox O2 Delivery O2 Flow Rate FiO2 03/17/22 04:11 36.6 78 20 119/57 (77) 94 Room Air 03/17/22 01:00 70 03/17/22 00:00 36.5 67 20 124/65 (84) 93 Room Air 03/16/22 20:00 36.5 68 22 119/61 (80) 96 Room Air 03/16/22 20:00 Nasal Cannula 2.00 03/16/22 19:00 70 03/16/22 15:54 37.1 69 22 106/63 (77) 90 Room Air 03/16/22 12:16 73 03/16/22 12:00 37.1 120 18 92/62 (72) 94 Nasal Cannula 3.00 03/16/22 10:30 Nasal Cannula 2.00 03/16/22 08:11 37.6 80 18 113/60 (77) 91 Nasal Cannula 3.00 03/16/22 08:00 Nasal Cannula 3.00 I & O 03/17/22 07:00 Intake Total 921 ml Balance 921 ml Capillary Refill : Less Than 3 Seconds General Appearance: No Apparent Distress, Chronically ill, Thin HEENT: PERRL/EOMI, Normal ENT Inspection Neck: Normal Inspection, Non Tender Respiratory: Chest Non Tender, No Accessory Muscle Use, No Respiratory Distress Cardiovascular: Regular Rate, Rhythm, No JVD Peripheral Pulses: 1+ Dorsalis Pedis (R), 1+ Left Dors-Pedis (L) (See free text); 3+ Radial Pulses (R), 3+ Radial Pulses (L) Gastrointestinal: non tender, soft Extremity: Normal Inspection, Non Tender Neurologic/Psychiatric: Alert, Oriented x3, Normal Mood/Affect Skin: Normal Color, Warm/Dry Lymphatic: No Adenopathy Results Lab Laboratory Tests 03/16/22 11:07: Glucometer 120H 03/16/22 15:57: Glucometer 93 03/16/22 20:24: Glucometer 153H 03/17/22 05:45: White Blood Count 6.0, Red Blood Count 3.69L, Hemoglobin 11.1L, Hematocrit 34L, Mean Corpuscular Volume 93, Mean Corpuscular Hemoglobin 30, Mean Corpuscular Hemoglobin Concent 32, Red Cell Distribution Width 13.7, Platelet Count 262, Mean Platelet Volume 10.1, Immature Granulocyte % (Auto) 0, Neutrophils (%) (Auto) 67, Lymphocytes (%) (Auto) 15, Monocytes (%) (Auto) 12, Eosinophils (%) (Auto) 6, Basophils (%) (Auto) 0, Neutrophils # (Auto) 4.0, Lymphocytes # (Auto) 0.9L, Monocytes # (Auto) 0.7, Eosinophils # (Auto) 0.4H, Basophils # (Auto) 0.0, Immature Granulocyte # (Auto) 0.0, Sodium Level 137, Potassium Level 3.9, Chlori de Level 106, Carbon Dioxide Level 23, Anion Gap 8, Blood Urea Nitrogen 27H, Creatinine 1.09, Estimat Glomerular Filtration Rate 49, BUN/Creatinine Ratio 25, Glucose Level 99, Calcium Level 9.7, Corrected Calcium 10.6H, Phosphorus Level 2.7, Magnesium Level 2.2, Total Bilirubin 0.3, Aspartate Amino Transf (AST/SGOT) 32, Alanine Aminotransferase (ALT/SGPT) 17, Alkaline Phosphatase 108, Total Protein 5.8L, Albumin 2.9L 03/17/22 05:52: Glucometer 92 Microbiology 03/13/22 MRSA Screen - Final, Complete MRSA not isolated 03/13/22 Blood Culture - Preliminary, Resulted No growth Assessment/Plan Assessment/Plan Assessment/Plan Respiratory failure Cough 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 Will need outpatient referral to pulmonology for bronchoscopy/EBUS if wants further workup. SKYLAR CARMICHAEL Mar 17, 2022 07:18
[2022-03-17 08:12] VITALS: BP 98/60
[2022-03-17] MEDS: GABAPENTIN 600 MG (NEURONTIN) TAB PO SCH ×2 (08:41→12:25)
[2022-03-17] MEDS: PARoxetine 20 MG (PAXIL) TAB PO SCH (08:41)
[2022-03-17] MEDS: DOCUSATE SODIUM 100 MG (COLACE) CAP PO SCH (08:41)
[2022-03-17] MEDS: FUROSEMIDE 40 MG (LASIX) TAB PO SCH (08:41)
[2022-03-17] MEDS: APIXABAN 5 MG (ELIQUIS) TABLET PO SCH (08:42)
[2022-03-17] MEDS: lisINopril 5 MG (PRINIVIL) TABLET PO SCH (09:10)
[2022-03-17 12:06] VITALS: BP_SYST 90; BP_SYST 98; BP_DIAS 48; BP_DIAS 60
--- NOTE | 2022-03-17 12:22 | Discharge Summary ---
Discharge Summary Reconcile Patient Problems Problems Reviewed?: Yes Instructions for Patient Assessment/Instructions Acute on Chronic systolic HF Acute on Chronic respiratory failure Right lung mass with adenopathy Acute kidney failure: Resolved at d.c Physician to follow Patient: ZONIA Discharge Diet for Home: No Restrictions Hospital Course Date of Admission: Mar 13, 2022 at 21:32 Admission Diagnosis : Family Physician/Provider: Iron Victoria MD Date of Discharge: 03/17/22 Discharge Diagnosis: Acute on Chronic CHF Acute on Chronic respiratory failure Right lung mass with adenopathy Acute kidney failure Labs and Pending Lab Test: Laboratory Tests 03/16/22 15:57: Glucometer 93 03/16/22 20:24: Glucometer 153H 03/17/22 05:45: White Blood Count 6.0, Red Blood Count 3.69L, Hemoglobin 11.1L, Hematocrit 34L, Mean Corpuscular Volume 93, Mean Corpuscular Hemoglobin 30, Mean Corpuscular Hemoglobin Concent 32, Red Cell Distribution Width 13.7, Platelet Count 262, Mean Platelet Volume 10.1, Immature Granulocyte % (Auto) 0, Neutrophils (%) (Auto) 67, Lymphocytes (%) (Auto) 15, Monocytes (%) (Auto) 12, Eosinophils (%) (Auto) 6, Basophils (%) (Auto) 0, Neutrophils # (Auto) 4.0, Lymphocytes # (Auto) 0.9L, Monocytes # (Auto) 0.7, Eosinophils # (Auto) 0.4H, Basophils # (Auto) 0.0, Immature Granulocyte # (Auto) 0.0, Sodium Level 137, Potassium Level 3.9, Chloride Level 106, Carbon Dioxide Level 23, Anion Gap 8, Blood Urea Nitrogen 27H, Creatinine 1.09, Estimat Glomerular Filtration Rate 49, BUN/Creatinine Ratio 25, Glucose Level 99, Calcium Level 9.7, Corrected Calcium 10.6H, Phosphorus Level 2.7, Magnesium Level 2.2, Total Bilirubin 0.3, Aspartate Amino Transf (AST/SGOT) 32, Alanine Aminotransferase (ALT/SGPT) 17, Alkaline Phosphatase 108, Total Protein 5.8L, Albumin 2.9L 03/17/22 05:52: Glucometer 92 03/17/22 11:07: Glucometer 109 Microbiology 03/13/22 MRSA Screen - Final, Complete MRSA not isolated 03/13/22 Blood Culture - Preliminary, Resulted No growth Home Meds Active Reported Levothyroxine Sodium 137 Mcg Tablet 137 Mcg PO DAILY Ropinirole HCl 2 Mg Tablet 2 Mg PO DAILY PRN Gabapentin 600 Mg Tablet 600 Mg PO TID Ventolin Hfa (Albuterol Sulfate) 90 Mcg Hfa.aer.ad 2 Puff INH Q6H PRN Potassium Chloride 20 Meq Tab.er.prt 20 Meq PO DAILY Furosemide 20 Mg Tablet 20 Mg PO DAILY Omeprazole 40 Mg Capsule.dr 40 Mg PO BID Hydrocodone-Acetamin 5-325 mg (Hydrocodone/Acetaminophen) 5 Mg-325 Mg Tablet 0.5 -1 Ea PO Q8H PRN Vitamin D3 (Cholecalciferol (Vitamin D3)) 10 Mcg (400 Unit) Capsule 10 Mcg PO DAILY Paroxetine HCl 20 Mg Tablet 20 Mg PO DAILY Alprazolam 0.5 Mg Tablet 0.5 Mg PO QID PRN Metoprolol Succinate 25 Mg Tab.er.24h 25 Mg PO DAILY Lisinopril 2.5 Mg Tablet 2.5 Mg PO DAILY Aspirin EC (Aspirin) 81 Mg Tablet. 81 Mg PO DAILY Ropinirole HCl 2 Mg Tablet 2 Mg PO HS Consulations Cardiology: Dr Zaragoza General Surgery: Dr Blanchard Patient Allergies: Coded Allergies: Sulfa (Sulfonamide Antibiotics) (Unverified Adverse Reaction, Mild, hives, 03/27/19) adhesive tape (Unverified Adverse Reaction, Mild, skin reaction, 03/27/19) latex (Unverified Adverse Reaction, Mild, rash, 03/27/19) sulfamethoxazole (Unverified Adverse Reaction, Mild, rash, 03/27/19) Septra IV allergy from [facility] tramadol (Unverified Adverse Reaction, Mild, Nausea/vomiting, 03/27/19) trimethoprim (Unverified Adverse Reaction, Mild, rash, 03/27/19) Septra IV allergy from [facility] Height (Feet): 5 Height (Inches): 4.00 Weight (Pounds): 142 Weight (Ounces): 0.0 New Medications: Azithromycin (Azithromycin) 250 Mg Tablet 250 MG PO DAILY for 2 Days, #2 TAB Cefdinir (Cefdinir) 300 Mg Capsule 300 MG PO BID for 5 Days, #10 CAP Apixaban (Eliquis) 5 Mg Tablet 5 MG PO BID, #60 TAB Furosemide (Furosemide) 40 Mg Tablet 40 MG PO DAILY, #30 TAB Continued Medications: Albuterol Sulfate (Ventolin Hfa) 90 Mcg Hfa.aer.ad 2 PUFF INH Q6H PRN for SHORTNESS OF BREATH, EA Alprazolam (Alprazolam) 0.5 Mg Tablet 0.5 MG PO QID PRN for ANXIETY Aspirin (Aspirin EC) 81 Mg Tablet.dr 81 MG PO DAILY Cholecalciferol (Vitamin D3) (Vitamin D3) 10 Mcg (400 Unit) Capsule 10 MCG PO DAILY, CAP Gabapentin (Gabapentin) 600 Mg Tablet 600 MG PO TID, TAB Hydrocodone/Acetaminophen (Hydrocodone-Acetamin 5-325 mg) 5 Mg-325 Mg Tablet 0.5-1 EA PO Q8H PRN for PAIN-MODERATE (5-7), TAB Levothyroxine Sodium (Levothyroxine Sodium) 137 Mcg Tablet 137 MCG PO DAILY, TAB Lisinopril (Lisinopril) 2.5 Mg Tablet 2.5 MG PO DAILY Metoprolol Succinate (Metoprolol Succinate) 25 Mg Tab.er.24h 25 MG PO DAILY Omeprazole (Omeprazole) 40 Mg Capsule.dr 40 MG PO BID, CAP Paroxetine HCl (Paroxetine HCl) 20 Mg Tablet 20 MG PO DAILY Potassium Chloride (Potassium Chloride) 20 Meq Tab.er.prt 20 MEQ PO DAILY Ropinirole HCl (Ropinirole HCl) 2 Mg Tablet 2 MG PO HS, TAB Discontinued Medications: Furosemide (Furosemide) 20 Mg Tablet 20 MG PO DAILY, TAB Ropinirole HCl (Ropinirole HCl) 2 Mg Tablet 2 MG PO DAILY PRN for RESTLESSNESS, TAB Home Health Need/Face to Face Date of Face to Face: Mar 17, 2022 Clinical Findings: Generalized weakness and fatigue, Instability, Unsteady gait I have seen Pt [id number]: Yes Discharged To: Home Diagnosis/Conditions: See above Patient is Homebound due to: Clarice fall risk due to instabilty, Shortness of breath/distress Homebound Status Due to the above stated illness, injury or surgical procedure (medical condition or diagnosis) and associated clinical findings, the patient is homebound because of his/her inability to leave home except with aid of a supportive device and/or person AND leaving the home requires a considerable and taxing effort or is medically contraindicated. Pt req the following assistanc: Aid of another person, [facility] Nursing Orders Home Health Services Order: Nursing Services, Physical Therapy-Evaluate & Treat Home Health Infusion Therapy Line Start Date: Mar 13, 2022 Therapy Orders Therapy Orders: Physical Therapy Therapy Specific Orders: Gait training, Increase strength/endurance Certify Stmt I certify that this patient is under my care and that I, a nurse practitioner or a physician; a field assistant working with me, had a face to face encounter that -meets the physician face to face encounter requirements with this patient as dated. Discharge Physical Exam General: Alert, Oriented X3, Cooperative, No Acute Distress HEENT: Mucous Memb Moist/[place] Lungs: Normal Air Movement, Other (Basilar crackles, normal work of breath ) Heart: Regular Rate Abdomen: Soft, No Tenderness, No Masses Extremities: No Edema, No Tenderness/Swelling Neuro: Normal Speech, Sensation Intact, Cranial Nerves 3-12 NL Psych/Mental Status: Mental Status NL, Mood NL SOLANGE SANCHEZ MD Mar 17, 2022 11:50
[2022-03-17] MEDS ORDERED: APIX5TAB PO (12:25)
[2022-03-17] MEDS ORDERED: CEFD300C3 PO (12:25)
[2022-03-17] MEDS ORDERED: FURO40TA4 PO (12:25)
[2022-03-17] MEDS ORDERED: AZIT250T12 PO (12:25)
[2022-03-17 13:50] VITALS: BP 90/48
[2022-03-20] MEDS ORDERED: APIXABAN 5 MG (ELIQUIS) TABLET PO SCH (09:00)
== END 2022-03-17 13:50 | disposition home health service (06) | DRG 193 ==
LOC: EDUNIT# 17:58 → ER FS 18:00 → EDBD 18:00 → ICU 21:32 → 4TH 03-15 14:00
PROVIDERS: ADMIT Internal Medicine; ATTEND Family Medicine
DX: J18.9 Pneumonia, unspecified organism (principal); J96.21 Acute and chronic respiratory failure with hypoxia; I50.43 Acute on chronic combined systolic (congestive) and diastolic (congestive) heart failure; N17.9 Acute kidney failure, unspecified; I13.0 Hypertensive heart and chronic kidney disease with heart failure and stage 1 through stage 4 chronic kidney disease, or unspecified chronic kidney disease; J44.0 Chronic obstructive pulmonary disease with (acute) lower respiratory infection; I11.0 Hypertensive heart disease with heart failure; Z87.891 Personal history of nicotine dependence; Z88.2 Allergy status to sulfonamides; Z91.040 Latex allergy status; Z79.82 Long term (current) use of aspirin; Z79.899 Other long term (current) drug therapy; E03.9 Hypothyroidism, unspecified; K21.9 Gastro-esophageal reflux disease without esophagitis; G25.81 Restless legs syndrome; Z85.3 Personal history of malignant neoplasm of breast; Z90.12 Acquired absence of left breast and nipple; Z95.1 Presence of aortocoronary bypass graft; I25.10 Atherosclerotic heart disease of native coronary artery without angina pectoris; I25.2 Old myocardial infarction; E78.00 Pure hypercholesterolemia, unspecified; G62.9 Polyneuropathy, unspecified; M19.90 Unspecified osteoarthritis, unspecified site; F41.9 Anxiety disorder, unspecified; Z20.822 Contact with and (suspected) exposure to COVID-19; R91.8 Other nonspecific abnormal finding of lung field; I25.5 Ischemic cardiomyopathy; R59.9 Enlarged lymph nodes, unspecified; N18.9 Chronic kidney disease, unspecified
CPT/HCPCS: 36415; 71045; 71260; 80053; 80061; 82805; 82947; 83605; 83690; 83735; 83880; 84100; 84484; 85025; 85379; 85610; 85730; 87040; 87081; 87636; 93005; 93041; 93970; 94664; 94760; 94761; 96361; 96365

== ENCOUNTER 2022-04-16 09:48 | Emergency (ER) | payer MEDICARE ==
[~2022-04-16] VITALS: Ht 162.5 cm; Wt 64.0 kg
[~2022-04-16 09:48] MED LIST changes: +ALBU18HF2 INH; +APIX5TAB PO; +CEFD300C3 PO; +ERGO400C PO; +FURO20TA4 PO; +FURO40TA4 PO; +GBPN600T PO; +LEVO-55 PO; +LEVO137T2 PO; -LEVO500T81 PO; +OMEP40CA6 PO; +POTA-179 PO
--- NOTE | 2022-04-16 10:02 | ED Respiratory ---
General Chief Complaint: Respiratory Problems Stated Complaint: SOB History of Present Illness Date Seen by Provider: Apr 16, 2022 Time Seen by Provider: 10:02 Initial Comments 86-year-old female with PMH of COPD/CHF/CAD with cardiac bypass in her 50s/c ardiomyopathy/HTN/CKD stage III/breast cancer with mastectomy many years ago/multiple myeloma/hearing difficulty, with newly diagnosed with bilateral lung masses 2 days ago, is here with complaints of diarrhea which began 2 days ago, and mild shortness of breath also for the past 2 days. Patient has associated loss of appetite for the past couple of months. Patient does not want to have her lung cancer treated. Denies fever, chills, chest pain, palpitations, dizziness, headache, abdominal pain, nausea and vomiting. Pt is currently on Eliquis. Denies any known sick contacts. Patient is on 2 L of oxygen at home at baseline. Allergies and Home Medications Allergies Coded Allergies: Sulfa (Sulfonamide Antibiotics) (Unverified Adverse Reaction, Mild, hives, 03/27/19) adhesive tape (Unverified Adverse Reaction, Mild, skin reaction, 03/27/19) latex (Unverified Adverse Reaction, Mild, rash, 03/27/19) sulfamethoxazole (Unverified Adverse Reaction, Mild, rash, 03/27/19) Septra IV allergy from [employer] tramadol (Unverified Adverse Reaction, Mild, Nausea/vomiting, 03/27/19) trimethoprim (Unverified Adverse Reaction, Mild, rash, 03/27/19) Septra IV allergy from [employer] Patient Home Medication List Home Medication List Reviewed: Yes Albuterol Sulfate (Ventolin Hfa) 90 Mcg Hfa.aer.ad, 2 PUFF INH Q6H PRN for SHORTNESS OF BREATH, (Reported) Entered as Reported by: SAYRA CRUZ on 03/14/22 1213 Alprazolam (Alprazolam) 0.5 Mg Tablet, 0.5 MG PO QID PRN for ANXIETY, (Reported) Entered as Reported by: MALIA DUBON on 03/27/19 1710 Apixaban (Eliquis) 5 Mg Tablet, 5 MG PO BID Prescribed by: SOLANGE SANCHEZ on 03/17/22 1225 Aspirin (Aspirin EC) 81 Mg Tablet.dr, 81 MG PO DAILY, (Reported) Entered as Reported by: MALIA DUBON on 03/27/191709 Azithromycin (Azithromycin) 250 Mg Tablet, 250 MG PO DAILY Prescribed by: SOLANGE SANCHEZ on 03/17/22 122 Cefdinir (Cefdinir) 300 Mg Capsule, 300 MG PO BID Prescribed by: SOLANGE SANCHEZ on 03/17/22 122 Cholecalciferol (Vitamin D3) (Vitamin D3) 10 Mcg (400 Unit) Capsule, 10 MCG PO DAILY, (Reported) Entered as Reported by: SAYRA CRUZ on 03/14/22 121 Furosemide (Furosemide) 40 Mg Tablet, 40 MG PO DAILY Prescribed by: SOLANGE SANCHEZ on 03/17/22 122 Gabapentin (Gabapentin) 600 Mg Tablet, 600 MG PO TID, (Reported) Entered as Reported by: SAYRA CRUZ on 03/14/221212 Hydrocodone/Acetaminophen (Hydrocodone-Acetamin 5-325 mg) 5 Mg-325 Mg Tablet, 0.5-1 EA PO Q8H PRN for PAIN-MODERATE (5-7), (Reported) Entered as Reported by: SAYRA CRUZ on 03/14/221212 Levothyroxine Sodium (Levothyroxine Sodium) 137 Mcg Tablet, 137 MCG PO DAILY, (Reported) Entered as Reported by: SAYRA CRUZ on 03/14/221219 Lisinopril (Lisinopril) 2.5 Mg Tablet, 2.5 MG PO DAILY, (Reported) Entered as Reported by: MALIA DUBON on 03/27/191709 Metoprolol Succinate (Metoprolol Succinate) 25 Mg Tab.er.24h, 25 MG PO DAILY, (Reported) Entered as Reported by: MALIA DUBON on 03/27/191709 Omeprazole (Omeprazole) 40 Mg Capsule.dr, 40 MG PO BID, (Reported) Entered as Reported by: SAYRA CRUZ on 03/14/221212 Paroxetine HCl (Paroxetine HCl) 20 Mg Tablet, 20 MG PO DAILY, (Reported) Entered as Reported by: MALIA DUBON on 03/27/191709 Potassium Chloride (Potassium Chloride) 20 Meq Tab.er.prt, 20 MEQ PO DAILY, (Reported) Entered as Reported by: SAYRA CRUZ on 03/14/22 1213 Ropinirole HCl (Ropinirole HCl) 2 Mg Tablet, 2 MG PO HS, (Reported) Entered as Reported by: MALIA DUBON on 03/27/19 1710 Review of Systems Review of Systems Constitutional: malaise, weight loss, other (loss of appetite) EENTM: no symptoms reported Respiratory: short of breath Cardiovascular: no symptoms reported Gastrointestinal: diarrhea Genitourinary: no symptoms reported Musculoskeletal: no symptoms reported Skin: no symptoms reported Psychiatric/Neurological: No Symptoms Reported Hematologic/Lymphatic: No Symptoms Reported Immunological/Allergic: no symptoms reported Past Gawccsj-Tzuuwe-Eezosy Hx Immunizations Up To Date Tetanus Booster (TDap): Less than 5yrs First/Initial COVID19 Vaccinat: 2020 Second COVID19 Vaccination Meir: 2020 Third COVID19 Vaccination Date: 2020 Seasonal Allergies Seasonal Allergies: Yes Past Medical History Surgery/Hospitalization HX: Mass behind eye; hypothyroidism; HTN; GERD; Restless leg syndrome; left mastectomy; breast cancer; Surgeries: Yes (L Mastectomy w/nodes; double bypass, tunneled [place]) Breast, CABG Respiratory: No Cardiac: Yes (Heart failure; left systolic, 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 dz) Neuropathy, Vertigo Genitourinary: No Gastrointestinal: Yes (Gastritis, Duodenitis,) Gastroesophageal Reflux, Esophagitis, Gall Bladder Disease Musculoskeletal: Yes (Frequent sciatica issues, has RLS, complete rupture rotator cuff, ) Arthritis Endocrine: Yes Hypothyroidsim HEENT: No Cancer: Yes (Myelodysplastic Syndrome, Inflammatory CA L breast) Breast Did You Recieve Any Treatments: Yes What Type of Treatment Did You: Surgical Intervention Psychosocial: Yes Anxiety Integumentary: No Blood Disorders: No Family Medical History No Pertinent Family Hx Physical Exam Vital Signs - First Documented 04/16/22 09:55 Temp 36.3 Pulse 83 Resp 28 B/P (MAP) 127/73 (91) Pulse Ox 93 O2 Delivery OxyMask O2 Flow Rate 3.00 Capillary Refill : Height: 5'4.00" Weight: 142lbs. 0.0oz. 64.166341ox; 20.83 BMI Method:Stated General Appearance: WD/WN, no apparent distress HEENT: PERRL/EOMI, normal ENT inspection, other (dry mucous membranes) Neck: non-tender, full range of motion, supple Respiratory: chest non-tender, lungs clear, normal breath sounds, no respiratory distress, no accessory muscle use Cardiovascular: regular rate, rhythm, no edema, systolic murmur Gastrointestinal: normal bowel sounds, non tender, soft, no organomegaly, no pulsatile mass Extremities: normal range of motion Neurologic/Psychiatric: no motor/sensory deficits, alert, normal mood/affect, oriented x 3 Skin: pallor Scoliosis of spine present Focused Exam Lactate Level 04/16/22 10:00: Lactic Acid Level 1.18 Lactic Acid Level Laboratory Tests Test 04/16/22 10:00 Lactic Acid Level 1.18 MMOL/L (0.50-2.00) Procedures/Interventions Suture Size: 5-0 Progress/Results/Core Measures Suspected Sepsis SIRS Temperature: Pulse: Respiratory Rate: Laboratory Tests 04/16/22 10:00: White Blood Count 7.1 Blood Pressure / Mean: 04/16/22 10:00: Lactic Acid Level 1.18 Laboratory Tests 04/16/22 10:00: Creatinine 0.96, INR Comment 1.1, Platelet Count 312, Total Bilirubin 0.3 Results/Orders Lab Results Laboratory Tests Test 04/16/22 09:55 04/16/22 10:00 04/16/22 10:04 Range/Units Urine Color YELLOW Urine Clarity CLEAR Urine pH 7.0 5-9 Urine Specific [place] <=1.005 1.016-1.022 Urine Protein NEGATIVE NEGATIVE Urine Glucose (UA) NEGATIVE NEGATIVE Urine Ketones TRACE H NEGATIVE Urine Nitrite NEGATIVE NEGATIVE Urine Bilirubin NEGATIVE NEGATIVE Urine Urobilinogen 0.2 < = 1.0 MG/DL Urine Leukocyte Esterase NEGATIVE NEGATIVE Urine RBC (Auto) NEGATIVE NEGATIVE Urine RBC NONE /HPF Urine WBC RARE /HPF Urine Squamous Epithelial Cells 2-5 /HPF Urine Crystals NONE /LPF Urine Bacteria TRACE /HPF Urine Casts NONE /LPF Urine Mucus NEGATIVE /LPF Urine Culture Indicated NO White Blood Count 7.1 4.3-11.0 10^3/uL Red Blood Count 4.04 3.80-5.11 10^6/uL Hemoglobin 12.0 11.5-16.0 g/dL Hematocrit 38 35-52 % Mean Corpuscular Volume 93 80-99 fL Mean Corpuscular Hemoglobin 30 25-34 pg Mean Corpuscular Hemoglobin Concent 32 32-36 g/dL Red Cell Distribution Width 13.5 10.0-14.5 % Platelet Count 312 130-400 10^3/uL Mean Platelet Volume 9.7 9.0-12.2 fL Immature Granulocyte % (Auto) 0 % Neutrophils (%) (Auto) 68 42-75 % Lymphocytes (%) (Auto) 17 12-44 % Monocytes (%) (Auto) 9 0-12 % Eosinophils (%) (Auto) 6 0-10 % Basophils (%) (Auto) 0 0-10 % Neutrophils # (Auto) 4.9 1.8-7.8 10^3/uL Lymphocytes # (Auto) 1.2 1.0-4.0 10^3/uL Monocytes # (Auto) 0.6 0.0-1.0 10^3/uL Eosinophils # (Auto) 0.4 H 0.0-0.3 10^3/uL Basophils # (Auto) 0.0 0.0-0.1 10^3/uL Immature Granulocyte # (Auto) 0.0 0.0-0.1 10^3/uL Prothrombin Time 14.3 12.2-14.7 SEC INR Comment 1.1 0.8-1.4 Activated Partial Thromboplast Time 34 24-35 SEC D-Dimer 1.77 H 0.00-0.49 UG/ML Sodium Level 138 135-145 MMOL/L Potassium Level 4.2 3.6-5.0 MMOL/L Chloride Level 102 98-107 MMOL/L Carbon Dioxide Level 25 21-32 MMOL/L Anion Gap 11 5-14 MMOL/L Blood Urea Nitrogen 15 7-18 MG/DL Creatinine 0.96 0.60-1.30 MG/DL Estimat Glomerular Filtration Rate 57 BUN/Creatinine Ratio 16 Glucose Level 111 H 70-105 MG/DL Lactic Acid Level 1.18 0.50-2.00 MMOL/L Calcium Level 10.1 8.5-10.1 MG/DL Corrected Calcium 10.4 H 8.5-10.1 MG/DL Magnesium Level 1.4 L 1.6-2.4 MG/DL Total Bilirubin 0.3 0.1-1.0 MG/DL Aspartate Amino Transf (AST/SGOT) 30 5-34 U/L Alanine Aminotransferase (ALT/SGPT) 10 0-55 U/L Alkaline Phosphatase 119 40-136 U/L Troponin I < 0.30 <0.30 NG/ML Pro-B-Type Natriuretic Peptide 2277.0 H <450.0 PG/ML Total Protein 7.2 6.4-8.2 GM/DL Albumin 3.6 3.2-4.5 GM/DL Influenza Type A (RT-PCR) Not Detected Not Detecte Influenza Type B (RT-PCR) Not Detected Not Detecte SARS-CoV-2 RNA (RT-PCR) Not Detected Not Detecte My Orders Orders - MARLENY DIXON MD Chest 1 View Ap/Pa Only (04/16/22 10:02) Albuterol/Ipra Inhalation Soln (Duoneb I (04/16/22 10:15) Methylprednisolone Sod Succ (Solu-Medrol (04/16/22 10:03) Svn Small Volume Nebulizer (04/16/22 10:03) Covid 19 Inhouse Test (04/16/22 10:04) Influenza A And B By Pcr (04/16/22 10:04) Cbc With Automated Diff (04/16/22 10:05) Comprehensive Metabolic Panel (04/16/22 10:05) Fibrin Degradation Products (04/16/22 10:05) Lactic Acid Analyzer (04/16/22 10:05) Magnesium (04/16/22 10:05) Protime With Inr (04/16/22 10:05) Partial Thromboplastin Time (04/16/22 10:05) Ua Culture If Indicated (04/16/22 10:05) Probnp Fs (04/16/22 10:05) Troponin I Fs (04/16/22 10:05) Blood Culture (04/16/22 10:17) Ct Angio Chest W (04/16/22 10:53) Iohexol Injection (Omnipaque 350 Mg/Ml 1 (04/16/22 11:00) Received Contrast (Hold Metformin- Contr (04/16/22 11:00) Sodium Chloride Flush (Catheter Flush Sy (04/16/22 11:00) Ns (Ivpb) (Sodium Chloride 0.9% Ivpb Bag (04/16/22 11:00) Furosemide Injection (Lasix Injection) (04/16/22 13:00) Medications Given in ED Current Medications Medications Dose Ordered Sig/Umm Route Start Time Stop Time Status Last Admin Dose Admin Albuterol/ Ipratropium 3 ml ONCE ONCE INH 04/16/22 10:15 04/16/22 10:16 DC 04/16/22 10:21 3 ML Iohexol 100 ml ONCE ONCE IV 04/16/22 11:00 04/16/22 11:01 DC 04/16/22 11:25 100 ML Sodium Chloride 10 ml NEEDED PRN IV 04/16/22 11:00 04/16/22 11:25 10 ML Sodium Chloride 100 ml ONCE ONCE IV 04/16/22 11:00 04/16/22 11:01 DC 04/16/22 11:25 100 ML Vital Signs/I&O 04/16/22 09:55 Temp 36.3 Pulse 83 Resp 28 B/P (MAP) 127/73 (91) Pulse Ox 93 O2 Delivery OxyMask O2 Flow Rate 3.00 Capillary Refill : Progress Note : Progress Note 1. PULMONARY EDEMA: ACUTE COPD EXACERBATION - COVID TEST neg - RAPID FLU TEST neg - CXR:see report - CBC/ CMP: unremarkable - UA normal - DUo Neb x1, pt felt better after Duo neb - Solumedrol 125mg iv STAT - Pro-BNP is 2,277 - Lasix 20mg iv STAT - Advised PCP follow up in 3 days - Advised Oncology follow up in 3 to 7 days - Advised Cardiology follow up for ECHO within 7 days -Prescription for nebulizer and albuterol solution and ipratropium solution - Gave mask and tubing from ER - Vitals stable, pt feels better at time of discharge. -The patient was seen in the ED, and treated appropriately to presentation at a specific point in time. Patient is informed that there is a possibility that disease and illness can evolve and change in acuity rapidly or slowly after patient is discharged from the ER. Precautionary advice given to the patient for immediate return to ER if symptoms worsen or do not resolve, and to seek emergency care sooner rather than later. Pt also advised on the importance of PCP follow up and compliance with management and follow up plan with PCP and/or specialist, as this is part of the management plan. Pt verbally expressed understanding. 2. ELEVATED D-DIMER: - D-dimer: 1.77 - CTA CHEST:negative for PE - Likely elevated due to cancer history Diagnostic Imaging Diagonstic Imaging: Xray, CT Plain Films/CT/US/NM/MRI: chest Comments [facility]. [place], [place] NAME: TIMI BREWER [facility] REC#: [id number] PT STATUS: REG ER : 1935 PHYSICIAN: MARLENY DIXON MD ADMIT DATE: 04/16/22/ER FS Signed Date of Exam:04/16/22 CHEST 1 VIEW AP/PA ONLY EXAMINATION: Chest 1 view HISTORY: SOB COMPARISON: 03/13/2022 FINDINGS: Surgical changes from median sternotomy and CABG. There is a redemonstrated right pleural effusion. No pneumothorax. Patchy interstitial opacities throughout both lungs are unchanged. Degenerative changes of the thoracic spine. Osseous structures are otherwise intact. IMPRESSION: 1. Stable right pleural effusion with patchy interstitial opacities seen throughout both lungs. Favored to relate to background chronic lung disease although superimposed pulmonary edema or pneumonia could have a similar appearance. Dictated by: Dictated on workstation # [id number] Dict: 04/16/22 1034 Trans: 04/16/22 1051 [facility] [id number] Interpreted by: ROB BENNETT DO Electronically signed by: ROB BENNETT DO 04/16/22 1051 Departure Impression Primary Impression: Pulmonary edema Qualified Codes: J81.0 - Acute pulmonary edema Additional Impressions: Acute exacerbation of chronic obstructive pulmonary disease (COPD) Elevated d-dimer Disposition: HOME, SELF-CARE Condition: Improved Departure-Patient Inst. Referrals: FELICITAS SCHAEFER MD (PCP) Primary Care Physician NEENA HARDY DAVID L JR, MD Patient Instructions: COPD Exacerbation, Adult ED, How to Use a Nebulizer ED Add. Discharge Instructions: - Advised PCP follow up in 3 days - Advised Oncology follow up in 3 to 7 days - Advised Cardiology follow up for ECHO within 7 days -Prescription for nebulizer and albuterol solution and ipratropium solution - Return to ER if symptoms worsen All discharge instructions reviewed with patient and/or family. Voiced understanding. Scripts Nebulizer and Compressor (Home Nebulizer Plus Sidestream) 1 Each Each EACH MC Q4H PRN for SHORTNESS OF BREATH, #1 severe SOB not alleviated by inhaler Prov: MARLENY DIXON MD 04/16/22 Ipratropium/Albuterol Sulfate (Iprat-Albut 0.5-3(2.5) mg/3 ml) 0.5 Mg-3 Mg (2.5 Mg Base)/3 Ml Ampul.neb 3 ML IH Q4H PRN for SHORTNESS OF BREATH for 30 Days, #1 EACH Prov: MARLENY DIXON MD 04/16/22 MARLENY DIXON MD Apr 16, 2022 10:02
[2022-04-16] MEDS ORDERED: methylPREDNISolone 125 MG (Solu-MEDROL) VIAL IV STA (10:03)
[2022-04-16 10:10] LABS: BASOPHILS % (AUTO) 0 % (0-10); EOSINOPHILS # (AUTO) 0.4 10^3/uL (0.0-0.3); EOSINOPHILS % (AUTO) 6 % (0-10); HEMATOCRIT 38 % (35-52); LYMPHOCYTES # (AUTO) 1.2 10^3/uL (1.0-4.0); LYMPHOCYTES % (AUTO) 17 % (12-44); MEAN CORPUSCULAR HEMOGLOBIN 30 pg (25-34); MEAN CORPUSCULAR HGB CONC 32 g/dL (32-36); MEAN CORPUSCULAR VOLUME 93 fL (80-99); MEAN PLATELET VOLUME 9.7 fL (9.0-12.2); MONOCYTES # (AUTO) 0.6 10^3/uL (0.0-1.0); MONOCYTES % (AUTO) 9 % (0-12); NEUTROPHILS # (AUTO) 4.9 10^3/uL (1.8-7.8); NEUTROPHILS % (AUTO) 68 % (42-75); PLATELET COUNT 312 10^3/uL (130-400); WHITE BLOOD COUNT 7.1 10^3/uL (4.3-11.0)
[2022-04-16] MEDS ORDERED: RT-ALBUTEROL/IPRATROPIUM 3 ML (DUONEB) VIAL INH ONE (10:15)
[2022-04-16 10:31] LABS: ALANINE AMINOTRANSFERASE 10 U/L (0-55); ALBUMIN 3.6 GM/DL (3.2-4.5); ALKALINE PHOSPHATASE 119 U/L (40-136); BILIRUBIN,TOTAL 0.3 MG/DL (0.1-1.0); BUN/CREATININE RATIO 16; CALCIUM 10.1 MG/DL (8.5-10.1); CARBON DIOXIDE 25 MMOL/L (21-32); CHLORIDE 102 MMOL/L (98-107); CREATININE SERUM 0.96 MG/DL (0.60-1.30); GFR ESTIMATED 57; GLUCOSE 111 MG/DL (70-105); MAGNESIUM 1.4 MG/DL (1.6-2.4); POTASSIUM 4.2 MMOL/L (3.6-5.0); SODIUM 138 MMOL/L (135-145); TOTAL PROTEIN 7.2 GM/DL (6.4-8.2)
[2022-04-16 10:38] LABS: INR 1.1 (0.8-1.4); PROTHROMBIN TIME PATIENT 14.3 SEC (12.2-14.7)
[2022-04-16 10:43] LABS: FIBRIN DEGRADATION PRODUCTS 1.77 UG/ML (0.00-0.49)
--- NOTE | 2022-04-16 10:48 | Diagnostic Imaging Report ---
EXAMINATION: Chest 1 view HISTORY: SOB COMPARISON: 03/13/2022 FINDINGS: Surgical changes from median sternotomy and CABG. There is a redemonstrated right pleural effusion. No pneumothorax. Patchy interstitial opacities throughout both lungs are unchanged. Degenerative changes of the thoracic spine. Osseous structures are otherwise intact. IMPRESSION: 1. Stable right pleural effusion with patchy interstitial opacities seen throughout both lungs. Favored to relate to background chronic lung disease although superimposed pulmonary edema or pneumonia could have a similar appearance. Dictated by: Dictated on workstation # [id number]
[2022-04-16] MEDS ORDERED: HOLD METFORMIN - RECEIVED CONTRAST 20 ML VIAL IV SCH (11:00)
[2022-04-16] MEDS ORDERED: NS 100 ML (IVPB) BAG IV ONE (11:00)
[2022-04-16] MEDS ORDERED: IOHEXOL 350 MG/ML 100 ML (OMNIPAQUE 350) VIAL IV ONE (11:00)
[2022-04-16] MEDS ORDERED: CATHETER FLUSH 10 ML SYR IV PRN (11:00)
--- NOTE | 2022-04-16 11:42 | Diagnostic Imaging Report ---
EXAMINATION: CT angiography of the chest. TECHNIQUE: Contrast enhanced thin section helical images were obtained through the chest with intravenous contrast timed for the optimal opacification of the arterial structures per CTA protocol. Post-processing, reconstructions and interpretation of angiographic images of the vessels was performed. 3D MIP reconstructions were performed and reviewed. All CT scans use one or more of the following dose optimizing techniques: automated exposure control, MA and/or KvP adjustment based on a patient size and exam type, or iterative reconstruction. HISTORY: Elevated D-dimer COMPARISON: 03/15/2022 FINDINGS: Vascular: No filling defects are seen within the visualized pulmonary arteries. Evaluation of the distal arteries is limited secondary to patient respiratory motion and consolidation. Atherosclerosis of the aorta and coronary vessels without aneurysm. Thyroid: The thyroid is normal. Mediastinum: Heart size is normal without significant pericardial effusion. There are prominent mediastinal and perihilar lymph nodes which are likely reactive. Lungs and airways: There are background emphysematous changes of the lungs with patchy groundglass consolidation seen throughout the lungs. There are bilateral pleural effusions with right basilar atelectasis. Redemonstrated more focal nodular density in the right lower lobe measuring up to 1.7 cm (series 8 image 77). No pneumothorax. Re-demonstrated mucous plugging within the right lower lobe airways. Upper abdomen: The subphrenic structures are normal. Musculoskeletal: Degenerative changes of the spine without suspicious osseous lesion or compression fracture. Surgical changes from median sternotomy and CABG. IMPRESSION: 1. No findings of pulmonary embolus within the visualized pulmonary arteries. 2. Patchy groundglass consolidation throughout the lungs which is overall decreased from 03/15/2022 but is persistent. 3. There is a 1.7 cm right middle lobe pulmonary nodule which is unchanged from prior exam and should be followed up in 3 months to document resolution given the overlying consolidation. Dictated by: Dictated on workstation # [id number]
[2022-04-16 12:42] LABS: BILIRUBIN,URINE NEGATIVE (NEGATIVE); CLARITY,URINE CLEAR; COLOR,URINE YELLOW; GLUCOSE, URINE (UA) NEGATIVE (NEGATIVE); KETONES,URINE TRACE (NEGATIVE); LEUKOCYTE ESTERASE ,URINE NEGATIVE (NEGATIVE); NITRITE,URINE NEGATIVE (NEGATIVE); PROTEIN,URINE NEGATIVE (NEGATIVE)
[2022-04-16 12:46] LABS: BACTERIA,URINE TRACE /HPF; WBC,URINE RARE /HPF
[2022-04-16] MEDS ORDERED: FUROSEMIDE 40 MG/4 ML INJ (LASIX) IVP ONE (13:00)
[2022-04-16] MEDS ORDERED: IPRA3AMP31 IH (13:15)
[2022-04-16] MEDS ORDERED: NEBU-164 MC (13:15)
[2022-04-16 13:43] VITALS: BP 135/66
== END 2022-04-16 13:39 | disposition home or self-care (01) ==
LOC: EDUNIT# 09:48 → ER FS 09:49
DX: J44.1 Chronic obstructive pulmonary disease with (acute) exacerbation (principal); J81.1 Chronic pulmonary edema; R79.1 Abnormal coagulation profile; Z91.040 Latex allergy status; Z90.12 Acquired absence of left breast and nipple; Z99.81 Dependence on supplemental oxygen; Z20.822 Contact with and (suspected) exposure to COVID-19
CPT/HCPCS: 36415; 71045; 71275; 80053; 81000; 83605; 83735; 83880; 84484; 85025; 85379; 85610; 85730; 87040; 87636; Q9967

== ENCOUNTER 2022-04-24 16:40 | Observation (INO) | payer MEDICARE ==
[~2022-04-24] VITALS: Ht 165 cm; Wt 56.7 kg
[~2022-04-24 16:40] MED LIST changes: +IPRA3AMP31 IH; +NEBU-164 MC
--- NOTE | 2022-04-24 17:01 | ED General ---
General Chief Complaint: General Problems/Pain Stated Complaint: HYPOTENSION History of Present Illness Date Seen by Provider: Apr 24, 2022 Time Seen by Provider: 17:00 Initial Comments 86-year-old female with PMH of COPD/CHF/CAD with cardiac bypass in her 50s/cardiomyopathy/HTN/CKD stage III/breast cancer with mastectomy many years ago/multiple myeloma/hearing difficulty, with newly diagnosed with bilateral lung masses 1 week ago, is here with complaints of low BP at home and momentary light headedness when the BP was low. Furthermore, pt took her daily blood pressure medications as well causing the BP to drop further. Pt was in the ER one week ago and was given a work up for SOB. She saw her PCP on and was started on Levaquin for potential Pneumonia. Pt is alert and oriented and speaking clearly in the ER today. SHe is NOT short of breath. Denies fever, chills, chest pain, palpitations, headache, abdominal pain, nausea and vomiting. Pt is currently on Eliquis. Patient is on 2 L of oxygen at home at baseline. Last week her COVID and Flu test was negative. Allergies and Home Medications Allergies Coded Allergies: Sulfa (Sulfonamide Antibiotics) (Unverified Adverse Reaction, Mild, hives, 03/27/19) adhesive tape (Unverified Adverse Reaction, Mild, skin reaction, 03/27/19) latex (Unverified Adverse Reaction, Mild, rash, 03/27/19) sulfamethoxazole (Unverified Adverse Reaction, Mild, rash, 03/27/19) Septra IV allergy from [facility] tramadol (Unverified Adverse Reaction, Mild, Nausea/vomiting, 03/27/19) trimethoprim (Unverified Adverse Reaction, Mild, rash, 03/27/19) Septra IV allergy from [facility] Patient Home Medication List Home Medication List Reviewed: Yes Albuterol Sulfate (Ventolin Hfa) 90 Mcg Hfa.aer.ad, 2 PUFF INH Q6H PRN for SHORTNESS OF BREATH, (Reported) Entered as Reported by: SAYRA CRUZ on 03/14/22 1213 Alprazolam (Alprazolam) 0.5 Mg Tablet, 0.5 MG PO QID PRN for ANXIETY, (Reported) Entered as Reported by: MALIA DUBON on 03/27/19 1710 Apixaban (Eliquis) 5 Mg Tablet, 5 MG PO BID Prescribed by: SOLANGE SANCHEZ on 03/17/22 122 Aspirin (Aspirin EC) 81 Mg Tablet.dr, 81 MG PO DAILY, (Reported) Entered as Reported by: MALIA DUBON on 03/27/191709 Azithromycin (Azithromycin) 250 Mg Tablet, 250 MG PO DAILY Prescribed by: SOLANGE SANCHEZ on 03/17/22 122 Cefdinir (Cefdinir) 300 Mg Capsule, 300 MG PO BID Prescribed by: SOLANGE SANCHEZ on 03/17/22 122 Cholecalciferol (Vitamin D3) (Vitamin D3) 10 Mcg (400 Unit) Capsule, 10 MCG PO DAILY, (Reported) Entered as Reported by: SAYRA CRUZ on 03/14/22 121 Furosemide (Furosemide) 40 Mg Tablet, 40 MG PO DAILY Prescribed by: SOLANGE SANCHEZ on 03/17/221224 Gabapentin (Gabapentin) 600 Mg Tablet, 600 MG PO TID, (Reported) Entered as Reported by: SAYRA CRUZ on 03/14/22 121 Hydrocodone/Acetaminophen (Hydrocodone-Acetamin 5-325 mg) 5 Mg-325 Mg Tablet, 0.5-1 EA PO Q8H PRN for PAIN-MODERATE (5-7), (Reported) Entered as Reported by: SAYRA CRUZ on 03/14/22 121 Ipratropium/Albuterol Sulfate (Iprat-Albut 0.5-3(2.5) mg/3 ml) 0.5 Mg-3 Mg (2.5 Mg Base)/3 Ml Ampul.neb, 3 ML IH Q4H PRN for SHORTNESS OF BREATH Prescribed by: MARLENY DIXON MD on 04/16/22 1315 Levothyroxine Sodium (Levothyroxine Sodium) 137 Mcg Tablet, 137 MCG PO DAILY, (Reported) Entered as Reported by: SAYRA CRUZ on 03/14/22 122 Lisinopril (Lisinopril) 2.5 Mg Tablet, 2.5 MG PO DAILY, (Reported) Entered as Reported by: MALIA DUBON on 03/27/19 171 Metoprolol Succinate (Metoprolol Succinate) 25 Mg Tab.er.24h, 25 MG PO DAILY, (Reported) Entered as Reported by: MALIA DUBON on 03/27/191709 Nebulizer and Compressor (Home Nebulizer Plus Sidestream) 1 Each Each, EACH MC Q4H PRN for SHORTNESS OF BREATH, (DME) Prescribed by: MARLENY DIXON MD on 04/16/22 1315 Omeprazole (Omeprazole) 40 Mg Capsule.dr, 40 MG PO BID, (Reported) Entered as Reported by: SAYRA CRUZ on 03/14/22 121 Paroxetine HCl (Paroxetine HCl) 20 Mg Tablet, 20 MG PO DAILY, (Reported) Entered as Reported by: MALIA DUBON on 03/27/19 171 Potassium Chloride (Potassium Chloride) 20 Meq Tab.er.prt, 20 MEQ PO DAILY, (Reported) Entered as Reported by: SAYRA CRUZ on 03/14/22 121 Ropinirole HCl (Ropinirole HCl) 2 Mg Tablet, 2 MG PO HS, (Reported) Entered as Reported by: MALIA DUBON on 03/27/191709 Review of Systems Review of Systems Constitutional: no symptoms reported EENTM: no symptoms reported Respiratory: no symptoms reported Cardiovascular: other (hypotension) Gastrointestinal: no symptoms reported Genitourinary: no symptoms reported Musculoskeletal: no symptoms reported Skin: no symptoms reported Psychiatric/Neurological: No Symptoms Reported Hematologic/Lymphatic: No Symptoms Reported Past Iymkkyq-Bmmnww-[id number] Hx Patient Social History Tobacco Use?: Yes Tobacco type used: Cigarettes Smoking Status: Current Someday Smoker Substance use?: No Alcohol Use?: No Immunizations Up To Date Tetanus Booster (TDap): Less than 5yrs First/Initial COVID19 Vaccinat: 2020 Second COVID19 Vaccination Meir: 2020 Third COVID19 Vaccination Date: 2020 Seasonal Allergies Seasonal Allergies: Yes Past Medical History Surgery/Hospitalization HX: Mass behind eye; hypothyroidism; HTN; GERD; Restless leg syndrome; left mastectomy; breast cancer;multiple myeloma, cardiac bypass Surgeries: Yes (L Mastectomy w/nodes; double bypass, tunneled [place]) Breast, CABG Respiratory: No Cardiac: Yes (Heart failure; left systolic, 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 dz) Neuropathy, Vertigo Genitourinary: No Gastrointestinal: Yes (Gastritis, Duodenitis,) Gastroesophageal Reflux, Esophagitis, Gall Bladder Disease Musculoskeletal: Yes (Frequent sciatica issues, has RLS, complete rupture rotator cuff, ) Arthritis Endocrine: Yes Hypothyroidsim HEENT: No Cancer: Yes (Myelodysplastic Syndrome, Inflammatory CA L breast) Breast Did You Recieve Any Treatments: Yes What Type of Treatment Did You: Surgical Intervention Psychosocial: Yes Anxiety Integumentary: No Blood Disorders: No Family Medical History No Pertinent Family Hx Physical Exam Vital Signs Vital Signs - First Documented 04/24/22 17:00 Temp 36.0 Pulse 87 Resp 20 B/P (MAP) 99/46 (63) Pulse Ox 94 O2 Delivery Nasal Cannula Capillary Refill : Height, Weight, BMI Height: 5'4.00" Weight: 142lbs. 0.0oz. 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 Norm as Tested Skin: Normal Color Focused Exam Lactate Level 04/24/22 17:25: Lactic Acid Level 2.17*H Lactic Acid Level Laboratory Tests Test 04/24/22 17:25 Lactic Acid Level 2.17 MMOL/L (0.50-2.00) *H Procedures/Interventions Suture Size: 5-0 Progress/Results/Core Measures Suspected Sepsis SIRS Temperature: Pulse: Respiratory Rate: Laboratory Tests 04/24/22 17:00: White Blood Count 8.9 Blood Pressure / Mean: 04/24/22 17:25: Lactic Acid Level 2.17*H Laboratory Tests 04/24/22 17:00: Creatinine 1.58H, Platelet Count 314, Total Bilirubin 0.3 Results/Orders Lab Results Laboratory Tests Test 04/24/22 17:00 04/24/22 17:25 Range/Units White Blood Count 8.9 4.3-11.0 10^3/uL Red Blood Count 3.42 L 3.80-5.11 10^6/uL Hemoglobin 10.3 L 11.5-16.0 g/dL Hematocrit 32 L 35-52 % Mean Corpuscular Volume 95 80-99 fL Mean Corpuscular Hemoglobin 30 25-34 pg Mean Corpuscular Hemoglobin Concent 32 32-36 g/dL Red Cell Distribution Width 13.9 10.0-14.5 % Platelet Count 314 130-400 10^3/uL Mean Platelet Volume 10.0 9.0-12.2 fL Immature Granulocyte % (Auto) 0 % Neutrophils (%) (Auto) 76 H 42-75 % Lymphocytes (%) (Auto) 9 L 12-44 % Monocytes (%) (Auto) 12 0-12 % Eosinophils (%) (Auto) 3 0-10 % Basophils (%) (Auto) 0 0-10 % Neutrophils # (Auto) 6.7 1.8-7.8 10^3/uL Lymphocytes # (Auto) 0.8 L 1.0-4.0 10^3/uL Monocytes # (Auto) 1.1 H 0.0-1.0 10^3/uL Eosinophils # (Auto) 0.2 0.0-0.3 10^3/uL Basophils # (Auto) 0.0 0.0-0.1 10^3/uL Immature Granulocyte # (Auto) 0.0 0.0-0.1 10^3/uL Sodium Level 138 135-145 MMOL/L Potassium Level 4.3 3.6-5.0 MMOL/L Chloride Level 100 98-107 MMOL/L Carbon Dioxide Level 26 21-32 MMOL/L Anion Gap 12 5-14 MMOL/L Blood Urea Nitrogen 23 H 7-18 MG/DL Creatinine 1.58 H 0.60-1.30 MG/DL Estimat Glomerular Filtration Rate 31 BUN/Creatinine Ratio 15 Glucose Level 111 H 70-105 MG/DL Calcium Level 9.6 8.5-10.1 MG/DL Corrected Calcium 10.2 H 8.5-10.1 MG/DL Magnesium Level 1.2 L 1.6-2.4 MG/DL Total Bilirubin 0.3 0.1-1.0 MG/DL Aspartate Amino Transf (AST/SGOT) 46 H 5-34 U/L Alanine Aminotransferase (ALT/SGPT) 18 0-55 U/L Alkaline Phosphatase 141 H 40-136 U/L Pro-B-Type Natriuretic Peptide 2422.0 H <450.0 PG/ML Total Protein 6.8 6.4-8.2 GM/DL Albumin 3.2 3.2-4.5 GM/DL Lactic Acid Level 2.17 *H 0.50-2.00 MMOL/L My Orders Orders - MARLENY DIXON MD Chest 1 View Ap/Pa Only (04/24/22 17:05) Cbc With Automated Diff (04/24/22 17:11) Comprehensive Metabolic Panel (04/24/22 17:11) Lactic Acid Analyzer (04/24/22 17:11) Magnesium (04/24/22 17:11) Ua Culture If Indicated (04/24/22 17:11) Probnp Fs (04/24/22 17:11) Ed Iv/Invasive Line Start (04/24/22 17:12) Ns Iv 1000 Ml (Sodium Chloride 0.9%) (04/24/22 17:15) Procalcitonin (Pct) (04/24/22 17:00) Magnesium 1 Gm/100 Ml Ivpb (Magnesium Martinez (04/24/22 17:45) Medications Given in ED Current Medications Medications Dose Ordered Sig/Umm Route Start Time Stop Time Status Last Admin Dose Admin Magnesium Sulfate/ Dextrose 100 ml @ 100 mls/hr ONCE ONCE IV 04/24/22 17:45 04/24/22 18:44 UNV 04/24/22 17:45 100 MLS/HR Vital Signs/I&O 04/24/22 17:00 Temp 36.0 Pulse 87 Resp 20 B/P (MAP) 99/46 (63) Pulse Ox 94 O2 Delivery Nasal Cannula Capillary Refill : Progress Note : Progress Note 1. HYPOTENSION & DEHYDRATION: - CBC: normal WBC but elevated neutrophils - Pt still took her BP medication today morning in spite of being hypotensive - Upon arrival, BP was 82/46, and improved to 117/68 after a litre of IVF and drinking one bottle of water - Will admit to observation: discussed with Dr Sarmiento, hospitalist 2. HYPOMAGNESEMIA: - s. Mg is 1.2 - iv Mag 1 gm iv STAT for repletion 3. COMMUNITY ACQUIRED PNEUMONIA: - Pt has completed 3 days of Levaquin - CXR: worsening infiltrates Diagnostic Imaging Diagonstic Imaging: Xray Plain Films/CT/US/NM/MRI: chest Comments [facility], [place] NAME: TIMI BREWER [facility] REC#: [id number] PT STATUS: REG ER : 1935 PHYSICIAN: MARLENY DIXON MD ADMIT DATE: 04/24/22/ER FS Draft Date of Exam:04/24/22 CHEST 1 VIEW AP/PA ONLY INDICATION: Hypotension and pneumonia. EXAMINATION: Frontal chest was obtained at 5:29 p.m. COMPARISON: 04/16/2022. There is cardiomegaly and poststernotomy change. There is worsening of central vascular congestion and increasing diffuse bilateral infiltrate. There is no pneumothorax. There is some minimal pleural fluid on the right side. IMPRESSION: Cardiomegaly and central vascular congestion with worsening infiltrate compared to the previous study. Minimal right pleural effusion. Central venous catheter is unchanged. Dictated on workstation # [id number] Dict: 04/24/22 1743 Trans: 04/24/22 1750 [facility] [id number] Interpreted by: SAGAR GELLER MD Electronically signed by: Departure Communication (Admissions) Time/Spoke to Admitting Phy: 18:[address] Sarmiento, admit to Observation, med-surg with telemetry Impression Primary Impression: Acute dehydration Additional Impressions: Hypotension Qualified Codes: I95.89 - Other hypotension; E86.1 - Hypovolemia NENA (acute kidney injury) CAP (community acquired pneumonia) Qualified Codes: J18.9 - Pneumonia, unspecified organism Disposition: 30 STILL A PATIENT Condition: Stable Admissions Decision to Admit Reason: Admit from ER (General) Decision to Admit/Date: Apr 24, 2022 Time/Decision to Admit Time: 18:00 Transfer Method of Transfer: EMS Departure-Patient Inst. Referrals: SELF,FELICITAS RAIN (PCP/Family) Primary Care Physician MARLENY DIXON MD Apr 24, 2022 17:01
[2022-04-24] MEDS ORDERED: NS IV 1000 ML 1,000 ML IV SCH (17:15)
[2022-04-24 17:16] LABS: BASOPHILS % (AUTO) 0 % (0-10); EOSINOPHILS # (AUTO) 0.2 10^3/uL (0.0-0.3); EOSINOPHILS % (AUTO) 3 % (0-10); HEMATOCRIT 32 % (35-52); HEMOGLOBIN 10.3 g/dL (11.5-16.0); LYMPHOCYTES # (AUTO) 0.8 10^3/uL (1.0-4.0); LYMPHOCYTES % (AUTO) 9 % (12-44); MEAN CORPUSCULAR HEMOGLOBIN 30 pg (25-34); MEAN CORPUSCULAR HGB CONC 32 g/dL (32-36); MEAN CORPUSCULAR VOLUME 95 fL (80-99); MONOCYTES # (AUTO) 1.1 10^3/uL (0.0-1.0); MONOCYTES % (AUTO) 12 % (0-12); NEUTROPHILS # (AUTO) 6.7 10^3/uL (1.8-7.8); NEUTROPHILS % (AUTO) 76 % (42-75); PLATELET COUNT 314 10^3/uL (130-400); WHITE BLOOD COUNT 8.9 10^3/uL (4.3-11.0)
[2022-04-24 17:23] LABS: BILIRUBIN,TOTAL 0.3 MG/DL (0.1-1.0); CALCIUM 9.6 MG/DL (8.5-10.1); CREATININE SERUM 1.58 MG/DL (0.60-1.30); MAGNESIUM 1.2 MG/DL (1.6-2.4); POTASSIUM 4.3 MMOL/L (3.6-5.0)
[2022-04-24 17:24] LABS: ALBUMIN 3.2 GM/DL (3.2-4.5); TOTAL PROTEIN 6.8 GM/DL (6.4-8.2)
[2022-04-24] MEDS ORDERED: MAGNESIUM 1 GM/100 ML IVPB 100 ML IV ONE ×2 (17:43→17:45)
--- NOTE | 2022-04-24 17:51 | Diagnostic Imaging Report ---
INDICATION: Hypotension and pneumonia. EXAMINATION: Frontal chest was obtained at 5:29 p.m. COMPARISON: 04/16/2022. There is cardiomegaly and poststernotomy change. There is worsening of central vascular congestion and increasing diffuse bilateral infiltrate. There is no pneumothorax. There is some minimal pleural fluid on the right side. IMPRESSION: Cardiomegaly and central vascular congestion with worsening infiltrate compared to the previous study. Minimal right pleural effusion. Central venous catheter is unchanged. Dictated by: Dictated on workstation # [id number]
[2022-04-24 19:04] LABS: BILIRUBIN,URINE NEGATIVE (NEGATIVE); CLARITY,URINE CLEAR; COLOR,URINE YELLOW; GLUCOSE, URINE (UA) NEGATIVE (NEGATIVE); KETONES,URINE NEGATIVE (NEGATIVE); LEUKOCYTE ESTERASE ,URINE NEGATIVE (NEGATIVE); NITRITE,URINE NEGATIVE (NEGATIVE); PH,URINE 7.5 (5-9); PROTEIN,URINE NEGATIVE (NEGATIVE)
[2022-04-24 19:07] LABS: BACTERIA,URINE TRACE /HPF
[2022-04-24 20:24] VITALS: BP 125/58
[2022-04-24] MEDS ORDERED: ACETAMINOPHEN 325 MG TABLET PO PRN (20:45)
[2022-04-24] MEDS ORDERED: ANTACID SUSP 30 ML UDC (MYLANTA) PO PRN (20:45)
[2022-04-24] MEDS ORDERED: guaiFENesin SYRUP 100 MG/5 ML 10 ML (ROBITUSSIN SF) PO PRN (20:45)
[2022-04-24] MEDS ORDERED: diphenhydrAMINE 25 MG TAB (BENADRYL) PO PRN (20:45)
[2022-04-24] MEDS ORDERED: ONDANSETRON 4 MG (ZOFRAN) ORAL DISSOLVE TAB PO PRN (20:45)
[2022-04-24] MEDS ORDERED: morphine INJ 4 MG/ML 1 ML (VIAL/SYRINGE) IV PRN (20:45)
[2022-04-24] MEDS ORDERED: MELATONIN 3 MG TABLET PO PRN (20:45)
[2022-04-24] MEDS ORDERED: ONDANSETRON 4 MG/2 ML (SDV) Z0FRAN IV PRN (20:45)
[2022-04-24] MEDS ORDERED: diphenhydrAMINE 50 MG/ML INJ (BENADRYL) IVP PRN (20:45)
[2022-04-24] MEDS ORDERED: polyethylene glycoL POWDER 17 GM (MIRALAX) PACK PO PRN (20:45)
[2022-04-24] MEDS ORDERED: ENOXAPARIN 40 MG/0.4 ML (LOVENOX) SYR SC SCH (20:45)
[2022-04-24] MEDS ORDERED: LORazepam 0.5 MG (ATIVAN) TABLET PO PRN (20:45)
[2022-04-24] MEDS ORDERED: BISACODYL 10 MG SUPP (DULCOLAX) PR PRN (20:45)
[2022-04-24] MEDS ORDERED: NS IV 1000 ML 1,000 ML ONE (21:12)
[2022-04-24] MEDS ORDERED: SERT-413 PO (21:15)
[2022-04-24] MEDS ORDERED: FURO20TA4 PO (21:17)
[2022-04-24] MEDS ORDERED: ESCI-2 PO (21:22)
[2022-04-24] MEDS: NS IV 1000 ML 1,000 ML IV SCH (21:30)
[2022-04-24] MEDS ORDERED: ENOXAPARIN INJECTION 30 MG/0.3 ML SYR SC SCH (22:30)
[2022-04-24] MEDS: DOCUSATE SODIUM 100 MG (COLACE) CAP PO SCH (23:01)
[2022-04-24] MEDS: CEFEPIME INJECTION 1,000 MG in NS (IVPB) 50 ML IV SCH (23:01)
[2022-04-24 23:42] VITALS: BP 104/54
[2022-04-25] MEDS: RT-ALBUTEROL/IPRATROPIUM 3 ML (DUONEB) VIAL INH SCH ×5 (03:00→19:01)
[2022-04-25 03:29] VITALS: BP 94/48
[2022-04-25 05:55] LABS: BASOPHILS % (AUTO) 0 % (0-10); EOSINOPHILS # (AUTO) 0.3 10^3/uL (0.0-0.3); EOSINOPHILS % (AUTO) 4 % (0-10); HEMATOCRIT 28 % (35-52); HEMOGLOBIN 8.9 g/dL (11.5-16.0); LYMPHOCYTES # (AUTO) 0.7 10^3/uL (1.0-4.0); LYMPHOCYTES % (AUTO) 11 % (12-44); MEAN CORPUSCULAR HEMOGLOBIN 30 pg (25-34); MEAN CORPUSCULAR HGB CONC 32 g/dL (32-36); MEAN CORPUSCULAR VOLUME 95 fL (80-99); MEAN PLATELET VOLUME 9.7 fL (9.0-12.2); MONOCYTES # (AUTO) 0.9 10^3/uL (0.0-1.0); MONOCYTES % (AUTO) 14 % (0-12); NEUTROPHILS # (AUTO) 4.9 10^3/uL (1.8-7.8); NEUTROPHILS % (AUTO) 71 % (42-75); PLATELET COUNT 250 10^3/uL (130-400); WHITE BLOOD COUNT 6.9 10^3/uL (4.3-11.0)
[2022-04-25 06:22] LABS: ALBUMIN 2.6 GM/DL (3.2-4.5); BILIRUBIN,TOTAL 0.4 MG/DL (0.1-1.0); CALCIUM 9.2 MG/DL (8.5-10.1); CREATININE SERUM 1.28 MG/DL (0.60-1.30); TOTAL PROTEIN 5.9 GM/DL (6.4-8.2)
[2022-04-25] MEDS: NS IV 1000 ML 1,000 ML IV SCH ×2 (07:07→08:38)
--- NOTE | 2022-04-25 08:10 | History & Physical ---
AMELIA DEY 04/25/22 0810: History of Present Illness History of Present Illness Reason for visit/HPI Krissy is an 86 y F who presented to the ED with low blood pressure and light headedness. She states she started noticing her blood pressure was dropping lower 3-4 days ago. She states she tried to get it back up at home by staying hydrated. She states she is currently being treated for pneumonia and her private home help said she did not seem to be doing well and brought her to the ED last night. She has SOB this AM and reports cough with intermittent sputum production, yellow in color. Denies BARFIELD, CP, n/v/d/abdo pain. Date of Admission Apr 24, 2022 at 20:06 I consulted on this patient on 04/25/22 08:05 Attending Physician Iron Victoria MD Admitting Physician Admitting Physician: Guera Sarmiento DO Attending Physician: Melly Lozano MD Consult Allergies and Home Medications Allergies Coded Allergies: Sulfa (Sulfonamide Antibiotics) (Unverified Adverse Reaction, Mild, hives, 03/27/19) adhesive tape (Unverified Adverse Reaction, Mild, skin reaction, 03/27/19) latex (Unverified Adverse Reaction, Mild, rash, 03/27/19) sulfamethoxazole (Unverified Adverse Reaction, Mild, rash, 03/27/19) Septra IV allergy from [facility] tramadol (Unverified Adverse Reaction, Mild, Nausea/vomiting, 03/27/19) trimethoprim (Unverified Adverse Reaction, Mild, rash, 03/27/19) Septra IV allergy from [facility] Patient Home Medication List Acetaminophen (Tylenol Extra Strength) 500 Mg Tablet, 1,000 MG PO Q8H PRN for PAIN-MILD (1-4), (Reported) Entered as Reported by: JEFFERY GRANT on 04/25/22 3299 Last Action: Reviewed Albuterol Sulfate (Ventolin Hfa) 90 Mcg Hfa.aer.ad, 2 PUFF INH Q6H PRN for SHORTNESS OF BREATH, (Reported) Entered as Reported by: SAYRA CRUZ on 03/14/22 1213 Last Action: Reviewed Apixaban (Eliquis) 5 Mg Tablet, 5 MG PO BID, (Reported) Entered as Reported by: JEFFERY GRANT on 04/25/221553 Last Action: Reviewed Escitalopram Oxalate (Escitalopram Oxalate) 10 Mg Tablet, 10 MG PO DAILY, (Reported) Entered as Reported by: Deirdre Rivero on 04/24/222121 Last Action: Reviewed Furosemide (Furosemide) 20 Mg Tablet, 20 MG PO DAILY, (Reported) Entered as Reported by: Deirdre Rivero on 04/24/222116 Last Action: Reviewed Gabapentin (Gabapentin) 600 Mg Tablet, 600 MG PO TID, (Reported) Entered as Reported by: SAYRA CRUZ on 03/14/221212 Last Action: Reviewed Hydrocodone/Acetaminophen (Hydrocodone-Acetamin 5-325 mg) 5 Mg-325 Mg Tablet, 0.5-1 EA PO Q8H PRN for PAIN-MODERATE (5-7), (Reported) Entered as Reported by: SAYRA CRUZ on 03/14/221212 Last Action: Reviewed Ipratropium/Albuterol Sulfate (Iprat-Albut 0.5-3(2.5) mg/3 ml) 0.5 Mg-3 Mg (2.5 Mg Base)/3 Ml Ampul.neb, 3 ML IH BID PRN for SHORTNESS OF BREATH, (Reported) Entered as Reported by: JEFFERY GRANT on 04/25/221553 Last Action: Reviewed Levofloxacin (Levofloxacin) 750 Mg Tablet, 750 MG PO Q48H, (Reported) Entered as Reported by: JEFFERY GRANT on 04/25/221552 Last Action: Reviewed Levothyroxine Sodium (Levothyroxine Sodium) 137 Mcg Tablet, 137 MCG PO DAILY, (Reported) Entered as Reported by: SAYRA CRUZ on 03/14/22 122 Last Action: Reviewed Metoprolol Succinate (Metoprolol Succinate) 25 Mg Tab.er.24h, 12.5 MG PO DAILY, (Reported) Entered as Reported by: MALIA DUBON on 03/27/191709 Last Action: Reviewed Omeprazole (Omeprazole) 40 Mg Capsule.dr, 40 MG PO BID, (Reported) Entered as Reported by: SAYRA CRUZ on 03/14/221212 Last Action: Reviewed Paroxetine HCl (Paroxetine HCl) 20 Mg Tablet, 20 MG PO DAILY, (Reported) Entered as Reported by: MALIA DUBON on 03/27/191709 Last Action: Reviewed Potassium Chloride (Potassium Chloride) 20 Meq Tab.er.prt, 20 MEQ PO DAILY, (Reported) Entered as Reported by: SAYRA CRUZ on 03/14/22 121 Last Action: Reviewed Ropinirole HCl (Ropinirole HCl) 2 Mg Tablet, 2 MG PO BID, (Reported) Entered as Reported by: JEFFERY GRANT on 04/25/22 1059 Last Action: Reviewed Sertraline HCl (Sertraline HCl) 50 Mg Tablet, 50 MG PO DAILY, (Reported) Entered as Reported by: Deirdre Rivero on 04/24/22 2115 Last Action: Reviewed Discontinued Medications Alprazolam (Alprazolam) 0.5 Mg Tablet, 0.5 MG PO QID PRN for ANXIETY, (Reported) Discontinued Reason: No Longer Taking Entered as Reported by: MALIA DUBON on 03/27/191709 Last Action: Discontinued Aspirin (Aspirin EC) 81 Mg Tablet.dr, 81 MG PO DAILY, (Reported) Discontinued Reason: No Longer Taking Entered as Reported by: MALIA DUBON on 03/27/191709 Last Action: Discontinued Azithromycin (Azithromycin) 250 Mg Tablet, 250 MG PO DAILY Discontinued Reason: No Longer Taking Prescribed by: SOLANGE SANCHEZ on 03/17/22 122 Last Action: Discontinued Cholecalciferol (Vitamin D3) (Vitamin D3) 10 Mcg (400 Unit) Capsule, 10 MCG PO DAILY, (Reported) Discontinued Reason: No Longer Taking Entered as Reported by: SAYRA CRUZ on 03/14/221212 Last Action: Discontinued Furosemide (Furosemide) 40 Mg Tablet, 40 MG PO DAILY Discontinued Reason: No Longer Taking Prescribed by: SOLANGE SANCHEZ on 03/17/221224 Last Action: Discontinued Lisinopril (Lisinopril) 2.5 Mg Tablet, 2.5 MG PO DAILY, (Reported) Discontinued Reason: No Longer Taking Entered as Reported by: MALIA DUBON on 03/27/191709 Last Action: Discontinued Ropinirole HCl (Ropinirole HCl) 2 Mg Tablet, 2 MG PO HS, (Reported) Discontinued Reason: No Longer Taking Entered as Reported by: MALIA DUBON on 03/27/191709 Last Action: Discontinued Past Ibwinml-Ppleop-Buoprz Hx Patient Social History Tobacco Use?: No Tobacco type used: Cigarettes Smoking Status: Former Smoker Smokeless Tobacco Frequency: Never a User Use of E-Cig and/or Vaping dev: No Substance use?: No Alcohol Use?: No Pt feels they are or have been: No Immunizations Up To Date First/Initial COVID19 Vaccinat: 2020 Second COVID19 Vaccination Meir: 2020 Tetanus Booster (TDap): Unknown Date of Pneumonia Vaccine: Apr 18, 2018 Seasonal Allergies Seasonal Allergies: Yes Current Status status: No status: No Advance Directives: Yes Advance Directive Location: Home Communicates: Verbally Primary Language: Swedish Preferred Spoken Language: Swedish Is interpretation needed?: No Sensory deficits: Vision impairment, Hearing impairment Implanted or Applied Medical D: None Past Medical History Surgeries: Breast, CABG COPD Coronary Artery Disease, Heart Attack, High Cholesterol, Hypertension Neuropathy, Vertigo Gastroesophageal Reflux, Esophagitis, Gall Bladder Disease Arthritis Hypothyroidsim Breast Did You Recieve Any Treatments: Yes What Type of Treatment Did You: Surgical Intervention Anxiety Blood Disorders: No CAD h/o Breast Ca treated with left mastectomy Lung mass: No workup so far 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 Family Medical History No Pertinent Family Hx Review of Systems Constitutional: chills; No fever EENTM: no symptoms reported Respiratory: cough, phlegm (yellow ), wheezing Cardiovascular: no symptoms reported Gastrointestinal: no symptoms reported Genitourinary: no symptoms reported Musculoskeletal: back pain Skin: no symptoms reported Psychiatric/Neurological: No Symptoms Reported Physical Exam Vital Signs Vital Signs - First Documented 04/24/22 04/24/22 04/25/22 17:00 18:42 02:52 Temp 36.0 Pulse 87 Resp 20 B/P (MAP) 99/46 (63) Pulse Ox 94 O2 Delivery Nasal Cannula O2 Flow Rate 2.00 FiO2 28 Capillary Refill : Height, Weight, BMI Height: 5'4.00" Weight: 142lbs. 0.0oz. [id number]; 176.99 BMI Method:Stated General Appearance: No Apparent Distress HEENT: PERRL/EOMI, TMs Normal, Other (Dry mucous membranes) Neck: Normal Inspection Respiratory: Crackles, Wheezing (on expiration) Gastrointestinal: Normal Bowel Sounds, No Organomegaly, Non Tender, Soft Back: Other (diffuse Muskuloskeletal pain to palpation) Extremity: Normal Inspection, No Calf Tenderness, No Pedal Edema Neurologic/Psychiatric: Alert, Oriented x3, Normal Mood/Affect Skin: Normal Color, Warm/Dry Assessment/Plan Assessment and Plan 1. Hypotension -IV fluids, bp trending upward, BUN improved 2. Hypomagnesemia -1.2 on admission, supplementation given -continue to monitor 3. CAP - Was taking Levaquin, currently on IV cefepime - CXR shows diffuse bilateral infiltrates - continue to monitor for symptomatic changes Admission Diagnosis Admission Status: Observation MELLY LOZANO MD 04/25/22 1831: History of Present Illness History of Present Illness Time Seen by a Provider: 12:34 Allergies and Home Medications Allergies Coded Allergies: Sulfa (Sulfonamide Antibiotics) (Unverified Adverse Reaction, Mild, hives, 03/27/19) adhesive tape (Unverified Adverse Reaction, Mild, skin reaction, 03/27/19) latex (Unverified Adverse Reaction, Mild, rash, 03/27/19) sulfamethoxazole (Unverified Adverse Reaction, Mild, rash, 03/27/19) Septra IV allergy from [facility] tramadol (Unverified Adverse Reaction, Mild, Nausea/vomiting, 03/27/19) trimethoprim (Unverified Adverse Reaction, Mild, rash, 03/27/19) Septra IV allergy from [facility] Patient Home Medication List Home Medication List Reviewed: Yes Acetaminophen (Tylenol Extra Strength) 500 Mg Tablet, 1,000 MG PO Q8H PRN for PAIN-MILD (1-4), (Reported) Entered as Reported by: JEFFERY GRANT on 04/25/22 1559 Last Action: Reviewed Albuterol Sulfate (Ventolin Hfa) 90 Mcg Hfa.aer.ad, 2 PUFF INH Q6H PRN for SHORTNESS OF BREATH, (Reported) Entered as Reported by: SAYRA CRUZ on 03/14/22 1213 Last Action: Reviewed Apixaban (Eliquis) 5 Mg Tablet, 5 MG PO BID, (Reported) Entered as Reported by: JEFFERY GRANT on 04/25/22 1554 Last Action: Reviewed Escitalopram Oxalate (Escitalopram Oxalate) 10 Mg Tablet, 10 MG PO DAILY, (Reported) Entered as Reported by: Deirdre Rivero on 04/24/222121 Last Action: Reviewed Furosemide (Furosemide) 20 Mg Tablet, 20 MG PO DAILY, (Reported) Entered as Reported by: Deirdre Rivero on 04/24/222116 Last Action: Reviewed Gabapentin (Gabapentin) 600 Mg Tablet, 600 MG PO TID, (Reported) Entered as Reported by: SAYRA CRUZ on 03/14/221212 Last Action: Reviewed Hydrocodone/Acetaminophen (Hydrocodone-Acetamin 5-325 mg) 5 Mg-325 Mg Tablet, 0.5-1 EA PO Q8H PRN for PAIN-MODERATE (5-7), (Reported) Entered as Reported by: SAYRA CRUZ on 03/14/221212 Last Action: Reviewed Ipratropium/Albuterol Sulfate (Iprat-Albut 0.5-3(2.5) mg/3 ml) 0.5 Mg-3 Mg (2.5 Mg Base)/3 Ml Ampul.neb, 3 ML IH BID PRN for SHORTNESS OF BREATH, (Reported) Entered as Reported by: JEFFERY GRANT on 04/25/22 155 Last Action: Reviewed Levofloxacin (Levofloxacin) 750 Mg Tablet, 750 MG PO Q48H, (Reported) Entered as Reported by: JEFFERY GRANT on 04/25/221552 Last Action: Reviewed Levothyroxine Sodium (Levothyroxine Sodium) 137 Mcg Tablet, 137 MCG PO DAILY, (Reported) Entered as Reported by: SAYRA CRUZ on 03/14/22 122 Last Action: Reviewed Metoprolol Succinate (Metoprolol Succinate) 25 Mg Tab.er.24h, 12.5 MG PO DAILY, (Reported) Entered as Reported by: MALIA DUBON on 03/27/191709 Last Action: Reviewed Omeprazole (Omeprazole) 40 Mg Capsule.dr, 40 MG PO BID, (Reported) Entered as Reported by: SAYRA CRUZ on 03/14/221212 Last Action: Reviewed Paroxetine HCl (Paroxetine HCl) 20 Mg Tablet, 20 MG PO DAILY, (Reported) Entered as Reported by: MALIA DUBON on 03/27/191709 Last Action: Reviewed Potassium Chloride (Potassium Chloride) 20 Meq Tab.er.prt, 20 MEQ PO DAILY, (Reported) Entered as Reported by: SAYRA CRUZ on 03/14/221212 Last Action: Reviewed Ropinirole HCl (Ropinirole HCl) 2 Mg Tablet, 2 MG PO BID, (Reported) Entered as Reported by: JEFFERY GRANT on 04/25/22 1559 Last Action: Reviewed Sertraline HCl (Sertraline HCl) 50 Mg Tablet, 50 MG PO DAILY, (Reported) Entered as Reported by: Deirdre Rivero on 04/24/222114 Last Action: Reviewed Discontinued Medications Alprazolam (Alprazolam) 0.5 Mg Tablet, 0.5 MG PO QID PRN for ANXIETY, (Reported) Discontinued Reason: No Longer Taking Entered as Reported by: MALIA DUBON on 03/27/191709 Last Action: Discontinued Aspirin (Aspirin EC) 81 Mg Tablet.dr, 81 MG PO DAILY, (Reported) Discontinued Reason: No Longer Taking Entered as Reported by: MALIA DUBON on 03/27/191709 Last Action: Discontinued Azithromycin (Azithromycin) 250 Mg Tablet, 250 MG PO DAILY Discontinued Reason: No Longer Taking Prescribed by: SOLANGE SANCHEZ on 03/17/22 1225 Last Action: Discontinued Cholecalciferol (Vitamin D3) (Vitamin D3) 10 Mcg (400 Unit) Capsule, 10 MCG PO DAILY, (Reported) Discontinued Reason: No Longer Taking Entered as Reported by: SAYRA CRUZ on 03/14/22 1213 Last Action: Discontinued Furosemide (Furosemide) 40 Mg Tablet, 40 MG PO DAILY Discontinued Reason: No Longer Taking Prescribed by: SOLANGE SANCHEZ on 03/17/22 1225 Last Action: Discontinued Lisinopril (Lisinopril) 2.5 Mg Tablet, 2.5 MG PO DAILY, (Reported) Discontinued Reason: No Longer Taking Entered as Reported by: MALIA DUBON on 03/27/191709 Last Action: Discontinued Ropinirole HCl (Ropinirole HCl) 2 Mg Tablet, 2 MG PO HS, (Reported) Discontinued Reason: No Longer Taking Entered as Reported by: MALIA DUBON on 03/27/191709 Last Action: Discontinued Supervisory-Addendum Brief Verification & Attestation Participated in pt care: history, MDM, physical Personally performed: exam, history, MDM, supervision of care Care discussed with: Medical Student Procedures: n/a I personally saw and examined patient today and repeated the history and exam to confirm that documented by the medical student. I directed the plan of care as documented by the medical student. Will do chart review to determine workup for what she noted to be multiple masses that were "thought to be cancer, but weren't". AMELIA DEY Apr 25, 2022 08:10 MELLY LOZANO MD Apr 25, 2022 18:31
[2022-04-25] MEDS: CEFEPIME INJECTION 1,000 MG in NS (IVPB) 50 ML IV SCH ×2 (08:37→20:35)
[2022-04-25] MEDS: DOCUSATE SODIUM 100 MG (COLACE) CAP PO SCH ×2 (08:38→20:35)
[2022-04-25 08:44] VITALS: BP 114/56
[2022-04-25] MEDS ORDERED: MAGNESIUM 1 GM/100 ML IVPB 100 ML IV ONE (09:15)
--- NOTE | 2022-04-25 10:22 | Occupational Therapy Eval ---
OT Evaluation-General/PLF Medical Diagnosis Admission Date Apr 24, 2022 at 20:06 Medical Diagnosis: Acute dehydration, NENA Onset Date: Apr 24, 2022 Therapy Diagnosis Therapy Diagnosis: reduced adl status Height/Weight Height (Feet): 5 Height (Inches): 4.00 Weight (Pounds): 142 Weight (Ounces): 0.0 Precautions Precautions/Isolations: Fall Prevention, Standard Precautions Referral Referral Reason: Evaluation/Treatment Medical History Pertinent Medical History: Breast CA S/P Mastectomy, CAD, COPD, Heart Failure, HTN Additional Medical History CKD, newly diagnosed with bilateral lung masses 1 week ago Current History Pt presents with low BP. She reports living alone in a single story home. She verbalizes that she was indep with adls, however has been having increased difficulty this last week after experiencing a fall. She receives assist 2 hours/day for household tasks such as laundry, dishes, cleaning, and grocery shopping. Pt was using a walker at baseline and states that she started wearing 2L oxygen ~1 week ago. Reviewed History: Yes Social History Home: Single Level Current Living Status: Alone Entry Into Home: Stairs With Railing Steps Into Home: 2 ADL-Prior Level of Function SCALE: Activities may be completed with or without assistive devices. 2-Oxqbwmnhjc-afvufhl completes the activity by him/herself with no assistance from a helper. 5-Set-up or Clean-up Assistance-helper sets up or cleans up; patient completes activity. [place] assists only prior to or following the activity. 4-Supervision or Touching Assistance-helper provides verbal cues and/or touching/steadying and/or contact guard assistance as patient completes activity. Assistance may be provided throughout the activity or intermittently. 3-Partial/Moderate Assistance-helper does LESS THAN HALF the effort. [place] lifts, holds or supports trunk or limbs, but provides less than half the effort. 2-Substantial/Maximal Assistance-helper does MORE THAN HALF the effort. [place] lifts or holds trunk or limbs and provides more than half the effort. 9-Nbmaayeoz-tizovi does ALL the effort. Patient does none of the effort to complete the activity. Or, the assistance of 2 or more helpers is required for the patient to complete the activity. If activity was not attempted, code reason: 7-Patient Refused. 9-Not Applicable-not attempted and the patient did not perform the activity before the current illness, exacerbation or injury. 10-Not Attempted due to Environmental Limitations-(lack of equipment, weather restraints, etc.). 88-Not Attempted due to Medical Conditions or Safety Concerns. Self Care: Independent Functional Cognition: Independent DME/Equipment: Bath Bench, Tub/Shower Drive Self: Yes OT Current Status Subjective Pt reports back and R shoulder pain. RN notified. Appearance Per request, pt returned to supine in bed. All needs within reach, RN in room at OT departure. Mental Status/Objective Patient Orientation: Person, Place, Situation Attachments: IV, Oxygen Current Glasses/Contacts: Yes Hearing Aids: No Hand Dominance: Right Upper Extremity ROM R shoulder ~150 degrees (baseline from old injury) LUE WFL Pt reports symptoms similar to trigger finger in L 3rd digit, however does not show any "catching" during assessment. Upper Extremity Strength Not formally tested due to c/o back pain ADL-Treatment Eating (QC): 5 Oral Hygiene (QC): 5 On/Off Footwear (QC): 1 Pt reclined in bed finishing eating breakfast at OT arrival. Education on proper positioning for meals. Supine<>sit: SBA; extra time to due c/o back pain. Good sitting balance at edge. Pt attempts cross over method to don/doff socks however unable to complete due to pain. At this time, she may benefit from use of AE for LB dressing/bathing. 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 Further practice will be needed to ensure understanding. 2 attempts to stand, CGA for safety. Pt does requires at least 1 UE support to maintain balance while standing. She declines transferring to chair at this time. Education OT Patient Education: Correct positioning, Energy conservation, Modified ADL techniques, Purpose of tx/functional activities, Reviewed precautions, Rehab process, Safety issues, Transfer techniques, Use of adapted equipment Teaching Recipient: Patient Teaching Methods: Discussion Response to Teaching: Verbalize Understanding, Reinforcement Needed OT Long-Term Goals Long-Term Goals Time Frame: May 05, 2022 Toileting Hygiene (QC): 4 Shower/Bathe Self (QC): 4 Upper Body Dressing (QC): 5 Lower Body Dressing (QC): 4 On/Off Footwear (QC): 4 1=Demonstrate adherence to instructed precautions during ADL tasks. 2=Patient will verbalize/demonstrate understanding of assistive devices/ modifications for ADL. 3=Patient will improve strength/tolerance for activity to enable patient to perform ADL's. OT Education/Plan Problem List/Assessment Assessment: Decreased Activ Tolerance, Decreased UE Strength, Impaired Funct Balance, Impaired Self-Care Skills, Restricted Funct UE ROM Discharge Recommendations Plan/Recommendations: Continue POC Therapy Discharge Recommendati: Post Acute OT (Home health OT pending progress) Equpiment Recommendations-D/C: Supervisor Cell Efficiency, Sock Aide Treatment Plan/Plan of Care Treatment,Training & Education: Yes Patient would benefit from OT for education, treatment and training to promote independence in ADL's, mobility, safety and/or upper extremity function for ADL's. Plan of Care: ADL Retraining, Functional Mobility, Group Exercise/Act as Ind, UE Funct Exercise/Act Treatment Duration: May 05, 2022 Frequency: 3 times per week (3-5x/week) Agreement: Yes Rehab Potential: Fair Time/GCodes Start Time: 09:41 Stop Time: 10:01 Total Time Billed (hr/min): 20 Billed Treatment Time 1, Karen Mack OT Apr 25, 2022 10:22
[2022-04-25 11:33] VITALS: BP 111/59
--- NOTE | 2022-04-25 13:03 | Physical Therapy Evaluation ---
PT Evaluation-General Medical Diagnosis Admission Date Apr 24, 2022 at 20:06 Medical Diagnosis: Acute dehydration, NENA Onset Date: Apr 24, 2022 Therapy Diagnosis Therapy Diagnosis: impaired mobility/weakness Height/Weight Height (Feet): 5 Height (Inches): 4.00 Weight (Pounds): 142 Weight (Ounces): 0.0 Precautions Precautions/Isolations: Fall Prevention, Standard Precautions Referral Physician: Torsten Reason for Referral: Evaluation/Treatment Medical History Pertinent Medical History: Breast CA S/P Mastectomy, CAD, COPD, Heart Failure, HTN, Renal Insufficiency, Smoking Current History ER secondary to low BP/recent ER visit due to SOA Reviewed History: Yes Social History Home: Single Level Current Living Status: Alone Entry Into Home: Stairs With Railing PT Steps Into Home: 2 Prior Prior Level of Function SCALE: Activities may be completed with or without assistive devices. 1-Dacqglzimh-auwtryz completes the activity by him/herself with no assistance from a helper. 5-Set-up or Clean-up Assistance-helper sets up or cleans up; patient completes activity. [place] assists only prior to or following the activity. 4-Supervision or Touching Assistance-helper provides verbal cues and/or touching/steadying and/or contact guard assistance as patient completes activity. Assistance may be provided throughout the activity or intermittently. 3-Partial/Moderate Assistance-helper does LESS THAN HALF the effort. [place] lifts, holds or supports trunk or limbs, but provides less than half the effort. 2-Substantial/Maximal Assistance-helper does MORE THAN HALF the effort. [place] lifts or holds trunk or limbs and provides more than half the effort. 0-Cethgibfl-agywfv does ALL the effort. Patient does none of the effort to complete the activity. Or, the assistance of 2 or more helpers is required for the patient to complete the activity. If activity was not attempted, code reason: 7-Patient Refused. 9-Not Applicable-not attempted and the patient did not perform the activity before the current illness, exacerbation or injury. 10-Not Attempted due to Environmental Limitations-(lack of equipment, weather restraints, etc.). 88-Not Attempted due to Medical Conditions or Safety Concerns. Bed Mobility: 6 Transfers (B,C,W/C): 6 Gait: 6 Stairs: 6 Indoor Mobility (Ambulation): Independent Stairs: Independent Prior Devices Use: Walker PT Evaluation-Current Subjective Patient agrees to PT. Objective Patient Orientation: Normal For Age Attachments: Oxygen ROM/Strength ROM Lower Extremities bilateral LE WFL Strength Lower Extremities 3+/5 grossly bilateral LE all planes Integumentary/Posture Integumentary refer to nursing notes Bowel Incontinence: No Bladder Incontinence: No Posture kyphotic Neuromuscular (Tone, Coordination, Reflexes) grossly intact Sensory Vision: Functional Hearing: Impaired Hand Dominance: Right Transfers Lying to Sitting/Side of Bed(Q: 6 Sit to Stand (QC): 4 Chair/Eim-qy-Bdccr Xfer(QC): 4 Gait Mode of Locomotion: Walk Anticipated Mode of Locomotion: Walk Walk 10 feet (QC): 4 Walk 50 ft with 2 Turns(QC): 4 Walk 150 ft (QC): 4 Distance: 400' Gait Assistive Device: FWW Comments/Gait Description safe and functional with no deviation Balance Sitting Static: Normal Sitting Dynamic: Normal Standing Static: Normal Standing Dynamic: Normal Assessment/Needs 86 y.o. female, will be seen short term by skilled PT to address functional strength and mobility to improve current LOF to safely return to home at maximum LOF. Rehab Potential: Fair PT Half-Way Goals Car Builder Goals PT Car Builder Goals Time Frame: May 07, 2022 Roll Left & Right (QC): 6 Sit to Lying (QC): 6 Lying-Sitting on Side/Bed(QC): 6 Sit to Stand (QC): 6 Chair/Fhg-fn-Bzgut Xfer(QC): 6 Toilet Transfer (QC): 6 Walk 10 feet (QC): 6 Walk 50ft with 2 Turns (QC): 6 Walk 150 ft (QC): 6 PT Plan Problem List Problem List: Activity Tolerance, Functional Strength, Safety Treatment/Plan Treatment Plan: Continue Plan of Care Treatment Plan: Education, Functional Activity [place], Functional Strength, Gait, Safety, Therapeutic Exercise, Transfers Treatment Duration: May 07, 2022 Frequency: 6 times per week Estimated Hrs Per Day: .25 hour per day Patient and/or Family Agrees t: Yes Time/GCodes Time In: 1119 Time Out: 1129 Total Billed Treatment Time: 10 Total Billed Treatment 1 visit EVModC 10 min ANABELLE FORD PT Apr 25, 2022 13:03
[2022-04-25 15:50] VITALS: BP 111/56
[2022-04-25] MEDS ORDERED: LEVO750T PO (15:53)
[2022-04-25] MEDS ORDERED: APIX5TAB PO (15:54)
[2022-04-25] MEDS ORDERED: IPRA3AMP31 IH (15:54)
[2022-04-25] MEDS ORDERED: ROPI2TAB6 PO (15:59)
[2022-04-25] MEDS ORDERED: ACET-2267 PO (15:59)
[2022-04-25 20:00] VITALS: BP 101/51
[2022-04-25] MEDS: APIXABAN 5 MG (ELIQUIS) TABLET PO SCH (20:35)
[2022-04-25] MEDS: GABAPENTIN 600 MG (NEURONTIN) TAB PO SCH (20:35)
[2022-04-25] MEDS: PANTOPRAZOLE 40 MG (PROTONIX) TAB PO SCH (20:35)
[2022-04-25] MEDS ORDERED: NON-FORMULARY MEDICATION 1 EA EA (Omeprazole 40 MG) PO SCH (21:00)
[2022-04-26 00:08] VITALS: BP 112/55
[2022-04-26] MEDS: RT-ALBUTEROL/IPRATROPIUM 3 ML (DUONEB) VIAL INH SCH ×2 (02:14→07:27)
[2022-04-26 04:10] VITALS: BP 107/53
[2022-04-26 06:12] LABS: BASOPHILS % (AUTO) 0 % (0-10); EOSINOPHILS # (AUTO) 0.2 10^3/uL (0.0-0.3); EOSINOPHILS % (AUTO) 2 % (0-10); HEMATOCRIT 27 % (35-52); HEMOGLOBIN 8.3 g/dL (11.5-16.0); LYMPHOCYTES # (AUTO) 0.6 10^3/uL (1.0-4.0); LYMPHOCYTES % (AUTO) 9 % (12-44); MEAN CORPUSCULAR HEMOGLOBIN 30 pg (25-34); MEAN CORPUSCULAR HGB CONC 31 g/dL (32-36); MEAN CORPUSCULAR VOLUME 95 fL (80-99); MONOCYTES # (AUTO) 0.7 10^3/uL (0.0-1.0); MONOCYTES % (AUTO) 10 % (0-12); NEUTROPHILS # (AUTO) 5.6 10^3/uL (1.8-7.8); NEUTROPHILS % (AUTO) 78 % (42-75); PLATELET COUNT 268 10^3/uL (130-400); WHITE BLOOD COUNT 7.2 10^3/uL (4.3-11.0)
[2022-04-26 06:14] LABS: ALBUMIN 2.5 GM/DL (3.2-4.5)
[2022-04-26 06:15] LABS: POTASSIUM 3.5 MMOL/L (3.6-5.0)
[2022-04-26 06:16] LABS: CALCIUM 8.9 MG/DL (8.5-10.1)
[2022-04-26 06:17] LABS: TOTAL PROTEIN 5.3 GM/DL (6.4-8.2)
[2022-04-26 06:19] LABS: BILIRUBIN,TOTAL 0.4 MG/DL (0.1-1.0)
[2022-04-26 06:20] LABS: CREATININE SERUM 0.91 MG/DL (0.60-1.30)
[2022-04-26] MEDS: NS IV 1000 ML 1,000 ML IV SCH ×2 (06:29→13:10)
[2022-04-26] MEDS ORDERED: LEVOTHYROXINE 25 MCG (LEVOTHROID) TAB PO SCH (06:30)
[2022-04-26] MEDS ORDERED: LEVOTHYROXINE 112 MCG (LEVOTHROID) TAB PO SCH (06:30)
[2022-04-26 08:00] VITALS: BP 132/62
[2022-04-26] MEDS: PANTOPRAZOLE 40 MG (PROTONIX) TAB PO SCH (08:59)
[2022-04-26] MEDS: DOCUSATE SODIUM 100 MG (COLACE) CAP PO SCH (08:59)
[2022-04-26] MEDS: GABAPENTIN 600 MG (NEURONTIN) TAB PO SCH ×2 (08:59→13:31)
[2022-04-26] MEDS: APIXABAN 5 MG (ELIQUIS) TABLET PO SCH (08:59)
[2022-04-26] MEDS ORDERED: NON-FORMULARY MEDICATION 1 EA EA (Escitalopram Oxalate 10 MG) PO SCH (09:00)
[2022-04-26] MEDS ORDERED: NON-FORMULARY MEDICATION 1 EA EA (Levothyroxine Sodium 137 MCG) PO SCH (09:00)
[2022-04-26] MEDS ORDERED: CEFEPIME INJECTION 1,000 MG in NS (IVPB) 50 ML IV SCH (09:00)
--- NOTE | 2022-04-26 11:28 | Discharge Summary ---
AMELIA DEY 04/26/22 1118: Discharge Summary Hospital Course Problems Reviewed?: Yes Problems/Diagnosis: (1) CAP (community acquired pneumonia) Status: Acute Assessment & Plan: 1. CAP -Cefdinir oral for 600 mg daily for 5 days. Qualifiers: Qualified Codes: J18.9 - Pneumonia, unspecified organism (2) Hypotension Status: Resolved Resolution Date/Time: 04/26/22 @ 11:20 Assessment & Plan: Hypotension - Stop Lisinopril if haven't already. - Switch frequency of Lasix to every other day. Qualifiers: Qualified Codes: I95.89 - Other hypotension; E86.1 - Hypovolemia Hospital Course Date of Admission: Apr 24, 2022 at 20:06 Admission Diagnosis : Family Physician/Provider: Iron Victoria MD Date of Discharge: 04/26/22 Discharge Diagnosis: [ ] Hospital Course: [Krissy Reyes is an 86 y F with a PMh of COPD, CAD, HTN, hypothyroidism, and a hx of breast cancer. She was admitted for hypotension she had been experiencing for the last few days and was given IV fluids, Lisinopril was held and her hypotension resolved. She also was being treated for a CAP which she was on Day 4 of Levaquin. Levaquin was discontinued on admission and she was started on IV Cefepime until Discharge. She will be be discharged with prescription of Cefdinir 600mg once daily for 5 days for resolution of pneumonia with follow up with [employer] to discuss chronic lung changes.] Labs and Pending Lab Test: Laboratory Tests 04/26/22 06:04: White Blood Count 7.2, Red Blood Count 2.78L, Hemoglobin 8.3L, Hematocrit 27L, Mean Corpuscular Volume 95, Mean Corpuscular Hemoglobin 30, Mean Corpuscular Hemoglobin Concent 31L, Red Cell Distribution Width 13.9, Platelet Count 268, Mean Platelet Volume 10.0, Immature Granulocyte % (Auto) 0, Neutrophils (%) (Auto) 78H, Lymphocytes (%) (Auto) 9L, Monocytes (%) (Auto) 10, Eosinophils (%) (Auto) 2, Basophils (%) (Auto) 0, Neutrophils # (Auto) 5.6, Lymphocytes # (Auto) 0.6L, Monocytes # (Auto) 0.7, Eosinophils # (Auto) 0.2, Basophils # (Auto) 0.0, Immature Granulocyte # (Auto) 0.0, Sodium Level 142, Potassium Level 3.5L, Chloride Level 110H, Carbon Dioxide Level 21, Anion Gap 11, Blood Urea Nitrogen 10, Creatinine 0.91, Estimat Glomerular Filtration Rate 61, BUN/Creatinine Ratio 11, Glucose Level 109H, Calcium Level 8.9, Corrected Calcium 10.1, Total Bilirubin 0.4, Aspartate Amino Transf (AST/SGOT) 42H, Alanine Aminotransferase (ALT/SGPT) 25, Alkaline Phosphatase 97, Total Protein 5.3L, Albumin 2.5L Home Meds Active Reported Tylenol Extra Strength (Acetaminophen) 500 Mg Tablet 1,000 Mg PO Q8H PRN Ropinirole HCl 2 Mg Tablet 2 Mg PO BID Iprat-Albut 0.5-3(2.5) mg/3 ml (Ipratropium/Albuterol Sulfate) 0.5 Mg-3 Mg (2.5 Mg Base)/3 Ml Ampul.neb 3 Ml IH BID PRN Eliquis (Apixaban) 5 Mg Tablet 5 Mg PO BID Levofloxacin 750 Mg Tablet 750 Mg PO Q48H FILLED 04-21-2022 #5/10 DAY SUPPLY Escitalopram Oxalate 10 Mg Tablet 10 Mg PO DAILY Furosemide 20 Mg Tablet 20 Mg PO DAILY Sertraline HCl 50 Mg Tablet 50 Mg PO DAILY Levothyroxine Sodium 137 Mcg Tablet 137 Mcg PO DAILY Gabapentin 600 Mg Tablet 600 Mg PO TID Ventolin Hfa (Albuterol Sulfate) 90 Mcg Hfa.aer.ad 2 Puff INH Q6H PRN Potassium Chloride 20 Meq Tab.er.prt 20 Meq PO DAILY Omeprazole 40 Mg Capsule.dr 40 Mg PO BID Hydrocodone-Acetamin 5-325 mg (Hydrocodone/Acetaminophen) 5 Mg-325 Mg Tablet 0.5-1 Ea PO Q8H PRN Paroxetine HCl 20 Mg Tablet 20 Mg PO DAILY Metoprolol Succinate 25 Mg Tab.er.24h 12.5 Mg PO DAILY TAKES 1/2 (25MG) TAB Assessment/Pt DC Instructions Discharge Diet: No Restrictions Orders-Post D/C & Referrals Follow up on Chronic pneumonia/lung changes with Pulmonology. Discharge Physical Examination Allergies: Coded Allergies: Sulfa (Sulfonamide Antibiotics) (Unverified Adverse Reaction, Mild, hives, 03/27/19) adhesive tape (Unverified Adverse Reaction, Mild, skin reaction, 03/27/19) latex (Unverified Adverse Reaction, Mild, rash, 03/27/19) sulfamethoxazole (Unverified Adverse Reaction, Mild, rash, 03/27/19) Septra IV allergy from [facility] tramadol (Unverified Adverse Reaction, Mild, Nausea/vomiting, 03/27/19) trimethoprim (Unverified Adverse Reaction, Mild, rash, 03/27/19) Septra IV allergy from [facility] General Appearance: No Apparent Distress HEENT: PERRL/EOMI, Normal ENT Inspection Respiratory: Chest Non Tender, Wheezing (Consistent with COPD) Cardiovascular: Regular Rate, Rhythm, No Edema, No Murmur Gastrointestinal: Normal Bowel Sounds, Non Tender, Soft Extremity: Non Tender, No Calf Tenderness, No Pedal Edema Skin: Normal Color, Warm/Dry Neurologic/Psychiatric: Alert, Oriented x3, Normal Mood/Affect Discharge Summary Date of Admission Apr 24, 2022 at 20:06 Date of Discharge Clinical Quality Measures AMI/AHF: Reason MAR-I/ARB not given: Hypotension Pneumonia: Pseudomonal Risk: COPD MELLY LOZANO MD 04/26/22 1424: Discharge Summary Hospital Course Problems/Diagnosis: (1) CAP (community acquired pneumonia) Status: Acute Qualifiers: Qualified Codes: J18.9 - Pneumonia, unspecified organism (2) Hypotension Status: Resolved Resolution Date/Time: 04/26/22 @ 11:20 Qualifiers: Qualified Codes: I95.89 - Other hypotension; E86.1 - Hypovolemia (3) NENA (acute kidney injury) Status: Acute (4) Mass of right lung Status: Acute Hospital Course Pt admitted with patchy diffuse infiltrates, have been present on CT for a few months with varying levels of improvement and worsening, also with history of lung nodule and referred outpatient to Pulmonology but has not been, does not think she would want biopsy done even if recommended because she doesn't believe she would want treatment if cancer were found. She did meet with general surgery and discuss that with them as well. We did recommend she see Pulm due to her relatively recent need for home supplemental oxygen as well as the now approaching chronic nature of her bilateral diffuse pulmonary infiltrates in spite of multiple rounds of antibiotics. For her hypotension, lisinopril had already been stopped outpatient, but she still was having low BP and also poor intake due to poor appetite. She had lasix increased after hospital stay in March due to acute on chronic CHF, but seems to be unable to tolerate higher dose with recurrent NENA and hypotension. We also decreased her ropinorole to once per day due to her hypotension. Of note, she also had prescriptions in her external med history for 3 different SSRIs and on further investigation, we found that she had established care for uncertain reason in November with an FM doc in [place], [place] who prescribed sertraline, and the patient later called in and asked to switch to Lexapro which was done. [facility] confirmed they have not seen her since then although they had recommended follow up in a couple of [facility], and also note there was not a specific reason documented for establishing care there in November. This information was also relayed to her PCP in [place], Dr. Victoria who had been prescribing paroxetine. On d/c, continued only escitalopram. Also prescribed cefdinir for her pneumonia, prednisone for COPD exacerbation and adjusted lasix to every other day. she was discharged with services and on 2 lpm supplemental oxygen which was her recent baseline after hospitalization in March. Assessment/Pt DC Instructions Follow up with Dr. Victoria within a week of discharge. Referral has been placed to Dr. Contreras (Pulmonology). Follow up with Dr. Zaragoza (Cardiology) as directed. Discharge Physical Examination Allergies: Coded Allergies: Sulfa (Sulfonamide Antibiotics) (Unverified Adverse Reaction, Mild, hives, 03/27/19) adhesive tape (Unverified Adverse Reaction, Mild, skin reaction, 03/27/19) latex (Unverified Adverse Reaction, Mild, rash, 03/27/19) sulfamethoxazole (Unverified Adverse Reaction, Mild, rash, 03/27/19) Septra IV allergy from [facility] tramadol (Unverified Adverse Reaction, Mild, Nausea/vomiting, 03/27/19) trimethoprim (Unverified Adverse Reaction, Mild, rash, 03/27/19) Septra IV allergy from [employer] Supervisory-Addendum Brief Verification & Attestation Participated in pt care: history, MDM, physical Personally performed: exam, history, MDM, supervision of care Care discussed with: Medical Student Procedures: n/a I personally saw and examined patient today and confirmed documentation by the medical student. AMELIA DEY Apr 26, 2022 11:18 MELLY LOZANO MD Apr 26, 2022 14:24
[2022-04-26 12:00] VITALS: BP 115/57
--- NOTE | 2022-04-26 12:03 | Occupational Ther Daily Note ---
OT Current Status-Daily Note Subjective Pt asleep in bed upon arrival. She agreed to OT and education about AE. Appearance Pt left sitting in recliner with all needs within reach. Mental Status/Objective Patient Orientation: Person Attachments: IV ADL-Treatment Therapy Code Descriptions/Definitions Functional [place] Measure: 0=Not Assessed/NA 4=Minimal Assistance 1=Total Assistance 5=Supervision or Setup 2=Maximal Assistance 6=Modified [place] 3=Moderate Assistance 7=Complete IndependenceSCALE: Activities may be completed with or without assistive devices. 0-Nontqnmeqm-cokveng completes the activity by him/herself with no assistance from a helper. 5-Set-up or Clean-up Assistance-helper sets up or cleans up; patient completes activity. [place] assists only prior to or following the activity. 4-Supervision or Touching Assistance-helper provides verbal cues and/or touching/steadying and/or contact guard assistance as patient completes activity. Assistance may be provided throughout the activity or intermittently. 3-Partial/Moderate Assistance-helper does LESS THAN HALF the effort. [place] lifts, holds or supports trunk or limbs, but provides less than half the effort. 2-Substantial/Maximal Assistance-helper does MORE THAN HALF the effort. [place] lifts or holds trunk or limbs and provides more than half the effort. 8-Velnoklhd-omudjx does ALL the effort. Patient does none of the effort to complete the activity. Or, the assistance of 2 or more helpers is required for the patient to complete the activity. If activity was not attempted, code reason: 7-Patient Refused. 9-Not Applicable-not attempted and the patient did not perform the activity befo re the current illness, exacerbation or injury. 10-Not Attempted due to Environmental Limitations-(lack of equipment, weather re straints, etc.). 88-Not Attempted due to Medical Conditions or Safety Concerns. On/Off Footwear: 3 Therapist demonstrated proper technique and gave education on the importance of a advanced registered nurse and sock aide to assist with ADLs due to increased back pain. Pt required mod verbal and visual cues to use sock aide with fair retention. Sit<>stand transfer: SBA. Pt ambulated ~5 feet to chair with walker; cues for walker management and safety. Education OT Patient Education: Correct positioning, Energy conservation, Modified ADL techniques, Progress toward Goal/Update tx plan, Purpose of tx/functional activities, Rehab process, Safety issues, Transfer techniques, Use of adapted equipment Teaching Recipient: Patient Teaching Methods: Demonstration, Discussion Response to Teaching: Verbalize Understanding, Return Demonstration, Reinforcement Needed OT [employer] Styling Intern Goals Jail Goals Time Frame: May 05, 2022 Toileting Hygiene (QC): 4 Shower/Bathe Self (QC): 4 Upper Body Dressing (QC): 5 Lower Body Dressing (QC): 4 On/Off Footwear (QC): 4 1=Demonstrate adherence to instructed precautions during ADL tasks. 2=Patient will verbalize/demonstrate understanding of assistive devices/modifications for ADL. 3=Patient will improve strength/tolerance for activity to enable patient to perform ADL's. OT Education/Plan Problem List/Assessment Assessment: Decreased Activ Tolerance, Decreased Safety Aware, Decreased UE Strength, Impaired Funct Balance, Impaired I ADL's, Impaired Self-Care Skills Discharge Recommendations Plan/Recommendations: Continue POC Treatment Plan/Plan of Care Treatment,Training & Education: Yes Patient would benefit from OT for education, treatment and training to promote independence in ADL's, mobility, safety and/or upper extremity function for ADL's. Plan of Care: ADL Retraining, Functional Mobility, Group Exercise/Act as Ind, UE Funct Exercise/Act Treatment Duration: May 05, 2022 Frequency: 3 times per week (3-5x/week) Agreement: Yes Rehab Potential: Fair Time/GCodes Start Time: 11:32 Stop Time: 11:42 Total Time Billed (hr/min): 10 Billed Treatment Time 1 visit ADL Karen Mari OT Apr 26, 2022 12:03
[2022-04-26] MEDS ORDERED: FURO20TA4 PO (12:08)
[2022-04-26] MEDS ORDERED: ROPI2TAB6 PO (12:08)
[2022-04-26] MEDS ORDERED: POTA-179 PO (12:08)
[2022-04-26] MEDS ORDERED: CEFD300C3 PO (13:28)
--- NOTE | 2022-04-26 13:37 | D/C HH Face to Face Order ---
D/C Face to Face Orders Instructions for Patient Patient Instructions/FollowUp: Follow up with primary doctor within a week of discharge. Physician to follow Patient: Self Discharge Diet for Home: Low Sodium Diet Patient Data-Allergies,Ht & Wt Patient Allergies: Coded Allergies: Sulfa (Sulfonamide Antibiotics) (Unverified Adverse Reaction, Mild, hives, 03/27/19) adhesive tape (Unverified Adverse Reaction, Mild, skin reaction, 03/27/19) latex (Unverified Adverse Reaction, Mild, rash, 03/27/19) sulfamethoxazole (Unverified Adverse Reaction, Mild, rash, 03/27/19) Septra IV allergy from [employer] tramadol (Unverified Adverse Reaction, Mild, Nausea/vomiting, 03/27/19) trimethoprim (Unverified Adverse Reaction, Mild, rash, 03/27/19) Septra IV allergy from [employer] Height (Feet): 5 Height (Inches): 4.00 Weight (Pounds): 142 Weight (Ounces): 0.0 Home Health Need/Face to Face Date of Face to Face: Apr 26, 2022 Clinical Findings: Generalized weakness and fatigue, Non-healing wound I have seen Pt [id number]: Yes Discharged To: Home Diagnosis/Conditions: See problem list Problems/Diagnosis/Condition: (1) Mass of right lung (2) COPD exacerbation (3) Acute kidney failure (4) RESPIRATORY FAILURE, UNSP, UNSP W HYPOXIA OR HYPERCAPNIA (5) PNA (pneumonia) (6) Acute dehydration (7) Hypotension Patient is Homebound due to: Shortness of breath/distress Homebound Status Due to the above stated illness, injury or surgical procedure (medical condition or diagnosis) and associated clinical findings, the patient is homebound because of his/her inability to leave home except with aid of a supp ortive device and/or person AND leaving the home requires a considerable and taxing effort or is medically contraindicated. Pt req the following assistanc: Aid of another person Home Health Nursing Orders Home Health Services Order: Nursing Services, Physical Therapy-Evaluate & Treat Home Health Infusion Therapy Line Start Date: Apr 24, 2022 Certify Stmt I certify that this patient is under my care and that I, a nurse practitioner or a physician; a financial planning assistant working with me, had a face to face encounter that - meets the physician face to face encounter requirements with this patient as dated. MELLY LOZANO MD Apr 26, 2022 13:37
[2022-04-26] MEDS ORDERED: PRD20T PO (13:39)
== END 2022-04-26 15:50 | disposition home health service (06) ==
LOC: ER FS 16:41 → EDUNIT# 16:52 → 4TH 20:06 → UNDOADMOB 20:06 → 4TH 20:15 → UNDODISOB 04-26 15:50
PROVIDERS: ADMIT Internal Medicine; ATTEND Family Medicine
DX: J18.9 Pneumonia, unspecified organism (principal); I95.9 Hypotension, unspecified; Z79.899 Other long term (current) drug therapy; N17.9 Acute kidney failure, unspecified; R91.8 Other nonspecific abnormal finding of lung field; F17.210 Nicotine dependence, cigarettes, uncomplicated; E83.42 Hypomagnesemia; E86.0 Dehydration
CPT/HCPCS: 36415; 71045; 80053 ×3; 81000; 83605 ×2; 83735 ×2; 83880; 84145; 85025 ×3; 94640 ×2; 94664; 94760 ×2; 96366; 96372; 96375; 96376 ×2; 97162; 97166; 97535; 99284; G0378

== ENCOUNTER 2022-05-14 11:13 | Emergency (ER) | payer MEDICARE ==
[~2022-05-14] VITALS: Ht 165 cm; Wt 56.7 kg
[~2022-05-14 11:13] MED LIST changes: +ACET-2267 PO; +ESCI-2 PO; +LEVO750T PO; +PRD20T PO; +SERT-413 PO
[2022-05-14] MEDS ORDERED: FUROSEMIDE 40 MG/4 ML INJ (LASIX) IVP ONE (11:45)
[2022-05-14] MEDS ORDERED: RT-ALBUTEROL/IPRATROPIUM 3 ML (DUONEB) VIAL IH ONE (11:45)
--- NOTE | 2022-05-14 11:47 | ED Respiratory ---
General Chief Complaint: Respiratory Problems Stated Complaint: SOB Source: patient, family Exam Limitations: no limitations History of Present Illness Date Seen by Provider: May 14, 2022 Time Seen by Provider: 11:16 Initial Comments 86yoF with PMH of chronic hypoxic respiratory failure on 2L baseline O2, COPD, CAD, HTN, and CHF (EF 40%) coming in due to continued SOA. The patient has been symptomatic like this for several months, but felt worse overnight and into the morning. Has had a productive cough for quite some time now which continues. Finished antibiotics well over a week ago. She says she feels like she is better for short period of time while on the antibiotics. She also has breathing treatments at home and she feels better immediately afterwards but this does not last very long. She only has 5 breathing treatments left, and also needs a refill. Denies any fever that she knows of, significant chest pain, abdominal pain, nausea, vomiting, diarrhea, focal weakness or numbness, or any other concerns. She does endorse some lower extremity edema, and did have to change her Lasix to every other day due to kidney issues. Otherwise denying any other acute complaints. Allergies and Home Medications Allergies Coded Allergies: Sulfa (Sulfonamide Antibiotics) (Unverified Adverse Reaction, Mild, hives, 03/27/19) adhesive tape (Unverified Adverse Reaction, Mild, skin reaction, 03/27/19) latex (Unverified Adverse Reaction, Mild, rash, 03/27/19) sulfamethoxazole (Unverified Adverse Reaction, Mild, rash, 03/27/19) Septra IV allergy from [facility] tramadol (Unverified Adverse Reaction, Mild, Nausea/vomiting, 03/27/19) trimethoprim (Unverified Adverse Reaction, Mild, rash, 03/27/19) Septra IV allergy from [facility] Patient Home Medication List Home Medication List Reviewed: Yes Acetaminophen (Tylenol Extra Strength) 500 Mg Tablet, 1,000 MG PO Q8H PRN for PAIN-MILD (1-4), (Reported) Entered as Reported by: JEFFERY GRANT on 04/25/22 1559 Albuterol Sulfate (Ventolin Hfa) 90 Mcg Hfa.aer.ad, 2 PUFF INH Q6H PRN for SHORTNESS OF BREATH, (Reported) Entered as Reported by: SAYRA CRUZ on 03/14/22 1213 Cefdinir (Cefdinir) 300 Mg Capsule, 300 MG PO BID Prescribed by: MELLY LOZANO on 04/26/22 1328 Cefdinir (Cefdinir) 300 Mg Capsule, 300 MG PO BID Prescribed by: NILDA KING on 05/14/22 1234 Escitalopram Oxalate (Escitalopram Oxalate) 10 Mg Tablet, 10 MG PO DAILY, (Reported) Entered as Reported by: Deirdre Rivero on 04/24/222121 Furosemide (Furosemide) 20 Mg Tablet, 20 MG PO Q48H Prescribed by: MELLY LOZANO on 04/26/22 1208 Gabapentin (Gabapentin) 600 Mg Tablet, 600 MG PO TID, (Reported) Entered as Reported by: SAYRA CRUZ on 03/14/22 1213 Hydrocodone/Acetaminophen (Hydrocodone-Acetamin 5-325 mg) 5 Mg-325 Mg Tablet, 0.5-1 EA PO Q8H PRN for PAIN-MODERATE (5-7), (Reported) Entered as Reported by: SAYRA CRUZ on 03/14/22 1213 Ipratropium/Albuterol Sulfate (Iprat-Albut 0.5-3(2.5) mg/3 ml) 0.5 Mg-3 Mg (2.5 Mg Base)/3 Ml Ampul.neb, 3 ML IH BID PRN for SHORTNESS OF BREATH, (Reported) Entered as Reported by: JEFFERY GRANT on 04/25/22 1554 Ipratropium/Albuterol Sulfate (Iprat-Albut 0.5-3(2.5) mg/3 ml) 0.5 Mg-3 Mg (2.5 Mg Base)/3 Ml Ampul.neb, 3 ML IH Q6H PRN for SHORTNESS OF BREATH Prescribed by: NILDA KING on 05/14/22 1234 Levothyroxine Sodium (Levothyroxine Sodium) 137 Mcg Tablet, 137 MCG PO DAILY, (Reported) Entered as Reported by: SAYRA CRUZ on 03/14/22 1220 Metoprolol Succinate (Metoprolol Succinate) 25 Mg Tab.er.24h, 12.5 MG PO DAILY, (Reported) Entered as Reported by: MALIA DUBON on 03/27/19 1710 Omeprazole (Omeprazole) 40 Mg Capsule.dr, 40 MG PO BID, (Reported) Entered as Reported by: SAYRA CRUZ on 03/14/22 1213 Potassium Chloride (Potassium Chloride) 20 Meq Tab.er.prt, 20 MEQ PO Q48H Prescribed by: MELLY LOZANO on 04/26/22 1208 Prednisone (Prednisone) 20 Mg Tab, 40 MG PO DAILY Prescribed by: MELLY LOZANO on 04/26/22 1339 Ropinirole HCl (Ropinirole HCl) 2 Mg Tablet, 2 MG PO HS Prescribed by: MELLY LOZANO on 04/26/22 1208 Review of Systems Review of Systems Constitutional: No fever EENTM: No blurred vision Respiratory: cough, short of breath Cardiovascular: No chest pain Gastrointestinal: No abdominal pain Genitourinary: no symptoms reported Musculoskeletal: no symptoms reported Skin: no symptoms reported Psychiatric/Neurological: No Symptoms Reported Hematologic/Lymphatic: No Symptoms Reported Immunological/Allergic: no symptoms reported All Other Systems Reviewed Negative Unless Noted: Yes Past Cpzgjjp-Vjjmpg-Upxcmm Hx Patient Social History Tobacco Use?: No Smoking Status: Former Smoker Substance use?: No Alcohol Use?: No Pt feels they are or have been: No Immunizations Up To Date Tetanus Booster (TDap): Less than 5yrs First/Initial COVID19 Vaccinat: 2020 Second COVID19 Vaccination Meir: 2020 Third COVID19 Vaccination Date: 2020 Seasonal Allergies Seasonal Allergies: Yes Past Medical History Surgery/Hospitalization HX: Left Mastectomy; COPD; Pulmonary edema Surgeries: Yes (L Mastectomy w/nodes; double bypass, tunneled [place] port) Breast, CABG Respiratory: No COPD Cardiac: Yes (Heart failure; left systolic, 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 dz) Neuropathy, Vertigo Genitourinary: No Gastrointestinal: Yes (Gastritis, Duodenitis,) Gastroesophageal Reflux, Esophagitis, Gall Bladder Disease Musculoskeletal: Yes (Frequent sciatica issues, has RLS, complete rupture rotator cuff, ) Arthritis Endocrine: Yes Hypothyroidsim HEENT: No Cancer: Yes (Myelodysplastic Syndrome, Inflammatory CA L breast) Breast Did You Recieve Any Treatments: Yes What Type of Treatment Did You: Surgical Intervention Psychosocial: Yes Anxiety Integumentary: No Blood Disorders: No Family Medical History No Pertinent Family Hx Physical Exam Vital Signs - First Documented 05/14/22 11:25 Temp 36.1 Pulse 59 Resp 20 B/P (MAP) 124/70 (88) Pulse Ox 94 O2 Delivery Room Air Capillary Refill : Height: 5'4.00" Weight: 142lbs. 0.0oz. 64.266292rb; 176.99 BMI Method:Stated General Appearance: WD/WN, no apparent distress Eyes: Bilateral Eye Normal Inspection HEENT: PERRL/EOMI, normal ENT inspection, pharynx normal Neck: non-tender, full range of motion, supple, normal inspection Respiratory: chest non-tender, no respiratory distress, no accessory muscle use, crackles Cardiovascular: regular rate, rhythm, no murmur, other (Bilateral 1+ lower extremity edema) Gastrointestinal: normal bowel sounds, non tender, soft; No distended, No guarding Extremities: normal range of motion, non-tender, no calf tenderness, normal capillary refill, pedal edema Neurologic/Psychiatric: no motor/sensory deficits, alert, normal mood/affect Skin: normal color, warm/dry Lymphatic: no adenopathy Procedures/Interventions Suture Size: 5-0 Progress/Results/Core Measures Suspected Sepsis SIRS Temperature: Pulse: Respiratory Rate: Laboratory Tests 05/14/22 11:50: White Blood Count 7.8 Blood Pressure / Mean: Laboratory Tests 05/14/22 11:50: Creatinine 1.03, INR Comment 1.0, Platelet Count 275, Total Bilirubin 0.3 Results/Orders Lab Results Laboratory Tests Test 05/14/22 11:50 Range/Units White Blood Count 7.8 4.3-11.0 10^3/uL Red Blood Count 3.65 L 3.80-5.11 10^6/uL Hemoglobin 10.9 L 11.5-16.0 g/dL Hematocrit 34 L 35-52 % Mean Corpuscular Volume 94 80-99 fL Mean Corpuscular Hemoglobin 30 25-34 pg Mean Corpuscular Hemoglobin Concent 32 32-36 g/dL Red Cell Distribution Width 15.2 H 10.0-14.5 % Platelet Count 275 130-400 10^3/uL Mean Platelet Volume 10.1 9.0-12.2 fL Immature Granulocyte % (Auto) 0 % Neutrophils (%) (Auto) 78 H 42-75 % Lymphocytes (%) (Auto) 10 L 12-44 % Monocytes (%) (Auto) 9 0-12 % Eosinophils (%) (Auto) 3 0-10 % Basophils (%) (Auto) 0 0-10 % Neutrophils # (Auto) 6.1 1.8-7.8 10^3/uL Lymphocytes # (Auto) 0.8 L 1.0-4.0 10^3/uL Monocytes # (Auto) 0.7 0.0-1.0 10^3/uL Eosinophils # (Auto) 0.2 0.0-0.3 10^3/uL Basophils # (Auto) 0.0 0.0-0.1 10^3/uL Immature Granulocyte # (Auto) 0.0 0.0-0.1 10^3/uL Prothrombin Time 13.6 12.2-14.7 SEC INR Comment 1.0 0.8-1.4 Activated Partial Thromboplast Time 31 24-35 SEC Sodium Level 137 135-145 MMOL/L Potassium Level 4.4 3.6-5.0 MMOL/L Chloride Level 100 98-107 MMOL/L Carbon Dioxide Level 27 21-32 MMOL/L Anion Gap 10 5-14 MMOL/L Blood Urea Nitrogen 12 7-18 MG/DL Creatinine 1.03 0.60-1.30 MG/DL Estimat Glomerular Filtration Rate 53 BUN/Creatinine Ratio 12 Glucose Level 126 H 70-105 MG/DL Calcium Level 10.2 H 8.5-10.1 MG/DL Corrected Calcium 10.8 H 8.5-10.1 MG/DL Magnesium Level 1.8 1.6-2.4 MG/DL Total Bilirubin 0.3 0.1-1.0 MG/DL Aspartate Amino Transf (AST/SGOT) 31 5-34 U/L Alanine Aminotransferase (ALT/SGPT) 12 0-55 U/L Alkaline Phosphatase 120 40-136 U/L Troponin I < 0.30 <0.30 NG/ML Pro-B-Type Natriuretic Peptide 3404.0 H <450.0 PG/ML Total Protein 6.6 6.4-8.2 GM/DL Albumin 3.3 3.2-4.5 GM/DL My Orders Orders - NILDA KING MD Cbc With Automated Diff (05/14/22 11:31) Magnesium (05/14/22 11:31) Chest 1 View Ap/Pa Only (05/14/22 11:31) Ekg Tracing (05/14/22 11:31) Comprehensive Metabolic Panel (05/14/22 11:31) Protime With Inr (05/14/22 11:31) Partial Thromboplastin Time (05/14/22 11:31) O2 (05/14/22 11:31) Monitor-Rhythm Ecg Trace Only (05/14/22 11:31) Ed Iv/Invasive Line Start (05/14/22 11:31) Troponin I Fs (05/14/22 11:31) Probnp Fs (05/14/22 11:31) Pulse Oximetry Order (05/14/22 11:31) Albuterol/Ipra Inhalation Soln (Duoneb I (05/14/22 11:45) Furosemide Injection (Lasix Injection) (05/14/22 11:45) Medications Given in ED Current Medications Medications Dose Ordered Sig/Umm Route Start Time Stop Time Status Last Admin Dose Admin Furosemide 40 mg ONCE ONCE IVP 05/14/22 11:45 05/14/22 11:46 DC 05/14/22 12:19 40 MG Vital Signs/I&O 05/14/22 05/14/22 11:25 13:10 Temp 36.1 36.1 Pulse 59 65 Resp 20 20 B/P (MAP) 124/70 (88) 142/94 Pulse Ox 94 98 O2 Delivery Room Air Room Air Capillary Refill : Progress Note : Progress Note 86-year-old female with above history coming in due to shortness of breath. ABCs were intact and vitals were stable on presentation. On her baseline 2 L oxygen her saturation is anywhere between 94 to 96%. Lungs with crackles and she does have lower extremity edema. Likely with her history is volume overloaded. It is a balance with her in particular because she likely benefits from more Lasix, but is unable to handle it due to blood pressure and her kidney function. Given her symptoms today, we will go ahead and treat her with 40 mg of IV Lasix. BNP elevated, troponin negative, EKG with no acute ischemic changes, labs otherwise with no obvious cause for her dyspnea. Chest x-ray with continued infiltrates and right sided pleural effusion which is mild. I had an in-depth with discussion with the patient at the bedside lasting roughly 45 minutes discussing her care. We discussed that she has been in the ER in the hospital numerous times of the past several months and continues to worsen despite all medical therapies. The patient states that she would not want aggressive treatments including would not want any type of bronchoscopy, biopsy, chemotherapy if this was related to cancer. She says her goals would be to be home with friends and her animals. She prefers not to be in the hospital. In the end, the patient has agreed that she wants to be on hospice. I discussed it is the weekend, and she should call her primary physician on Monday to get this set up. Give her some antibiotics and Lasix here for comfort if this is potentially infectious versus heart failure related. She was then discharged home in stable condition. ECG Initial ECG Impression Date: May 14, 2022 Initial ECG Impression Time: 11:38 Initial ECG Rate: 71 Initial ECG Rhythm: Normal Sinus Initial ECG Intervals Narrow QRS, normal axis, no significant ST elevation Diagnostic Imaging Diagonstic Imaging: Xray (chest) Comments [facility] [place] [place] NAME: TIMI BREWER [facility] REC#: [id number] PT STATUS: DEP ER : [id number] PHYSICIAN: NILDA KING MD ADMIT DATE: 05/14/22/ER FS Signed Date of Exam:05/14/22 CHEST 1 VIEW AP/PA ONLY Indication: Dyspnea. Comparison: 04/24/2022. Discussion: Single portable upright view of the chest was obtained. Moderate right pleural effusion is increased. Severe pulmonary infiltrates are stable. Right-sided central line is stable. Median sternotomy is stable. Mild cardiomegaly is stable. No pneumothorax or osseous abnormality. Impression: 1. Moderate right pleural effusion, increased. Severe infiltrates are stable. Dictated by: Dictated on workstation # [id number] Dict: 05/14/22 1157 Trans: 05/14/227 [facility] [id number] Interpreted by: LAWRENCE BRUNER MD Electronically signed by: LAWRENCE BRUNER MD 05/14/22 1327 Departure Impression Primary Impression: Shortness of breath Additional Impressions: Respiratory failure Qualified Codes: J96.11 - Chronic respiratory failure with hypoxia Pulmonary infiltrates Pleural effusion Disposition: 01 HOME, SELF-CARE Condition: Stable Departure-Patient Inst. Decision time for Depature: 12:45 Referrals: FELICITAS SCHAEFER MD (PCP) Primary Care Physician Patient Instructions: Shortness of Breath, Adult ED, Pleural Effusion Add. Discharge Instructions: Your lungs continue to have the infiltrates which could be infection. You also have some extra fluid on your right side of your lung which is likely due to your history of heart failure. I recommend taking your Lasix daily for the next couple of days to try to get some of the extra fluid off, and then you can try going back to every other day. More antibiotics as well as the breathing treatments were sent to the pharmacy. I recommend calling Dr. SCHAEFER's office in the morning on Monday to discuss being put on hospice like we discussed. Scripts Ipratropium/Albuterol Sulfate (Iprat-Albut 0.5-3(2.5) mg/3 ml) 0.5 Mg-3 Mg (2.5 Mg Base)/3 Ml Ampul.neb 3 ML IH Q6H PRN for SHORTNESS OF BREATH for 30 Days, #120 EACH Prov: NILDA KING MD 05/14/22 Cefdinir (Cefdinir) 300 Mg Capsule 300 MG PO BID for 7 Days, #14 CAP 0 Refills Prov: NILDA KING MD 05/14/22 NILDA KING MD May 14, 2022 11:47
[2022-05-14 11:54] LABS: BASOPHILS % (AUTO) 0 % (0-10); EOSINOPHILS # (AUTO) 0.2 10^3/uL (0.0-0.3); EOSINOPHILS % (AUTO) 3 % (0-10); HEMATOCRIT 34 % (35-52); HEMOGLOBIN 10.9 g/dL (11.5-16.0); LYMPHOCYTES # (AUTO) 0.8 10^3/uL (1.0-4.0); LYMPHOCYTES % (AUTO) 10 % (12-44); MEAN CORPUSCULAR HEMOGLOBIN 30 pg (25-34); MEAN CORPUSCULAR HGB CONC 32 g/dL (32-36); MEAN CORPUSCULAR VOLUME 94 fL (80-99); MEAN PLATELET VOLUME 10.1 fL (9.0-12.2); MONOCYTES # (AUTO) 0.7 10^3/uL (0.0-1.0); MONOCYTES % (AUTO) 9 % (0-12); NEUTROPHILS # (AUTO) 6.1 10^3/uL (1.8-7.8); NEUTROPHILS % (AUTO) 78 % (42-75); PLATELET COUNT 275 10^3/uL (130-400); WHITE BLOOD COUNT 7.8 10^3/uL (4.3-11.0)
[2022-05-14 12:05] LABS: PROTHROMBIN TIME PATIENT 13.6 SEC (12.2-14.7)
[2022-05-14 12:14] LABS: BILIRUBIN,TOTAL 0.3 MG/DL (0.1-1.0); CALCIUM 10.2 MG/DL (8.5-10.1); CREATININE SERUM 1.03 MG/DL (0.60-1.30); MAGNESIUM 1.8 MG/DL (1.6-2.4); POTASSIUM 4.4 MMOL/L (3.6-5.0)
[2022-05-14 12:15] LABS: ALBUMIN 3.3 GM/DL (3.2-4.5); TOTAL PROTEIN 6.6 GM/DL (6.4-8.2)
--- NOTE | 2022-05-14 12:27 | Diagnostic Imaging Report ---
Indication: Dyspnea. Comparison: 04/24/2022. Discussion: Single portable upright view of the chest was obtained. Moderate right pleural effusion is increased. Severe pulmonary infiltrates are stable. Right-sided central line is stable. Median sternotomy is stable. Mild cardiomegaly is stable. No pneumothorax or osseous abnormality. Impression: 1. Moderate right pleural effusion, increased. Severe infiltrates are stable. Dictated by: Dictated on workstation # [id number]
[2022-05-14] MEDS ORDERED: CEFD300C3 PO (12:34)
[2022-05-14] MEDS ORDERED: IPRA3AMP31 IH (12:34)
[2022-05-14 13:10] VITALS: BP 142/94
== END 2022-05-14 13:10 | disposition home or self-care (01) ==
LOC: EDUNIT# 11:13 → ER FS 11:14
DX: J96.90 Respiratory failure, unspecified, unspecified whether with hypoxia or hypercapnia (principal); J90 Pleural effusion, not elsewhere classified; R91.8 Other nonspecific abnormal finding of lung field; Z87.891 Personal history of nicotine dependence; Z91.040 Latex allergy status; Z99.81 Dependence on supplemental oxygen
CPT/HCPCS: 36415; 71045; 80053; 83735; 83880; 84484; 85025; 85610; 85730; 93005; 93041; 96374

== ENCOUNTER 2022-05-16 06:41 | Emergency (ER) | payer MEDICARE ==
[2022-05-16 07:10] LABS: BASOPHILS % (AUTO) 0 % (0-10); EOSINOPHILS # (AUTO) 0.2 10^3/uL (0.0-0.3); EOSINOPHILS % (AUTO) 2 % (0-10); HEMATOCRIT 33 % (35-52); HEMOGLOBIN 10.3 g/dL (11.5-16.0); LYMPHOCYTES # (AUTO) 0.9 10^3/uL (1.0-4.0); LYMPHOCYTES % (AUTO) 10 % (12-44); MEAN CORPUSCULAR HEMOGLOBIN 30 pg (25-34); MEAN CORPUSCULAR HGB CONC 32 g/dL (32-36); MEAN CORPUSCULAR VOLUME 94 fL (80-99); MEAN PLATELET VOLUME 10.9 fL (9.0-12.2); MONOCYTES # (AUTO) 0.8 10^3/uL (0.0-1.0); MONOCYTES % (AUTO) 8 % (0-12); NEUTROPHILS # (AUTO) 7.4 10^3/uL (1.8-7.8); NEUTROPHILS % (AUTO) 80 % (42-75); PLATELET COUNT 261 10^3/uL (130-400); WHITE BLOOD COUNT 9.3 10^3/uL (4.3-11.0)
--- NOTE | 2022-05-16 07:24 | ED Dyspnea ---
General Chief Complaint: Respiratory Problems Stated Complaint: SOB Nursing Triage Note: Patient has presented to ER with cc of shortness of breath. Patient reports that she has been having more trouble with shortness of breath. Last night she had trouble sleeping, she states that she is better when she gets up and sits up. She took 2 breathing treatments this morning at 0500 and 0530 but she still feels short of breath. She brand EMS and was brought to ER for evaluation. Source of Information: Patient, EMS, Old Records History of Present Illness Date Seen by Provider: May 16, 2022 Time Seen by Provider: 07:00 Initial Comments 86-year-old female presenting with complaints of increased shortness of breath. She states that overnight she felt like her breathing was worse than what it had been. If she was sitting straight up she could breathe easier but laying back at all she became out of breath. She did try 2 breathing treatments at home but felt that it was not helping either. She has a history of chronic CHF, COPD, recurrent pneumonia and is on home O2 at 2Lpm. She was seen May.[address] King for similar complaints and he discussed admission with her but after lengthy discussion she said she wanted to be at home and would be interested in Hospice. Since it was the weekend she was advised to contact PCP Monday morning and she was sent home with directions for taking Lasix to help with fluid overload. Overnight she felt that her breathing was worse again so she called 911 to have EMS bring her back to the ED. She denies fever, chills, nausea, vomiting, abdominal pain, pain with urination. She was having chest tightness but that resolved with increased O2 by n.c. and breathing treatment by EMS. Timing/Duration: Waxing and Waning (chronic dyspnea that is better and worse at times) Severity: Severe Activities at Onset: Rest Prior Episodes/Possible Cause: Chronic Episodes Modifying Factors: Worse With Lying Down Associated Symptoms: Anxiety, Chest Pain (tightness), Cough, Edema Allergies and Home Medications Allergies Coded Allergies: Sulfa (Sulfonamide Antibiotics) (Unverified Adverse Reaction, Mild, hives, 03/27/19) adhesive tape (Unverified Adverse Reaction, Mild, skin reaction, 03/27/19) latex (Unverified Adverse Reaction, Mild, rash, 03/27/19) sulfamethoxazole (Unverified Adverse Reaction, Mild, rash, 03/27/19) Septra IV allergy from [facility] tramadol (Unverified Adverse Reaction, Mild, Nausea/vomiting, 03/27/19) trimethoprim (Unverified Adverse Reaction, Mild, rash, 03/27/19) Septra IV allergy from [facility] Patient Home Medication List Home Medication List Reviewed: Yes Acetaminophen (Tylenol Extra Strength) 500 Mg Tablet, 1,000 MG PO Q8H PRN for PAIN-MILD (1-4), (Reported) Entered as Reported by: JEFFERY GRANT on 04/25/22 1559 Albuterol Sulfate (Ventolin Hfa) 90 Mcg Hfa.aer.ad, 2 PUFF INH Q6H PRN for SHORTNESS OF BREATH, (Reported) Entered as Reported by: SAYRA CRUZ on 03/14/22 1213 Cefdinir (Cefdinir) 300 Mg Capsule, 300 MG PO BID Prescribed by: MELLY LOZANO on 04/26/22 1328 Cefdinir (Cefdinir) 300 Mg Capsule, 300 MG PO BID Prescribed by: NILDA KING on 05/14/22 1234 Escitalopram Oxalate (Escitalopram Oxalate) 10 Mg Tablet, 10 MG PO DAILY, (Reported) Entered as Reported by: Deirdre Rivero on 04/24/22 2122 Furosemide (Furosemide) 20 Mg Tablet, 20 MG PO Q48H Prescribed by: MELLY LOZANO on 04/26/22 1208 Gabapentin (Gabapentin) 600 Mg Tablet, 600 MG PO TID, (Reported) Entered as Reported by: SAYRA CRUZ on 03/14/22 1213 Hydrocodone/Acetaminophen (Hydrocodone-Acetamin 5-325 mg) 5 Mg-325 Mg Tablet, 0.5-1 EA PO Q8H PRN for PAIN-MODERATE (5-7), (Reported) Entered as Reported by: SAYRA CRUZ on 03/14/22 1213 Ipratropium/Albuterol Sulfate (Iprat-Albut 0.5-3(2.5) mg/3 ml) 0.5 Mg-3 Mg (2.5 Mg Base)/3 Ml Ampul.neb, 3 ML IH BID PRN for SHORTNESS OF BREATH, (Reported) Entered as Reported by: JEFFERY GRANT on 04/25/22 1554 Ipratropium/Albuterol Sulfate (Iprat-Albut 0.5-3(2.5) mg/3 ml) 0.5 Mg-3 Mg (2.5 Mg Base)/3 Ml Ampul.neb, 3 ML IH Q6H PRN for SHORTNESS OF BREATH Prescribed by: NILDA KING on 05/14/22 1234 Levothyroxine Sodium (Levothyroxine Sodium) 137 Mcg Tablet, 137 MCG PO DAILY, (Reported) Entered as Reported by: SAYRA CRUZ on 03/14/22 1220 Metoprolol Succinate (Metoprolol Succinate) 25 Mg Tab.er.24h, 12.5 MG PO DAILY, (Reported) Entered as Reported by: MALIA DUBON on 03/27/19 1710 Omeprazole (Omeprazole) 40 Mg Capsule.dr, 40 MG PO BID, (Reported) Entered as Reported by: SAYRA CRUZ on 03/14/22 1213 Potassium Chloride (Potassium Chloride) 20 Meq Tab.er.prt, 20 MEQ PO Q48H Prescribed by: MELLY LOZANO on 04/26/22 1208 Prednisone (Prednisone) 20 Mg Tab, 40 MG PO DAILY Prescribed by: MELLY LOZANO on 04/26/22 1339 Prednisone (Prednisone) 20 Mg Tab, 40 MG PO DAILY Prescribed by: АННА ZAVALA on 05/16/22 0846 Ropinirole HCl (Ropinirole HCl) 2 Mg Tablet, 2 MG PO HS Prescribed by: MELLY LOZANO on 04/26/22 1208 Review of Systems Review of Systems Constitutional: No chills, No fever; malaise EENTM: no symptoms reported Respiratory: cough, orthopnea, short of breath; No stridor; wheezing Cardiovascular: see HPI Gastrointestinal: No nausea, No vomiting Genitourinary: No dysuria Musculoskeletal: no symptoms reported Skin: No rash Psychiatric/Neurological: See HPI Endocrine: No Symptoms Reported Past Tzfxsei-Byqltg-Nbdwww Hx Patient Social History Tobacco Use?: No Use of E-Cig and/or Vaping dev: No Substance use?: No Alcohol Use?: No Immunizations Up To Date Tetanus Booster (TDap): Less than 5yrs First/Initial COVID19 Vaccinat: 2020 Second COVID19 Vaccination Meir: 2020 Third COVID19 Vaccination Date: 2020 Seasonal Allergies Seasonal Allergies: Yes Past Medical History Surgery/Hospitalization HX: Left Mastectomy; COPD; Pulmonary edema Surgeries: Yes (L Mastectomy w/nodes; double bypass, tunneled [place]shong port) Breast, CABG Respiratory: No COPD Cardiac: Yes (Heart failure; left systolic, 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 dz) Neuropathy, Vertigo Genitourinary: No Gastrointestinal: Yes (Gastritis, Duodenitis,) Gastroesophageal Reflux, Esophagitis, Gall Bladder Disease Musculoskeletal: Yes (Frequent sciatica issues, has RLS, complete rupture rotator cuff, ) Arthritis Endocrine: Yes Hypothyroidsim HEENT: No Cancer: Yes (Myelodysplastic Syndrome, Inflammatory CA L breast) Breast Did You Recieve Any Treatments: Yes What Type of Treatment Did You: Surgical Intervention Psychosocial: Yes Anxiety Integumentary: No Blood Disorders: No Family Medical History No Pertinent Family Hx Physical Exam Vital Signs Vital Signs - First Documented 05/16/22 05/16/22 06:50 06:59 Temp 36.9 Pulse 62 Resp 18 B/P (MAP) 117/68 (84) Pulse Ox 98 O2 Delivery Nasal Cannula O2 Flow Rate 6.00 FiO2 98 Capillary Refill : Height, Weight, BMI Height: 5'4.00" Weight: 142lbs. 0.0oz. 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 Norm as Tested Skin: Normal Color, Warm/Dry Procedures/Interventions Suture Size: 5-0 Progress/Results/Core Measures Results/Orders Lab Results Laboratory Tests Test 05/16/22 06:50 Range/Units White Blood Count 9.3 4.3-11.0 10^3/uL Red Blood Count 3.47 L 3.80-5.11 10^6/uL Hemoglobin 10.3 L 11.5-16.0 g/dL Hematocrit 33 L 35-52 % Mean Corpuscular Volume 94 80-99 fL Mean Corpuscular Hemoglobin 30 25-34 pg Mean Corpuscular Hemoglobin Concent 32 32-36 g/dL Red Cell Distribution Width 15.0 H 10.0-14.5 % Platelet Count 261 130-400 10^3/uL Mean Platelet Volume 10.9 9.0-12.2 fL Immature Granulocyte % (Auto) 0 % Neutrophils (%) (Auto) 80 H 42-75 % Lymphocytes (%) (Auto) 10 L 12-44 % Monocytes (%) (Auto) 8 0-12 % Eosinophils (%) (Auto) 2 0-10 % Basophils (%) (Auto) 0 0-10 % Neutrophils # (Auto) 7.4 1.8-7.8 10^3/uL Lymphocytes # (Auto) 0.9 L 1.0-4.0 10^3/uL Monocytes # (Auto) 0.8 0.0-1.0 10^3/uL Eosinophils # (Auto) 0.2 0.0-0.3 10^3/uL Basophils # (Auto) 0.0 0.0-0.1 10^3/uL Immature Granulocyte # (Auto) 0.0 0.0-0.1 10^3/uL Prothrombin Time 15.8 H 12.2-14.7 SEC INR Comment 1.2 0.8-1.4 Activated Partial Thromboplast Time 33 24-35 SEC Sodium Level 137 135-145 MMOL/L Potassium Level 5.2 H 3.6-5.0 MMOL/L Chloride Level 101 98-107 MMOL/L Carbon Dioxide Level 25 21-32 MMOL/L Anion Gap 11 5-14 MMOL/L Blood Urea Nitrogen 14 7-18 MG/DL Creatinine 0.95 0.60-1.30 MG/DL Estimat Glomerular Filtration Rate 58 BUN/Creatinine Ratio 15 Glucose Level 102 70-105 MG/DL Calcium Level 10.2 H 8.5-10.1 MG/DL Corrected Calcium 11.0 H 8.5-10.1 MG/DL Magnesium Level 1.8 1.6-2.4 MG/DL Total Bilirubin 0.3 0.1-1.0 MG/DL Aspartate Amino Transf (AST/SGOT) 49 H 5-34 U/L Alanine Aminotransferase (ALT/SGPT) 14 0-55 U/L Alkaline Phosphatase 119 40-136 U/L Troponin I < 0.30 <0.30 NG/ML Pro-B-Type Natriuretic Peptide 2512.0 H <450.0 PG/ML Total Protein 6.5 6.4-8.2 GM/DL Albumin 3.0 L 3.2-4.5 GM/DL My Orders Orders - АННА ZAVALA MD Cbc With Automated Diff (05/16/22 07:00) Magnesium (05/16/22 07:00) Chest 1 View Ap/Pa Only (05/16/22 07:00) Ekg Tracing (05/16/22 07:00) Comprehensive Metabolic Panel (05/16/22 07:00) Protime With Inr (05/16/22 07:00) Partial Thromboplastin Time (05/16/22 07:00) O2 (05/16/22 07:00) Monitor-Rhythm Ecg Trace Only (05/16/22 07:00) Ed Iv/Invasive Line Start (05/16/22 07:00) Troponin I Fs (05/16/22 07:00) Probnp Fs (05/16/22 07:00) Albuterol/Ipra Inhalation Soln (Duoneb I (05/16/22 08:09) Methylprednisolone Sod Succ (Solu-Medrol (05/16/22 08:09) Furosemide Injection (Lasix Injection) (05/16/22 08:09) Svn Small Volume Nebulizer (05/16/22 08:09) Vital Signs/I&O 05/16/22 05/16/22 06:50 06:59 Temp 36.9 Pulse 62 Resp 18 B/P (MAP) 117/68 (84) Pulse Ox 98 O2 Delivery Nasal Cannula Nasal Cannula O2 Flow Rate 6.00 6.00 FiO2 98 Blood Pressure Mean: 84 Progress Progress Note #1: Progress Note Obtain basic labs including cardiac enzymes and BNP. Electrocardiogram for her chest tightness. Chest x-ray to evaluate her shortness of breath. Compare this morning's test to ones that she had on May 14. Differential diagnosis includes congestive heart failure, pulmonary edema, pneumonia, COPD exacerbation, myocardial infarction Progress Note #2: Time: 08:01 Progress Note Chest x-ray continues to show diffuse pulmonary edema and right sided pleural effusion that appears to be a little worse today compared to May 14. There is also a small left-sided pleural effusion now. She has stable CBC without el evation of her white blood cell count. Hemoglobin is stable as well. She has no acute significant abnormality on her chemistry panel to indicate worsening breathing. Her creatinine is stable and her troponin is still less than 0.3. She has proBNP of 2512 which is down from over 3400 on May 14. Patient is resting comfortably in the room and states that she feels like she is breathing better. She continues to not want admission to the hospital. Since she has improved with her breathing and is not showing signs of acute pneumonia, anemia, worsening renal failure, worsening heart failure will check with Dr. Victoria and the [facility] clinic to see if they would be willing to help the patient get placed on hospice care. While working on contacting the clinic we will give an additional dose of Lasix 80 mg IV x1, a DuoNeb breathing treatment, Solu-Medrol 125 mg IV x1. With her history of COPD this may help with her breathing in addition to the diuretic. Progress Note #3: Progress Note [address] Victoria and he was agreeable to having the patient go on hospice care. He would have the clinic place an order and see about having someone do an intake with the patient here in the emergency department before she goes home if possible. Will order steroids for burst to see if that helps with her COPD and shortness of breath. Continue with Lasix for her heart failure. Follow-up with Dr. Victoria and hospice care for further assistance with her breathing and chronic medical conditions Initial ECG Impression Date: May 16, 2022 Initial ECG Impression Time: 07:18 Initial ECG Rate: 76 Initial ECG Rhythm: Normal Sinus Initial ECG Comparisson: Unchanged Comment Sinus rhythm with frequent PVCs in a bigeminal pattern. Heart rate 76 bpm. [place] interval [address] elevation. QT interval 366 ms with a QTc interval 397 ms. Overall appears similar to prior tracings in the system. Diagnostic Imaging Diagonstic Imaging: Xray Plain Films/CT/US/NM/MRI: chest Comments NAME: ADALBERTO BREWERRA [place] MED REC#: [id number] PT STATUS: REG ER : 1935 PHYSICIAN: АННА ZAVALA MD ADMIT DATE: 05/16/22/ER FS Draft Date of Exam:05/16/22 CHEST 1 VIEW AP/PA ONLY HISTORY: Shortness of breath. COMPARISON: 05/14/2022 TECHNIQUE: Frontal view of the chest. FINDINGS: There is a moderate right pleural effusion which appears mildly increased since the prior exam. There are bilateral interstitial and airspace opacities with central predominance. These appear similar to the prior study. There is no pneumothorax. There may be a small left pleural effusion. The cardiac silhouette is normal in size. Sternotomy wires and post-CABG changes are seen. The right central line projects over the SVC. IMPRESSION: 1. Moderate right pleural effusion appears slightly increased since the prior exam. Small left pleural effusion. 2. Bilateral airspace and interstitial opacities, may be due to edema or infection. Dictated on workstation # [id number] Dict: 05/16/22 0717 Trans: 05/16/22 0733 [id number] Interpreted by: HELADIO ESCAMILLA MD Electronically signed by: Reviewed: Reviewed by Me Departure Impression Primary Impression: Acute on chronic combined systolic and diastolic congestive heart failure Additional Impressions: Shortness of breath Pleural effusion due to CHF (congestive heart failure) COPD exacerbation Disposition: 01 HOME, SELF-CARE Condition: Stable Departure-Patient Inst. Decision time for Depature: 08:43 Referrals: FELICITAS VICTORIA MD (PCP/Family) Primary Care Physician Patient Instructions: COPD Diet, COPD Exacerbation, Adult ED, Heart Failure ED, Shortness of Breath, Adult ED Add. Discharge Instructions: Take steroid to help with breathing and continue with Lasix for fluid built up in your chest. Work with Dr. Victoria and Hospice service to help with your breathing and keep you comfortable at home. All discharge instructions reviewed with patient and/or family. Voiced understanding. Scripts Prednisone (Prednisone) 20 Mg Tab 40 MG PO DAILY for copd exacerbation for 5 Days, #10 TAB 0 Refills Prov: АННА ZAVALA MD 05/16/22 АННА ZAVALA MD May 16, 2022 07:24
--- NOTE | 2022-05-16 07:34 | Diagnostic Imaging Report ---
HISTORY: Shortness of breath. COMPARISON: 05/14/2022 TECHNIQUE: Frontal view of the chest. FINDINGS: There is a moderate right pleural effusion which appears mildly increased since the prior exam. There are bilateral interstitial and airspace opacities with central predominance. These appear similar to the prior study. There is no pneumothorax. There may be a small left pleural effusion. The cardiac silhouette is normal in size. Sternotomy wires and post-CABG changes are seen. The right central line projects over the SVC. IMPRESSION: 1. Moderate right pleural effusion appears slightly increased since the prior exam. Small left pleural effusion. 2. Bilateral airspace and interstitial opacities, may be due to edema or infection. Dictated by: Dictated on workstation # [id number]
[2022-05-16 07:41] LABS: PROTHROMBIN TIME PATIENT 15.8 SEC (12.2-14.7)
[2022-05-16 07:42] LABS: INR 1.2 (0.8-1.4); POTASSIUM 5.2 MMOL/L (3.6-5.0)
[2022-05-16 07:43] LABS: BILIRUBIN,TOTAL 0.3 MG/DL (0.1-1.0); CALCIUM 10.2 MG/DL (8.5-10.1); CREATININE SERUM 0.95 MG/DL (0.60-1.30); MAGNESIUM 1.8 MG/DL (1.6-2.4)
[2022-05-16 07:44] LABS: TOTAL PROTEIN 6.5 GM/DL (6.4-8.2)
[2022-05-16] MEDS ORDERED: FUROSEMIDE 40 MG/4 ML INJ (LASIX) IVP STA (08:09)
[2022-05-16] MEDS ORDERED: methylPREDNISolone 125 MG (Solu-MEDROL) VIAL IVP STA (08:09)
[2022-05-16] MEDS ORDERED: RT-ALBUTEROL/IPRATROPIUM 3 ML (DUONEB) VIAL INH STA (08:09)
[2022-05-16] MEDS ORDERED: PRD20T PO (08:46)
[2022-05-16 10:56] VITALS: BP 105/61
== END 2022-05-16 10:45 | disposition home or self-care (01) ==
LOC: EDUNIT# 06:41 → ER FS 06:44
DX: I11.0 Hypertensive heart disease with heart failure (principal); I50.43 Acute on chronic combined systolic (congestive) and diastolic (congestive) heart failure; J44.1 Chronic obstructive pulmonary disease with (acute) exacerbation; Z99.81 Dependence on supplemental oxygen; Z91.040 Latex allergy status
CPT/HCPCS: 36415; 71045; 80053; 83735; 83880; 84484; 85025; 85610; 85730; 93005; 93041; 94640; 96374; 96375

== ENCOUNTER 2022-05-21 15:54 | Emergency (ER) | payer MEDICARE ==
[2022-05-21 16:09] LABS: BASOPHILS % (AUTO) 0 % (0-10); EOSINOPHILS % (AUTO) 0 % (0-10); HEMATOCRIT 38 % (35-52); HEMOGLOBIN 11.8 g/dL (11.5-16.0); LYMPHOCYTES # (AUTO) 0.3 10^3/uL (1.0-4.0); LYMPHOCYTES % (AUTO) 2 % (12-44); MEAN CORPUSCULAR HEMOGLOBIN 30 pg (25-34); MEAN CORPUSCULAR HGB CONC 31 g/dL (32-36); MEAN CORPUSCULAR VOLUME 96 fL (80-99); MEAN PLATELET VOLUME 10.4 fL (9.0-12.2); MONOCYTES # (AUTO) 0.8 10^3/uL (0.0-1.0); MONOCYTES % (AUTO) 6 % (0-12); NEUTROPHILS # (AUTO) 12.2 10^3/uL (1.8-7.8); NEUTROPHILS % (AUTO) 92 % (42-75); PLATELET COUNT 384 10^3/uL (130-400); WHITE BLOOD COUNT 13.3 10^3/uL (4.3-11.0)
--- NOTE | 2022-05-21 16:11 | ED Dyspnea ---
General Stated Complaint: SOB Source of Information: Patient History of Present Illness Date Seen by Provider: May 21, 2022 Time Seen by Provider: 15:55 Initial Comments 86-year-old female presenting with complaints of increased shortness of breath and dyspnea. She has chronic COPD and chronic shortness of breath. She was seen last weekend for similar complaints and had agreed to be admitted to hospice which was done on the third. She states that she canceled hospice because they upset her during the week. She has not been able to lay flat to sleep. She has not been getting up out of bed because of being so short of breath. She denies having fever or chills. She has been coughing but has not been able to bring anything up. All these symptoms were present last week and is well. She was admitted and the middle of April for pneumonia to [facility]. She states that if she needs to be admitted today she would like to go to [place]. Timing/Duration: 1 Week Severity: Severe Activities at Onset: None Prior Episodes/Possible Cause: Chronic Episodes, Frequent Episodes Modifying Factors: Worse With Activity Associated Symptoms: Anxiety, Cough, Insomnia, Loss of Appetite, Weakness, Wheezing Allergies and Home Medications Allergies Coded Allergies: Sulfa (Sulfonamide Antibiotics) (Unverified Adverse Reaction, Mild, hives, 03/27/19) adhesive tape (Unverified Adverse Reaction, Mild, skin reaction, 03/27/19) latex (Unverified Adverse Reaction, Mild, rash, 03/27/19) sulfamethoxazole (Unverified Adverse Reaction, Mild, rash, 03/27/19) Septra IV allergy from [facility] tramadol (Unverified Adverse Reaction, Mild, Nausea/vomiting, 03/27/19) trimethoprim (Unverified Adverse Reaction, Mild, rash, 03/27/19) Septra IV allergy from [facility] Patient Home Medication List Home Medication List Reviewed: Yes Acetaminophen (Tylenol Extra Strength) 500 Mg Tablet, 1,000 MG PO Q8H PRN for PAIN-MILD (1-4), (Reported) Entered as Reported by: JEFFERY GRANT on 04/25/22 1559 Albuterol Sulfate (Ventolin Hfa) 90 Mcg Hfa.aer.ad, 2 PUFF INH Q6H PRN for SHORTNESS OF BREATH, (Reported) Entered as Reported by: SAYRA CRUZ on 03/14/22 1213 Cefdinir (Cefdinir) 300 Mg Capsule, 300 MG PO BID Prescribed by: MELLY LOZANO on 04/26/22 1328 Cefdinir (Cefdinir) 300 Mg Capsule, 300 MG PO BID Prescribed by: NILDA KING on 05/14/22 1234 Escitalopram Oxalate (Escitalopram Oxalate) 10 Mg Tablet, 10 MG PO DAILY, (Reported) Entered as Reported by: Deirdre Rivero on 04/24/222121 Furosemide (Furosemide) 20 Mg Tablet, 20 MG PO Q48H Prescribed by: MELLY LOZANO on 04/26/22 1208 Gabapentin (Gabapentin) 600 Mg Tablet, 600 MG PO TID, (Reported) Entered as Reported by: SAYRA CRUZ on 03/14/22 1213 Hydrocodone/Acetaminophen (Hydrocodone-Acetamin 5-325 mg) 5 Mg-325 Mg Tablet, 0.5-1 EA PO Q8H PRN for PAIN-MODERATE (5-7), (Reported) Entered as Reported by: SAYRA CRUZ on 03/14/22 1213 Ipratropium/Albuterol Sulfate (Iprat-Albut 0.5-3(2.5) mg/3 ml) 0.5 Mg-3 Mg (2.5 Mg Base)/3 Ml Ampul.neb, 3 ML IH BID PRN for SHORTNESS OF BREATH, (Reported) Entered as Reported by: JEFFERY GRANT on 04/25/22 1554 Ipratropium/Albuterol Sulfate (Iprat-Albut 0.5-3(2.5) mg/3 ml) 0.5 Mg-3 Mg (2.5 Mg Base)/3 Ml Ampul.neb, 3 ML IH Q6H PRN for SHORTNESS OF BREATH Prescribed by: NILDA KING on 05/14/22 1234 Levothyroxine Sodium (Levothyroxine Sodium) 137 Mcg Tablet, 137 MCG PO DAILY, (Reported) Entered as Reported by: SAYRA CRUZ on 03/14/22 1220 Metoprolol Succinate (Metoprolol Succinate) 25 Mg Tab.er.24h, 12.5 MG PO DAILY, (Reported) Entered as Reported by: MALIA DUBON on 03/27/19 1710 Omeprazole (Omeprazole) 40 Mg Capsule.dr, 40 MG PO BID, (Reported) Entered as Reported by: SAYRA CRUZ on 03/14/22 1213 Potassium Chloride (Potassium Chloride) 20 Meq Tab.er.prt, 20 MEQ PO Q48H Prescribed by: MELLY LOZANO on 04/26/22 1208 Prednisone (Prednisone) 20 Mg Tab, 40 MG PO DAILY Prescribed by: MELLY LOZANO on 04/26/22 1339 Prednisone (Prednisone) 20 Mg Tab, 40 MG PO DAILY Prescribed by: АННА ZAVALA on 05/16/22 0846 Ropinirole HCl (Ropinirole HCl) 2 Mg Tablet, 2 MG PO HS Prescribed by: MELLY LOZANO on 04/26/22 1208 Review of Systems Review of Systems Constitutional: No chills, No diaphoresis, No fever; malaise EENTM: no symptoms reported Respiratory: see HPI, cough, dyspnea on exertion, orthopnea, short of breath; No stridor; wheezing Cardiovascular: No chest pain Gastrointestinal: No nausea, No vomiting Genitourinary: No dysuria Musculoskeletal: no symptoms reported Skin: No rash Psychiatric/Neurological: Denies Headache Hematologic/Lymphatic: Denies Blood Clots, Denies Easy Bleeding, Denies Easy Bruising Past Ioqbiux-Ozjzuv-Rrksvh Hx Immunizations Up To Date Tetanus Booster (TDap): Less than 5yrs First/Initial COVID19 Vaccinat: 2020 Second COVID19 Vaccination Meir: 2020 Third COVID19 Vaccination Date: 2020 Seasonal Allergies Seasonal Allergies: Yes Past Medical History Surgery/Hospitalization HX: Left Mastectomy; COPD; Pulmonary edema Surgeries: Yes (L Mastectomy w/nodes; double bypass, tunneled [place] port) Breast, CABG Respiratory: No COPD Cardiac: Yes (Heart failure; left systolic, 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 dz) Neuropathy, Vertigo Genitourinary: No Gastrointestinal: Yes (Gastritis, Duodenitis,) Gastroesophageal Reflux, Esophagitis, Gall Bladder Disease Musculoskeletal: Yes (Frequent sciatica issues, has RLS, complete rupture rotator cuff, ) Arthritis Endocrine: Yes Hypothyroidsim HEENT: No Cancer: Yes (Myelodysplastic Syndrome, Inflammatory CA L breast) Breast Did You Recieve Any Treatments: Yes What Type of Treatment Did You: Surgical Intervention Psychosocial: Yes Anxiety Integumentary: No Blood Disorders: No Family Medical History No Pertinent Family Hx Physical Exam Vital Signs Vital Signs - First Documented Capillary Refill : Height, Weight, BMI Height: 5'4.00" Weight: 142lbs. 0.0oz. 64.147712mp; 20.00 BMI Method:Stated General Appearance: Chronically ill, Mild Distress HEENT: PERRL/EOMI; No Moist Mucous Membranes (Slightly dry mucous membranes) Neck: Full Range of Motion, Normal Inspection, Non Tender, Supple Respiratory: Chest Non Tender, Accessory Muscle Use, Decreased Breath Sounds (especially on right side); No Stridor; Wheezing Cardiovascular: Regular Rate, Rhythm, Normal Peripheral Pulses Gastrointestinal: Normal Bowel Sounds, No Pulsatile Mass, Non Tender, Soft Extremity: Normal Capillary Refill, Normal Inspection, No Pedal Edema Neurologic/Psychiatric: Alert, Oriented x3 Skin: Normal Color, Warm/Dry Focused Exam Lactate Level 05/21/22 16:00: Lactic Acid Level 1.48 Lactic Acid Level Laboratory Tests Test 05/21/22 16:00 Lactic Acid Level 1.48 MMOL/L (0.50-2.00) Procedures/Interventions Suture Size: 5-0 Progress/Results/Core Measures Results/Orders Lab Results Laboratory Tests Test 05/21/22 16:00 05/21/22 17:07 Range/Units White Blood Count 13.3 H 4.3-11.0 10^3/uL Red Blood Count 3.97 3.80-5.11 10^6/uL Hemoglobin 11.8 11.5-16.0 g/dL Hematocrit 38 35-52 % Mean Corpuscular Volume 96 80-99 fL Mean Corpuscular Hemoglobin 30 25-34 pg Mean Corpuscular Hemoglobin Concent 31 L 32-36 g/dL Red Cell Distribution Width 15.3 H 10.0-14.5 % Platelet Count 384 130-400 10^3/uL Mean Platelet Volume 10.4 9.0-12.2 fL Immature Granulocyte % (Auto) 1 % Neutrophils (%) (Auto) 92 H 42-75 % Lymphocytes (%) (Auto) 2 L 12-44 % Monocytes (%) (Auto) 6 0-12 % Eosinophils (%) (Auto) 0 0-10 % Basophils (%) (Auto) 0 0-10 % Neutrophils # (Auto) 12.2 H 1.8-7.8 10^3/uL Lymphocytes # (Auto) 0.3 L 1.0-4.0 10^3/uL Monocytes # (Auto) 0.8 0.0-1.0 10^3/uL Eosinophils # (Auto) 0.0 0.0-0.3 10^3/uL Basophils # (Auto) 0.0 0.0-0.1 10^3/uL Immature Granulocyte # (Auto) 0.1 0.0-0.1 10^3/uL Blood Gas Puncture Site RIGHT WRIST Blood Gas Patient Temperature 36.3 Arterial Blood pH 7.32 *L 7.37-7.43 Arterial Blood Partial Pressure CO2 61 H 35-45 MMHG Arterial Blood Partial Pressure O2 61 L 79-93 MMHG Arterial Blood HCO3 31 H 23-27 MMOL/L Arterial Blood Total CO2 33.3 H 21.0-31.0 MMOL/L Arterial Blood Oxygen Saturation 89 L 94-100 % Arterial Blood Base Excess 3.8 H -2.5-2.5 MMOL/L Chet Test NEG Blood Gas Ventilator Setting NO Blood Gas Inspired Oxygen 2 L Sodium Level 139 135-145 MMOL/L Potassium Level 5.7 H 3.6-5.0 MMOL/L Chloride Level 103 98-107 MMOL/L Carbon Dioxide Level 25 21-32 MMOL/L Anion Gap 11 5-14 MMOL/L Blood Urea Nitrogen 33 H 7-18 MG/DL Creatinine 1.26 0.60-1.30 MG/DL Estimat Glomerular Filtration Rate 41 BUN/Creatinine Ratio 26 Glucose Level 157 H 70-105 MG/DL Lactic Acid Level 1.48 0.50-2.00 MMOL/L Calcium Level 10.8 H 8.5-10.1 MG/DL Corrected Calcium 11.4 H 8.5-10.1 MG/DL Magnesium Level 2.0 1.6-2.4 MG/DL Total Bilirubin 0.2 0.1-1.0 MG/DL Aspartate Amino Transf (AST/SGOT) 32 5-34 U/L Alanine Aminotransferase (ALT/SGPT) 22 0-55 U/L Alkaline Phosphatase 118 40-136 U/L Troponin I < 0.30 <0.30 NG/ML C-Reactive Protein 5.59 H <0.50 MG/DL Pro-B-Type Natriuretic Peptide 2943.0 H <450.0 PG/ML Total Protein 6.5 6.4-8.2 GM/DL Albumin 3.2 3.2-4.5 GM/DL Urine Color YELLOW Urine Clarity CLEAR Urine pH 5.5 5-9 Urine Specific [place] 1.020 1.016-1.022 Urine Protein NEGATIVE NEGATIVE Urine Glucose (UA) NEGATIVE NEGATIVE Urine Ketones NEGATIVE NEGATIVE Urine Nitrite NEGATIVE NEGATIVE Urine Bilirubin NEGATIVE NEGATIVE Urine Urobilinogen 0.2 < = 1.0 MG/DL Urine Leukocyte Esterase 1+ H NEGATIVE Urine RBC (Auto) TRACE-I H NEGATIVE Urine RBC 2-5 H /HPF Urine WBC 25-50 H /HPF Urine Squamous Epithelial Cells 5-10 /HPF Urine Crystals NONE /LPF Urine Bacteria TRACE /HPF Urine Casts PRESENT /LPF Urine Hyaline Casts 10-25 H /LPF Urine Mucus NEGATIVE /LPF Urine Culture Indicated YES My Orders Orders - АННА ZAVALA MD Cbc With Automated Diff (05/21/22 16:02) Comprehensive Metabolic Panel (05/21/22 16:02) Blood Culture (05/21/22 16:02) Chest 1 View Ap/Pa Only (05/21/22 16:02) Albuterol/Ipra Inhalation Soln (Duoneb I (05/21/22 16:15) Magnesium (05/21/22 16:02) Ekg Tracing (05/21/22 16:02) O2 (05/21/22 16:02) Ed Iv/Invasive Line Start (05/21/22 16:02) Sputum Culture (05/21/22 16:02) Monitor-Rhythm Ecg Trace Only (05/21/22 16:02) Crp Fs (05/21/22 16:02) Lactic Acid Analyzer (05/21/22 16:02) Svn Small Volume Nebulizer (05/21/22 16:02) Arterial Blood Gas (05/21/22 16:02) Troponin I Fs (05/21/22 16:02) Probnp Fs (05/21/22 16:02) Ua Culture If Indicated (05/21/22 16:02) Urine Culture (05/21/22 17:07) Code/Resuscitation (05/21/22 18:53) Medications Given in ED Current Medications Medications Dose Ordered Sig/Umm Route Start Time Stop Time Status Last Admin Dose Admin Albuterol/ Ipratropium 3 ml ONCE ONCE INH 05/21/22 16:15 05/21/22 16:16 DC 05/21/22 16:36 3 ML Vital Signs/I&O 05/21/22 05/21/22 05/21/22 05/21/22 15:56 15:56 16:09 17:34 Temp 36.3 36.5 Pulse 85 104 Resp 16 20 B/P (MAP) 131/ 99/6 Pulse Ox 97 99 90 O2 Delivery Nasal Cannula Nasal Cannula Nasal Cannula Nasal Cannula O2 Flow Rate 2.00 2.00 2.00 3.00 Progress Progress Note #1: Progress Note Obtain basic labs including blood cultures and lactic acid. Check cardiac enzymes. Chest x-ray and EKG to evaluate for worsening infiltrate or pneumonia as well as acute myocardial infarction. Try a another DuoNeb breathing treatment and continue with supplemental oxygen here. I personally reviewed the chart to get additional history and information about the patient. Again she had similar symptoms last weekend and these are chronic symptoms have been worsening over the last month or 2. Progress Note #2: Time: 16:39 Progress Note Chest x-ray now shows whiteout of the entire right lung which has worsened since last weekend. Her ABG showed a pH of 7.32, PCO2 of 61, PO2 of 61 on 2 L given her O2 saturation of 89%. Her last ABG in March had a PCO2 of 32. Her CBC shows mild elevation of her white blood cell count to 13,000 but she has been on a steroid this week. She has some hyperkalemia with a potassium of 5.7. She has mild elevation of her BUN to 33. There is no acute ischemic changes on her electrocardiogram. Awaiting troponin and proBNP. Will check with Dr. Sarmiento for [facility] to see if the patient would be able to be admitted there as per patient request. Progress Note #3: Time: 17:04 Progress Note d/w Dr. Sarmiento and she accepted pt for comfort measures. I did clarify with patient that she does not want to be intubated or put on ventilator as she understands that she would likely not be able to ever come off of a ventilator. She also did not want to have CPR if her heart were to stop. She voiced that they have done antibiotics and lasix and steroids without any improvement for more than a day or two. She states she is just tired and has thought several times in the last few months that she was not going to make it and she is ok with that if it happens. Initial ECG Impression Date: May 21, 2022 Initial ECG Impression Time: 16:13 Initial ECG Rate: 94 Initial ECG Rhythm: Normal Sinus Initial ECG Comparisson: Unchanged Comment Sinus rhythm with a heart rate of 94 bpm and occasional PVC. Left ventricular hypertrophy. SD interval [address] elevation. QT interval 326 ms with a QTc interval 378 ms. There is no significant change from prior tracings done over the last 6 weeks. Diagnostic Imaging Diagonstic Imaging: Xray Plain Films/CT/US/NM/MRI: chest Comments NAME: [facility] REC#: [id number] PT STATUS: REG ER : 1935 PHYSICIAN: АННА ZAVALA MD ADMIT DATE: 05/21/22/ER FS Signed Date of Exam:05/21/22 CHEST 1 VIEW AP/PA ONLY INDICATION: Shortness of breath, cough. FINDINGS: There is complete whiteout of the right hemithorax. A rightward rotation challenges assessment of cardiomediastinal shift, therefore it is unclear how much of the change is owing to complete right lung collapse versus progressive pleural fluid. There are interstitial opacities throughout the left lung, unchanged. IMPRESSION: 1. There has been the development of complete right thoracic whiteout. While there was right pleural fluid confirmed on the prior, the change, itself, is probably owing to the development of complete right lung atelectasis; however, a substantial progression in pleural fluid could not be excluded. 2. Interstitial disease in the left lung unchanged. The left pleural space negative. Dictated by: Dictated on workstation # [id number] Dict: 05/21/22 1623 Trans: 05/21/22 1634 [facility] [id number] Interpreted by: CATRACHITA SANDOVAL Electronically signed by: CATRACHITA SANDOVAL 05/21/22 1634 Reviewed: Reviewed by Me Departure Impression Primary Impression: COPD with exacerbation Additional Impressions: Pleural effusion on right Hypercapnic respiratory failure, chronic Disposition: 02 XFER SHT-TRM HOSP Condition: Stable Transfer Transfer Reason: Patient preference Time Spoke to Accepting Phy: 17:04 Transfer Progress Notes d/w Dr. Sarmiento and she accepted pt for comfort measures and helping with her breathing to [place] as patient had requested to go there. Transfer Facility: [facility] Method of Transfer: EMS Departure-Patient Inst. Referrals: FELICITAS SCHAEFER MD (PCP/Family) Primary Care Physician АННА ZAVALA MD May 21, 2022 16:11
[2022-05-21 16:13] LABS: ABG PCO2 61 MMHG (35-45); ABG PO2 61 MMHG (79-93); ABG TCO2 33.3 MMOL/L (21.0-31.0)
[2022-05-21 16:14] LABS: ABG BASE EXCESS 3.8 MMOL/L (-2.5-2.5); ABG OXYGEN SATURATION 89 % (94-100); VENTILATOR NO
[2022-05-21 16:15] LABS: ABG PH 7.32 (7.37-7.43)
[2022-05-21] MEDS ORDERED: RT-ALBUTEROL/IPRATROPIUM 3 ML (DUONEB) VIAL INH ONE (16:15)
[2022-05-21 16:20] LABS: ALLENS TEST NEG; INSPIRED O2 2 L; PATIENT TEMP 36.3
[2022-05-21 16:32] LABS: ALANINE AMINOTRANSFERASE 22 U/L (0-55); ALBUMIN 3.2 GM/DL (3.2-4.5); ALKALINE PHOSPHATASE 118 U/L (40-136); BILIRUBIN,TOTAL 0.2 MG/DL (0.1-1.0); BUN/CREATININE RATIO 26; CALCIUM 10.8 MG/DL (8.5-10.1); CARBON DIOXIDE 25 MMOL/L (21-32); CHLORIDE 103 MMOL/L (98-107); CREATININE SERUM 1.26 MG/DL (0.60-1.30); GFR ESTIMATED 41; GLUCOSE 157 MG/DL (70-105); POTASSIUM 5.7 MMOL/L (3.6-5.0); SODIUM 139 MMOL/L (135-145); TOTAL PROTEIN 6.5 GM/DL (6.4-8.2)
--- NOTE | 2022-05-21 16:33 | Diagnostic Imaging Report ---
INDICATION: Shortness of breath, cough. FINDINGS: There is complete whiteout of the right hemithorax. A rightward rotation challenges assessment of cardiomediastinal shift, therefore it is unclear how much of the change is owing to complete right lung collapse versus progressive pleural fluid. There are interstitial opacities throughout the left lung, unchanged. IMPRESSION: 1. There has been the development of complete right thoracic whiteout. While there was right pleural fluid confirmed on the prior, the change, itself, is probably owing to the development of complete right lung atelectasis; however, a substantial progression in pleural fluid could not be excluded. 2. Interstitial disease in the left lung unchanged. The left pleural space negative. Dictated by: Dictated on workstation # [id number]
[2022-05-21 17:11] LABS: BILIRUBIN,URINE NEGATIVE (NEGATIVE); CLARITY,URINE CLEAR; COLOR,URINE YELLOW; GLUCOSE, URINE (UA) NEGATIVE (NEGATIVE); KETONES,URINE NEGATIVE (NEGATIVE); LEUKOCYTE ESTERASE ,URINE 1+ (NEGATIVE); NITRITE,URINE NEGATIVE (NEGATIVE); PH,URINE 5.5 (5-9); PROTEIN,URINE NEGATIVE (NEGATIVE)
[2022-05-21 17:15] LABS: BACTERIA,URINE TRACE /HPF; WBC,URINE 25-50 /HPF
[2022-05-21 17:34] VITALS: BP 99/6
== END 2022-05-21 17:39 | disposition short-term general hospital (02) ==
LOC: EDUNIT# 15:54 → ER FS 15:56
DX: J44.1 Chronic obstructive pulmonary disease with (acute) exacerbation (principal); J90 Pleural effusion, not elsewhere classified; J96.12 Chronic respiratory failure with hypercapnia; E87.5 Hyperkalemia; D72.829 Elevated white blood cell count, unspecified; R79.89 Other specified abnormal findings of blood chemistry; Z91.040 Latex allergy status
CPT/HCPCS: 36415; 71045; 80053; 81000; 82805; 83605; 83735; 83880; 84484; 85025; 86141; 87040; 87088; 93005; 93041; 94640